=== PATIENT | female | born 1960 | race Two or more races ===

== ENCOUNTER 2020-11-15 10:34 | Outpatient (REF) | payer MEDICAID, SELFPAY ==
--- NOTE | ~2020-11-15 | MM_ITS ---
EXAMINATION: MM SCREENING DIGITAL BREAST TOMOSYNTHESIS, BILATERAL CLINICAL INFORMATION: Screening. Asymptomatic. The lifetime risk of breast cancer based on the Tyrer-Cuzick Model is 8.5%. COMPARISON: Mammography: September 04, 2019 and studies dating back to January 01, 2014 TECHNIQUE: Digital breast tomosynthesis is performed in both the craniocaudal and mediolateral oblique views along with computer-aided detection (CAD). Synthesized 2D images are generated from the tomosynthesis. FINDINGS: The breasts are heterogeneously dense, which may obscure small masses (ACR BI-RADS breast composition Category c). There are no significant masses, abnormal calcifications, or other abnormalities. MM/MM tomosynthesis screening BI IMPRESSION: There are no significant changes from prior study. ASSESSMENT: BI-RADS 1: Negative RECOMMENDATION: Routine annual mammography screening. This patient's information was entered into a reminder system with a target due date for their next mammogram.
== END 2020-11-15 10:35 | disposition home or self-care (01) ==
LOC: HO.MAMMO 10:34
PROVIDERS: PCP Internal Medicine; Visit Provider Internal Medicine
DX: Z12.31 Encounter for screening mammogram for malignant neoplasm of breast (principal)
CPT/HCPCS: 77063; 77067

== ENCOUNTER 2021-07-31 14:42 | Outpatient (REF) | payer MEDICAID, SELFPAY ==
--- NOTE | ~2021-07-31 | XR_ITS ---
EXAMINATION: XR RIBS, RIGHT CLINICAL INFORMATION: Pain and pleurisy COMPARISON: Previous chest x-ray April [address] May 2018 TECHNIQUE: 3 views of the right ribs and one view of the chest were obtained. FINDINGS: The cardiac and mediastinal contours are normal. The lungs are clear. There is no pleural effusion or pneumothorax. No rib fracture or bone lesion is seen. There are mild degenerative changes of the thoracic spine. XR/XR ribs RT min 3V w CXR1V IMPRESSION: Normal-appearing right ribs. No evidence for acute disease in the chest.
== END 2021-07-31 14:43 | disposition home or self-care (01) ==
LOC: HO.XRAY 14:42
PROVIDERS: Visit Provider Family Medicine
DX: R07.81 Pleurodynia (principal); R09.1 Pleurisy
CPT/HCPCS: 71101

== ENCOUNTER 2021-11-20 12:21 | Outpatient (REF) | payer MEDICAID, SELFPAY ==
--- NOTE | ~2021-11-20 | MM_ITS ---
EXAMINATION: MM SCREENING DIGITAL BREAST TOMOSYNTHESIS, BILATERAL CLINICAL INFORMATION: Screening. Asymptomatic. The lifetime risk of breast cancer based on the Tyrer-Cuzick Model is 8%. COMPARISON: Mammography: 11/15/2020, 09/04/2019, 08/29/2018 TECHNIQUE: Digital breast tomosynthesis is performed in both the craniocaudal and mediolateral oblique views along with computer-aided detection (CAD). Synthesized 2D images are generated from the tomosynthesis. FINDINGS: There are scattered areas of fibroglandular density (ACR BI-RADS breast composition Category b). There are no significant masses, abnormal calcifications, or other abnormalities. Breast tissue composition borders on heterogeneously dense. Parenchymal pattern is similar to prior studies. Skin contours are smooth. MM/MM tomosynthesis screening BI IMPRESSION: No mammographic evidence of malignancy. ASSESSMENT: BI-RADS 1: Negative RECOMMENDATION: Routine annual mammography screening. This patient's information was entered into a reminder system with a target due date for their next mammogram.
== END 2021-11-20 12:22 | disposition home or self-care (01) ==
LOC: HO.MAMMO 12:21
PROVIDERS: PCP Internal Medicine; Visit Provider Internal Medicine
DX: Z12.31 Encounter for screening mammogram for malignant neoplasm of breast (principal)
CPT/HCPCS: 77063; 77067

== ENCOUNTER 2022-07-27 11:57 | Outpatient (REF) | payer MEDICAID, SELFPAY ==
--- NOTE | ~2022-07-27 | XR_ITS ---
EXAMINATION: XR HAND, RIGHT CLINICAL INFORMATION: Right hand pain COMPARISON: 02/09/2015 TECHNIQUE: PA, lateral, and oblique views of the right hand. FINDINGS: The bones and soft tissues are normal. No fracture. Alignment is anatomic. Joint spaces are maintained. No erosions or soft tissue calcifications. XR/XR hand RT min 3V IMPRESSION: Normal right hand.
== END 2022-07-27 11:58 | disposition home or self-care (01) ==
LOC: HO.XRAY 11:57
PROVIDERS: PCP Internal Medicine; Visit Provider Internal Medicine
DX: M79.641 Pain in right hand (principal)
CPT/HCPCS: 73130

== ENCOUNTER 2022-11-08 10:15 | Outpatient (REF) | payer MEDICAID, SELFPAY ==
--- NOTE | ~2022-11-08 | XR_ITS ---
EXAMINATION: XR SHOULDER, LEFT CLINICAL INFORMATION: Acute pain left shoulder COMPARISON: None available. TECHNIQUE: Left shoulder is imaged in 4 views. FINDINGS: No fracture, dislocation, destructive process. The glenohumeral joint appears normal. The acromioclavicular alignment is normal. There is small calcification in region of distal superior rotator cuff consistent with calcific tendinosis. XR/XR shoulder LT min 2V IMPRESSION: Calcific tendinosis in region of distal superior rotator cuff.
== END 2022-11-08 10:16 | disposition home or self-care (01) ==
LOC: HO.XRAY 10:15
PROVIDERS: PCP Internal Medicine; Visit Provider Internal Medicine
DX: M25.512 Pain in left shoulder (principal)
CPT/HCPCS: 73030

== ENCOUNTER 2022-11-21 12:46 | Outpatient (REF) | payer MEDICAID, SELFPAY ==
--- NOTE | ~2022-11-21 | MM_ITS ---
EXAMINATION: MM SCREENING DIGITAL BREAST TOMOSYNTHESIS, BILATERAL CLINICAL INFORMATION: Screening. Asymptomatic. The lifetime risk of breast cancer based on the Tyrer-Cuzick Model is 7.5%. COMPARISON: Mammography: November 20, 2021 and studies dating back to May 18, 2016 TECHNIQUE: Digital breast tomosynthesis is performed in both the craniocaudal and mediolateral oblique views along with computer-aided detection (CAD). Synthesized 2D images are generated from the tomosynthesis. FINDINGS: The breasts are heterogeneously dense, which may obscure small masses (ACR BI-RADS breast composition Category c). There are no new significant masses, abnormal calcifications, or other abnormalities. MM/MM tomosynthesis screening BI IMPRESSION: No significant changes from prior exam. ASSESSMENT: BI-RADS 1: Negative RECOMMENDATION: Routine annual mammography screening. This patient's information was entered into a reminder system with a target due date for their next mammogram.
== END 2022-11-21 12:47 | disposition home or self-care (01) ==
LOC: HO.MAMMO 12:46
PROVIDERS: PCP Internal Medicine; Visit Provider Internal Medicine
DX: Z12.31 Encounter for screening mammogram for malignant neoplasm of breast (principal)
CPT/HCPCS: 77063; 77067

== ENCOUNTER 2023-05-20 09:07 | Outpatient (REF) | payer MEDICAID, SELFPAY ==
[2023-05-20 12:09] LABS: Cholesterol 151 mg/dL (<200); HDL Cholesterol 52 mg/dL (>40); LDL Cholesterol Calculated 71 mg/dL (<100); Triglycerides 141 mg/dL (<150)
[2023-05-20 12:15] LABS: Alanine Aminotransferase 12 U/L (0-31); Albumin Level 4.4 g/dL (3.5-5.0); Alkaline Phosphatase 78 U/L (39-117); Anion Gap 14 (12-20); Aspartate Amino Transferase 20 U/L (5-31); Bilirubin Direct 0.2 mg/dL (0.0-0.5); Bilirubin Total 0.6 mg/dL (0.0-1.0); Blood Urea Nitrogen 15 mg/dL (9-16); Calcium 9.7 mg/dL (8.4-10.2); Carbon Dioxide 26 mmol/L (22-29); Chloride 106 mmol/L (96-108); Estimated Glomerular Filt Rate > 60; Glucose Random 106 mg/dL (60-115); Potassium 4.8 mmol/L (3.3-5.1); Sodium 141 mmol/L (135-145); Total Protein 8.1 g/dL (6.5-8.0)
[2023-05-20 12:31] LABS: HIV AB/AG Nonreactive (Nonreactive); HIV Num 1 0.05 S/CO (0.00-0.99); ~HepC Num1 0.05 S/CO (0.00-0.79); ~Hepatitis C Antibody Nonreactive (Nonreactive)
[2023-05-20 14:53] LABS: Reflex LDLD? No
== END 2023-05-20 09:08 | disposition home or self-care (01) ==
LOC: HO.HHCL 09:07
PROVIDERS: Visit Provider Internal Medicine
DX: Z00.00 Encounter for general adult medical examination without abnormal findings (principal); I10 Essential (primary) hypertension; E78.2 Mixed hyperlipidemia
CPT/HCPCS: 36415; 80048; 80061; 80076; 86803; 87389

== ENCOUNTER 2023-08-28 09:36 | Outpatient (REF) | payer MEDICAID, SELFPAY ==
--- NOTE | ~2023-08-28 | XR_ITS ---
EXAMINATION: XR SHOULDER, LEFT CLINICAL INFORMATION: Left shoulder pain COMPARISON: None available. TECHNIQUE: AP external rotation, Grashey, scapular Y, and axillary views of the left shoulder. FINDINGS: No fracture, dislocation or destructive lesion. Minor calcification near the greater tuberosity at the insertion of the supraspinatus tendon is noted. XR/XR shoulder LT min 2V IMPRESSION: Minor degenerative change otherwise unremarkable study. No acute findings.
[2023-08-28 12:40] LABS: Creatinine Urine 33.51 mg/dL; Microalbumin Urine < 5.0 mg/L
== END 2023-08-28 09:37 | disposition home or self-care (01) ==
LOC: HO.HHCL 09:36
PROVIDERS: Visit Provider Internal Medicine
DX: M25.512 Pain in left shoulder (principal); E11.621 Type 2 diabetes mellitus with foot ulcer; L97.509 Non-pressure chronic ulcer of other part of unspecified foot with unspecified severity; Z79.4 Long term (current) use of insulin
CPT/HCPCS: 73030; 82043; 82570

== ENCOUNTER 2023-11-27 12:47 | Outpatient (REF) | payer MEDICARE, MEDICAID, SELFPAY | END 2023-11-27 12:48 | disposition home or self-care (01) | LOC: HO.MAMMO 12:47 | PROVIDERS: PCP Internal Medicine; Visit Provider Internal Medicine | DX: Z12.31 Encounter for screening mammogram for malignant neoplasm of breast (principal) | CPT/HCPCS: 77063; 77067 ==

== ENCOUNTER → 2023-11-27 13:00 | Outpatient (BNV) | payer MEDICARE, MEDICAID, SELFPAY | PROVIDERS: PCP Internal Medicine; Visit Provider Radiology Diagnostic Radiology | DX: Z12.31 Encounter for screening mammogram for malignant neoplasm of breast (principal) | CPT/HCPCS: 77063; 77067 ==

== ENCOUNTER 2024-08-24 09:35 | Outpatient (REF) | payer MEDICARE, MEDICAID, SELFPAY ==
--- OUTSIDE RECORDS SUMMARY | 2024-08-24 09:58 | XMS_ITS | Encounter Summary ---
Author Organization [employer] Address [address] [facility] 7t [place] [address] Care Team Providers Care Gate Agent Name Role Phone Amilcar Louis MD Primary Care Provide r Reason for Visit * Reason Onset Date Comments some pain 08/26/2023 pain medication 08/26/2023 pain from ext 08/26/2023 Encounter Details Date Type Department Care Team (Late st Contact Info) Description 08/26/2023 Telephone [facility] [address] [place], [place] [phone] Abiodun Bean DDS [address] [place] [address] some pain; pain medication; pain from ext Social History Tobacco Use Types Packs/Day Years Used Date Smoking Tobacco: Never Passive Smoke Exposure: Never Smokeless Tobacco: Never Alcohol Use Standard Drinks/Week Comments Never 0 (1 standard drink = 0.6 oz pur e alcohol) Depression Answer Date Recorded Patient Health Questionnaire-9 Score 1 01/10/2023 Housing Stability Answer Date Recorded What is your housing situation today? I have clara lindsay 05/20/[address] you li ve. Do you have problems with any of the following? None of the above 05/20/2023 Food Insecurity Answer Date Recorded Within the past 12 months, y ou worried that your food would run out before you got money to buy more: Often true 08/13/2023 Within the past 12 months,th e food you bought just didn't last and you didn't have enough money to get more: Often true Transportation Answer Date Recorded In the past 12 months, has l ack of transportation kept you from medical appts, meetings, work or from getting things needed for daily living? No 05/20/2023 Utilities Answer Date Recorded In the past 12 months, has t he electric, gas, oil or water company threatened to shut off services in your home? No 05/20/2023 Depression Answer Date Recorded Patient Health Questionnaire-2 Score 0 01/10/2023 Comments No Sex and Gender Information Value Date Recorded Sex Assigned at Female 05/21/2022 10:14 AM EDT Legal Sex Female 10:14 AM EDT Gender Identity Female 05/21/2022 10:14 AM EDT Sexual Orientation Straight 05/21/2022 10 :14 AM EDT documented as of this encounter Miscellaneous Notes * Telephone Encounter - Mara Doe - 09/05/2023 8:12 AM EST Message for Dr. Bean Patient called in yesterday as well. Message was sent to Dr. Barba for assistance. Patient is in extreme pain from ext and wants something sent to the pharmacy. Her daughter has been giving her some tylenol with no relief DR Vieyra signed by Mara Doe at 09/05/2023 8:13 AM EST * Telephone Encounter - Mara Doe - 09/04/2023 2:40 PM EST Message for Dr. Barba Patient had ext on Saturday with Dr. Bean. He is not in today and she is looking to see if something can be sent to the pharmacy. She is taking OTC tylenol and it is not working DR Shinally signed by Mraa Doe at 09/04/2023 2:42 PM EST * Telephone Encounter - Mara Doe - 08/26/2023 8:53 AM EST Patient came in a emergency patient on 08/12. Scripted antibiotics and they helped. The majority ofthe pain went away. But still had slight pain. Over weekend pain intensified a bit more but not emergency status. No swelling or discharge just pain. Would like to know what to do. If medication can be sent again to pharmacy? DR Shinally signed by Mara Doe at 08/26/2023 8:55 AM EST documented in this encounter Plan of Treatment Upcoming Encounters Date Type Department Care Team (Late st Contact Info) Description 08/27/2024 10:15 AM EST Office Visit [facility] [address] [place] [address] Amilcar Louis MD [address] [place] [address] documented as of this encounter Visit Diagnoses Not on filedocumented in this encounter Additional Health Concerns Assessment Noted Time PHQ-9 Depression Total Score: 1 01/11/20 23 3:27 PM EDT documented as of this encounter Care Teams Gate Agent Relationship Specialty Start Date End Date Amilcar Louis MD [address] [place] [address] PCP - General Internal Medicine 04/08/14 Yessenia Olmos Caption WriterDairy Machine Operator Farmworker 09/20/23 documented as of this encounter
--- OUTSIDE RECORDS SUMMARY | 2024-08-24 09:58 | XMS_ITS | Encounter Summary ---
Author Organization [employer] Address [address] [facility] 7t [place] [address] Care Team Providers Care Edger Feeder Name Role Phone Amilcar Louis MD Primary Care Provide r Reason for Visit * Reason Comments Med Refill Encounter Details Date Type Department Care Team ([facility] st Contact Info) Description 05/18/2024 Refill [facility] [address] [place], [place] [phone] Jessie Sanchez MD [address] [place] [address] Neuropathy Social History Tobacco Use Types Packs/Day Years Used Date Smoking Tobacco: Never Passive Smoke Exposure: Never Smokeless Tobacco: Never Alcohol Use Standard Drinks/Week Comments Never 0 (1 standard drink = 0.6 oz pur e alcohol) Depression Answer Date Recorded Patient Health Questionnaire-9 Score 0 10/15/2023 Patient Health Questionnaire-9 Score 0 10/15/2023 Last PHQ-9: Questionnaire Data Not on file 0 10/15/2023 Housing Stability Answer Date Recorded What is [...] Date Recorded Patient Health Questionnaire-2 Score 0 10/15/2023 Comments No Sex and Gender Information Value Date Recorded Sex Assigned at Female 05/21/2022 10:14 AM EDT Legal Sex Female 10:14 AM EDT Gender Identity Female 05/21/2022 10:14 AM EDT Sexual Orientation Straight 05/21/2022 10 :14 AM EDT documented as of this encounter Plan of Treatment Upcoming Encounters Date Type Department Care Team (Late st Contact Info) Description 08/27/2024 10:15 AM EST Office Visit [facility] [address] [place] [address] Amilcar Louis MD [address] [place] [address] documented as of this encounter Visit Diagnoses Diagnosis Neuropathy Mononeuritis of unspecified site documented in this encounter Additional Health Concerns Assessment Noted Time PHQ-9 Depression Total Score: 0 10/15/19 24 10:59 AM EDT documented as of this encounter Care Teams Edger Feeder Relationship Specialty Start Date End Date Amilcar Louis MD [address] [place] [address] PCP - General Internal Medicine 04/08/14 Yessenia Olmos Combat Systems OperatorProduct Promoter Retail Pet 09/20/23 documented as of this encounter
--- OUTSIDE RECORDS SUMMARY | 2024-08-24 09:59 | XMS_ITS | Encounter Summary ---
Author Organization [employer] [facility] Address [address] [facility] 7t [place] [address] Care Team Providers Care Mash Tub Cooker Name Role Phone Amilcar Louis MD Primary Care Provide r Encounter Details Date Type Department Care Team (Late Contact Info) Description 08/31/2022 Refill [facility] [address] [place] [address] [phone] Amilcar Louis MD [address] [place] [address] [phone] Type 2 diabetes mellitus with foot ulcer, with long-term current use of insulin (CMS/HCC) Social History Tobacco Use Types Packs/Day Years Used Date Smoking Tobacco: Former Cigarettes Comments Unknown Sex and Gender Information Value Date Recorded Sex Assigned at Female 05/21/2022 10:14 AM EDT Legal Sex Female 10:14 AM EDT Gender Identity Female 05/21/2022 10:14 AM EDT Sexual Orientation Straight 05/21/2022 10 :14 AM EDT documented as of this encounter Plan of Treatment Upcoming Encounters Date Type Department Care Team (Late st Contact Info) Description 08/27/2024 10:15 AM EST Office Visit [facility] [address] [place] [address] [phone] Amilcar Louis MD [address] [place] [address] [phone] documented as of this encounter Visit Diagnoses Diagnosis Type 2 diabetes mellitus with foot ulcer, with long-term current use of insulin (CMS/HCC) documented in this encounter Care Teams Mash Tub Cooker Relationship Specialty Start Date End Date Amilcar Louis MD [address] [place] [address] PCP - General Internal Medicine 04/08/14 Yessenia Olmos Dye Winch OperatorCommercial Mortgage Broker 09/20/23 documented as of this encounter
--- OUTSIDE RECORDS SUMMARY | 2024-08-24 09:59 | XMS_ITS | Encounter Summary ---
Author Organization [employer] Address [address] [facility] 7t [place] [address] Care Team Providers Care Military Exchange Wireless Manager Name Role Phone Amilcar Louis MD Primary Care Provide r Reason for Visit * Reason Onset Date Comments Triage 08/02/2022 Encounter Details Date Type Department Care Team ([facility] st Contact Info) Description 08/02/2022 Telephone [facility] [address] [place], [place] [phone] Amilcar Louis MD [address] [place], [place] [phone] Triage Social History Tobacco Use Types Packs/Day Years Used Date Smoking Tobacco: Never Assessed Depression Answer Date Recorded Patient Health Questionnaire-9 [...] the past 12 months, has t he [employer], gas, oil or water [employer] threatened to shut off services in your home? No 05/20/2023 Depression Answer Date Recorded Patient Health Questionnaire-2 Score 0 10/15/2023 Comments Unknown Sex and Gender Information Value Date Recorded Sex Assigned at Female 05/21/2022 10:14 AM EDT Legal Sex Female 10:14 AM EDT Gender Identity Female 05/21/2022 10:14 AM EDT Sexual Orientation Straight 05/21/2022 10 :14 AM EDT COVID-19 Exposure Response Date Recorded In the last 10 days, have yo u been in contact with someone who was confirmed or suspected to have Coronavirus/COVID-19? No / Unsure 01/10/2023 3:08 PM EDT documented as of this encounter Miscellaneous Notes * Telephone Encounter - Nirali Bacon RN - 08/02/2022 12:07 PM EST Triage call with [employer] Operations Representative [place] [id number] Pt reports positive home test for Covid 07/31. Pt symptoms are mild, neg for fever, temp is 97, has cough, nasal congestion. Pt is advised to seek assist in ED if fever of 103, difficulty breathing, chest pain/pressure. Pt denies any severe symptoms. Pt reports children advised Pt to talk to MD about medication. Advised that symptoms are mild and reasons for medication is reviewed with Pt. Home care is thoroughly reviewed with Pt . Pt agrees with home care and disposition. Scheduled tele visit with provider for questions regarding medications. tele visit 08/03 @ 330pm with Dr. Tucker. Insurance is verified as active prior to booking. Protocol Used: COVID-19 - Diagnosed or Suspected (Adult) Protocol-Based Disposition: Home Care Positive Triage Question: * [1] COVID-19 diagnosed by positive lab test (e.g., PCR, rapid self-test kit) AND [2] mild symptoms (e.g., cough, fever, others) AND [3] no complications or SOB * All higher-acuity triage questions were negative Care Advice Discussed: * Reassurance and Education - Positive COVID-19 Lab Test and Mild Symptoms * General Care Advice for COVID-19 Symptoms * Cough Medicines * Cough Syrup With Dextromethorphan * Cough Syrup With Dextromethorphan - Extra Notes and Warnings * Humidifier * Coughing Spells * Pain and Fever Medicines * Pain and Fever Medicines - Extra Notes and Warnings * FAQ - Do I Need Special Medicines to Treat COVID-19? * Reasons To Call Back - Fever over 103 F (39.4 C) - Fever lasts over 3 days - Fever returns after being gone for 24 hours - Chest pain or difficulty breathing occurs - You become worse * COVID-19 - How to Protect Others - When You Are Sick With COVID-19 * Telephone Encounter - Breana Jose Antonio - 08/02/2022 10:55 AM EST Patient calling to report positive for COVID ( home kit ) Cough, back pain. Pt is requesting antiviral tablet Patient speaks Hebrew. Advised triage nurse will call patient back. Please contact at [phone] documented in this encounter Plan of Treatment Upcoming Encounters Date Type Department Care Team (Late st Contact Info) Description 08/27/2024 10:15 AM EST Office Visit [facility] [address] [place] [address] Amilcar Louis MD [address] [place] [address] documented as of this encounter Visit Diagnoses Not on filedocumented in this encounter Care Teams Military Exchange Wireless Manager Relationship Specialty Start Date End Date Amilcar Louis MD [address] [place] [phone] PCP - General Internal Medicine 04/08/14 Yessenia Olmos Jet PilotManager Plan 09/20/23 documented as of this encounter
--- OUTSIDE RECORDS SUMMARY | 2024-08-24 09:59 | XMS_ITS | Encounter Summary ---
Author Organization [facility] Address [address] [place] [address] 7t [place] [address] Care Team Providers Care Asphalt Dauber Name Role Phone Amilcar Louis MD Primary Care Provide r Encounter Details Date Type Department Care Team (Latest Contact Info) Description 03/13/2021 Abstract [facility] CONVERSIONS Dental, Provider, DDS Social History Tobacco Use Types Packs/Day Years Used Date Smoking Tobacco: Never Assessed Comments Unknown Sex and Gender Information Value [...] Description 08/27/2024 10:15 AM EST Office Visit [facility] [address] [place] [address] Amilcar Louis MD [address] [place] [phone] documented as of this encounter Visit Diagnoses Not on filedocumented in this encounter Care Teams Asphalt Dauber Relationship Specialty Start Date End Date Amilcar Louis MD [address] [place] [id number] PCP - General Internal Medicine 04/08/14 Yessenia Olmos Calculus TeacherAssociate Professor Of Church Music 09/20/23 documented as of this encounter
--- OUTSIDE RECORDS SUMMARY | 2024-08-24 09:59 | XMS_ITS | Encounter Summary ---
Author Organization [employer] Address [address] [facility] 7t [place] [address] Care Team Providers Care 911 Dispatcher Name Role Phone Amilcar Louis MD Primary Care Provide r Reason for Visit * Reason Onset Date Comments Med Refill 12/23/2023 Encounter Details Date Type Department Care Team ([facility] st Contact Info) Description 12/23/2023 Refill [facility] [address] [place], [place] [phone] Amilcar Louis MD [address] [place] [address] Allergic rhinitis, unspecified seasonality, unspecified trigger Social History Tobacco Use Types Packs/Day Years [...] encounter Miscellaneous Notes * Telephone Encounter - Britney Hagen - 12/23/2023 12:00 PM EDT TC from pt requesting medication refill. Medications needing refill : loratadine (Claritin) 10 MG tablet To be sent to: [facility] [address] [place] [address] documented in this encounter Plan of Treatment Upcoming Encounters Date Type Department Care Team (Late st Contact Info) Description 08/27/2024 10:15 AM EST Office Visit [facility] [address] [place] [phone] Amilcar Louis MD [address] [place] [phone] documented as of this encounter Visit Diagnoses Diagnosis Allergic rhinitis, unspecified seasonality, unspecified trigger documented in this encounter Additional Health Concerns Assessment Noted Time PHQ-9 Depression Total Score: 0 10/15/19 24 10:59 AM EDT documented as of this encounter Care Teams 911 Dispatcher Relationship Specialty Start Date End Date Amilcar Louis MD [address] [place] [id number] PCP - General Internal Medicine 04/08/14 Yessenia Olmos Pickup DriverIndustrial Green Systems Designer 09/20/23 documented as of this encounter
--- OUTSIDE RECORDS SUMMARY | 2024-08-24 09:59 | XMS_ITS | Encounter Summary ---
Author Organization [employer] [facility] Address [address] [place] [address] 7t [place] [address] Care Team Providers Care Application Support Intern Name Role Phone Amilcar Louis MD Primary Care Provide r Encounter Details Date Type Department Care Team (Latest Contact Info) Description 02/05/2019 Abstract [facility] CONVERSIONS Dental, Provider, DDS Social History [...] Description 08/27/2024 10:15 AM EST Office Visit [facility] [address] [place] [address] Amilcar Louis MD [address] [place] [address] documented as of this encounter Visit Diagnoses Not on filedocumented in this encounter Care Teams Application Support Intern Relationship Specialty Start Date End Date Amilcar Louis MD [address] [place] [phone] PCP - General Internal Medicine 04/08/14 Yessenia Olmos Rn Post PartumSugar Drier 09/20/23 documented as of this encounter
--- OUTSIDE RECORDS SUMMARY | 2024-08-24 09:59 | XMS_ITS | Encounter Summary ---
Author Organization [facility] Address [id number] [place] [phone] Care Team Providers Care Summer Law Associate Name Role Phone Amilcar Bauer MD Primary Care Provi lisa Reason for Referral * Imaging (Routine) - Pending Review Specialty Diagnoses / Procedures Referred By Contac t Referred To Contact Cardiology Diagnoses ST elevation myocardial infarction (STEMI), unspecified artery (CMS/HCC) Procedures Transthoracic echocardiogram (TTE) complete with PRN contrast, bubble, strain, and 3D order panel CA TTE W 2D IMAGE COMPLETE W DOPPLER ECHO & COLOR FLOW DOPPLER ECHO CA BEA 2D COMPLETE W/CONTRAST OR W & WO CONTRAST WITH DOPPLER Marco A Williamson MD [address] [place] [address] Dr Dumont [address] [place] [id number] [facility] Referral ID Status Reason Start Date Expiration Date V isits Requested Visits Authorized [id number] Pending Review 08/12/2024 08/12/2025 1 1 * Consultation (Routine) - Pending Review Specialty Diagnoses / Procedures Referred By Contac t Referred To Contact Cardiology / Cardiac Rehabilitation Diagnoses ST elevation myocardial infarction (STEMI), unspecified artery (CMS/HCC) Marco A Williamson MD [address] [place] [address] Dr Dumont [address] [place] [id number] Referral ID Status Reason Start Date Expiration Date Visits Requested Visits Authorized [id number] Pending Review Specialty Services Required 08/12/2024 08/12/2025 1 1 Reason for Visit * Reason Comments Hospital Follow-up Encounter Details Date Type Department Care Team (Late st Contact Info) Description 08/12/2024 9:50 AM EST Office Visit [facility] [address] [place] [address] Marc oA Williamson MD [address] [place] [address] Dr Dumont [address] [place] [address] Chest pain, unspecified type (Primary Dx); ST elevation myocardial infarction (STEMI), unspecified artery (CMS/HCC); HFrEF (heart failure with reduced ejection fraction) ([facility]) Social History Tobacco Use Types Packs/Day Years Used Date Smoking Tobacco: Never Assessed Sex and Gender Information Value Date Recorded Sex Assigned at Not on file Gender Identity Not on file Sexual Orientation Not on file Job Start Date Occupation Industry Not on file Not on file Not on file documented as of this encounter Last Filed Vital Signs Vital Sign Reading Time Taken Comments Blood Pressure 120/76 08/12/2024 10:41 AM EST Pulse 86 08/12/2024 10:41 AM EST Temperature - - Respiratory Rate - - Oxygen Saturation 98% 08/12/2024 10:41 AM EST Inhaled Oxygen Concentration - - Weight 62.1 kg (137 lb) 08/12/2024 10:41 AM EST Height 162.6 cm (5' 4 ) 08/12/2024 10:41 AM EST Body Mass Index 23.52 08/12/2024 10:41 AM EST documented in this encounter Ordered Prescriptions Prescription Sig Dispensed Refills Start Date End Da te metoprolol succinate (TOPROL-XL) 25 mg 24 hr tablet Take 1 tablet (25 mg total) by mouth 1 (one) time each day. Do not crush or chew. 30 each 11 08/12/2024 08/12/2025 documented in this encounter Progress Notes * Marco A Williamson MD - 08/12/2024 9:50 AM EST Images from the original note were not included. [facility] PCP: Amilcar Bauer MD HPI: Trent Almodovar is a 63 y.o. old female with hypertension, hyperlipidemia,, diabetes mellitus type2 who initially came to the hospital in the end of June with a late presenting DE. Coronary angiogram was done at that time which showed complete occlusion of the LAD from the mid segment with poorly visible collaterals. There is a 70% stenosis in the distal RCA as well. She was referred to forCABG evaluation. The cardiac MRI was done on 07/19/2024 which showed nonviable LAD territory. She came to our office today to discuss about subsequent plan. I have reviewed her angiogram as well as cardiac MRI. It seems like the LAD territory is nonviable and hence a MCCABE to LAD is not going to be very beneficial. I called Dr. Alvarez to finalize our plan. He reviewed the coronary angiogram, his consultation noteas well as the cardiac MRI and he got back to me mentioning that surgery is probably not going to be beneficial considering nonviable LAD territory. Hence we are going to move forward with PCI of theRCA at this time. Continue dual antiplatelet therapy with aspirin and Plavix. Started on metoprolol XL 25 mg daily today. Both cardiac MRI as well as echocardiogram indicated ejection fraction of 45%. Patient is referred to cardiac rehab. Will repeat another echocardiogram in 3 months with definitive which will help us to determine whether there is any change in the cardiac function with ACTIVE MEDICATIONS: Outpatient Medications Marked as Taking for the 08/12/24 encounter (Office Visit) with Marco A Williamson MD Medication Sig Dispense Refill amitriptyline (ELAVIL) 25 mg tablet Take 1 tablet (25 mg total) by mouth at bedtime. aspirin 81 mg EC tablet Take 1 tablet (81 mg total) by mouth 1 (one) time each day. atorvastatin (LIPITOR) 80 mg tablet Take 1 tablet (80 mg total) by mouth at bedtime. clopidogreL (PLAVIX) 75 mg tablet Take 1 tablet (75 mg total) by mouth 1 (one) time each day. dapagliflozin propanediol (Farxiga) 10 mg tablet Take 1 tablet (10 mg total) by mouth 1 (one) time each day. ferrous sulfate 325 mg (65 mg elemental iron) tablet Take 1 tablet (325 mg total) by mouth 1 (one) time each day with breakfast. gabapentin (NEURONTIN) 300 mg capsule Take 1 capsule (300 mg total) by mouth 2 (two) times a day. insulin glargine (LANTUS) 100 unit/mL injection Inject 28 Units under the skin at bedtime. insulin lispro 100 unit/mL injection Inject under the skin 3 (three) times a day before meals. -Administer within 15 minutes of a meal loratadine (CLARITIN) 10 mg tablet Take 1 tablet (10 mg total) by mouth 1 (one) time each day. metFORMIN (GLUCOPHAGE) 500 mg tablet Take 2 tablets (1,000 mg total) by mouth 2 (two) times a day with meals. multivitamin with minerals tablet Take 1 tablet by mouth 1 (one) time each day. tirzepatide (Mounjaro) 5 mg/0.5 mL injection Inject 0.5 mL (5 mg total) under the skin. PAST MEDICAL HISTORY: Patient Active Problem List Diagnosis STEMI (ST elevation myocardial infarction) ([facility]) HLD (hyperlipidemia) HTN (hypertension) Chest pain HFrEF (heart failure with reduced ejection fraction) ([facility]) ALLERGIES: Allergies Allergen Reactions Naproxen Rash FAMILY HISTORY: No family history on file. SOCIAL HISTORY: Social History Tobacco Use Smoking status: Not on file Smokeless tobacco: Not on file Substance Use Topics Alcohol use: Not on file REVIEW OF SYSTEM: Constitutional: No appetite Loss, chills, dizziness, fever, night Sweats Eyes: Denies blurred vision, discharge, eye irritation, spots in vision, vision loss Head and Neck: Denies any headache, neck pain Ears, Nose, Mouth, Throat: No issues Cardiovascular: Denies chest pain/pressure, claudication, irregular heart beat, orthopnea, palpitations, syncope Respiratory: Denies cough, hemoptysis, SOB, sputum production, wheezing Gastrointestinal: Denies any abdominal distention, pain, black stools, diarrhea, dysphagia, vomiting Genitourinary: Denies dysuria, flank pain Musculoskeletal: Denies any joint pain or swelling other than mention in HPI Integumentary: Denie any skin rash or ulcer, pruritus Neurological: Denies any abnormal gait or focal weakness, headache, numbness, seizures, slurred speech Psychiatric: Denies any delusions, emotional problems, homicidalideation, suicidal ideation Hematologic: Denies any bleeding tendency, hemorrhage PHYSICAL EXAM: Vitals: 08/12/24 1041 BP: 120/76 BP Location: Left arm Patient Position: Sitting BP Cuff Size: Adult Pulse: 86 SpO2: 98% Weight: 62.1 kg (137 lb) Height: 1.626 m (64 ) Appearance: No Acute Distress, Alert Head Exam: Normocephalic and Atraumatic Eyes: Mild Palor, Sclera Anicteric, PERRL, EOMI Neck: Supple, Non-tender, No carotid bruit, thyromegaly or lymphadenopathy Pulmonary: No Accessory Muscle Use, clear to auscultate bilaterally Cardiovascular: JVD/Rhythm/Heart Sound/Added sound-S1 and S2 regular rate and rhythm, no murmur, nogallop or rub Abdominal Inspection: Normal, Soft, Non-tender, Bowel Sounds Present, No Hepatosplenomegaly Rectal Exam: Deferred Extremity: Peripheral Pulses are palpable and symmetrical, no leg edema Musculoskeletal: No obvious joint pain, swelling or deformity Skin: Skin Color Normal, No rash or visible ulcer on limited examination Hematological: No lymphadenopathy or mass Psychiatry: anxiety +, no delusion EKG: Encounter Date: 08/12/24 ECG 12 lead Result Value Ventricular Rate ECG 86 Atrial Rate 86 P-R Interval 178 QRS Duration 84 Q-T Interval 390 QTc 466 P Wave [place] 61 R [place] 86 T [place] 102 ECG Interpretation Normal sinus rhythm Septal infarct , age undetermined Abnormal ECG No previous ECGs available Confirmed by MARCO A WILLIAMSON ([id number]) on 08/13/2024 6:33:34 AM *Note: Due to a large number of results and/or encounters for the requested time period, some results have not been displayed. A complete set of results can be found in Results Review. TESTING: No results found for: CBCDIF , BMP , PCTLIPID , TSH , BNP PROBLEM LIST: Chest pain, unspecified type ST elevation myocardial infarction (STEMI), unspecified artery (CMS/HCC) HFrEF (heart failure with reduced ejection fraction) ([facility]) ASSESSMENT/PLAN: Multivessel coronary artery disease; late presenting DE; nonviable LAD territory on cardiac MRI: After having detailed discussion with the cardiac surgeon, we finalized the plan that CABG is not going to be beneficial since LAD territory is nonviable on cardiac MRI. We will proceed with PCI of the distal RCA lesion. Will continue dual antiplatelet therapy at this time and schedule cardiac catheterization as an outpatient for definite PCI of the RCA. She is currently on aspirin 81 mg, atorvastatin 80 mg, Plavix 75 mg metoprolol XL 25 mg. Ischemic cardiomyopathy: Ejection fraction is 45% and echo as well as cardiac MRI. She is on metoprolol XL and dapagliflozin. Will plan to start her on Entresto after cardiac catheterization. Uncontrolled diabetes mellitus type 2: Counseled the patient for better diabetic control and she understands it. She is currently on metformin and insulin. I spent 50 minutes for this encounter with the patient, including >50% time spent with direct patient contact for history taking, review of system, physical examination, discussion of the lab and test result and management plan as well as in chart review,indipendent review of imaging along with my own interpretation, documentation and communicating with reffering physician. The [facility] team will continue to co-manage this patient following the plan of care as established by my initial visit and as per AHA guidelines for ongoing management and surveillance of Coronary ArteryDisease, Heart Failure, Hyperlipidemia, and Hypertension This will include medication titration, ini tiation of appropriate medications and further titration, and diagnostic studies to manage this disease process. documented in this encounter Plan of Treatment Upcoming Encounters Date Type Department Care Team (Late st Contact Info) Description 11/10/2024 3:30 PM EDT Ancillary Procedure [facility] [address] [place] [address] 12/21/2024 1:10 PM EDT Office Visit [facility] [address] [place] [address] Mary Ann Allen NP [address] [place] [address] [place] [address] Scheduled Orders Name Type Priority Associated Diagnoses Orde r Schedule Transthoracic echocardiogram (TTE) complete with PRN contrast, bubble, strain, and 3D order panel Echocardiography Routine ST elevation myocardial infarction (STEMI), unspecified artery (CMS/HCC) Expected: 11/10/2024, Expires: 08/12/2025 Scheduled Referrals Name Type Priority Associated Diagnoses Order Schedule Ambulatory referral to Cardiac Rehabilitation Outpatient Referral Routine ST elevation myocardial infarction (STEMI), unspecified artery (CMS/HCC) 1 Occurrences starting 08/12/2024 until 08/12/2025 documented as of this encounter Procedures Procedure Name Priority Date/Time Associated Diagnosis Comments ECG 12-LEAD Routine 08/12/2024 10:48 AM EST Chest pain, unspecified type ST elevation myocardial infarction (STEMI), unspecified artery (CMS/HCC) documented in this encounter Results * ECG 12 lead (08/12/2024 10:48 AM EST) Ventricular Rate ECG 86 BPM GEMUSE Atrial Rate 86 BPM GEMUSE P-R Interval 178 ms GEMUSE QRS Duration 84 ms GEMUSE Q-T Interval 390 ms GEMUSE QTc 466 ms GEMUSE P Wave [place] 61 degrees GEMUSE R [place] 86 degrees GEMUSE T [place] 102 degrees GEMUSE ECG Interpretation Normal sinus rhythm Septal infarct , age undetermined Abnormal ECG No previous ECGs available Confirmed by MARCO A WILLIAMSON ([id number]) on 08/13/2024 6:33:34 AM GEMUSE 08/12/2024 10:4 8 AM EST 08/13/2024 6:33 AM EST Marco A Williamson MD ECG ORDERABLES GEMUSE documented in this encounter Visit Diagnoses Diagnosis Chest pain, unspecified type- Primary ST elevation myocardial infarction (STEMI), unspecified artery (CMS/HCC) HFrEF (heart failure with reduced ejection fraction) (CMS/HCC) documented in this encounter Historical Medications * This list may reflect changes made after this encounter. Medication Sig Dispensed Refills Start Date End Date tirzepatide (Mounjaro) 5 mg/0.5 mL injection Inject 0.5 mL (5 mg total) under the skin. insulin lispro 100 unit/mL injection Inject under the skin 3 (three) times a day before meals. -Administer within 15 minutes of a meal insulin glargine (LANTUS) 100 unit/mL injection Inject 28 Units under the skin at bedtime. clopidogreL (PLAVIX) 75 mg tablet Take 1 tablet (75 mg total) by mouth 1 (one) time each day. ferrous sulfate 325 mg (65 mg elemental iron) tablet Take 1 tablet (325 mg total) by mouth 1 (one) time each day with breakfast. multivitamin with minerals tablet Take 1 tablet by mouth 1 (one) time each day. metFORMIN (GLUCOPHAGE) 500 mg tablet Take 2 tablets (1,000 mg total) by mouth 2 (two) times a day with meals. loratadine (CLARITIN) 10 mg tablet Take 1 tablet (10 mg total) by mouth 1 (one) time each day. gabapentin (NEURONTIN) 300 mg capsule Take 1 capsule (300 mg total) by mouth 2 (two) times a day. atorvastatin (LIPITOR) 80 mg tablet Take 1 tablet (80 mg total) by mouth at bedtime. amitriptyline (ELAVIL) 25 mg tablet Take 1 tablet (25 mg total) by mouth at bedtime. dapagliflozin propanediol (Farxiga) 10 mg tablet Take 1 tablet (10 mg total) by mouth 1 (one) time each day. aspirin 81 mg EC tablet Take 1 tablet (81 mg total) by mouth 1 (one) time each day. added in this encounter Care Teams Summer Law Associate Relationship Specialty Start Date End Date Amilcar Bauer MD [address] [place] [phone] PCP - General Internal Medicine 07/20/24 documented as of this encounter
--- OUTSIDE RECORDS SUMMARY | 2024-08-24 09:59 | XMS_ITS | Encounter Summary ---
Author Organization [employer] [facility] Address [address] [place] [address] [address] [place] [address] Care Team Providers Care Electrical Cad Designer Name Role Phone Amilcar Louis MD Primary Care Provide r Encounter Details Date Type Department Care Team (Latest Contact Info) Description 03/27/2022 Abstract [facility] Dental, Provider, DDS Social History [...] Description 08/27/2024 10:15 AM EST Office Visit [facility] [address] [place] [address] Amilcar Louis MD [address] [place] [phone] documented as of this encounter Visit Diagnoses Not on filedocumented in this encounter Care Teams Electrical Cad Designer Relationship Specialty Start Date End Date Amilcar Louis MD [address] [place] [phone] PCP - General Internal Medicine 04/08/14 Yessenia Olmos Medical Anthropology DirectorAtomizer Assembler 09/20/23 documented as of this encounter
--- OUTSIDE RECORDS SUMMARY | 2024-08-24 09:59 | XMS_ITS | Encounter Summary ---
Author Organization [employer] [facility] Address [address] [facility] [address] [place] [address] Care Team Providers Care Technical Support Intern Name Role Phone Amilcar Louis MD Primary Care Provide r Encounter Details Date Type Department Care Team (Late Contact Info) Description 11/21/2022 Abstract [facility] [address] [place] [phone] Amilcar Louis MD [address] [place] [phone] Social History Tobacco Use Types Packs/Day Years Used Date Smoking Tobacco: Never Smokeless Tobacco: Never Alcohol Use Standard Drinks/Week Comments Never 0 (1 standard drink = 0.6 oz pur e alcohol) Comments No Sex and Gender Information Value [...] suspected to have Coronavirus/COVID-19? No / Unsure 11/14/2022 10:33 AM EDT documented as of this encounter Plan of Treatment Upcoming Encounters Date Type Department Care Team (Late Contact Info) Description 08/27/2024 10:15 AM EST Office Visit [facility] [address] [place] [address] [phone] Amilcar Louis MD [address] [place], [place] [phone] documented as of this encounter Procedures Procedure Name Priority Date/Time Associated Diagnosis Comments COLONOSCOPY Routine 10/02/2018 documented in this encounter Results * Colonoscopy (10/02/2018) Colonoscopy Normal Normal 10/02/2018 Narrative Ana M Tosin - 10/02/2018 11:37 AM EDT Recommended 10 year follow up ( see scanned report) us Historical Provider [facility] MAIN[facility] Edited Result - Final documented in this encounter Visit Diagnoses Not on filedocumented in this encounter Care Teams Technical Support Intern Relationship Specialty Start Date End Date Amilcar Louis MD [address] [place] [phone] PCP - General Internal Medicine 04/08/14 Yessenia Olmos Roll Press OperatorLicensed Weigher 09/20/23 documented as of this encounter
--- OUTSIDE RECORDS SUMMARY | 2024-08-24 09:59 | XMS_ITS | Data Portability ---
Author Organization [employer] Address [address] [place] [phone] Care Team Providers Care [place] Aide Name Role Phone [facility] OTHER [facility] OTHER Assessment Encounter Date Assessment Date Assessment LastModified by Organization Details LastModified Time 07/16/2024 07/16/2024 As noted, we were called to see this patient regarding concerns of chest pain. Evaluation in the field was performed by my mosaic worker colleague, as noted above, I provided real-time direction and supervision for this visit. The evaluation revealed 63y F with HTN and DM presenting w 1d radiating chest pain to left shoulder with intermittent shob showing V1-3 ST elevation. VSS stable, no dizziness, confusion. On site medic calling 911 for ER transport, will administer aspirin 325mg, apply O2, start line if able before team's arrival. Impression: chest pain, r/o ACS Plan: ER referral Primary care, [facility] Not available 07/16/2024 17:01:20 Plan of Treatment Reminders Order Date Submit Date Provider Last Modified By Organization Details Last Modified Time Details Appointments None recorded. Lab None recorded. Referral None recorded. Procedures None recorded. Surgeries None recorded. Imaging None recorded. Medication Orders aspirin 81 mg chewable tablet 2023 024 atilhou Not available 18:14:31 Patient TargetsNo targets recorded. Patient InstructionsNo instructions recorded. Reason for Referral None Reported. Medical Equipment None Reported. Allergies Allergen ID Allergen Name Allergen Category Reaction Reaction Severity Criticality Documentation Date Start Date Code Code System Note Provider Name and Address Organization Details Recorded Time 44120 Naprosyn medicatio n Not available Not available Not available 07/16/2024 2 RxNorm Not Available [employer] - production 13:36:43 Medications Name Sig Start Date Stop Date Status Note LastModified by Organization Details LastModified Time multivitamin tablet active Not Available Not Available Not Available amoxicillin 500 mg capsule active Not Available Not Availab le Not Available metformin 500 mg tablet active Not Available Not Available No t Available atorvastatin 20 mg tablet active Not Available Not Available Not Available enalapril maleate 20 mg tablet active Not Available Not Available Not Available FreeStyle Lancets 28 gauge active Not Available Not Available Not Available aspirin 81 mg tablet,delayed release active Not Available Not Available Not Available acetaminophen 500 mg tablet active Not Available Not Availabl e Not Available acetaminophen ER 650 mg tablet,extende d release active Not Available Not Available No t Available amitriptyline 25 mg tablet active Not Available Not Available Not Available gabapentin 300 mg capsule active Not Available Not Available N ot Available loratadine 10 mg tablet active Not Available Not Available No t Available chlorhexidine gluconate 0.12 % mouthwash active Not Available Not Available Not Available UltiCare Pen Needle 31 gauge x 5/16 active Not Available Not Availabl e Not Available FreeStyle Lite Strips active Not Available Not Available Not Available Lantus Solostar U-100 Insulin 100 unit/mL (3 mL) subcutaneous pen active Not Available Not Available Not Available Humalog KwikPen (U-100) Insulin 100 unit/mL subcutaneous active Not Available Not Available Not Available BD Ultra-Fine Sandra Pen Needle 32 gauge x 5/32 active Not Available Not Availabl e Not Available Farxiga 5 mg tablet active Not Available Not Available Not Available Jardiance 25 mg tablet active Not Available Not Available No t Available Trulicity 3 mg/0.5 mL subcutaneous pen injector active Not Available Not Available Not Available Trulicity 4.5 mg/0.5 mL subcutaneous pen injector active Not Available Not Available Not Available BinaxNOW COVID-19 Ag Self Test kit Use as Directed on the Package active Not Available Not Available No t Available Vitals Date Recorded Oxygen saturation Oxygen saturation in Arterial blood by Pulse oximetry Respiratory rate Body temperature Heart rate Systolic blood pressure Diastolic blood pressure Provider Name and Address Organization Details Last Updated DateTime 4 98 % 98 % 18 /min 98.1 [degF] 100 /min 129 mm[Hg] 69 mm[Hg] Not Available [employer] production 4 16:42:04 Social History None recorded. Functional Status None recorded. Mental Status None recorded. Family History Nothing Reported. Medical History No medical history recorded. Gynecological HistoryNo gynecological history recorded. Obstetrics History GPAL:G 0 P 0 0 0 0 Past Encounters Encounter ID Performer Location Encounter Start Date Encounter Closed Date Diagnosis/Indication Diagnosis SNOMED-CT Code Diagnosis ICD10 Code Diagnosis Note [id number] Stacy Javier MD Main - [facility] [address] [place] [address] 07/16/2024 16:42:02 07/17/2024 12:37:27 Chest pain 43538616 R07.9 Health Concerns Section Related Observation LastModified by Organization Detai ls LastModified Time None Recorded Concern Status LastModified by Organization Details LastModified Time None Recorded Advance Directives Directive None Recorded Payers Encounter Date Sequence Insurance Name Policy Number Policy Lynn Covered Member ID Lynn Member ID Guarantor Name 07/16/2024 1 [facility] - DOS ON OR AFTER 2022 - DUAL ELIGIBLE - GROUP HOME OPTIONS AND ONE CARE (MEDICARE REPLACEMENT/AD VANTAGE - HMO) Trent Almodovar [id number] Trent [employer] Notes Date Note Type Note Provider Name and Address Organization Details Recorded Time 07/16/2024 text/html HPI: Call returned to Trent Gilmore to triage below. Patient alert and oriented x 3. Speaking in clear full sentences. No audible wheezing or distress materials and corrosion engineer. Per pt states feeling SOB with exertion. Pt also endorse chest tightness. Pt denies any CP. Pt denies any PRUITT or dizziness. Pt checked BP while materials and corrosion engineer 189/139 was via wrist BP cuff , BS fasting today was 124mg/dL. Pt denies again any PRUITT, dizziness or CP. Pt unable to come into our office for walk in center. Pt agrees to [facility] for evaluation. Confirmed demographics and allergies. ..................... ..................... ..................... ..................... ..................... ..................... ............... CRC Nurse Triage Notes (Rose Lassiter - RN): Chief Complaints: Fatigue, Breathing problems PMH: Hypertension, Coronary Artery Disease, Diabetes Mellitus Type 2 Comments: CRC RN did not require any additional information to process this visit. Display Manager Organization Information for [employer] Business Legal Name: [employer].? Address: [address] [place] [address], [place] Cutter: Tulio SANCHEZ No.: [id number] Display Manager POC Test Results from [facility] EKG (16:34:05) EKG test performed. Attachments uploaded as part of this test result can be found under Documents section. ..................... ..................... ..................... ..................... ..................... ..................... ............... Display Manager Note From [facility] Shin: Dispatched to above address for shortness of breath. On arrival patients daughter met [facility] at the door, reports patient has been having chest pain since yesterday. Patient 63 y/o F, found sitting in chair, AOX4, airway patent, speaking in full sentences, good color, in no apparent distress. Patient reports since yesterday morning has been having episodes of sub sternal chest pain radiating to L shoulder and neck, episodes of nausea and lightheadedness and chest pressure with exertional SOB at times. Patients vital signs checked. Secondary assessment, pupils PERRL, airway patent, no JVD, trachea midline, equal chest rise and fall, lungs clear all villareal, abdomen soft non tender, no signs of trauma, good radial pulse, skin pink warm and dry. 12 lead EKG showed sinus rhythm with ST elevation V1 V2 V3, results uploaded. [facility] contacted, spoke with Dr. Javier, advised of patient complaints, exam findings and test results. [facility] agrees likely STEMI, recommends transport to laborer filter plant, ASA and IV established. 911 contacted, [facility] responded. [facility] ambulance arrived. Patient moved to stair chair, secured, carried out of house, moved to stretcher, secured, moved to ambulance without incident. Patients vital signs obtained and monitored throughout transport. IV access established, 20g R AC. Patients BGL checked, 165mg/dl. Patient reports no pain at this time but still feels generally unwell. STEMI alert called to [facility]. Patient transported to [facility] without incident or change in status. Verbal report given to STEMI team. SC8 clear. EOR. ..................... ..................... ..................... ..................... ..................... ..................... ............... [facility] Consulted: Stacy Javier ..................... ..................... ..................... ..................... ..................... ..................... ............... Disposition: Fulfilled Stacy Javier MD [address] [facility] [address], [place], [phone], [employer] 07/16/2024 19:03:57 OBGyn Episode No OBEpisode recorded.
--- OUTSIDE RECORDS SUMMARY | 2024-08-24 10:00 | XMS_ITS | Encounter Summary ---
Author Organization [employer] Address [address] [facility] [facility] [address] [place] [address] Care Team Providers Care Cabbage Salter Name Role Phone Amilcar Louis MD Primary Care Provide r Reason for Visit * Reason Onset Date Comments Chart Prep 08/17/2024 Encounter Details Date Type Department Care Team ([facility] st Contact Info) Description 08/17/2024 Telephone [facility] MEDICINE [address] [place], [place] [phone] Amilcar Louis MD [address] [place], [place] [phone] Chart Prep Social History Tobacco Use Types Packs/Day Years [...] encounter Miscellaneous Notes * Telephone Encounter - Lorena Pastrana [place] - 08/17/2024 10:46 AM EST Chart Prep Labs: not done Images: not applicable Vaccines due: Covid Due, PCV20 Due, Flu Due, and RSV in Pharmacy Due Referrals: Not Applicable Screenings: Eye Exam Overdue care gaps: Glucose and SDOH Chart prep for upcoming appt with Dr.Esparza deras. LB documented in this encounter Plan of Treatment Upcoming Encounters Date Type Department Care Team (Late st Contact Info) Description 08/27/2024 10:15 AM EST Office Visit [facility] MEDICINE [address] [place] [address] Amilcar Louis MD [address] [place] [address] documented as of this encounter Visit Diagnoses Not on filedocumented in this encounter Additional Health Concerns Assessment Noted Time PHQ-9 Depression Total Score: 0 10/15/19 24 10:59 AM EDT documented as of this encounter Care Teams Cabbage Salter Relationship Specialty Start Date End Date Amilcar Louis MD [address] [place] [id number] PCP - General Internal Medicine 04/08/14 Yessenia Olmos Info AnalystAutomobile Designer 09/20/23 documented as of this encounter
--- OUTSIDE RECORDS SUMMARY | 2024-08-24 10:00 | XMS_ITS | Encounter Summary ---
Author Organization [employer] Address [address] [facility] [address] [place] [address] Care Team Providers Care Environmental Control Administrator Name Role Phone Amilcar Louis MD Primary Care Provide r Reason for Visit * Reason Onset Date Comments Appointment Confirmation 08/06/2024 Encounter Details Date Type Department Care Team ([facility] Contact Info) Description 08/06/2024 Telephone [facility] MEDICINE [address] [place], [place] [phone] Amilcar Louis MD [address] [place], [place] [phone] Appointment Confirmation Social History Tobacco Use Types Packs/Day Years [...] Telephone Encounter - Lorena Pastrana [place] - 08/06/2024 9:36 AM EST Contacted pt due to duplicate appts, had to leave a detailed message in regards to the cancellationof her appt in September because it was not needed. I also wanted to inform her that her appt on 09/01/2024 got moved to a sooner appt date for 08/27/2024. Will be sending new appt details via mail, and expressed that if the pt can not make it on hat day (08/27/2024) to please return the call. LB documented in this encounter Plan of Treatment Upcoming Encounters Date Type Department Care Team (Late st Contact Info) Description 08/27/2024 10:15 AM EST Office Visit [facility] MEDICINE [address] [place] [address] Amilcar Louis MD [address] [place] [address] documented as of this encounter Visit Diagnoses Not on filedocumented in this encounter Additional Health Concerns Assessment Noted Time PHQ-9 Depression Total Score: 0 10/15/19 24 10:59 AM EDT documented as of this encounter Care Teams Environmental Control Administrator Relationship Specialty Start Date End Date Amilcar Louis MD [address] [place] [address] PCP - General Internal Medicine 04/08/14 Yessenia Olmos Lead RiderEntry Level Staff Accountant 09/20/23 documented as of this encounter
--- OUTSIDE RECORDS SUMMARY | 2024-08-24 10:00 | XMS_ITS | Encounter Summary ---
Author Organization [employer] Address [address] [facility] [address] [place] [address] Care Team Providers Care Communications Maintainer Name Role Phone Amilcar Louis MD Primary Care Provide r Reason for Visit * Reason Onset Date Comments Durable Medical Equipment 08/13/2024 Encounter Details Date Type Department Care Team ([facility] st Contact Info) Description 08/13/2024 Telephone [facility] MEDICINE [address] [place], [place] [phone] Amilcar Louis MD [address] [place] [address] Durable Medical Equipment Social History Tobacco Use Types Packs/Day Years [...] encounter Miscellaneous Notes * Telephone Encounter - Nancy Hernandes - 08/20/2024 1:41 PM EST Signed confirmation of order form and updated Rx faxed to [facility]. Confirmation received and sent to scan. * Telephone Encounter - Nancy Hernandes - 08/13/2024 2:46 PM EST Received confirmation of order form req new Rx with qty/mo. Updated Rx along with form placed on pcp desk for signature. documented in this encounter Plan of Treatment Upcoming Encounters Date Type Department Care Team (Late st Contact Info) Description 08/27/2024 10:15 AM EST Office Visit [facility] MEDICINE [address] [place] [address] Amilcar Louis MD [address] [place] [address] documented as of this encounter Visit Diagnoses Not on filedocumented in this encounter Additional Health Concerns Assessment Noted Time PHQ-9 Depression Total Score: 0 10/15/19 24 10:59 AM EDT documented as of this encounter Care Teams Communications Maintainer Relationship Specialty Start Date End Date Amilcar Louis MD [address] [place] [address] PCP - General Internal Medicine 04/08/14 Yessenia Olmos Medical Lab ScientistAgency Sales Director 09/20/23 documented as of this encounter
--- OUTSIDE RECORDS SUMMARY | 2024-08-24 10:00 | XMS_ITS | Encounter Summary ---
Author Organization [employer] Address [address] [facility] [address] [place] [address] Care Team Providers Care Director Of Operations Support Name Role Phone Amilcar Louis MD Primary Care Provide r Reason for Visit * Reason Onset Date Comments DME L&C 07/31/2024 Encounter Details Date Type Department Care Team ([facility] st Contact Info) Description 07/31/2024 Telephone [facility] MEDICINE [address] [place], [place] [phone] Amilcar Louis MD [address] [place] [address] DME L&C Social History Tobacco Use Types Packs/Day Years [...] Telephone Encounter - Lorena Pastrana [place] - 07/31/2024 10:26 AM EST Received confirmation for liners, sent to to scan. LB documented in this encounter Plan of Treatment Upcoming Encounters Date Type Department Care Team (Late st Contact Info) Description 08/27/2024 10:15 AM EST Office Visit [facility] MEDICINE [address] [place] [address] Amilcar Louis MD [address] [place] [address] documented as of this encounter Visit Diagnoses Not on filedocumented in this encounter Additional Health Concerns Assessment Noted Time PHQ-9 Depression Total Score: 0 10/15/19 24 10:59 AM EDT documented as of this encounter Care Teams Director Of Operations Support Relationship Specialty Start Date End Date Amilcar Louis MD [address] [place] [address] PCP - General Internal Medicine 04/08/14 Yessenia Olmos PharmacologistPiece Dyeing Machine Tender 09/20/23 documented as of this encounter
--- OUTSIDE RECORDS SUMMARY | 2024-08-24 10:01 | XMS_ITS | Encounter Summary ---
Author Organization [employer] Address [address] [place] [address] Care Team Providers Care Dockmaster Name Role Phone Amilcar Louis MD Primary Care Provide r Reason for Visit * Reason Comments Diabetes Encounter Details Date Type Department Care Team (Latest Contact Info) Description 07/28/2024 10:15 AM EST Office Visit [facility] [address] [place], [place] [phone] Amilcar Louis MD [address] [place], [place] [phone] Hospital discharge follow-up (Primary Dx); 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 edema, with long-term current use of insulin (CMS/HCC); Benign hypertension; Mixed hyperlipidemia; ST elevation myocardial infarction (STEMI), unspecified artery (CMS/HCC); Atherosclerosis of [place] coronary artery of [place] heart without angina pectoris Social History Tobacco Use Types Packs/Day Years [...] the past 12 months, has t he [employer], gas, oil or water company threatened to [...] AM EDT documented as of this encounter Last Filed Vital Signs Vital Sign Reading Time Taken Comments Blood Pressure 125/70 07/28/2024 10:14 AM EST Pulse 93 07/28/2024 10:14 AM EST Temperature 36.2 ??C (97.1 ??F) 07/28/2024 1 0:14 AM EST Respiratory Rate 20 07/28/2024 10:1 4 AM EST Oxygen Saturation 94% 07/28/2024 10: 14 AM EST Inhaled Oxygen Concentration - - Weight 61.6 kg (135 lb 12.8 oz) 025 10:14 AM EST Height 160 cm (5' 3 ) 07/28/2024 10:14 AM EST Body Mass Index 24.06 07/28/2024 10:14 AM EST documented in this encounter Progress Notes * Lorena Pastrana MA - 07/28/2024 10:15 AM EST 3 * Amilcar Vicente MD - 07/28/2024 10:15 AM EST SUBJECTIVE Trent Gilmore is a 63 y.o. female who presents for Diabetes. Patient is here for a HDF. She feels good now, has no particular concerns or complaints Diabetes She has type 2 diabetes mellitus. Pertinent negatives for hypoglycemia include no headaches. Pertinent negatives for diabetes include no chest pain. Review of Systems Constitutional: Negative for fever. HENT: Negative for sore throat. Respiratory: Negative for cough and shortness of breath. Cardiovascular: Negative for chest pain. Gastrointestinal: Negative for abdominal pain. Neurological: Negative for headaches. Allergies Allergen Reactions Naproxen Swelling Other reaction(s): face red & swollen OBJECTIVE Vitals: 07/28/24 1014 BP: 125/70 BP Location: Left arm Patient Position: Sitting BP Cuff Size: Adult Pulse: 93 Resp: 20 Temp: 97.1 ??F (36.2 ??C) TempSrc: Temporal SpO2: 94% Weight: 135 lb 12.8 oz (61.6 kg) Height: 5' 3 (1.6 m) Physical Exam Vitals reviewed. Constitutional: Appearance: Normal appearance. HENT: Head: Normocephalic and atraumatic. Right Ear: External ear normal. Left Ear: External ear normal. Nose: Nose normal. Mouth/Throat: Mouth: Mucous membranes are moist. Eyes: Conjunctiva/sclera: Conjunctivae normal. Cardiovascular: Rate and Rhythm: Normal rate and regular rhythm. Pulmonary: Effort: Pulmonary effort is normal. Breath sounds: Normal breath sounds. Skin: General: Skin is warm. Neurological: Mental Status: She is alert. Mental status is at baseline. Assessment/Plan Problem List Items Addressed This Visit Hospital discharge follow-up - Primary Pt is here after she was recently admitted to [facility] was admitted on 07/16 with a late presenting anterior STEMI. S/p cardiac cath on 07/17 that showed multivessel disease. Pt being followed up as outpatient] for CABG workup. Has upcoming appointment with Dr Strickland who is organizing outpatient repeat cardiac cath and CT surg will follow as outpatient. Pt has all his meds and scheduled follow ups. Type 2 diabetes mellitus with retinopathy (CMS/HCC) Pt is here for a f/u Under the care of [facility] , last seen 11/29/2023. Pt tells me she has a follow up 07/30/2024 She is on a regimen of: Metformin ER 500 mg 2 tabs po BID, Trulicity 4.5 mg sc weekly on and Lantus 22 units sc q pm and Humalog sliding scale. Hgb A1c 07/28/2024 : 9.7 from 8.4 Eye exam done on: 02/28/2024 at [facility] Also follows with retinal specialist, she has a Hx of retinal bleed, last seen 04/2023 she uses a cane to ambulate. Microalbumin checked on: 10/27/2021 was: 0.7 Pt is on an JANE inhibitor. Foot check risk of one Pt reports compliance with Asa 81 mg po daily Plan: Continue current regimen f/u with Endocrinology Pt advised to: adhere to diabetic diet check your blood sugars regularly check your feet on a daily basis Relevant Orders POCT Glucose (Completed) POCT HGB A1C (Completed) Benign hypertension Pt here for a f/u blood pressure controlled While in the hospital they discontinued her Enalapril due to low BP Given adequate blood pressure will continue off medications Most recent electrolytes, Bun and Creatinine done on: 11/29/2023 were within normal limits. patient advised to adhere to a low sodium diet, encouraged about medication compliance, counseled about weight loss. Relevant Orders Comprehensive Metabolic Panel Hyperlipidemia Pt here for a f/u Most recent lipid profile from: Lab Results Component Value Date TRIG 141 05/20/2023 TRIG 117 07/25/2022 CHOL 151 05/20/2023 LDLCHOLCAL 71 05/20/2023 HDL 52 05/20/2023 She is on Atorvastatin 80 mg po qhs , increased while at the Hospital advised to try to adhere to a low cholesterol diet, counseled and educated about diet and exercise,Patient encouraged to come up with a personal goal for weight loss. Plan: repeat Lipid profile Relevant Medications atorvastatin (Lipitor) 80 MG tablet Other Relevant Orders Lipid Panel, Standard STEMI (ST elevation myocardial infarction) ([facility]) Pt here for a HDF admitted to [facility] from 07/16-07/19/2024 She initially presented with sudden onset chest pain and new onset dyspnea on exertion. Found to have anteroseptal infarct on EKG with resolution of chest pain, concerning for a late presentation anterior myocardial infarction.Troponin peaked at 1118 on 07/16 Cardiac cath showed multivessel disease: Mild diffuse disease of LMCA, 100% stenosis in the proximal mid LAD, 50% stenosis in mid subsection of distal LCx, 50% stenosis in proximal subsection of distal RCA, 70% stenosis in the distal subsection of distal RCA, 50% stenosis in the distal subsection posterior left ventricular branch Echo 07/17 showed Mid to distal anterior wall, distal anterior septal wall and apex is akinetic. LVEF 45%. Doppler evidence of increased filling pressures. Cardiothoracic surgery recommended repeat cardiac cath and outpatient CT surg follow-up. Pt has a follow up with them 08/12/2024 Med changes: Pt was started on Plavix, Dapagliflozin was increased to 10 mg and Atorvastatin to 80mg. Relevant Medications clopidogrel (Plavix) 75 MG tablet Atherosclerosis of coronary artery Pt used to follow at [facility], Last seen 12/21/2013 . Previously pt wanted to be referred to [facility] Cardiology. Pt was admitted on 07/16 to [facility] with a late presenting anterior STEMI, now asymptomatic. And discharged 07/19/2024 She is now S/p cardiac cath on 07/17 that showed multivessel disease for which Cardiothoracic surgeon recommended outpatient follow up for CABG workup. Dr Strickland is organizing outpatient repeat cardiac cath and CT surg will follow as outpatient. Relevant Medications clopidogrel (Plavix) 75 MG tablet documented in this encounter Miscellaneous Notes * Assessment & Plan Note - Amilcar iVcente MD - 07/28/2024 4:01 PM EST Associated Problem(s): Atherosclerosis of coronary artery Pt used to follow at [facility], Last seen 12/21/2013 . Previously pt wanted to be referred to [facility] Cardiology. Pt was admitted on 07/16 to [facility] with a late presenting anterior STEMI, now asymptomatic. And discharged 07/19/2024 She is now S/p cardiac cath on 07/17 that showed multivessel disease for which Cardiothoracic surgeon recommended outpatient follow up for CABG workup. Dr Strickland is organizing outpatient repeat cardiac cath and CT surg will follow as outpatient. * Assessment & Plan Note - Amilcar Vicente MD - 07/28/2024 10:49 AM EST Associated Problem(s): STEMI (ST elevation myocardial infarction) ([facility]) Pt here for a HDF admitted to [facility] from 07/16-07/19/2024 She initially presented with sudden onset chest pain and new onset dyspnea on exertion. Found to have anteroseptal infarct on EKG with resolution of chest pain, concerning for a late presentation anterior myocardial infarction.Troponin peaked at 1118 on 07/16 Cardiac cath showed multivessel disease: Mild diffuse disease of LMCA, 100% stenosis in the proximal mid LAD, 50% stenosis in mid subsection of distal LCx, 50% stenosis in proximal subsection of distal RCA, 70% stenosis in the distal subsection of distal RCA, 50% stenosis in the distal subsection posterior left ventricular branch Echo 07/17 showed Mid to distal anterior wall, distal anterior septal wall and apex is akinetic. LVEF 45%. Doppler evidence of increased filling pressures. Cardiothoracic surgery recommended repeat cardiac cath and outpatient CT surg follow-up. Pt has a follow up with them 08/12/2024 Med changes: Pt was started on Plavix, Dapagliflozin was increased to 10 mg and Atorvastatin to 80mg. * Assessment & Plan Note - Amilcar Vicente MD - 07/28/2024 10:44 AM EST Associated Problem(s): Hospital discharge follow-up Pt is here after she was recently admitted to [facility] was admitted on 07/16 with a late presenting anterior STEMI. S/p cardiac cath on 07/17 that showed multivessel disease. Pt being followed up as outpatient] for CABG workup. Has upcoming appointment with Dr Strickland who is organizing outpatient repeat cardiac cath and CT surg will follow as outpatient. Pt has all his meds and scheduled follow ups. * Assessment & Plan Note - Amilcar Vicente MD - 07/28/2024 10:37 AM EST Associated Problem(s): Hyperlipidemia Pt here for a f/u Most recent lipid profile from: Lab Results Component Value Date TRIG 141 05/20/2023 TRIG 117 07/25/2022 CHOL 151 05/20/2023 LDLCHOLCAL 71 05/20/2023 HDL 52 05/20/2023 She is on Atorvastatin 80 mg po qhs , increased while at the Hospital advised to try to adhere to a low cholesterol diet, counseled and educated about diet and exercise,Patient encouraged to come up with a personal goal for weight loss. Plan: repeat Lipid profile * Assessment & Plan Note - Amilcar Vicente MD - 07/28/2024 10:36 AM EST Associated Problem(s): Benign hypertension Pt here for a f/u blood pressure controlled While in the hospital they discontinued her Enalapril due to low BP Given adequate blood pressure will continue off medications Most recent electrolytes, Bun and Creatinine done on: 11/29/2023 were within normal limits. patient advised to adhere to a low sodium diet, encouraged about medication compliance, counseled about weight loss. * Assessment & Plan Note - Amilcar Vicente MD - 07/28/2024 10:36 AM EST Associated Problem(s): Type 2 diabetes mellitus with retinopathy (CMS/HCC) Pt is here for a f/u Under the care of [facility] , last seen 11/29/2023. Pt tells me she has a follow up 07/30/2024 She is on a regimen of: Metformin ER 500 mg 2 tabs po BID, Trulicity 4.5 mg sc weekly on and Lantus 22 units sc q pm and Humalog sliding scale. Hgb A1c 07/28/2024 : 9.7 from 8.4 Eye exam done on: 02/28/2024 at [facility] Also follows with retinal specialist, she has a Hx of retinal bleed, last seen 04/2023 she uses a cane to ambulate. Microalbumin checked on: 10/27/2021 was: 0.7 Pt is on an JANE inhibitor. Foot check risk of one Pt reports compliance with Asa 81 mg po daily Plan: Continue current regimen f/u with Endocrinology Pt advised to: adhere to diabetic diet check your blood sugars regularly check your feet on a daily basis documented in this encounter Plan of Treatment Upcoming Encounters Date Type Department Care Team (Late st Contact Info) Description 08/27/2024 10:15 AM EST Office Visit [facility] [address] [place] [phone] Amilcar Louis MD [address] [place] [address] Scheduled Orders Name Type Priority Associated Diagnoses Orde r Schedule Lipid Panel, Standard Lab Routine Mixed hyperlipidemia Ordered: 07/28/2024 Comprehensive Metabolic Panel Lab Routine Benign hypertension Ordered: 07/28/2024 documented as of this encounter Procedures Procedure Name Priority Date/Time Associated Diagnosis Comments POCT GLYCATED HEMOGLOBIN, TOTAL Routine 07/28/2024 10:30 AM EST 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 edema, with long-term current use of insulin ([facility]) POCT GLUCOSE Routine 07/28/2024 10:24 AM EST 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 edema, with long-term current use of insulin (CMS/[facility]) documented in this encounter Results * (ABNORMAL) POCT HGB A1C (07/28/2024 10:30 AM EST) Hemoglobin A1C 9.7(A) 4.0 - 6.0 % QC Media Lot # [id number] Lot# Expiration Date Blood 07/28/2024 10:3 0 AM EST Amilcar Vicente MD POINT OF CARE TEST EN TER/EDIT ORDERABLES Final Result * (ABNORMAL) POCT Glucose (07/28/2024 10:24 AM EST) Glucose Blood, POC 237(A) 60 - 200 mg/dL QC Media Lot # [id number] Lot# Expiration Date Blood Capillary blood specimen / Unknown 07/28/2024 10:24 AM EST Amilcar Vicente MD POINT OF CARE TEST EN TER/EDIT ORDERABLES Final Result documented in this encounter Visit Diagnoses Diagnosis Hospital discharge follow-up- Primary Other follow-up examination 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 edema, with long-term current use of insulin (CMS/HCC) Benign hypertension Essential hypertension, benign Mixed hyperlipidemia ST elevation myocardial infarction (STEMI), unspecified artery (CMS/HCC) Atherosclerosis of [place] coronary artery of [place] heart without angina pectoris documented in this encounter Additional Health Concerns Assessment Noted Time PHQ-9 Depression Total Score: 0 10/15/19 24 10:59 AM EDT documented as of this encounter Care Teams Dockmaster Relationship Specialty Start Date End Date Amilcar Louis MD [address] [place] [phone] PCP - General Internal Medicine 04/08/14 Yessenia MarcosAmarilis Director Of In Service EducationWindows Desktop Support 3/1/24 documented as of this encounter
--- OUTSIDE RECORDS SUMMARY | 2024-08-24 10:01 | XMS_ITS | Encounter Summary ---
Author Organization [employer] Address [address] [place] [address] Care Team Providers Care Email Designer Name Role Phone Amilcar Louis MD Primary Care Provide r Reason for Visit * Reason Onset Date Comments Med Refill 07/30/2024 Encounter Details Date Type Department Care Team ([facility] st Contact Info) Description 07/30/2024 Refill [facility] [address] [place], [place] [phone] Amilcar Louis MD [address] [place] [address] Neuropathy Social History Tobacco Use Types Packs/Day [...] encounter Miscellaneous Notes * Telephone Encounter - Feroz Rao - 07/30/2024 9:23 AM EST TC from pt requesting medication refill. Medications needing refill: gabapentin (Neurontin) 300 MG capsule To be sent to: [facility] [address] [place] [address] (Pharmacy) documented in this encounter Plan of Treatment Upcoming Encounters Date Type Department Care Team (Late st Contact Info) Description 08/27/2024 10:15 AM EST Office Visit [facility] [address] [place] [phone] Amilcar Louis MD [address] [place] [phone] documented as of this encounter Visit Diagnoses Diagnosis Neuropathy Mononeuritis of unspecified site documented in this encounter Additional Health Concerns Assessment Noted Time PHQ-9 Depression Total Score: 0 10/15/19 10:59 AM EDT documented as of this encounter Care Teams Email Designer Relationship Specialty Start Date End Date Amilcar Louis MD [address] [place] [phone] PCP - General Internal Medicine 04/08/14 Yessenia Olmos Debt CollectorBody Corporate Manager 09/20/23 documented as of this encounter
--- OUTSIDE RECORDS SUMMARY | 2024-08-24 10:01 | XMS_ITS | Clinical Summary ---
Author Organization [email or web address] Address [address] [place] [address] Care Team Providers Care Pickup Driver Name Role Phone Amilcar Louis MD Primary Care Provide r Allergies Active Allergy Reactions Criticality Noted Date Comments Naproxen Swelling Other reaction(s): face red & swollen Medications dulaglutide (Trulicity) 3 MG/0.5ML solution pen-injector Inject 4.5 mg under the skin once a week. nject (3MG) by subcutaneous route every week Active empagliflozin (Jardiance) 10 MG Take 1 tablet by mouth 1 (one) time each day. Active insulin glargine (Lantus SoloStar) 100 UNIT/ML pen Inject 33 Units under the skin. 018 Active insulin lispro (HumaLOG KWIKPEN) 100 UNIT/ML injection inject between 10 and 20 units by subcutaneous route prior to breakfast, lunch and dinner accoding to sliding scale 018 Active metFORMIN (Glucophage) 500 MG tablet 023 Active FreeStyle lancetsIndication s:Type 2 diabetes mellitus with foot ulcer, with long-term current use of insulin (CMS/HCC) 1 each by Other route before breakfast, before lunch, and before evening meal. 90 each 11 024 Active insulin pen needle (BD Pen Needle Sandra U/F) 32G x 4 mm miscIndications:T ype 2 diabetes mellitus with foot ulcer, with long-term current use of insulin (CMS/HCC) Use to inject insulin 4 times daily 100 each 12 024 2024 Active amitriptyline (Elavil) 25 MG tabletIndications :Neuropathy TAKE 1 TABLET BY MOUTH AT BEDTIME. 30 tablet 5 Active loratadine (Claritin) 10 MG tabletIndications :Allergic rhinitis, unspecified seasonality, unspecified trigger TAKE 1 TABLET BY MOUTH EVERY DAY 30 tablet 5 024 Active aspirin 81 MG EC tablet TAKE 1 TABLET BY MOUTH EVERY MORNING 90 tablet 3 Active Multiple Vitamin (Multi-Vitamin) tabletIndications :Type 2 diabetes mellitus with foot ulcer, with long-term current use of insulin ([facility]) TAKE 1 TABLET BY MOUTH EVERY DAY 90 tablet 3 Active clopidogrel (Plavix) 75 MG tablet Take 1 tablet by mouth Once per day. Active atorvastatin (Lipitor) 80 MG tabletIndications :Mixed hyperlipidemia Take 1 tablet (80 mg) by mouth Once per day. 30 tablet 11 025 2025 Active gabapentin (Neurontin) 300 MG capsuleIndication s:Neuropathy TAKE (2) CAPSULES BY MOUTH TWICE DAILY. 112 capsule Active Farxiga 5 MG 024 2024 Discontinued(T herapy completed) atorvastatin (Lipitor) 20 MG tabletIndications :Mixed hyperlipidemia Take 1 tablet (20 mg) by mouth Once per day. 30 tablet 11 024 2024 Discontinued enalapril (Vasotec) 20 MG tablet TAKE 1 TABLET BY MOUTH DAILY. 30 tablet 5 024 2024 Discontinued(T herapy completed) gabapentin (Neurontin) 300 MG capsuleIndication s:Neuropathy TAKE (2) CAPSULES BY MOUTH TWICE DAILY. 112 capsule 024 2024 Discontinued(R eorder (will not trigger notification to Pharmacy)) Active Problems Problem Noted Date Diagnosed Date Hospital discharge follow-up 07/28/2024 Assessment & Plan (07/28/2024 4:06 PM EST): Pt is here after she was recently admitted to [facility] was admitted on 07/16 with a late presenting anterior STEMI. S/p cardiac cath on 07/17 that showed multivessel disease. Pt being followed up as outpatient] for CABG workup. Has upcoming appointment with Dr Strickland who is organizing outpatient repeat cardiac cath and CT surg will follow as outpatient. Pt has all his meds and scheduled follow ups. STEMI (ST elevation myocardial infarction) 07/28 Assessment & Plan (07/28/2024 4:03 PM EST): Pt here for a HDF admitted to [facility] from 07/16-07/19/2024 She initially presented with sudden [...] to 10 mg and Atorvastatin to 80mg. Partial edentulism 10/14/2023 Alveolitis of jaw, right 09/06/2023 Dental caries into pulp 09/02/2023 Acute pain of left shoulder 08/22/2023 Assessment & Plan (10/15/2023 11:09 AM EDT): Previous c/o this absence of injury, on exam decreased ROM due to pain Exam suggestive of tendinosis Plain films left shoulder to rule significant degenerative joint disease showed:Minor degenerative change otherwise unremarkable study. No acute findings. Pt declined PT Assessment & Plan (08/22/2023 9:48 AM EST): New onset , absence of injury, on exam decreased ROM due to pain Exam suggestive of tendinosis Plan: Pain control, PT, plain films left shoulder to rule significant degenerative joint disease Follow up if no improvement Dental abscess 08/12/2023 Stress incontinence of urine 04/02/2023 Assessment & Plan (04/02/2023 10:08 AM EDT): Pt under the care of Urogynecology at [facility]. Has a pesary Chronic venous insufficiency 10/16/2022 Assessment & Plan (04/02/2023 10:00 AM EDT): Under the care of [facility] Last seen 11/2022 Assessment & Plan (10/16/2022 2:39 PM EDT): Under the care of [facility] Calcific tendinitis of left shoulder 10/16/2022 Assessment & Plan (03/26/2024 10:18 AM EDT): Pt with previous c/o new onset of left shoulder pain in the absence of any injury. On exam there is limited rom on both passive and active movement. Plain films 11/08/2022 showed: IMPRESSION: Calcific tendinosis in region of distal superior rotator cuff. Will refer to PT Assessment & Plan (01/10/2023 4:00 PM EDT): Pt with c/o new onset of left shoulder pain in the absence of any injury. On exam there is limited rom on both passive and active movement. Plain films 11/08/2022 showed: IMPRESSION: Calcific tendinosis in region of distal superior rotator cuff. Pt would like to hold off for PT Assessment & Plan (10/16/2022 3:34 PM EDT): Pt with c/o new onset of left shoulder pain in the absence of any injury. On exam there is limited rom on both passive and active movement. Plan: Plain films, tylenol PRN, pt would like to hold off on PT but would consider after the x-rays Preventative health care 07/12/2022 Assessment & Plan (03/26/2024 10:01 AM EDT): Mammogram: 11/27/2023 Pap Smear: Pap 10/2022 Colonoscopy: 09/24/2014 Dr Carroll's hemorrhoid's, 10 YR F/U Assessment & Plan (04/02/2023 10:07 AM EDT): Mammogram: 11/21/2022 Pap Smear: Pap 10/2022 Colonoscopy: 09/24/2014 Dr Carroll's hemorrhoid's, 10 YR F/U Assessment & Plan (01/10/2023 3:56 PM EDT): Mammogram: 11/20/2021 Pap Smear: Pap 10/2022 Colonoscopy: 09/24/2014 Dr Carroll'farnaz hemorrhoid's, 10 YR F/U Assessment & Plan (07/12/2022 9:10 AM EST): Mammogram: 11/20/2021 Pap Smear: Pap 10/30/2017 nl Colonoscopy: 09/24/2014 Dr Carroll'farnaz hemorrhoid's, 10 YR F/U Hand pain, right 07/12/2022 Assessment & Plan (10/16/2022 2:35 PM EDT): Pt sustained a cut to her right hand weeks ago and since then she has been having pain on her hand. On exam her hand is completely normal, no redness, no swelling, no deformity, no increase in temperature, nothing to suggest foreign body retained. Pt is uptodate on her Td Plain film of her hand to r/o any bony pathology or retained foreign body was negative Assessment & Plan (07/12/2022 12:52 PM EST): Pt sustained a cut to her right hand weeks ago and since then she has been having pain on her hand. On exam her hand is completely normal, no redness, no swelling, no deformity, no increase in temperature, nothing to suggest foreign body retained. Pt is uptodate on her Td Plan: Obtain a plain film of her hand to r/o any bony pathology or retained foreign body Hyperlipidemia 01/24/2017 Assessment & Plan (07/28/2024 4:07 PM EST): Pt here for a f/u Most recent lipid profile from: Lab Results Component Value Date TRIG 141 05/20/2023 TRIG 117 07/25/2022 CHOL 151 05/20/2023 LDLCHOLCAL 71 05/20/2023 HDL 52 05/20/2023 She is on Atorvastatin 80 mg po qhs , increased while at the Hospital advised to try to adhere to a low cholesterol diet, counseled and educated about diet and exercise, Patient encouraged to come up with a personal goal for weight loss. Plan: repeat Lipid profile Assessment & Plan (03/26/2024 10:10 AM EDT): Pt here for a f/u Most recent lipid profile from: Lab Results Component Value Date TRIG 141 05/20/2023 TRIG 117 07/25/2022 CHOL 151 05/20/2023 LDLCHOLCAL 71 05/20/2023 HDL 52 05/20/2023 Plan: start Atorvastatin 20 mg po qhs advised to try to adhere to a low cholesterol diet, counseled and educated about diet and exercise, Patient encouraged to come up with a personal goal for weight loss. Assessment & Plan (12/24/2023 10:11 AM EDT): Pt here for a f/u Most recent lipid profile from: 11/28/2022 done at [facility] shows Component Ref Range & Units (11/28/22) 1 yr ago (07/25/22) 1 yr ago (10/27/21) 3 yr ago (07/13/20) Triglycerides <150 mg/dL 341 117 160 High 68 Comment: Desirable Triglyceride: less than 150 mg/dLBorderline High Triglyceride 150-199 mg/dLHigh Triglyceride: 200-499 mg/dLVery High Triglyceride: greater than or equal to 5OO mg/dL Cholesterol <200 mg/dL 177 Comment: Desirable Cholesterol: less than 200 mg/dLBorderline High Cholesterol: 200-239 mg/dLHigh Cholesterol: greater than 239 mg/dL LDL Cholesterol Calculated <100 mg/dL 71 Comment: Desirable LDL: less than 100 mg/dLNear Optimal/Above Optimal LDL: 110- 129 mg/dLBorderline High LDL: 130-159 mg/dLHigh LDL: 160-189 mg/dLVery High LDL: greater than or equal to 190 mg/dL HDL Cholesterol >40 mg/dL 52 64 R 61 R 58 R Triglycerides elevated due to uncontrolled DM For now will continue with current regimen. advised to try to adhere to a low cholesterol diet, counseled and educated about diet and exercise, Patient encouraged to come up with a personal goal for weight loss. Assessment & Plan (08/22/2023 9:18 AM EST): Pt here for a f/u Most recent lipid profile from: 05/20/2023 shows Component Ref Range & Units 3 mo ago (05/20/23) 1 yr ago (07/25/22) 1 yr ago (10/27/21) 3 yr ago (07/13/20) Triglycerides <150 mg/dL 141 117 160??High?? 68 Comment: Desirable Triglyceride: ? less than 150 mg/dLBorderline High Triglyceride ??150-199 mg/dLHigh Triglyceride: ?200-499 mg/dLVery High Triglyceride: ? greater than or equal to ?5OO mg/dL Cholesterol <200 mg/dL 151 Comment: Desirable Cholesterol: ?less than 200 mg/dLBorderline High Cholesterol: ??200-239 mg/dLHigh Cholesterol: ? greater than 239 mg/dL LDL Cholesterol Calculated <100 mg/dL 71 Comment: Desirable LDL: ? less than 100 mg/dLNear Optimal/Above Optimal LDL: ??110-129 mg/dLBorderline High LDL: ? 130-159 mg/dLHigh LDL: ?160-189 mg/dLVery High LDL: ? greater than or equal to ? 190 mg/dL HDL Cholesterol >40 mg/dL 52 64 R 61 R 58 R Lipids on target on diet alone For now will continue with current regimen. advised to try to adhere to a low cholesterol diet, counseled and educated about diet and exercise, Patient encouraged to come up with a personal goal for weight loss. Assessment & Plan (04/02/2023 10:02 AM EDT): Pt here for a f/u Most recent lipid profile from: 07/25/2022 shows a total cholesterol of: 154 triglycerides of: 117 HDL of: 64 and LDL of: 70 Lipids on target on diet alone For now will continue with current regimen. advised to try to adhere to a low cholesterol diet, counseled and educated about diet and exercise, Patient encouraged to come up with a personal goal for weight loss. Assessment & Plan (07/12/2022 9:05 AM EST): Pt here for a f/u Most recent lipid profile from: 10/27/2021 shows a total cholesterol of: 153 triglycerides of: 160 HDL of: 61 and LDL of: 68 Lipids on target on diet alone For now will continue with current regimen. advised to try to adhere to a low cholesterol diet, counseled and educated about diet and exercise, Patient encouraged to come up with a personal goal for weight loss. Atherosclerosis of coronary artery 10/12/2013 Assessment & Plan (07/28/2024 4:01 PM EST): Pt used to follow at [facility], Last seen 12/21/2013 . Previously pt wanted to be referred to [facility] Cardiology. Pt was admitted on 07/16 to [facility] with a late presenting anterior STEMI, now asymptomatic. And discharged 07/19/2024 She is now S/p cardiac cath on 07/17 that showed multivessel disease for which Cardiothoracic surgeon recommended outpatient follow up for CABG workup. Dr Strickland is organizing outpatient repeat cardiac cath and CT surg will follow as outpatient. Assessment & Plan (03/26/2024 10:08 AM EDT): Pt denies any chest pain, On Aspirin. Seen at [facility], Last seen 12/21/2013 1 year f/u recommended. Would like to be referred to [facility] Cardiology Assessment & Plan (07/12/2022 9:07 AM EST): Pt denies any chest pain, On Aspirin. Seen at [facility], Last seen 12/21/2013 1 year f/u recommended. Benign hypertension 11/17/2012 Assessment & Plan (07/28/2024 4:02 PM EST): Pt here for a f/u blood pressure controlled While in the hospital they discontinued her Enalapril due to low BP Given adequate blood pressure will continue off medications Most recent electrolytes, Bun and Creatinine done on: 11/29/2023 were within normal limits. patient advised to adhere to a low sodium diet, encouraged about medication compliance, counseled about weight loss. Assessment & Plan (03/26/2024 10:04 AM EDT): Pt here for a f/u blood pressure controlled She is on a regimen of: Enalapril 20 mg po daily Given adequate blood pressure control will continue current regimen Most recent electrolytes, Bun and Creatinine done on: 11/29/2023 were within normal limits. patient advised to adhere to a low sodium diet, encouraged about medication compliance, counseled about weight loss. The 10-year ASCVD risk score (Jing GAN, et al., 2019) is: 14.6% Values used to calculate the score: Age: 63 years Sex: Female Is Non- : No Diabetic: Yes Tobacco smoker: No Systolic Blood Pressure: 140 mmHg Is BP treated: Yes HDL Cholesterol: 52 mg/dL Total Cholesterol: 151 mg/dL Assessment & Plan (12/24/2023 10:08 AM EDT): Pt here for a f/u blood pressure elevated, pt did not take her medications She is on a regimen of: Enalapril 20 mg po daily Given adequate blood pressure control will continue current regimen Most recent electrolytes, Bun and Creatinine done on: 11/29/2023 were within normal limits. patient advised to adhere to a low sodium diet, encouraged about medication compliance, counseled about weight loss. Assessment & Plan (10/15/2023 11:01 AM EDT): Pt here for a f/u blood pressure controlled She is on a regimen of: Enalapril 20 mg po daily Given adequate blood pressure control will continue current regimen Most recent electrolytes, Bun and Creatinine done on: 05/20/2023 were within normal limits. patient advised to adhere to a low sodium diet, encouraged about medication compliance, counseled about weight loss. Assessment & Plan (08/22/2023 9:17 AM EST): Pt here for a f/u blood pressure remains controlled She is on a regimen of: Enalapril 20 mg po daily Given adequate blood pressure control will continue current regimen Most recent electrolytes, Bun and Creatinine done on: 05/20/2023 were within normal limits. patient advised to adhere to a low sodium diet, encouraged about medication compliance, counseled about weight loss. Assessment & Plan (04/02/2023 9:57 AM EDT): Pt here for a f/u blood pressure remains controlled She is on a regimen of: Enalapril 20 mg po daily Given adequate blood pressure control will continue current regimen Most recent electrolytes, Bun and Creatinine done on: 11/08/2022 were within normal limits. patient advised to adhere to a low sodium diet, encouraged about medication compliance, counseled about weight loss. Assessment & Plan (01/10/2023 3:50 PM EDT): Pt here for a f/u blood pressure remains controlled She is on a regimen of: Enalapril 20 mg po daily Given adequate blood pressure control will continue current regimen Most recent electrolytes, Bun and Creatinine done on: 11/08/2022 were within normal limits. patient advised to adhere to a low sodium diet, encouraged about medication compliance, counseled about weight loss. Assessment & Plan (10/16/2022 2:32 PM EDT): Pt here for a f/u blood pressure remains controlled She is on a regimen of: Enalapril 20 mg po daily Given adequate blood pressure control will continue current regimen Most recent electrolytes, Bun and Creatinine done on: 10/27/2021 were within normal limits. Will repeat patient advised to adhere to a low sodium diet, encouraged about medication compliance, counseled about weight loss. Assessment & Plan (07/12/2022 9:05 AM EST): Pt here for a f/u blood pressure remains controlled She is on a regimen of: Enalapril 20 mg po daily Given adequate blood pressure control will continue current regimen Most recent electrolytes, Bun and Creatinine done on: 10/27/2021 were within normal limits. patient advised to adhere to a low sodium diet, encouraged about medication compliance, counseled about weight loss. Diabetic foot ulcer 03/12/2012 Assessment & Plan (07/12/2022 9:08 AM EST): Followed at [facility] wound clinic. s/p left first metatarsal dorsiflexion osteotomy, left medical sesamoidectomy and ulcer debridement . Last visit was 07/20/2014 and had a f/u 08/02/2014 Idiopathic peripheral neuropathy 02/15/2012 Assessment & Plan (07/12/2022 9:08 AM EST): On gabapentin 600mg bid, does not tolerate a higher dose. Decreased sensation to mid-soto b/l. Nonproliferative diabetic retinopathy 12/18/2011 Assessment & Plan (08/22/2023 9:36 AM EST): Followed at [facility]. Last seen 04/2023, has a follow up 09/2023 Assessment & Plan (01/10/2023 4:02 PM EDT): Followed at [facility]. Has a follow up in March per her report Assessment & Plan (07/12/2022 9:09 AM EST): Followed at [facility]. Type 2 diabetes mellitus with retinopathy 2011 Assessment & Plan (07/28/2024 4:06 PM EST): Pt is here for a f/u Under the care of [facility] , last seen 11/29/2023. Pt tells me she has a follow up 07/30/2024 She is on a regimen of: Metformin ER 500 mg 2 tabs po BID, Trulicity 4.5 mg sc weekly on and Lantus 22 units sc q pm and Humalog sliding scale. Hgb A1c 07/28/2024 : 9.7 from 8.4 Eye exam done on: 02/28/2024 at [facility] Also follows with retinal specialist, she has [...] check your feet on a daily basis Assessment & Plan (03/26/2024 12:42 PM EDT): Pt is here for a f/u Under the care of [facility] , last seen 11/29/2023 She is on a regimen of: Jardiance 25 mg po daily, Metformin ER 500 mg 2 tabs po BID, Trulicity 3 mg sc weekly on and Lantus 22 units sc q pm and Humalog sliding scale. Hgb A1c 12/24/2023: 8.4 BG today 180 Eye exam done on: 02/28/2024 at [facility] Also follows with retinal specialist, she has [...] check your feet on a daily basis Assessment & Plan (12/24/2023 10:11 AM EDT): Pt is here for a f/u Under the care of [facility] , last seen 11/29/2023 She is on a regimen of: Jardiance 25 mg po daily, Metformin ER 500 mg 2 tabs po BID, Trulicity 3 mg sc weekly on and Lantus 22 units sc q pm and Humalog sliding scale. Hgb A1c 12/24/2023: 8.4 BG today 119 Eye exam done on: 11/2022 at [facility] Also follows with retinal specialist, she has [...] check your feet on a daily basis Assessment & Plan (10/15/2023 11:03 AM EDT): Pt is here for a f/u Under the care of [facility] She is on a regimen of: Jardiance 25 mg po daily, Metformin ER 500 mg 2 tabs po BID, Trulicity 3 mg sc weekly on and Lantus 20 units sc q pm and Humalog sliding scale. Hgb A1c 08/22/2023: 7.5 BG today 119 Eye exam done on: 11/2022 at [facility] Also follows with retinal specialist, she has [...] check your feet on a daily basis Assessment & Plan (08/22/2023 9:37 AM EST): Pt is here for a f/u Under the care of [facility] She is on a regimen of: Jardiance 25 mg po daily, Metformin ER 500 mg 2 tabs po BID, Trulicity 3 mg sc weekly on and Lantus 20 units sc q pm and Humalog sliding scale. Hgb A1c 08/22/2023: 7.5 BG average 139 Eye exam done on: 11/2022 at [facility] Also follows with retinal specialist, she has [...] check your feet on a daily basis Assessment & Plan (04/02/2023 10:06 AM EDT): Pt is here for a f/u Under the care of [facility] She is on a regimen of: Jardiance Increased to 25 mg po daily, Metformin ER 500 mg 2 tabs po BID, and Trulicity 3 mg sc weekly on and Lantus 20 units sc q pm and Humalog sliding scale. Hgb A1c 01/10/2023: 7.8 BG average 125 Eye exam done on: 11/05/2017 at [facility] Also follows with retinal specialist, she has a Hx of retinal bleed, she uses a cane to ambulate. Microalbumin checked on: 10/27/2021 was: 0.7 Pt is on an JANE inhibitor. Foot check risk of one Pt reports compliance with Asa 81 mg po daily Plan: Continue current regimen f/u with Endocrinology, last seen 3 months ago per her report Pt advised to: adhere to diabetic diet check your blood sugars regularly check your feet on a daily basis Assessment & Plan (01/10/2023 3:52 PM EDT): Pt here for a f/u Under the care of [facility] She is on a regimen of: Jardiance 10 mg po daily, Metformin ER 500 mg 2 tabs po BID, and Trulicity 3 mg sc weekly on and Lantus 20 units sc q pm and Humalog sliding scale. Hgb A1c 01/10/2023: 7.5 BG average 128 Eye exam done on: 11/05/2017 at [facility] Also follows with retinal specialist, she has a Hx of retinal bleed, she uses a cane to ambulate. Microalbumin checked on: 10/27/2021 was: 0.7 Pt is on an JANE inhibitor. Foot check risk of one Pt reports compliance with Asa 81 mg po daily Plan: Continue current regimen f/u with Endocrinology Pt advised to: adhere to diabetic diet check your blood sugars regularly check your feet on a daily basis Assessment & Plan (10/16/2022 2:37 PM EDT): Pt here for a f/u Under the care of [facility] She is on a regimen of: Jardiance 10 mg po daily, Metformin ER 500 mg 2 tabs po BID, and Trulicity 3 mg sc weekly on and Lantus 20 units sc q pm and Humalog sliding scale. Hgb A1c 10/16/2022: 7.9 BG average 136 Eye exam done on: 11/05/2017 at [facility] Also follows with retinal specialist, she has a Hx of retinal bleed, she uses a cane to ambulate. Microalbumin checked on: 10/27/2021 was: 0.7 Pt is on an JANE inhibitor. Foot check risk of one Pt reports compliance with Asa 81 mg po daily Plan: Continue current regimen f/u with Endocrinology Pt advised to: adhere to diabetic diet check your blood sugars regularly check your feet on a daily basis Assessment & Plan (07/12/2022 9:49 AM EST): Pt here for a f/u Under the care of [facility] She is on a regimen of: Jardiance 10 mg po daily, Metformin ER 500 mg 2 tabs po BID, and Trulicity 3 mg sc weekly on and Lantus 18 units sc q pm and Humalog sliding scale. Hgb A1c 07/12/2022 was 7.7 BG average 121 Eye exam done on: 11/05/2017 at [facility] Also follows with retinal specialist, she has a Hx of retinal bleed, she uses a cane to ambulate. Microalbumin checked on: 10/27/2021 was: 0.7 Pt is on an JANE inhibitor. Foot check risk of one Pt reports compliance with Asa 81 mg po daily Plan: Continue current regimen f/u with Endocrinology Pt advised to: adhere to diabetic diet check your blood sugars regularly check your feet on a daily basis Encounters Date Type Department Care Team Description 08/17/[address] [facility] [address] [place] [address] Amilcar Louis MD Chart Prep 08/13/[address] [facility] [address] [place] [address] Amilcar Louis MD Durable Medical Equipment 08/06/[address] [facility] [address], [place] [id number] Amilcar Louis MD Appointment Confirmation 07/31/[address] [facility] [address], [place] [address] Amilcar Louis MD DME L&C 07/30/[address] [facility] [address] [place] [address] Amilcar Louis MD Neuropathy 07/28/2024 10:15 AM EST Office Visit [facility] [place] [address] Amilcar Louis MD Hospital discharge follow-up (Primary Dx); 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 edema, with long-term current use of insulin (CMS/HCC); Benign hypertension; Mixed hyperlipidemia; ST elevation myocardial infarction (STEMI), unspecified artery (CMS/HCC); Atherosclerosis of navajo coronary artery of navajo heart without angina pectoris 07/28/2024 Travel 07/16/[address] [facility] [address] [place] [address] Amilcar Louis MD 07/16/[address] [facility] [address] [place] [address] Amilcar Louis MD Chart Prep 07/16/[address] [facility] [address] [place], [place] [address] Amilcar Louis MD Nurse Triage 06/30/[address] [facility] [address] [place] [address] Amilcar Louis MD Neuropathy; Type 2 diabetes mellitus with foot ulcer, with long-term current use of insulin (CMS/HCC) 06/29/[address] [facility] [address] [place] [address] Amilcar Louis MD Febraury Recall 06/09/[address] [facility] [address] [place] [address] Amilcar Louis MD Allergic rhinitis, unspecified seasonality, unspecified trigger 06/02/[address] [facility] [address] [place], [place] [phone] Amilcar Louis MD Med Refill 05/25/[address] [facility] [address] [place], [place] [phone] Jessie Sanchez MD Neuropathy from Last 3 Months Immunizations Name Administration Dates Next Due INFLUENZA VACCINE QUADRIVALE NT RECOMBINANT PRESERVATIVE FREE RIV4 04/28/2020 Influenza Injectable Quadriv alant Preservative Free IIV4 MDCK 07/09/2016 Influenza injectable quadriv alent IIV4 with preservative 04/02/2023,04/17/2018,05/17/2015 Influenza injectable quadriv alent preservative free 04/11/2021,05/21/2019,04/27/2017 Influenza, IIV3, injectable 05/18/2014, 1 Influenza, Split (incl. larissa fied surface antigen) 04/17/2013,07/03/2012 Moderna Covid-19 Vaccine 12+ 06/19/2021,10/14/19,09/15/2020 Moderna Covid-19 Vaccine 6+ Bivalent 07/25/2022 Pfizer Covid-19 Vaccine 12+ 08/22/2023 Pneumococcal Polysaccharide PPSV23 04/28/1997 TD (adult), 2 Lf tetanus tox oid, preservative free, adsorbed 11/24/2021,07/06/1996 Tdap 12/10/2011 Zoster, Recombinant 02/13/2022,10/27/2021 Family History Medical History Relation Name Comments Stomach cancer Maternal Grandmother Liver cancer Mother Lung cancer Niece Relation Name Status Comments Maternal Grandmother Mother Niece Other Social History Tobacco Use Types Packs/Day Years Used Date Smoking Tobacco: Never Passive Smoke Exposure: Never Smokeless Tobacco: Never Tobacco Cessation:Counseling Given: Not Answered Alcohol Use Standard Drinks/Week Comments Never 0 [...] Orientation Straight 05/21/2022 10 :14 AM EDT Last Filed Vital Signs Vital Sign Reading [...] Mass Index 24.06 07/28/2024 10:14 AM EST Plan of Treatment Upcoming Encounters Date Type Department Care Team (Late st Contact Info) Description 08/27/2024 10:15 AM EST Office Visit [facility] [address] [place] [address] Amilcar Louis MD [address] [place] [address] Health Maintenance Due Date Last Done Comments CT Colonography 1958 FIT DNA/Cologuard 1958 FIT 1960 FOBT 1960 Sigmoidoscopy 1958 Diabetes: Foot Exam 1968 Eye Exam 1968 Pneumococcal Vaccine: 50+ Years (2 of 2 - PCV) 04/28/1998 04/28/1997 RSV Patients and Patients Aged 60 years or older (1 - Risk 60-74 years 1-dose series) 2018 Dental X-Ray: Full Mouth 03/14/2024 03/13/2021, 02/19 COVID-19 Vaccine ( season) 2024 08/22/2023, 07/25/2022, 06/19/2021, Additional history exists Influenza Vaccine (#1) 2024 , 04/11/2021, 04/28/2020, Additional history exists Dental Oral Exam 03/26/2024 09/23/2023, 12/2021, 03/13/2021, Additional history exists Dental Prophylaxis 03/26/2024 09/23/2023, 0 03/27/2022, 03/13/2021, Additional history exists Lipid Panel 05/20/2024 05/20/2023, 01/0 10/2022, 10/27/2021, Additional history exists SDOH Screening 08/13/2024 08/13/2023 Diabetes: Urine Protein Screening 08/28/2024 08/28/2023, 10/27/2021, 07/13/2020 Dental X-Ray: Bitewings 09/23/2024 09/23/19 24, 03/27/2022, 03/13/2021, Additional history exists Depression Screening 10/14/2024 10/15/2023, 10/15/19 24 Diabetes: Hemoglobin A1C 10/26/2024 025, 12/24/2023, 08/22/2023, Additional history exists Alcohol/Substance Use Screening 07/28/2025 07/28/2024 Tobacco Screening 07/28/2025 07/28/2024 Pap Smear 11/14/2025 11/14/2022 Mammogram 11/26/2025 11/27/2023, 05/0 09/2022, 11/20/2021, Additional history exists Cervical Cancer Screening 11/15/2027 HPV/Cotest 11/15/2027 11/14/2022, 10/30/2017 Colonoscopy 10/04/2028 10/02/2018 Colorectal Cancer Screening 10/04/2028 DTaP/Tdap/Td Vaccines (3 - Td or Tdap) 11/25/2031 11/24/2021, 12/10/2011, 07/06/1996 Zoster Vaccines Completed 02/13/2022, 10/27/2021 Hepatitis C Screening Completed 05/20/2023 HIB Vaccines Aged Out No longer eligi ble based on patient's age to complete this topic HPV Vaccines Aged Out No longer eligi ble based on patient's age to complete this topic Hepatitis A Vaccines Aged Out No long er eligible based on patient's age to complete this topic Hepatitis B Vaccines Aged Out No long er eligible based on patient's age to complete this topic IPV Vaccines Aged Out No longer eligi ble based on patient's age to complete this topic Meningococcal Vaccine Aged Out No elizabeth osmani eligible based on patient's age to complete this topic RSV under 20 months Aged Out No longe r eligible based on patient's age to complete this topic Rotavirus Vaccines Aged Out No longer eligible based on patient's age to complete this topic Procedures Procedure Name Priority Date/Time Associated Diagnosis Comments POCT GLYCATED HEMOGLOBIN, TOTAL Routine 07/28/2024 10:30 AM EST 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 edema, with long-term current use of insulin ([facility]) POCT GLUCOSE Routine 07/28/2024 10:24 AM EST 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 edema, with long-term current use of insulin ([facility]) BI MAMMOGRAM SCREENING TOMOSYNTHESIS BILATERAL Routine 11/27/2023 1:07 PM EDT PROPHYLAXIS - ADULT Routine 09/23/2023 1 0:00 AM EST Dental calculus BITEWINGS - 2 RADIOGRAPHIC IMAGES Routine 09/23/2023 10:00 AM EST Dental calculus Missing teeth, acquired PERIODIC ORAL EVALUATION - ESTABLISHED PATIENT Routine 09/23/2023 10:00 AM EST ALBUMIN, RANDOM URINE W/CREATININE Routine 08/28/2023 9:38 AM EST Type 2 diabetes mellitus with foot ulcer, with long-term current use of insulin (CMS/HCC) HEPATITIS C AB W/REFL TO HCV RNA, QN, PCR Routine 05/20/2023 9:14 AM EDT Preventative health care LIPID PANEL WITH REFLEX TO DIRECT LDL Routine 05/20/2023 9:14 AM EDT Mixed hyperlipidemia IMAGE-GUIDED PAP W/AGE BASED SCR PROTOCOLS Routine 11/14/2022 11:22 AM EDT Cervical cancer screening DIAGNOSTIC - DIAGNOSTIC IMAGING - INTRAORAL - COMPREHENSIVE SERIES OF RADIOGRAPHIC IMAGES Routine 03/13/2021 12:00 AM EDT HM COLONOSCOPY Routine 10/02/2018 from Last 3 Months or Most Recently Relevant to Health Maintenance Results * (ABNORMAL) POCT HGB A1C (07/28/2024 10:30 AM EST) Hemoglobin A1C 9.7(A) 4.0 - 6.0 % QC Media Lot # [id number] Lot# Expiration Date ,[id number] Blood 07/28/2024 10:3 0 AM EST Amilcar Vicente MD POINT OF CARE TEST EN TER/EDIT ORDERABLES Final Result * (ABNORMAL) POCT Glucose (07/28/2024 10:24 AM EST) Glucose Blood, POC 237(A) 60 - 200 mg/dL QC Media Lot # [id number] Lot# Expiration Date [id number] Blood Capillary blood specimen / Unknown 07/28/2024 10:24 AM EST us Amilcar Vicente MD POINT OF CARE TEST EN TER/EDIT ORDERABLES Final Result * BI Mammogram Screening Tomosynthesis Bilateral (11/27/2023 1:07 PM EDT) Anatomical Region Laterality Modality Breast Bilateral Mammography 11/27/2023 1:07 PM EDT Narrative 12/27/2023 8:13 AM EDT ? [facility] ? [address] ?[place] [address] ? Mammography Report ? Signed ? Patient: Virola Gilmore,Hernandoina ?MR# ?? : [id number] ? : 1960 ?Acct:[id number] ? Age/Sex: 63 / F ?ADM Date: 11/27/23 ? Loc: HO.MAMMO ? Attending Dr: Amilcar Bauer MD ? Ordering Physician: Amilcar Bauer MD ?Resu ?? lts: 1Negative ? Date of Service: 11/27/23 ?Follow Up: 1 Year From Orig ?? inal Mammogram ? Procedure(s): MM tomosynthesis screening BI ?? Accession Number(s): [id number] ? cc: Amilcar Bauer MD ? EXAMINATION: ?? MM SCREENING DIGITAL BREAST TOMOSYNTHESIS, BILATERAL ? CLINICAL INFORMATION: ? Screening. Asymptomatic. ? COMPARISON: ?? Mammography: This study is compared with prior exams dating back to ?? 2019. ? TECHNIQUE: ?? Digital breast tomosynthesis is performed in both the craniocaudal and ?? mediolateral oblique views along with computer-aided detection (CAD). ?? Synthesized 2D images are generated from the tomosynthesis. ? FINDINGS: ?? The breasts are heterogeneously dense, which may obscure small masses ?? (ACR BI-RADS breast composition Category c). ? There are no significant masses, abnormal calcifications, or other ?? abnormalities. ? MM/MM tomosynthesis screening BI ?? IMPRESSION: ?? No mammographic evidence of malignancy. ? ASSESSMENT: ? BI-RADS BI-RADS 1 - Negative ? RECOMMENDATION: ?? Routine annual mammography screening. ? 1 year F/U ? This examination should not preclude the clinical evaluation of a ?? suspicious palpable abnormality. ? This patient's information was entered into a reminder system with a ?? target due date for their next mammogram. ? Dictated By: ?Charu Gomez MD ? Signed By: ?<Electronically signed by Charu Gomez MD in OV> ? 12/27/23 0810 ? DD/ 1307 ? TD/TT: ? Criminal Legal Assistant: ? Procedure Note Vee, Image - 12/27/2023 [facility] [address] [place] [address] [place] [address] Mammography Report Signed Patient: Trent Singh# : [id number] : 9Acct:[id number] Age/Sex: 63 / FADM Date: 11/27/23 Loc: HO.MAMMO Attending Dr: Amilcar Bauer MD Ordering Physician: Amilcar Baueresu lts: 1Negative Date of Service: 11/27/23Follow Up: 1 Year From Orig inal Mammogram Procedure(s): MM tomosynthesis screening BI Accession Number(s): [id number] cc: Amilcar Bauer MD EXAMINATION: MM SCREENING DIGITAL BREAST TOMOSYNTHESIS, BILATERAL CLINICAL INFORMATION: Screening. Asymptomatic. COMPARISON: Mammography: This study is compared with prior exams dating back to 2019. TECHNIQUE: Digital breast tomosynthesis is performed in both the craniocaudal and mediolateral oblique views along with computer-aided detection (CAD). Synthesized 2D images are generated from the tomosynthesis. FINDINGS: The breasts are heterogeneously dense, which may obscure small masses (ACR BI-RADS breast composition Category c). There are no significant masses, abnormal calcifications, or other abnormalities. MM/MM tomosynthesis screening BI IMPRESSION: No mammographic evidence of malignancy. ASSESSMENT: BI-RADS BI-RADS 1 - Negative RECOMMENDATION: Routine annual mammography screening. 1 year F/U This examination should not preclude the clinical evaluation of a suspicious palpable abnormality. This patient's information was entered into a reminder system with a target due date for their next mammogram. Dictated By: Charu Gomez MD Signed By: <Electronically signed by Charu Gomez MD in OV> 12/27/23 0810 DD/ 1307 TD/TT: Criminal Legal Assistant: us Amilcar Vicente MD IMG BI PROCEDURES [place] ed Result - Final * Albumin, Random Urine W/Creatinine (08/28/2023 9:38 AM EST) Creatinine, Urine 33.51 mg/dL [facility] Microalbumin Urine <5.0 mg/L [facility] Microalbum Creatinine Ratio Ur TNP <30 ug/mg cr [facility] Comment:Unable to calculate albumin/creatinine ratio due to lowmicroalbumin or creatinine result. Urine (Urine, Random) 08/28/2023 9:38 AM EST 08/28/2023 11:28 AM EST Amilcar Vicente MD LAB URINE ORDERABLES Final Result Performing Organization Address [facility] Co de Phone Number [facility] [address] [place] [phone] * Lipid Panel with Reflex to Direct LDL (05/20/2023 9:14 AM EDT) Triglycerides 141 <150 mg/dL [facility] Comment:Desirable Triglyceri de: less than 150 mg/dLBorderline High Triglyceride 150-199 mg/dLHigh Triglyceride: 200-499 mg/dLVery High Triglyceride: greater than or equal to 5OO mg/dL Cholesterol 151 <200 mg/dL [facility] Comment:Desirable Cholestero l: less than 200 mg/dLBorderline High Cholesterol: 200-239 mg/dLHigh Cholesterol: greater than 239 mg/dL LDL Cholesterol Calculated 71 <100 mg/dL [facility] Comment:Desirable LDL: less than 100 mg/dLNear Optimal/Above Optimal LDL: 110- 129 mg/dLBorderline High LDL: 130-159 mg/dLHigh LDL: 160-189 mg/dLVery High LDL: greater than or equal to 190 mg/dL HDL Cholesterol 52 >40 mg/dL [facility] Comment:Desirable HDL: great er than 40 mg/dL Note: This HDL assay may give artificially low results in patients with liver disease. Blood 05/20/2023 9:14 AM EDT 05/20/2023 11:50 AM EDT Amilcar Vicente MD LAB BLOOD ORDERABLES Final Result Performing Organization Address [facility]/ZIP Co de Phone Number [facility] [address] [place] [address] [phone] * Hepatitis C Antibody with Reflex to HCV, RNA, Quantitative, Real-Time PCR (05/20/2023 9:14 AM EDT) Hepatitis C Antibody Nonreactive Nonreactive [facility] Comment:Antibodies to HCV no t detected; does not exclude early acuteHCV infection. Blood Venous blood specimen / Unknown 05/20/2023 9:14 AM EDT 05/20/2023 11:50 AM EDT Amilcar Vicente MD LAB BLOOD ORDERABLES Final Result [facility] [address] [place] [address] [phone] * Image-Guided Pap with Age-Based Screening Protocols (11/14/2022 11:22 AM EDT) Comment Quack Comment: This order for age-based cervical cancer and STI screening follows ACOG guidelines(PB 168, 140, FHO522). See individual assays for performing site location. Clinical Information: None given [facility] LMP: NONE GIVEN [facility] Prev. PAP: NONE GIVEN [facility] Prev. BX: NONE GIVEN [facility] SOURCE: None given [facility] Statement Of Adequacy: Quack Comment: SATISFACTORY FOR EVALUATION Partially obscuring inflammation Partially obscuring blood Interpretation/Res ult: [facility] Comment: Negative for intraepithelial lesion or malignancy. Atrophic pattern; predominantly parabasal cells COMMENT: This Pap test has been evaluated with computer assisted technology. Quack Golf Cart Maker: [employer] Comment: KN, CT(ASCP) CT screening location: [address] ??[phone] (Always Message) [facility] Comment: EXPLANATORY NOTE: The Pap is a screening test for cervical cancer. It is not a diagnostic test and is subject to false negative and false positive results. It is most reliable when a satisfactory sample, regularly obtained, is submitted with relevant clinical findings and history, and when the Pap result is evaluated along with historic and current clinical information. HPV nRNA E6/E7 Not Detected Not Detected Quack Comment: Methodology: Social Work Professor-Mediated Amplification This assay detects E6/E7 viral messenger RNA (mRNA) from 14 high-risk HPV types (16,18,31,33,35,39,45,51,52,56,58,59,66,68). Cervical sources are required for HPV testing. If a vaginal source from a patient who has had a total hysterectomy with removal of cervix was submitted, please contact the testing laboratory for alternative testing options. For additional information, please refer to http://education.[facility]/faq/ARA512h1 (This link if provided for information/ educational purposes only.) Pap Vial 11/14/2022 11:2 2 AM EDT 11/15/2022 3:06 AM EDT Katerine Veras [facility] BLOOD ORDERABLES Rosie almeida Result [facility] [address], [place] [address] zlien [facility] [address] [place] [address] * Colonoscopy (10/02/2018) Colonoscopy Normal Normal 10/02/2018 Narrative Tosin Viramontes - 10/02/2018 11:37 AM EDT Recommended 10 year follow up ( see scanned report) Historical Provider HEALTH MAINTENANCE Edited Result - Final from Last 3 Months or Most Recently Relevant to Health Maintenance Insurance [facility] AD[facility] Care Teams Pickup Driver Relationship Specialty Start Date End Date Amilcar Louis MD [address] [place] [phone] PCP - General Internal Medicine 04/08/14 Yessenia Olmos Financial Systems DirectorForensic Audit Expert 09/20/23
--- OUTSIDE RECORDS SUMMARY | 2024-08-24 10:01 | XMS_ITS | Clinical Summary ---
Author Organization [facility] Address [address] [place] [address] Phone Care Team Providers Care Business Operations Consultant Name Role Phone Amilcar Bauer MD Primary Care Provi lisa Allergies Active Allergy Reactions Criticality Noted Date Comments Naproxen Rash 08/12/2024 Medications Medication Sig Dispensed Refills Start Date End Date Status aspirin 81 mg EC tablet Take 1 tablet (81 mg total) by mouth 1 (one) time each day. Active dapagliflozin propanediol (Farxiga) 10 mg tablet Take 1 tablet (10 mg total) by mouth 1 (one) time each day. Active amitriptyline (ELAVIL) 25 mg tablet Take 1 tablet (25 mg total) by mouth at bedtime. Active atorvastatin (LIPITOR) 80 mg tablet Take 1 tablet (80 mg total) by mouth at bedtime. Active gabapentin (NEURONTIN) 300 mg capsule Take 1 capsule (300 mg total) by mouth 2 (two) times a day. Active loratadine (CLARITIN) 10 mg tablet Take 1 tablet (10 mg total) by mouth 1 (one) time each day. Active metFORMIN (GLUCOPHAGE) 500 mg tablet Take 2 tablets (1,000 mg total) by mouth 2 (two) times a day with meals. Active multivitamin with minerals tablet Take 1 tablet by mouth 1 (one) time each day. Active ferrous sulfate 325 mg (65 mg elemental iron) tablet Take 1 tablet (325 mg total) by mouth 1 (one) time each day with breakfast. Active clopidogreL (PLAVIX) 75 mg tablet Take 1 tablet (75 mg total) by mouth 1 (one) time each day. Active insulin glargine (LANTUS) 100 unit/mL injection Inject 28 Units under the skin at bedtime. Active insulin lispro 100 unit/mL injection Inject under the skin 3 (three) times a day before meals. -Administer within 15 minutes of a meal Active tirzepatide (Mounjaro) 5 mg/0.5 mL injection Inject 0.5 mL (5 mg total) under the skin. Active metoprolol succinate (TOPROL-XL) 25 mg 24 hr tablet Take 1 tablet (25 mg total) by mouth 1 (one) time each day. Do not crush or chew. 30 each 11 08/12/2024 08/12/2025 Active Active Problems Problem Noted Date Diagnosed Date HFrEF (heart failure with reduced ejection fract ion) 08/13/2024 STEMI (ST elevation myocardial infarction) 08/11 HLD (hyperlipidemia) 08/11/2024 HTN (hypertension) 08/11/2024 Chest pain 08/11/2024 Encounters Date Type Department Care Team Description 08/14/2024 Telephone [facility] Cardiology [facility] [address] [place] [address] Champ Williamson MD hospital procedure (Cardiac cath/) 08/13/2024 Telephone [facility] Cardiology [facility] [address] [place] [address] Champ Williamson MD 08/12/2024 9:50 AM EST Office Visit [facility] Cardiology [facility] [address] [facility] [address] [place] [address] Champ Williamson MD Chest pain, unspecified type (Primary Dx); ST elevation myocardial infarction (STEMI), unspecified artery (CMS/HCC); HFrEF (heart failure with reduced ejection fraction) (CMS/HCC) from Last 3 Months Surgical History Surgery Date Site/Laterality Comments CARDIAC CATHETERIZATION DONE ON 07/17/2024 AT [facility] INDICATIONS:NSTEMI Medical History Medical History Date Comments T2DM (type 2 diabetes mellitus) (CMS/HCC) Iron deficiency anemia Neuropathy Social History Tobacco Use Types Packs/Day Years Used Date Smoking Tobacco: Never Assessed Sex and Gender Information Value Date Recorded Sex Assigned at Not on file Gender Identity Not on file Sexual Orientation Not on file Job Start Date Occupation Industry Not on file Not on file Not on file Obstetrics History Last Filed Vital Signs Vital Sign Reading [...] Mass Index 23.52 08/12/2024 10:41 AM EST Plan of Treatment Upcoming Encounters Date Type Department Care Team (Late st Contact Info) Description 11/10/2024 3:30 PM EDT Ancillary Procedure [facility] Cardiology [facility] [address] [place] [address] 12/21/2024 1:10 PM EDT Office Visit [facility] [address] [place] [address] Mary Ann Allen NP [address] [place] [address] [place] [address] Health Maintenance Due Date Last Done Comments Breast Cancer Screening 1958 Diabetes: Annual GFR (Glomerular Filtration Rate) 1958 Diabetes: Annual Foot Exam 1968 Diabetes: Annual Retina Eye Exam 1968 Cervical Cancer Screening: Pap Smear 10/25/1979 RSV Immunization Patients 60+ Years Old (1 - Risk 60-74 years 1-dose series) 2018 Pneumococcal Vaccine: 65+ Years (2 of 2 - PCV) 10/25/2023 04/28/1997 COVID-19 Vaccine ( season) 2024 08/22/2023, 07/25/2022, 06/19/2021, Additional history exists Influenza Vaccine (#1) 2024 , 04/11/2021, 04/28/2020, Additional history exists Cholesterol Screening (Lipid Panel) 07/20/2024 Colorectal Cancer Screening: Colonoscopy 07/20/2024 Falls Risk Assessment 07/20/2024 Medicare Annual Wellness Visit 07/20/2024 Osteoporosis Screening (Bone Density Screening) 07/20/2024 Social Influencers of Health Screening 07/20/2024 Hypertension/CHF/CAD Annual BMP Blood Test 08/11/2024 Diabetes: Annual Urine Albumin-Creatinine Ratio (uACR) 08/14/2024 Depression Screening 10/14/2024 10/15/2023 Diabetes: Blood Sugar Control Test (HGBA1C) 01/25/2025 07/28/2024 DTaP,Tdap,and Td Vaccines (4 - Td or Tdap) 11/25/2031 11/24/2021, 12/10/2011, 07/06/1996 Pneumococcal Vaccine: Pediatrics (0 to 5 Years) and At-Risk Patients (6 to 64 Years) Aged Out 04/28/1997 No longer eligible based on patient's age to complete this topic Zoster Vaccines Completed 02/13/2022, 10/27/2021 Hepatitis C [...] on patient's age to complete this topic MMR Vaccines Aged Out No longer eligi ble based on patient's age to complete this topic Meningococcal ACWY Vaccine Aged Out N o longer eligible based on patient's age to complete this topic RSV Immunization Patients Under 20 months Aged Out No longer eligible based on patient's age to complete this topic Varicella Vaccines Aged Out No longer eligible based on patient's age to complete this topic Procedures Procedure Name Priority Date/Time Associated Diagnosis Comments ECG 12-LEAD Routine 08/12/2024 10:48 AM EST Chest pain, unspecified type ST elevation myocardial infarction (STEMI), unspecified artery (CMS/HCC) from Last 3 Months Results * ECG 12 lead (08/12/2024 10:48 AM EST) Ventricular Rate ECG 86 BPM GEMUSE Atrial Rate 86 BPM GEMUSE P-R Interval 178 ms GEMUSE QRS Duration 84 ms GEMUSE Q-T Interval 390 ms GEMUSE QTc 466 ms GEMUSE P Wave [place] 61 degrees GEMUSE R [place] 86 degrees GEMUSE T [place] 102 degrees GEMUSE ECG Interpretation Normal sinus rhythm Septal infarct , age undetermined Abnormal ECG No previous ECGs available Confirmed by CHAMP WILLIAMSON ([id number]) on 08/13/2024 6:33:34 AM GEMUSE 08/12/2024 10:4 8 AM EST 08/13/2024 6:33 AM EST Champ Williamson MD ECG ORDERABLES GEMUSE from Last 3 Months Care Teams Business Operations Consultant Relationship Specialty Start Date End Date Amilcar Bauer MD [address] [place] [address] PCP - General Internal Medicine 07/20/24
--- OUTSIDE RECORDS SUMMARY | 2024-08-24 10:01 | XMS_ITS | Encounter Summary ---
Author Organization [facility] Address [address] [place] [address] Care Team Providers Care Company Driver Name Role Phone Amilcar Bauer MD Primary Care Provi lisa Reason for Visit * Reason Onset Date Comments hospital procedure 08/14/2024 Cardiac cath Encounter Details Date Type Department Care Team (Late st Contact Info) Description 08/14/2024 Telephone [facility] Cardiology [facility] [address] [place] [phone] Marco A Williamson MD [address] [place] [address] Dr [place] [place] [address] hospital procedure (Cardiac cath/) Social History Tobacco Use Types Packs/Day Years Used Date Smoking Tobacco: Never Assessed Sex and Gender Information Value Date Recorded Sex Assigned at Not on file Gender Identity Not on file Sexual Orientation Not on file Job Start Date Occupation Industry Not on file Not on file Not on file documented as of this encounter Progress Notes * Tamia Vicente - 08/14/2024 1:28 PM EST no auth required for cpt code [id number] and [id number]. Ok to book documented in this encounter Plan of Treatment Upcoming Encounters Date Type Department Care Team (Late st Contact Info) Description 11/10/2024 3:30 PM EDT Ancillary Procedure [facility] [address] [place] [phone] 12/21/2024 1:10 PM EDT Office Visit [facility] Cardiology [facility] [address] [facility] [address] [place] [address] Mary Ann Allen NP [address] [place] [address] [place] [address] documented as of this encounter Visit Diagnoses Not on filedocumented in this encounter Care Teams Company Driver Relationship Specialty Start Date End Date Amilcar Bauer MD [address] [place] [address] PCP - General Internal Medicine 07/20/24 documented as of this encounter
--- OUTSIDE RECORDS SUMMARY | 2024-08-24 10:01 | XMS_ITS | Encounter Summary ---
Author Organization [facility] Address [address] [place] [address] Care Team Providers Care Rn Surgery Name Role Phone Amilcar Bauer MD Primary Care Provi lisa Encounter Details Date Type Department Care Team (Late st Contact Info) Description 08/13/[address] [facility] [address] [place] [address] Marco A Williamson MD [address] [place] [address] Dr [facility] [address] [place] [address] Social History Tobacco Use Types Packs/Day Years Used Date Smoking Tobacco: Never Assessed Sex and Gender Information Value Date Recorded Sex Assigned at Not on file Gender Identity Not on file Sexual Orientation Not on file Job Start Date Occupation Industry Not on file Not on file Not on file documented as of this encounter Progress Notes * Cecy Izaguirre - 08/14/2024 9:35 AM EST Message below was sent to eligibility Please obtain PA for L HRT CATH?PCI [id number] and [id number] at [facility] with Dr Williamson DX: [phone] FERNIE ALMODOVAR THANK YOU * Marco A Williamson MD - 08/13/2024 6:07 PM EST Patient needs LHC at [facility] Left heart catheterization: Definite PCI of RCA Diagnosis: CAD Anticoagulation: No Diabetic: Yes Dialysis: No Lovenox needed: No Contrast Allergy: No Hydration needed: No Premedication needed: No documented in this encounter Plan of Treatment Upcoming Encounters Date Type Department Care Team (Late st Contact Info) Description 11/10/2024 3:30 PM EDT Ancillary Procedure [facility] [address] [place] [address] 12/21/2024 1:10 PM EDT Office Visit [facility] [address] [place] [address] Dr [address] [place] [address] Mary Ann Allen NP [address] [place] [address] [place] [address] documented as of this encounter Visit Diagnoses Not on filedocumented in this encounter Care Teams Rn Surgery Relationship Specialty Start Date End Date Amilcar Bauer MD [address] [place] [id number] PCP - General Internal Medicine 07/20/24 documented as of this encounter
--- OUTSIDE RECORDS SUMMARY | 2024-08-24 10:01 | XMS_ITS | Encounter Summary ---
Author Organization [employer] Address [address] [facility] 7[address] [place] [address] Care Team Providers Care Apprentice Painter Brush Name Role Phone Amilcar Louis MD Primary Care Provide r Encounter Details Date Type Department Care Team (Latest Contact Info) Description 07/28/2024 Travel Social History Tobacco Use Types Packs/Day Years [...] Description 08/27/2024 10:15 AM EST Office Visit [facility] MEDICINE [address] [place] [address] Amilcar Louis MD [address] [place] [address] documented as of this encounter Visit Diagnoses Not on filedocumented in this encounter Additional Health Concerns Assessment Noted Time PHQ-9 Depression Total Score: 0 10/15/19 24 10:59 AM EDT documented as of this encounter Care Teams Apprentice Painter Brush Relationship Specialty Start Date End Date Amilcar Louis MD [address] [place] [address] PCP - General Internal Medicine 04/08/14 Yessenia Olmos Electric Organ AssemblerImmigration Paralegal 09/20/23 documented as of this encounter
--- OUTSIDE RECORDS SUMMARY | 2024-08-24 10:01 | XMS_ITS | Encounter Summary ---
Author Organization [facility] Address [address] [facility] 7t [place] [address] Care Team Providers Care Ecommerce Manager Name Role Phone Amilcar Louis MD Primary Care Provide r Reason for Visit * Reason Onset Date Comments Med Refill 06/02/2024 Encounter Details Date Type Department Care Team ([facility] Contact Info) Description 06/02/2024 Telephone [facility] MEDICINE [address] [place], [place] [phone] Amilcar Louis MD [address] [place] [address] Med Refill Social History Tobacco Use Types Packs/Day Years [...] encounter Miscellaneous Notes * Telephone Encounter - Ochoa Cohen - 06/02/2024 3:43 PM EST TC from pt requesting medication refill. Medications needing refill : loratadine (Claritin) 10 MG tablet To be sent to: [id number] documented in this encounter Plan of Treatment Upcoming Encounters Date Type Department Care Team (Late st Contact Info) Description 08/27/2024 10:15 AM EST Office Visit [facility] MEDICINE [address] [place] [address] Amilcar Louis MD [address] [place] [address] documented as of this encounter Visit Diagnoses Not on filedocumented in this encounter Additional Health Concerns Assessment Noted Time PHQ-9 Depression Total Score: 0 10/15/19 24 10:59 AM EDT documented as of this encounter Care Teams Ecommerce Manager Relationship Specialty Start Date End Date Amilcar Louis MD [address] [place] [address] PCP - General Internal Medicine 04/08/14 Yessenia Olmos Tile TrimmerLand Planner 09/20/23 documented as of this encounter
--- OUTSIDE RECORDS SUMMARY | 2024-08-24 10:01 | XMS_ITS | Encounter Summary ---
Author Organization [employer] Address [address] [facility] 7t [place] [address] Care Team Providers Care Heavy Machinery Assembler Name Role Phone Amilcar Louis MD Primary Care Provide r Encounter Details Date Type Department Care Team ([facility] st Contact Info) Description 07/16/2024 Telephone [facility] MEDICINE [address] [place], [place] [phone] Amilcar Louis MD [address] [place], [place] [phone] Social History Tobacco Use Types Packs/Day Years [...] Description 08/27/2024 10:15 AM EST Office Visit [facility] MEDICINE [address] [place] [address] Amilcar Louis MD [address] [place] [address] documented as of this encounter Visit Diagnoses Not on filedocumented in this encounter Additional Health Concerns Assessment Noted Time PHQ-9 Depression Total Score: 0 10/15/19 10:59 AM EDT documented as of this encounter Care Teams Heavy Machinery Assembler Relationship Specialty Start Date End Date Amilcar Louis MD [address] [place] [address] PCP - General Internal Medicine 04/08/14 Yessenia Olmos Drying Oven TenderTap Puller 09/20/23 documented as of this encounter
[2024-08-24 12:41] LABS: Alanine Aminotransferase 12 U/L (0-31); Alkaline Phosphatase 70 U/L (39-117); Anion Gap 11 (12-20); Aspartate Amino Transferase 22 U/L (5-31); Bilirubin Total 0.7 mg/dL (0.0-1.0); Blood Urea Nitrogen 16 mg/dL (9-16); Calcium 8.8 mg/dL (8.4-10.2); Carbon Dioxide 27 mmol/L (22-29); Chloride 107 mmol/L (96-108); Cholesterol 84 mg/dL (<200); Estimated Glomerular Filt Rate > 60; Glucose Random 163 mg/dL (60-115); HDL Cholesterol 45 mg/dL (>40); LDL Cholesterol Calculated 29 mg/dL (<100); Potassium 5.1 mmol/L (3.3-5.1); Sodium 140 mmol/L (135-145); Total Protein 7.6 g/dL (6.5-8.0); Triglycerides 52 mg/dL (<150)
== END 2024-08-24 09:36 | disposition home or self-care (01) ==
LOC: HO.HHCL 09:35
PROVIDERS: Visit Provider Internal Medicine
DX: I10 Essential (primary) hypertension (principal); E78.2 Mixed hyperlipidemia
CPT/HCPCS: 36415; 80053; 80061

== ENCOUNTER 2024-09-03 11:38 | Outpatient (REF) | payer MEDICARE, MEDICAID, SELFPAY ==
--- OUTSIDE RECORDS SUMMARY | 2024-09-03 12:12 | XMS_ITS | Encounter Summary ---
Author Organization [employer] Address [address] [facility] 7t [place] [address] Care Team Providers Care Mold Bunch Trimmer Name Role Phone Amilcar Louis MD Primary Care Provide r Reason for Visit * Reason Onset Date Comments Triage 08/02/2022 Encounter Details Date Type Department Care Team ([facility] st Contact Info) Description 08/02/2022 Telephone [facility] MEDICINE [address] [place], [place] [phone] Amilcar Louis MD [address] [place], [place] [phone] Triage Social History Tobacco Use Types Packs/Day [...] the past 12 months, has t he [email or web address], gas, oil or water [employer] threatened to shut off services in your [...] 08/02/2022 12:07 PM EST Triage call with [employer] Taximeter Repairer ID [id number] Pt reports positive home test for Covid [...] With COVID-19 * Telephone Encounter - Breana Brady - 08/02/2022 10:55 AM EST Patient calling to report positive for COVID ( home kit ) Cough, back pain. Pt is requesting antiviral tablet Patient speaks Indonesian. Advised triage nurse will call patient back. Please contact at [phone] documented in this encounter Plan of Treatment Not on file documented as of this encounter Visit Diagnoses Not on filedocumented in this encounter Care Teams Mold Bunch Trimmer Relationship Specialty Start Date End Date Amilcar Louis MD [address] [place] [address] PCP - General Internal Medicine 04/08/14 Yessenia Olmos Crew BossBeauty Consultant 09/20/23 documented as of this encounter
--- OUTSIDE RECORDS SUMMARY | 2024-09-03 12:12 | XMS_ITS | Encounter Summary ---
Author Organization [employer] Address [address] [facility] 7t [place] [address] Care Team Providers Care Value Stream Manager Name Role Phone Amilcar Louis MD Primary Care Provide r Reason for Visit * Reason Onset Date Comments Med Refill 08/28/2024 Encounter Details Date Type Department Care Team ([facility] st Contact Info) Description 08/28/2024 Refill [facility] MEDICINE [address] [place], [place] [phone] Amilcar Louis MD [address] [place] [address] Neuropathy Social History Tobacco Use Types Packs/Day [...] encounter Miscellaneous Notes * Telephone Encounter - Joana Worley LPN - 08/28/2024 9:51 AM EST OUTBOUND SALES CONSULTANT checked on 08/28/24. Next appointment 09/03/24. * Telephone Encounter - Estefani Dias - 08/28/2024 9:40 AM EST TC from pt requesting medication refill. Medications needing refill : gabapentin (Neurontin) 300 MG capsule To be sent to: [facility] [address] [place] [address] documented in this encounter Plan of Treatment Not on file documented as of this encounter Visit Diagnoses Diagnosis Neuropathy Mononeuritis of unspecified site documented in this encounter Additional Health Concerns Assessment Noted Time PHQ-9 Depression Total Score: 0 10/15/19 10:59 AM EDT documented as of this encounter Care Teams Value Stream Manager Relationship Specialty Start Date End Date Amilcar Louis MD [address] [place] [address] PCP - General Internal Medicine 04/08/14 Yessenia Olmos Stock FitterElectric Knife Operator 09/20/23 documented as of this encounter
--- OUTSIDE RECORDS SUMMARY | 2024-09-03 12:12 | XMS_ITS | Encounter Summary ---
Author Organization [employer] Address [address] [facility] 7t [place] [address] Care Team Providers Care Vending Machine Coin Collector Name Role Phone Amilcar Louis MD Primary Care Provide r Reason for Visit * Reason Comments Med Refill Encounter Details Date Type Department Care Team ([facility] st Contact Info) Description 05/18/2024 Refill [facility] MEDICINE [address] [place], [place] [phone] Jessie Sanchez MD [address] [place] [address] Neuropathy Social History Tobacco Use Types Packs/Day [...] as of this encounter Plan of Treatment Not on file documented as of this encounter Visit Diagnoses Diagnosis Neuropathy Mononeuritis of unspecified site documented in this encounter Additional Health Concerns Assessment Noted Time PHQ-9 Depression Total Score: 0 10/15/19 10:59 AM EDT documented as of this encounter Care Teams Vending Machine Coin Collector Relationship Specialty Start Date End Date Amilcar Louis MD [address] [place] [address] PCP - General Internal Medicine 04/08/14 Yessenia Olmos Facing Cutting Machine OperatorFoundry Worker General 09/20/23 documented as of this encounter
--- OUTSIDE RECORDS SUMMARY | 2024-09-03 12:12 | XMS_ITS | Encounter Summary ---
Author Organization [facility] Address [address] [place] [address] 7t [place] [address] Care Team Providers Care Mgmt Specialist Name Role Phone Amilcar Louis MD Primary Care Provide r Encounter Details Date Type Department Care Team (Late st Contact Info) Description 08/31/2022 Refill [facility] MEDICINE [address] [place], [place] [phone] Amilcar Louis MD [address] [place] [address] Type 2 diabetes mellitus with foot ulcer, with long-term current use of insulin (CMS/[facility]) Social History Tobacco Use Types Packs/Day Years [...] (CMS/HCC) documented in this encounter Care Teams Mgmt Specialist Relationship Specialty Start Date End Date Amilcar Louis MD [address] [place], [place] [phone] PCP - General Internal Medicine 04/08/14 Yessenia Olmos Crop Grain Or Livestock Farm ManagerPart Time 09/20/23 documented as of this encounter
--- OUTSIDE RECORDS SUMMARY | 2024-09-03 12:12 | XMS_ITS | Encounter Summary ---
Author Organization [employer] Address [address] [facility] 7t [place] [address] Care Team Providers Care Exhaust Emissions Automotive Technician Name Role Phone Amilcar Louis MD Primary Care Provide r Reason for Visit * Reason Onset Date Comments some pain 08/26/2023 pain medication 08/26/2023 pain from ext 08/26/2023 Encounter Details Date Type Department Care Team (Late st Contact Info) Description 08/26/2023 Telephone [facility] [address] [place], [place] [phone] Abiodun Bean DDS [address] [place] [address] some pain; pain medication; pain from ext [...] is not working DR Shinally signed by Mara Doe at 09/04/2023 2:42 PM EST * [...] documented as of this encounter Care Teams Exhaust Emissions Automotive Technician Relationship Specialty Start Date End Date Amilcar Louis MD [address] [place] [address] PCP - General Internal Medicine 04/08/14 Yessenia Olmos First AssistCpas 09/20/23 documented as of this encounter
--- OUTSIDE RECORDS SUMMARY | 2024-09-03 12:12 | XMS_ITS | Data Portability ---
Author Organization [employer] [place] [employer] Address [address] [place] [address] Care Team Providers Care Carpentry Instructor Name Role Phone [facility] OTHER [phone] [facility] OTHER Assessment Encounter Date Assessment Date Assessment LastModified by Organization Details LastModified Time 07/16/2024 07/16/2024 As noted, we were called to see this patient regarding concerns of chest pain. Evaluation in the field was performed by my television news anchor colleague, as noted above, I provided real-time [...] [facility] 07/16/2024 17:01:20 Plan of Treatment [...] Name and Address Organization Details Recorded Time [address]11 [facility] n Not available Not available [...] /min 129 mm[Hg] 69 mm[Hg] Not Available [employer] production 4 16:42:04 Social History None recorded. Functional Status None recorded. Mental Status None recorded. Family History Nothing Reported. Medical History No medical history recorded. Gynecological HistoryNo gynecological history recorded. Obstetrics History GPAL:G 0 P 0 0 0 0 Past Encounters Encounter ID Performer Location Encounter Start Date Encounter Closed Date Diagnosis/Indication Diagnosis SNOMED-CT Code Diagnosis ICD10 Code Diagnosis Note [id number] Stacy Javier MD Main - [facility] [address] [place] [address] 07/16/2024 16:42:02 07/17/2024 12:37:27 Chest pain 04994395 R07.9 Health Concerns Section Related Observation LastModified by Organization Detai ls LastModified Time None Recorded Concern Status LastModified by Organization Details LastModified Time None Recorded Advance Directives Directive None Recorded Payers Encounter Date Sequence Insurance Name Policy Number Policy Lynn Covered Member ID Lynn Member ID Guarantor Name 07/16/2024 1 [facility] - DOS ON OR AFTER 2022 - DUAL ELIGIBLE - JAIL OPTIONS AND ONE CARE (MEDICARE REPLACEMENT/AD VANTAGE - HMO) Trent Almodovar [id number] Trent Almodovar Notes Date Note Type Note Provider Name and Address Organization Details Recorded Time 07/16/2024 text/html HPI: Call returned to Trent Gilmore to triage below. Patient alert and oriented x 3. Speaking in clear full sentences. No audible wheezing or distress front end developer. Per pt states feeling SOB with exertion. Pt also endorse chest tightness. Pt denies any CP. Pt denies any PRUITT or dizziness. Pt checked BP while front end developer 189/139 was via wrist BP cuff , BS fasting today was 124mg/dL. Pt denies again any PRUITT, dizziness or CP. Pt unable to come into our office for walk in center. Pt agrees to [facility] for evaluation. Confirmed demographics and allergies. ..................... ..................... ..................... ..................... ..................... ..................... ............... CRC Nurse Triage Notes (Rose Lassiter - RN): Chief Complaints: Fatigue, Breathing problems PMH: Hypertension, Coronary Artery Disease, Diabetes Mellitus Type 2 Comments: CRC RN did not require any additional information to process this visit. Application Project Leader Organization Information for [employer] Legal Name: [employer] Address: [address] [place] [address], Faucet Polisher: Tulio SANCHEZ No.: [id number] Application Project Leader POC Test Results from [facility] EKG (16:34:05) EKG test performed. Attachments uploaded as part of this test result can be found under Documents section. ..................... ..................... ..................... ..................... ..................... ..................... ............... Application Project Leader Note From [facility]: Dispatched to above address for shortness of breath. On arrival patients daughter met NM8 at the door, reports patient has been [...] V1 V2 V3, results uploaded. [facility] contacted, spoke with Dr. Javier, advised of patient complaints, exam findings and test results. [facility] agrees likely STEMI, recommends transport to bottle labeler, ASA and IV established. 911 contacted, [facility] [...] feels generally unwell. STEMI alert called to [facility]. Patient transported to [facility] without incident or change in status. Verbal report given to STEMI team. SC8 clear. EOR. ..................... ..................... ..................... ..................... ..................... ..................... ............... [facility] Consulted: Stacy Javier ..................... ..................... ..................... ..................... ..................... ..................... ............... Disposition: Fulfilled Stacy Javier MD [address] [facility], [place], [address], CMP.[email or web address] - [facility] 07/16/2024 19:03:57 OBGyn Episode No OBEpisode recorded.
--- OUTSIDE RECORDS SUMMARY | 2024-09-03 12:12 | XMS_ITS | Encounter Summary ---
Author Organization [facility] Address [address] [place] [address] Care Team Providers Care Automotive General Sales Manager Name Role Phone Amilcar Bauer MD Primary Care Provi [facility] Reason for Referral * Imaging (Routine) - Pending Review Specialty Diagnoses / Procedures Referred By Contac t Referred To Contact Cardiology Diagnoses ST elevation myocardial infarction (STEMI), unspecified artery (CMS/HCC) Procedures Transthoracic echocardiogram (TTE) complete with PRN contrast, bubble, strain, and 3D order panel RI TTE W 2D IMAGE COMPLETE W DOPPLER ECHO & COLOR FLOW DOPPLER ECHO RI BEA 2D COMPLETE W/CONTRAST OR W & WO CONTRAST WITH DOPPLER Marco A Williamson MD [address] [place] [address] Dr Dumont [address] [place] [phone] Phone: tel: fax: [facility] Referral ID Status Reason Start Date Expiration Date V isits Requested Visits Authorized [id number] Pending Review 08/12/2024 08/12/2025 1 1 * Consultation (Routine) - Pending Review Specialty Diagnoses / Procedures Referred By Contac t Referred To Contact Cardiology / Cardiac Rehabilitation Diagnoses ST elevation myocardial infarction (STEMI), unspecified artery (CMS/HCC) Marco A Williamson MD [address] [place] [address] Dr Dumont [address] [place] [address] Phone: tel: fax: Referral ID Status Reason Start Date Expiration Date Visits Requested Visits Authorized [id number] Pending Review Specialty Services Required 08/12/2024 08/12/2025 1 1 Reason for Visit * Reason Comments Hospital Follow-up Encounter Details Date Type Department Care Team (Late st Contact Info) Description 08/12/2024 9:50 AM EST Office Visit [facility] [address] [place] [address] Marco A Williamson MD [address] [place] [address] Dr Dumont [address] [place] [address] Chest pain, unspecified type (Primary Dx); ST elevation myocardial infarction (STEMI), unspecified artery (CMS/HCC); HFrEF (heart failure with reduced ejection fraction) ([facility]) Social History Tobacco Use Types Packs/Day Years Used Date Smoking Tobacco: Never Assessed Comments Unknown Sex and Gender Information Value Date Recorded Sex Assigned at Not on file Legal Sex Female 3:35 PM EST Gender Identity Not on file Sexual Orientation Not on file documented as of this [...] in this encounter Ordered Prescriptions Prescription Sig Dispense Quantity Refills Last Filled Start Date End Date metoprolol succinate (TOPROL-XL) 25 mg 24 hr tablet Take 1 tablet (25 mg total) by mouth 1 (one) time each day. Do not crush or chew. 30 each 11 08/12/2024 08/12/2025 documented in this encounter Progress Notes * Marco A Williamson MD - 08/12/2024 9:50 AM EST Images from the original note were not included. [facility] PCP: Amilcar Bauer MD HPI: Trent Almodovar is a 63 y.o. old female with hypertension, hyperlipidemia,, diabetes mellitus type2 who initially came to the hospital in the end of June with a late presenting [place]. Coronary angiogram was done at that time [...] List Diagnosis STEMI (ST elevation myocardial infarction) ([facility]) HLD (hyperlipidemia) HTN (hypertension) Chest pain HFrEF (heart failure with reduced ejection fraction) ([facility]) ALLERGIES: Allergies Allergen Reactions Naproxen [...] Q-T Interval 390 QTc 466 P Wave Hull 61 R Hull 86 T Hull 102 ECG Interpretation Normal sinus rhythm Septal [...] HFrEF (heart failure with reduced ejection fraction) ([facility]) ASSESSMENT/PLAN: Multivessel coronary artery disease; late presenting [place]; nonviable LAD territory on cardiac MRI: After [...] Description 11/10/2024 3:30 PM EDT Ancillary Procedure [facility] Cardiology [facility] [address] [address] [place] [address] 12/21/2024 1:10 PM EDT Office Visit [facility] Cardiology [facility] [address] [place] [phone] Mary Ann Allen NP [address] [place] [address] [place] [address] Scheduled Orders Name Type Priority Associated Diagnoses [...] GEMUSE QTc 466 ms GEMUSE P Wave Hull 61 degrees GEMUSE R Hull 86 degrees GEMUSE T Hull 102 degrees GEMUSE ECG Interpretation Normal sinus rhythm Septal infarct , age undetermined Abnormal ECG No previous ECGs available Confirmed by MRACO A WILLIAMSON ([id number]) on 08/13/2024 6:33:34 AM GEMUSE 08/12/2024 10:4 8 AM EST 08/13/2024 6:33 AM EST Marco A Williamson MD ECG ORDERABLES Final Result GEMUSE documented in this encounter Visit Diagnoses Diagnosis Chest pain, unspecified type- Primary ST elevation myocardial infarction (STEMI), unspecified artery (CMS/HCC) HFrEF (heart failure with reduced ejection fraction) (CMS/HCC) documented in this encounter Historical Medications * This list may reflect changes made after this encounter. tirzepatide (Mounjaro) 5 mg/0.5 mL injection Inject [...] day. added in this encounter Care Teams Automotive General Sales Manager Relationship Specialty Start Date End Date Amilcar Bauer MD [address] [place] [address] PCP - General Internal Medicine 07/20/24 documented as of this encounter
--- OUTSIDE RECORDS SUMMARY | 2024-09-03 12:12 | XMS_ITS | Encounter Summary ---
Author Organization [employer] [facility] Address [address] [place] [address] Care Team Providers Care Assembler Product Name Role Phone Amilcar Louis MD Primary Care Provide r Encounter Details Date Type Department Care Team (Latest Contact Info) Description 03/27/2022 Abstract [facility] CONVERSIONS Dental, Provider, DDS Social History Tobacco [...] on filedocumented in this encounter Care Teams Assembler Product Relationship Specialty Start Date End Date Amilcar Louis MD [address] [place] [address] PCP - General Internal Medicine 04/08/14 Yessenia Olmos Manager Retail SalesFuel Management Handler 09/20/23 documented as of this encounter
--- OUTSIDE RECORDS SUMMARY | 2024-09-03 12:12 | XMS_ITS | Encounter Summary ---
Author Organization [employer] [facility] Address [address] [facility] [address] [place] [address] Care Team Providers Care Forestry Technician Name Role Phone Amilcar Louis MD Primary Care Provide r Encounter Details Date Type Department Care Team (Late st Contact Info) Description 11/21/2022 Abstract [facility] MEDICINE [address] [place], [place] [phone] Amilcar Louis MD [address] [place], [place] [phone] Social History Tobacco Use Types Packs/Day Years [...] on file documented as of this encounter Procedures Procedure Name Priority Date/Time Associated Diagnosis Comments COLONOSCOPY Routine 10/02/2018 documented in this encounter Results * Colonoscopy (10/02/2018) Colonoscopy Normal Normal 10/02/2018 Tosin Gaona - 10/02/2018 11:37 AM EDT Recommended 10 year follow up ( see scanned report) us Historical Provider HEALTH MAINTENANCE Edited Result - Final documented in this encounter Visit Diagnoses Not on filedocumented in this encounter Care Teams Forestry Technician Relationship Specialty Start Date End Date Amilcar Louis MD [address] [place] [id number] PCP - General Internal Medicine 04/08/14 Yessenia Olmos Salon ManagerPleater Hand 09/20/23 documented as of this encounter
--- OUTSIDE RECORDS SUMMARY | 2024-09-03 12:12 | XMS_ITS | Encounter Summary ---
Author Organization [facility] Address [address] [facility] [address] [place] [address] Care Team Providers Care Commuter Pilot Name Role Phone Amilcar Louis MD Primary Care Provide r Encounter Details Date Type Department Care Team (Latest Contact Info) Description 02/05/2019 Abstract [facility] CONVERSIONS Dental, Provider, DDS Social History Tobacco [...] on filedocumented in this encounter Care Teams Commuter Pilot Relationship Specialty Start Date End Date Amilcar Louis MD [address] [place] [address] PCP - General Internal Medicine 04/08/14 Yessenia Olmos Ux SpecialistCrocheter 09/20/23 documented as of this encounter
--- OUTSIDE RECORDS SUMMARY | 2024-09-03 12:12 | XMS_ITS | Encounter Summary ---
Author Organization [employer] Address [address] [facility] [address] [place] [address] Care Team Providers Care Floor Molder Name Role Phone Amilcar Louis MD Primary Care Provide r Encounter Details Date Type Department Care Team (Latest Contact Info) Description 09/03/2024 Travel Social History Tobacco Use Types Packs/Day Years Used Date Smoking Tobacco: Former Cigarettes Q uit: 09/03/2004 Passive Smoke Exposure: Past Smokeless Tobacco: Never Alcohol Use Standard Drinks/Week [...] documented as of this encounter Care Teams Floor Molder Relationship Specialty Start Date End Date Amilcar Louis MD [address] [place] [address] PCP - General Internal Medicine 04/08/14 Yessenia Olmos Paint Mixer HandWelfare Administrator 09/20/23 documented as of this encounter
--- OUTSIDE RECORDS SUMMARY | 2024-09-03 12:12 | XMS_ITS | Encounter Summary ---
Author Organization [employer] [facility] Address [address] [facility] [address] [place] [address] Care Team Providers Care First Aid Officer Name Role Phone Amilcar Louis MD Primary Care Provide r Encounter Details Date Type Department Care Team (Latest Contact Info) Description 03/13/2021 Abstract [facility] CONVERSIONS Dental, Provider, DDS Social History [...] on filedocumented in this encounter Care Teams First Aid Officer Relationship Specialty Start Date End Date Amilcar Louis MD [address] [place] [address] PCP - General Internal Medicine 04/08/14 Yessenia Olmos Waste Minimization TechnicianLaboratory Engineer 09/20/23 documented as of this encounter
--- OUTSIDE RECORDS SUMMARY | 2024-09-03 12:12 | XMS_ITS | Encounter Summary ---
Author Organization [employer] Address [address] [facility] [address] [place] [address] Care Team Providers Care Worm Picker Name Role Phone Amilcar Louis MD Primary Care Provide r Reason for Visit * Reason Onset Date Comments Medication Question 08/26/2024 Encounter Details Date Type Department Care Team ([facility] st Contact Info) Description 08/26/2024 Telephone [facility] MEDICINE [address] [place], [place] [phone] Amilcar Louis MD [address] [place], [place] [phone] Medication Question Social History Tobacco Use Types Packs/Day Years [...] Miscellaneous Notes * Telephone Encounter - Nancy Miller RN - 08/26/2024 11:26 AM EST Telephone call to pt using [employer] timber surveyor [employer] #[id number]. Interpretation interrupted multipletimes by pt. Pt states that her appt is now 09/03/24 and her daughter said that the meds will be okay til then, she added that she had cardiac cath recently. Patient denied needing anything else from PCP office at this point, confirmed appt now on 09/03/24. Pt asked about recent labs, advised her normal lipid panel. Advised her PCP will review results with her at upcoming appt. Pt verbalized understanding, no further questions. JIGAR Carrillo contacted pt's daughter for additional clarification (on HIPAA). Per daughter, pt went to hospital a few days ago and incidental finding was low hemoglobin so pt received blood transfusion. Roughly 3 months ago, she also was at the ED and given 90 day supply of ferrous sulfate. Daughter iswondering if pt should continue this, no Rx on file. No ED note located from 3 months ago. Medication is listed as outpatient med list from 08/12/24 note with cardiology: ferrous sulfate 325 mg (65 mg elemental iron) tablet Take 1 tablet (325 mg total) by mouth 1 (one) time each day with breakfast. Advised her message would be sent to PCP to clarify in advance of 09/03/24 follow up appt. Daughter verbalized understanding, in agreement with plan. * Telephone Encounter - Lorena Pastrana MA - 08/26/2024 9:53 AM EST Contacted pt in regards to appt change from 08/27/2024 to 09/03/2024. Pt was upset because she really needs to speak to pcp about a few of her medications and that it was advised to her by another doctor that her pcp needs to make a few changes in some of her medications. She wasn't too sure which medications they were that she needs modifications on but expressed that she'll return the call onceshe figures which meds they are. LB documented in this encounter Plan of Treatment Not on file documented as of this encounter Visit Diagnoses Not on filedocumented in this encounter Additional Health Concerns Assessment Noted Time PHQ-9 Depression Total Score: 0 10/15/19 10:59 AM EDT documented as of this encounter Care Teams Worm Picker Relationship Specialty Start Date End Date Amilcar Louis MD [address] [place] [address] PCP - General Internal Medicine 04/08/14 Yessenia Olmos Mc Kay StitcherElectronics Engineering Manager 09/20/23 documented as of this encounter
--- OUTSIDE RECORDS SUMMARY | 2024-09-03 12:12 | XMS_ITS | Encounter Summary ---
Author Organization [employer] Address [address] [facility] 7t [place] [address] Care Team Providers Care Bleacher Lard Name Role Phone Amilcar Louis MD Primary Care Provide r Reason for Visit * Reason Comments Diabetes Encounter Details Date Type Department Care Team (Latest Contact Info) Description 09/03/2024 11:00 AM EST Office Visit [facility] MEDICINE [address] [place], [place] [phone] Amilcar Louis MD [address] [place], [place] [phone] Atherosclerosis of [place] coronary artery of [place] heart without angina pectoris (Primary Dx); 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 edema, with long-term current use of insulin ([facility]); ST elevation myocardial infarction (STEMI), unspecified artery ([facility]); S/P drug eluting coronary stent placement; Iron deficiency anemia, unspecified iron deficiency anemia type Social History Tobacco Use Types Packs/Day Years Used Date Smoking Tobacco: Former Cigarettes Q uit: 09/03/2004 Passive Smoke Exposure: Past Smokeless Tobacco: Never Tobacco Cessation:Counseling Given: Not Answered Alcohol Use Standard Drinks/Week Comments Never 0 (1 standard drink = 0.6 oz pur e alcohol) Depression Answer Date Recorded Patient Health Questionnaire-9 Score 0 10/15/2023 Patient Health Questionnaire-9 Score 0 10/15/2023 Last PHQ-9: Questionnaire Data Not on file 0 10/15/2023 Housing Stability Answer Date Recorded What is your housing situation today? I have claraarsenio lindsay 05/20/[address] you [...] Sign Reading Time Taken Comments Blood Pressure 134/66 09/03/2024 10:43 AM EST Pulse 90 09/03/2024 10:43 AM EST Temperature 36.8 ??C (98.2 ??F) 09/03/2024 1 0:43 AM EST Respiratory Rate 20 09/03/2024 10:4 3 AM EST Oxygen Saturation 99% 09/03/2024 10: 43 AM EST Inhaled Oxygen Concentration - - Weight 62.1 kg (136 lb 12.8 oz) 025 10:43 AM EST Height 160 cm (5' 3 ) 09/03/2024 10:43 AM EST Body Mass Index 24.23 09/03/2024 10:43 AM EST documented in this encounter Progress Notes * Amilcar Vicente MD - 09/03/2024 11:00 AM EST SUBJECTIVE Trent Gilmore is a 63 y.o. female who presents for Diabetes. Pt here for a follow up after recent repeat Cardiac cath Diabetes She presents for her follow-up diabetic visit. She has type 2 diabetes mellitus. Pertinent [...] reaction(s): face red & swollen OBJECTIVE Vitals: 09/03/24 1043 BP: 134/66 BP Location: Left arm Patient Position: Sitting BP Cuff Size: Adult Pulse: 90 Resp: 20 Temp: 98.2 ??F (36.8 ??C) TempSrc: Oral SpO2: 99% Weight: 136 lb 12.8 oz (62.1 kg) Height: 5' 3 (1.6 m) Physical [...] Assessment/Plan Problem List Items Addressed This Visit Atherosclerosis of coronary artery - Primary Pt used to follow at [facility], Last seen 12/21/2013 . Previously pt wanted to be referred to [facility] Cardiology. Pt was admitted on 07/16 to [facility] with a late presenting anterior STEMI, now asymptomatic. And discharged 07/19/2024 S/p cardiac cath on 07/17 that showed multivessel disease for which Cardiothoracic surgeon recommended outpatient follow up for CABG workup. Dr Strickland repeated her cardiac cath and 09/01/2024 that showed: 100% Occluded LAD, Mid Lcx 50% stenosis, RCA 75% distal stenosis and 50% Mid stenosis. She is now s/p PCI to the distal RCA with JAQUELINE Recommendations was to continue Aspirin indefinitely, Plavix x 1 year ( to end 09/01/2025) and follow up with Cardiology 6-8 weeks Type 2 diabetes mellitus with retinopathy ([facility]) Pt is here for a f/u Under the care of [facility]ology , last seen 07/30/2024. Pt tells me she has a follow up She is on a regimen of: Metformin ER 500 mg 2 tabs po BID, Trulicity 4.5 mg sc weekly on and Lantus was increased to 28 units sc q pm and Humalog sliding scale. Hgb A1c 07/28/2024 : 9.7 from 8.4 Eye exam done on: 02/28/2024 at [facility] Also follows with retinal specialist, [...] daily basis Relevant Orders POCT Glucose (Completed) STEMI (ST elevation myocardial infarction) ([facility]) Pt here for a HDF admitted to [facility] from 07/16-07/19/2024 She initially presented with sudden [...] cardiac cath and outpatient CT surg follow-up. Dr Strickland repeated her cardiac cath and 09/01/2024 that showed: 100% Occluded LAD, Mid Lcx 50% stenosis, RCA 75% distal stenosis and 50% Mid stenosis. She is now s/p PCI to the distal RCA with JAQUELINE Recommendations was to continue Aspirin indefinitely, Plavix x 1 year ( to end 09/01/2025) and follow up with Cardiology 6-8 weeks S/P drug eluting coronary stent placement Dr Strickland repeated her cardiac cath and 09/01/2024 that showed: 100% Occluded LAD, Mid Lcx 50% stenosis, RCA 75% distal stenosis and 50% Mid stenosis. She is now s/p PCI to the distal RCA with JAQUELINE Recommendations was to continue Aspirin indefinitely, Plavix x 1 year ( to end 09/01/2025) and follow up with Cardiology 6-8 weeks Iron deficiency anemia Pt was found to be anemic in the ER and apparently received 1 unit of PRBC and was started on Iron supplementation Plan: Repeat CBC, Iron studies, B12, Folate will decide if iron needs to be continued Pending initial work up will decide further evaluation Relevant Orders CBC auto differential Vitamin B12/Folate, Serum Panel Ferritin Iron And Total Iron Binding Capacity documented in this encounter Miscellaneous Notes * Assessment & Plan Note - Amilcar Vicente MD - 09/03/2024 11:19 AM EST Associated Problem(s): Iron deficiency anemia Pt was found to be anemic in the ER and apparently received 1 unit of PRBC and was started on Iron supplementation Plan: Repeat CBC, Iron studies, B12, Folate will decide if iron needs to be continued Pending initial work up will decide further evaluation * Assessment & Plan Note - Amilcar Vicente MD - 09/03/2024 11:16 AM EST Associated Problem(s): Type 2 diabetes mellitus with retinopathy (CMS/HCC) Pt is here for a f/u Under the care of [facility] , last seen 07/30/2024. Pt tells me she has a follow up She is on a regimen of: Metformin ER 500 mg 2 tabs po BID, Trulicity 4.5 mg sc weekly on and Lantus was increased to 28 units sc q pm and Humalog sliding scale. Hgb A1c 07/28/2024 : 9.7 from 8.4 Eye exam done on: 02/28/2024 at [facility] Also follows with retinal specialist, [...] check your feet on a daily basis * Assessment & Plan Note - Amilcar Vicente MD - 09/03/2024 11:15 AM EST Associated Problem(s): S/P drug eluting coronary stent placement Dr Strickland repeated her cardiac cath and 09/01/2024 that showed: 100% Occluded LAD, Mid Lcx 50% stenosis, RCA 75% distal stenosis and 50% Mid stenosis. She is now s/p PCI to the distal RCA with JAQUELINE Recommendations was to continue Aspirin indefinitely, Plavix x 1 year ( to end 09/01/2025) and follow up with Cardiology 6-8 weeks * Assessment & Plan Note - Amilcar Vicente MD - 09/03/2024 11:14 AM EST Associated Problem(s): STEMI (ST elevation myocardial infarction) ([facility]) Pt here for a HDF admitted to [facility] from 07/16-07/19/2024 She initially presented with sudden [...] cardiac cath and outpatient CT surg follow-up. Dr Strickland repeated her cardiac cath and 09/01/2024 that showed: 100% Occluded LAD, Mid Lcx 50% stenosis, RCA 75% distal stenosis and 50% Mid stenosis. She is now s/p PCI to the distal RCA with JAQUELINE Recommendations was to continue Aspirin indefinitely, Plavix x 1 year ( to end 09/01/2025) and follow up with Cardiology 6-8 weeks * Assessment & Plan Note - Amilcar Vicente MD - 09/03/2024 11:12 AM EST Associated Problem(s): Atherosclerosis of coronary artery Pt used to follow at [facility], Last seen 12/21/2013 . Previously pt wanted to be referred to [facility] Cardiology. Pt was admitted on 07/16 to [facility] with a late presenting anterior STEMI, now asymptomatic. And discharged 07/19/2024 S/p cardiac cath on 07/17 that showed multivessel disease for which Cardiothoracic surgeon recommended outpatient follow up for CABG workup. Dr Strickland repeated her cardiac cath and 09/01/2024 that showed: 100% Occluded LAD, Mid Lcx 50% stenosis, RCA 75% distal stenosis and 50% Mid stenosis. She is now s/p PCI to the distal RCA with JAQUELINE Recommendations was to continue Aspirin indefinitely, Plavix x 1 year ( to end 09/01/2025) and follow up with Cardiology 6-8 weeks documented in this encounter Plan of Treatment Scheduled Orders Name Type Priority Associated Diagnoses Orde r Schedule CBC auto differential Lab Routine Iron deficiency anemia, unspecified iron deficiency anemia type Expected: 09/03/2024 (Approximate), Expires: 09/03/2025 Vitamin B12/Folate, Serum Panel Lab Routine Iron deficiency anemia, unspecified iron deficiency anemia type Expected: 09/03/2024, Expires: 09/03/2025 Ferritin Lab Routine Iron deficiency anemia, unspecified iron deficiency anemia type Expected: 09/03/2024, Expires: 09/03/2025 Iron And Total Iron Binding Capacity Lab Routine Iron deficiency anemia, unspecified iron deficiency anemia type Expected: 09/03/2024, Expires: 09/03/2025 documented as of this encounter Procedures Procedure Name Priority Date/Time Associated Diagnosis Comments POCT GLUCOSE Routine 09/03/2024 10:52 AM EST 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 edema, with long-term current use of insulin ([facility]) documented in this encounter Results * (ABNORMAL) POCT Glucose (09/03/2024 10:52 AM EST) [facility] Glucose Blood, POC 206(A) 60 - 200 mg/dL QC Media Lot # [id number] Lot# Expiration Date 491 Blood Capillary blood specimen / Unknown 09/03/2024 10:52 AM EST Amilcar Vicente MD POINT OF CARE TEST EN TER/EDIT ORDERABLES Final Result documented in this encounter Visit Diagnoses Diagnosis Atherosclerosis of [place] coronary artery of [place] heart without angina pectoris- Primary 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 edema, with long-term current use of insulin ([facility]) ST elevation myocardial infarction (STEMI), unspecified artery ([facility]) S/P drug eluting coronary stent placement Iron deficiency anemia, unspecified iron deficiency anemia type documented in this encounter Additional Health Concerns Assessment Noted Time PHQ-9 Depression Total Score: 0 10/15/19 24 10:59 AM EDT documented as of this encounter Care Teams Bleacher Lard Relationship Specialty Start Date End Date Amilcar Louis MD [address] [place] [id number] PCP - General Internal Medicine 04/08/14 Yessenia Olmos CopywriterPhysician Vice President 09/20/23 documented as of this encounter
--- OUTSIDE RECORDS SUMMARY | 2024-09-03 12:13 | XMS_ITS | Encounter Summary ---
Author Organization [employer] Address [address] [facility] 7t [place] [address] Care Team Providers Care Triage Specialist Name Role Phone Amilcar Louis MD Primary Care Provide r Reason for Visit * Reason Onset Date Comments Med Refill 12/23/2023 Encounter Details Date Type Department Care Team ([facility] st Contact Info) Description 12/23/2023 Refill [facility] MEDICINE [address] [place], [place] [phone] Amilcar Louis MD [address] [place] [address] Allergic rhinitis, unspecified seasonality, unspecified trigger Social [...] tablet To be sent to: [facility] [address] [place] [address] documented in this encounter Plan of Treatment Not on file documented as of this encounter Visit Diagnoses Diagnosis Allergic rhinitis, unspecified seasonality, unspecified trigger documented in this encounter Additional Health Concerns Assessment Noted Time PHQ-9 Depression Total Score: 0 10/15/19 24 10:59 AM EDT documented as of this encounter Care Teams Triage Specialist Relationship Specialty Start Date End Date Amilcar Louis MD [address] [place] [id number] PCP - General Internal Medicine 04/08/14 Yessenia Olmos Publishing DirectorChip Applying Machine Tender 09/20/23 documented as of this encounter
--- OUTSIDE RECORDS SUMMARY | 2024-09-03 12:13 | XMS_ITS | Encounter Summary ---
Author Organization [employer] Address [address] [facility] 7t [place] [address] Care Team Providers Care Supervisor Liquid Yeast Name Role Phone Amilcar Louis MD Primary Care Provide r Reason for Visit * Reason Onset Date Comments Chart Prep 08/17/2024 Encounter Details Date Type Department Care Team ([facility] st Contact Info) Description 08/17/2024 Telephone [facility] MEDICINE [address] [place], [place] [phone] Amilcar Louis MD [address] [place], [place] [phone] Chart Prep Social History Tobacco Use Types [...] documented as of this encounter Care Teams Supervisor Liquid Yeast Relationship Specialty Start Date End Date Amilcar Louis MD [address] [place] [id number] PCP - General Internal Medicine 04/08/14 Yessenia Olmos Genetic EngineerCartridge Maker 09/20/23 documented as of this encounter
--- OUTSIDE RECORDS SUMMARY | 2024-09-03 12:13 | XMS_ITS | Encounter Summary ---
Author Organization [facility] Address [address] [place] [address] Care Team Providers Care Nuclear Criticality Safety Engineer Name Role Phone Amilcar Bauer MD Primary Care Provi lisa Reason for Visit * Reason Onset Date Comments hospital procedure 08/14/2024 Cardiac cath left arm pain 08/14/2024 Left arm pain Encounter Details Date Type Department Care Team (Late st Contact Info) Description 08/14/2024 Telephone [facility] Cardiology [facility] [address] [place] [address] [place] [address] Marco A Williamson MD [address] [place] [address] Dr [address] [place] [address] hospital procedure (Cardiac cath/); left arm pain (Left arm pain ) Social History Tobacco Use Types Packs/Day Years Used Date Smoking Tobacco: Never Assessed Comments Unknown Sex and Gender Information Value Date Recorded Sex Assigned at Not on file Legal Sex Female 3:35 PM EST Gender Identity Not on file Sexual Orientation Not on file documented as of this encounter Progress Notes * Cecy Izaguirre - 08/31/2024 9:19 AM EST I have faxed demos, order, H&P, labs and cardiac testing to the Account Advisor at [facility] [phone] for patients upcoming procedure. * Mary Ann Allen NP - 08/24/2024 2:36 PM EST Agree, thank you * Gilma Gibson RN - 08/24/2024 2:19 PM EST MERYLI... I spoke to pt's daughter, Rex, who stated pt is reporting constant left arm pain, near her shoulder, since yesterday and has been constant since. She denies chest pain, shortness of breath, nausea, emesis, diaphoresis, dizziness, and lightheadedness. Rex reported the last time pt hada heart attack, she had the arm pain with minimal shortness of breath. She questioned if pt can come in for an office visit. I advised her pt should go to the ER where they can perform labs and an EKG to r/o a cardiac event. She voiced understanding and agreeable. I asked her to call me back once pt is discharged. * Tequila Venegas - 08/24/2024 2:00 PM EST Pt`s daughter Rex called back, Her mother has been having Left arm Pain. Please call [phone] Waqar * Cecy Izaguirre - 08/24/2024 11:44 AM EST Spoke to patient's daughter to schedule cardiac cath, faxed worksheet to access. Will contact patient once confirmed and go over instructions. Patient aware of plan and will await my call. I malied lab order for cath procedure * Kumar Rodney - 08/24/2024 10:48 AM EST Patient daughter Rex called to schedule the catherization. Spoke to outpatient valet cashier and she stated she will call her back. [phone] * Tamia Vicente - 08/14/2024 1:28 PM EST no auth required for cpt code [id number] and [id number]. Ok to book documented in this encounter Plan of Treatment Upcoming Encounters Date Type Department Care Team (Late st Contact Info) Description 11/10/2024 3:30 PM EDT Ancillary Procedure [facility] Cardiology [facility] [address] [place] [address] 12/21/2024 1:10 PM EDT Office Visit [facility] [address] [place] [address] Mary Ann Allen NP [address] [place] [address] [place] [address] Scheduled Orders Name Type Priority Associated Diagnoses Orde r Schedule Basic metabolic panel Lab Routine HFrEF (heart failure with reduced ejection fraction) ([facility]) 1 Occurrences starting 08/24/2024 until 08/24/2025 CBC and differential Lab Routine HFrEF (heart failure with reduced ejection fraction) ([facility]) 1 Occurrences starting 08/24/2024 until 08/24/2025 Prothrombin time with INR Lab Routine HFrEF (heart failure with reduced ejection fraction) ([facility]) 1 Occurrences starting 08/24/2024 until 08/24/2025 documented as of this encounter Visit Diagnoses Diagnosis HFrEF (heart failure with reduced ejection fraction) ([facility])- Primary documented in this encounter Care Teams Nuclear Criticality Safety Engineer Relationship Specialty Start Date End Date Amilcar Bauer MD [address] [place] [address] PCP - General Internal Medicine 07/20/24 documented as of this encounter
--- OUTSIDE RECORDS SUMMARY | 2024-09-03 12:13 | XMS_ITS | Encounter Summary ---
Author Organization [facility] Address [address] [place] [address] Care Team Providers Care Warrant Server Name Role Phone Amilcar Bauer MD Primary Care Provi lisa Encounter Details Date Type Department Care Team (Late st Contact Info) Description 08/13/2024 Telephone [facility] [address] [place] [address] Marco A Williamson MD [address] [place] [address] [facility] [address] [place] [address] Social History Tobacco Use Types Packs/Day Years [...] Please obtain PA for L HRT CATH?PCI [id number] and [address] at [facility] with Dr Williamson DX: [phone] FERNIE ALMODOVAR THANK YOU * Marco A Williamson MD - 08/13/2024 6:07 PM EST Patient needs LHC at [facility] Left heart catheterization: Definite PCI of RCA Diagnosis: CAD Anticoagulation: No Diabetic: Yes Dialysis: No Lovenox needed: No Contrast Allergy: No Hydration needed: No Premedication needed: No documented in this encounter Plan of Treatment Upcoming Encounters Date Type Department Care Team (Late st Contact Info) Description 11/10/2024 3:30 PM EDT Ancillary Procedure [facility] Cardiology [facility] [address] [place] [address] 12/21/2024 1:10 PM EDT Office Visit [facility] [address] [place] [address] [address] [place] [address] Mary Ann Allen NP [address] [place] [address] [place] [address] documented as of this encounter Visit Diagnoses Not on filedocumented in this encounter Care Teams Warrant Server Relationship Specialty Start Date End Date Amilcar Bauer MD [address] [place] [phone] PCP - General Internal Medicine 07/20/24 documented as of this encounter
--- OUTSIDE RECORDS SUMMARY | 2024-09-03 12:13 | XMS_ITS | Encounter Summary ---
Author Organization [employer] Address [address] [facility] 7t [place] [address] Care Team Providers Care Fringe Knotter Name Role Phone Amilcar Louis MD Primary Care Provide r Encounter Details Date Type Department Care Team ([facility] st Contact Info) Description 07/16/2024 Telephone [facility] MEDICINE [address] [place], [place] [phone] Amilcar Louis MD [address] [place], [place] [phone] Social History Tobacco Use Types Packs/Day Years [...] documented as of this encounter Care Teams Fringe Knotter Relationship Specialty Start Date End Date Amilcar Louis MD [address] [place] [id number] PCP - General Internal Medicine 04/08/14 Yessenia Olmos Manager OracleOrdinary Seaman 09/20/23 documented as of this encounter
--- OUTSIDE RECORDS SUMMARY | 2024-09-03 12:13 | XMS_ITS | Encounter Summary ---
Author Organization [employer] Address [address] [facility] 7t [place] [address] Care Team Providers Care General Intern Name Role Phone Amilcar Louis MD Primary Care Provide r Reason for Visit * Reason Onset Date Comments Appointment Confirmation 08/06/2024 Encounter Details Date Type Department Care Team ([facility] Contact Info) Description 08/06/2024 Telephone [facility] MEDICINE [address] [place], [place] [phone] Amilcar Louis MD [address] [place], [place] [phone] Appointment Confirmation Social History Tobacco Use Types [...] documented as of this encounter Care Teams General Intern Relationship Specialty Start Date End Date Amilcar Louis MD 230 [place] [id number] PCP - General Internal Medicine 04/08/14 Yessenia Olmos Office Machine Punch OperatorMarine Insulator 09/20/23 documented as of this encounter
--- OUTSIDE RECORDS SUMMARY | 2024-09-03 12:13 | XMS_ITS | Clinical Summary ---
Author Organization [employer] Address [address] [place] [address] Care Team Providers Care Promos Executive Producer Name Role Phone Amilcar Louis MD Primary [...] BY MOUTH AT BEDTIME. 30 tablet 5 024 Active loratadine (Claritin) 10 MG tabletIndications :Allergic rhinitis, unspecified seasonality, unspecified trigger TAKE 1 TABLET BY MOUTH EVERY DAY 30 tablet 5 024 Active aspirin 81 MG EC tablet TAKE 1 TABLET BY MOUTH EVERY MORNING 90 tablet 3 024 Active Multiple Vitamin (Multi-Vitamin) tabletIndications :Type 2 diabetes mellitus with foot ulcer, with long-term current use of insulin (CMS/HCC) TAKE 1 TABLET BY MOUTH EVERY DAY 90 tablet 3 024 Active clopidogrel (Plavix) 75 MG tablet Take 1 tablet by mouth Once per day. Active atorvastatin (Lipitor) 80 MG tabletIndications :Mixed hyperlipidemia Take 1 tablet (80 mg) by mouth Once per day. 30 tablet 11 025 2025 Active gabapentin (Neurontin) 300 MG capsuleIndication s:Neuropathy TAKE (2) CAPSULES BY MOUTH TWICE DAILY. 112 capsule 025 Active gabapentin (Neurontin) 300 MG capsuleIndication s:Neuropathy TAKE (2) CAPSULES BY MOUTH TWICE DAILY. 112 capsule 025 2024 Discontinued(R eorder (will not trigger notification to Pharmacy)) Active Problems Problem Noted Date Diagnosed Date S/P drug eluting coronary stent placement 2024 Assessment & Plan (09/03/2024 11:15 AM EST): Dr Strickland repeated her cardiac cath and 09/01/2024 that showed: 100% Occluded LAD, Mid Lcx 50% stenosis, RCA 75% distal stenosis and 50% Mid stenosis. She is now s/p PCI to the distal RCA with JAQUELINE Recommendations was to continue Aspirin indefinitely, Plavix x 1 year ( to end 09/01/2025) and follow up with Cardiology 6-8 weeks Iron deficiency anemia 09/03/2024 Assessment & Plan (09/03/2024 11:23 AM EST): Pt was found to be anemic in the ER and apparently received 1 unit of PRBC and was started on Iron supplementation Plan: Repeat CBC, Iron studies, B12, Folate will decide if iron needs to be continued Pending initial work up will decide further evaluation Hospital discharge follow-up 07/28/2024 Assessment & Plan (07/28/2024 4:06 PM EST): Pt is here after she was recently admitted to [facility] was admitted on 07/16 with a late [...] elevation myocardial infarction) 07/28 Assessment & Plan (09/03/2024 11:14 AM EST): Pt here for a HDF admitted to [facility] from 07/16-07/19/2024 She initially presented with sudden [...] and follow up with Cardiology 6-8 weeks Assessment & Plan (07/28/2024 4:03 PM EST): Pt here for a HDF admitted to [facility] from 07/16-07/19/2024 She initially presented with sudden [...] Pt under the care of Urogynecology at [facility]. Has a pesary Chronic venous insufficiency 10/16/2022 Assessment & Plan (04/02/2023 10:00 AM EDT): Under the care of [facility] Sur[facility] Last seen 11/2022 Assessment & Plan (10/16/2022 2:39 PM EDT): Under the care of [facility] Calcific tendinitis of left shoulder [...] recent lipid profile from: 11/28/2022 done at [facility] shows Component Ref Range & Units (11/28/22) [...] of coronary artery 10/12/2013 Assessment & Plan (09/03/2024 11:12 AM EST): Pt used to follow at [facility], Last seen 12/21/2013 . Previously pt wanted to be referred to [facility] Cardiology. Pt was admitted on 07/16 to [facility] with a late presenting anterior STEMI, now [...] and follow up with Cardiology 6-8 weeks Assessment & Plan (07/28/2024 4:01 PM EST): Pt used to follow at [facility], Last seen 12/21/2013 . Previously pt wanted to be referred to [facility] Cardiology. Pt was admitted on 07/16 to [facility] with a late presenting anterior STEMI, now [...] any chest pain, On Aspirin. Seen at [facility], Last seen 12/21/2013 1 year f/u recommended. Would like to be referred to [facility] Cardiology Assessment & Plan (07/12/2022 9:07 AM EST): Pt denies any chest pain, On Aspirin. Seen at [facility], Last seen 12/21/2013 1 year f/u recommended. [...] Plan (07/12/2022 9:08 AM EST): Followed at [facility] wound clinic. s/p left first metatarsal dorsiflexion osteotomy, left medical sesamoidectomy and ulcer debridement . Last visit was 07/20/2014 and had a f/u 08/02/2014 Idiopathic peripheral neuropathy 02/15/2012 Assessment & Plan (07/12/2022 9:08 AM EST): On gabapentin 600mg bid, does not tolerate a higher dose. Decreased sensation to mid-soto b/l. Nonproliferative diabetic retinopathy 12/18/2011 Assessment & Plan (08/22/2023 9:36 AM EST): Followed at [facility]. Last seen 04/2023, has a follow up 09/2023 Assessment & Plan (01/10/2023 4:02 PM EDT): Followed at [facility]. Has a follow up in March per her report Assessment & Plan (07/12/2022 9:09 AM EST): Followed at [facility]. Type 2 diabetes mellitus with retinopathy 2011 Assessment & Plan (09/03/2024 11:22 AM EST): Pt is here for a f/u Under the care of [facility] , last seen 07/30/2024. Pt tells me she has a follow up She is on a regimen of: Metformin ER 500 mg 2 tabs po BID, Trulicity 4.5 mg sc weekly on and Lantus was increased to 28 units sc q pm and Humalog sliding scale. Hgb A1c 07/28/2024 : 9.7 from 8.4 Eye exam done on: 02/28/2024 at [facility] Also follows with retinal specialist, [...] on a daily basis Assessment & Plan (07/28/2024 4:06 PM EST): Pt is here for a f/u Under the care of [facility] , last seen 11/29/2023. Pt tells me she has a follow up 07/30/2024 She is on a regimen of: Metformin ER 500 mg 2 tabs po BID, Trulicity 4.5 mg sc weekly on and Lantus 22 units sc q pm and Humalog sliding scale. Hgb A1c 07/28/2024 : 9.7 from 8.4 Eye exam done on: 02/28/2024 at [facility] Also follows with retinal specialist, [...] for a f/u Under the care of [facility] , last seen 11/29/2023 She is on a regimen of: Jardiance 25 mg po daily, Metformin ER 500 mg 2 tabs po BID, Trulicity 3 mg sc weekly on and Lantus 22 units sc q pm and Humalog sliding scale. Hgb A1c 12/24/2023: 8.4 BG today 180 Eye exam done on: 02/28/2024 at [facility] Also follows with retinal specialist, she has [...] for a f/u Under the care of [facility] , last seen 11/29/2023 She is on a regimen of: Jardiance 25 mg po daily, Metformin ER 500 mg 2 tabs po BID, Trulicity 3 mg sc weekly on and Lantus 22 units sc q pm and Humalog sliding scale. Hgb A1c 12/24/2023: 8.4 BG today 119 Eye exam done on: 11/2022 at [facility] Also follows with retinal specialist, she has [...] for a f/u Under the care of [facility] She is on a regimen of: Jardiance 25 mg po daily, Metformin ER 500 mg 2 tabs po BID, Trulicity 3 mg sc weekly on and Lantus 20 units sc q pm and Humalog sliding scale. Hgb A1c 08/22/2023: 7.5 BG today 119 Eye exam done on: 11/2022 at [facility] Also follows with retinal specialist, [...] for a f/u Under the care of [facility] She is on a regimen of: Jardiance 25 mg po daily, Metformin ER 500 mg 2 tabs po BID, Trulicity 3 mg sc weekly on and Lantus 20 units sc q pm and Humalog sliding scale. Hgb A1c 08/22/2023: 7.5 BG average 139 Eye exam done on: 11/2022 at [facility] Also follows with retinal specialist, [...] for a f/u Under the care of [facility] She is on a regimen of: Jardiance Increased to 25 mg po daily, Metformin ER 500 mg 2 tabs po BID, and Trulicity 3 mg sc weekly on and Lantus 20 units sc q pm and Humalog sliding scale. Hgb A1c 01/10/2023: 7.8 BG average 125 Eye exam done on: 11/05/2017 at [facility] Also follows with retinal specialist, [...] for a f/u Under the care of [facility] She is on a regimen of: Jardiance 10 mg po daily, Metformin ER 500 mg 2 tabs po BID, and Trulicity 3 mg sc weekly on and Lantus 20 units sc q pm and Humalog sliding scale. Hgb A1c 01/10/2023: 7.5 BG average 128 Eye exam done on: 11/05/2017 at [facility] Also follows with retinal specialist, she has [...] for a f/u Under the care of [facility] She is on a regimen of: Jardiance 10 mg po daily, Metformin ER 500 mg 2 tabs po BID, and Trulicity 3 mg sc weekly on and Lantus 20 units sc q pm and Humalog sliding scale. Hgb A1c 10/16/2022: 7.9 BG average 136 Eye exam done on: 11/05/2017 at [facility] Also follows with retinal specialist, she has [...] for a f/u Under the care of [facility] She is on a regimen of: Jardiance 10 mg po daily, Metformin ER 500 mg 2 tabs po BID, and Trulicity 3 mg sc weekly on and Lantus 18 units sc q pm and Humalog sliding scale. Hgb A1c 07/12/2022 was 7.7 BG average 121 Eye exam done on: 11/05/2017 at [facility] Also follows with retinal specialist, [...] Encounters Date Type Department Care Team Description 09/03/2024 11:00 AM EST Office Visit [facility] [address] [place] [address] Amilcar Louis MD Atherosclerosis of mohegan coronary artery of mohegan heart without angina pectoris (Primary Dx); 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 edema, with long-term current use of insulin ([facility]); ST elevation myocardial infarction (STEMI), unspecified artery ([facility]); S/P drug eluting coronary stent placement; Iron deficiency anemia, unspecified iron deficiency anemia type 09/03/2024 Travel 08/28/2024 Refill [facility] [address] [place] [address] Amilcar Louis MD Neuropathy 08/26/2024 Telephone [facility] [address] [place] [address] Amilcar Louis MD Medication Question 08/17/2024 Telephone [facility] [address], [place] [address] Amilcar Loius MD Chart Prep 08/13/2024 Telephone [facility] [address], [place] [address] Amilcar Louis MD Durable Medical Equipment 08/06/2024 Telephone [facility] [address], [place] [address] Amilcar Louis MD Appointment Confirmation 07/31/2024 Telephone [facility] [address], [place] [address] Amilcar Louis MD DME L&C 07/30/2024 Refill [facility] [address], [place] [address] Amilcar Louis MD Neuropathy 07/28/2024 10:15 AM EST Office Visit [facility] [address], [place] [address] Amilcar Louis MD Hospital discharge follow-up (Primary Dx); 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 edema, with long-term current use of insulin (CMS/HCC); Benign hypertension; Mixed hyperlipidemia; ST elevation myocardial infarction (STEMI), unspecified artery (CMS/HCC); Atherosclerosis of mohegan coronary artery of mohegan heart without angina pectoris 07/28/2024 Travel 07/16/2024 Telephone [facility] [address], [place] [address] Amilcar Louis MD 07/16/2024 Telephone [facility] [address], [place] [address] Amilcar Louis MD Chart Prep 07/16/2024 Telephone [facility] [address], [place] [address] Amilcar Louis MD Nurse Triage 06/30/2024 Refill [facility] [address], [place] [address] Amilcar Louis MD Neuropathy; Type 2 diabetes mellitus with foot ulcer, with long-term current use of insulin ([facility]) 06/29/2024 Telephone [facility] [address] [place] [address] Amilcar Louis MD Febraury Recall 06/09/2024 Refill [facility] [address] [place] [address] Amilcar Louis MD Allergic rhinitis, unspecified seasonality, unspecified trigger from Last 3 Months Immunizations Name Administration Dates Next Due INFLUENZA VACCINE QUADRIVALE NT RECOMBINANT PRESERVATIVE FREE RIV4 04/28/2020 Influenza Injectable Quadriv alant Preservative Free IIV4 MDCK 07/09/2016 Influenza injectable quadriv alent IIV4 with preservative 04/02/2023,04/17/2018,05/17/2015 Influenza injectable quadriv alent preservative free 04/11/2021,05/21/2019,04/27/2017 Influenza, IIV3, injectable 05/18/2014, 1 Influenza, Split (incl. larissa fied surface antigen) 04/17/2013,07/03/2012 Moderna Covid-19 Vaccine 12+ 06/19/2021,10/14/19 21,09/15/2020 Moderna Covid-19 Vaccine 6+ Bivalent 07/25/2022 Pfizer [...] Mass Index 24.23 09/03/2024 10:43 AM EST Plan of Treatment Health Maintenance Due Date Last Done Comments [...] 09/23/2023, 0 03/27/2022, 03/13/2021, Additional history exists SDOH Screening 08/13/2024 08/13/2023 Diabetes: Urine Protein Screening 08/28/2024 08/28/2023, 10/27/2021, 07/13/2020 Dental X-Ray: Bitewings 09/23/2024 09/23/19 24, 03/27/2022, 03/13/2021, Additional history exists Depression Screening 10/14/2024 10/15/2023, 10/15/19 Diabetes: Hemoglobin A1C 10/26/2024 025, 12/24/2023, 08/22/2023, Additional history exists Alcohol/Substance Use Screening 07/28/2025 07/28/2024 Lipid Panel 08/24/2025 08/24/2024, 04/23, 07/25/2022, Additional history exists Tobacco Screening 09/03/2025 09/03/2024 Pap Smear 11/14/2025 11/14/2022 Mammogram 11/26/2025 11/27/2023, [...] with long-term current use of insulin (CMS/HCC) COMPREHENSIVE METABOLIC PANEL Routine 08/24/2024 9:37 AM EST Benign hypertension LIPID PANEL, STANDARD Routine 08/24/2024 9:37 AM EST Mixed hyperlipidemia POCT GLYCATED HEMOGLOBIN, TOTAL Routine 07/28/2024 10:30 AM EST 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 edema, with long-term current use of insulin (CMS/HCC) POCT GLUCOSE Routine 07/28/2024 10:24 AM EST 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 edema, with long-term current use of insulin (CMS/HCC) BI MAMMOGRAM SCREENING TOMOSYNTHESIS BILATERAL Routine 11/27/2023 [...] 05/20/2023 9:14 AM EDT Preventative health care IMAGE-GUIDED PAP W/AGE BASED SCR PROTOCOLS Routine 11/14/2022 11:22 AM EDT Cervical cancer screening INTRAORAL - COMPLETE SERIES OF RADIOGRAPHIC IMAGES Routine 03/13/2021 12:00 AM EDT HM COLONOSCOPY Routine 10/02/2018 from Last 3 Months or Most Recently Relevant to Health Maintenance Results * (ABNORMAL) POCT Glucose (09/03/2024 10:52 AM EST) Only the most recent of2 resultswithin the time period is included. Glucose Blood, POC 206(A) 60 - 200 mg/dL QC Media Lot # [id number] Lot# Expiration Date ,130,324 Blood Capillary blood specimen / Unknown 09/03/2024 10:52 AM EST Amilcar Vicente MD POINT OF CARE TEST EN TER/EDIT ORDERABLES Final Result * Lipid Panel, Standard (08/24/2024 9:37 AM EST) Triglycerides 52 <150 mg/dL [facility] Comment:Desirable Triglyceri de: less than 150 mg/dLBorderline High Triglyceride 150-199 mg/dLHigh Triglyceride: 200-499 mg/dLVery High Triglyceride: greater than or equal to 5OO mg/dL Cholesterol 84 <200 mg/dL [facility] Comment:Desirable Cholestero l: less than 200 mg/dLBorderline High Cholesterol: 200-239 mg/dLHigh Cholesterol: greater than 239 mg/dL LDL Cholesterol Calculated 29 <100 mg/dL [facility] Comment:Desirable LDL: less than 100 mg/dLNear Optimal/Above Optimal LDL: 110- 129 mg/dLBorderline High LDL: 130-159 mg/dLHigh LDL: 160-189 mg/dLVery High LDL: greater than or equal to 190 mg/dL HDL Cholesterol 45 >40 mg/dL [facility] Comment:Desirable HDL: great er than 40 mg/dL Note: This HDL assay may give artificially low results in patients with liver disease. Blood Venous blood specimen / Unknown 08/24/2024 9:37 AM EST 08/24/2024 11:30 AM EST us Amilcar Vicente MD LAB BLOOD ORDERABLES Final Result [facility] [address] [place] [phone] * (ABNORMAL) Comprehensive Metabolic Panel (08/24/2024 9:37 AM EST) Sodium 140 135 - 145 mmol/L [facility] Potassium 5.1 3.3 - 5.1 mmol/L [facility] Chloride 107 96 - 108 mmol/L [facility] Carbon Dioxide 27 22 - 29 mmol/L [facility] Anion Gap 11(L) 12 - 20 [facility] Urea Nitrogen (BUN) 16 9 - 16 mg/dL [facility] Creatinine, Serum 0.78 0.5 - 1.4 mg/dL [facility] Estimated Glomerular Filt Rate >60 [facility] Comment:Chronic Kidney Disea se: Estimated GFR < 60 mL/min/1.25n1Bmplhi Kidney Disease: Estimated GFR < 15 mL/min/1.73m2 Glucose 163(H) 60 - 115 mg/dL [facility] Calcium 8.8 8.4 - 10.2 mg/dL [facility] Bilirubin, Total 0.7 0.0 - 1.0 mg/dL [facility] Aspartate Amino Transferase 22 5 - 31 U/L [facility] Alanine Aminotransferase 12 0 - 31 U/L [facility] Total Protein 7.6 6.5 - 8.0 g/dL [facility] Albumin Level 4.0 3.5 - 5.0 g/dL [facility] Alkaline Phosphatase 70 39 - 117 U/L [facility] Blood Venous blood specimen / Unknown 08/24/2024 9:37 AM EST 08/24/2024 11:30 AM EST Amilcar Vicente MD LAB BLOOD ORDERABLES Final Result Performing Organization Address City/State/[facility] Co de Phone Number [facility] [address] [place] [phone] * (ABNORMAL) POCT HGB A1C (07/28/2024 10:30 AM EST) Hemoglobin A1C 9.7(A) 4.0 - 6.0 % QC Media Lot # [id number] Lot# Expiration Date ,990,605 Blood 07/28/2024 10:3 0 AM EST Amilcar Vicente MD POINT OF CARE TEST EN TER/EDIT ORDERABLES Final Result * BI Mammogram Screening Tomosynthesis Bilateral (11/27/2023 1:07 PM EDT) Anatomical Region Laterality Modality Breast Bilateral Mammography 11/27/2023 1:07 PM EDT Narrative 12/27/2023 8:13 AM EDT ? [facility] [facility] ? [address] ?[place] [address] ? Mammography Report ? Signed ? Patient: Virola Gilmore,Widelmina ?MR# ?? : [id number] ? : 1960 ?Acct:[id number] ? Age/Sex: 63 / F ?ADM Date: 11/27/23 ? Loc: HO.MAMMO ? Attending Dr: Amilcar Bauer MD ? Ordering Physician: Amilcar Bauer MD ?Resu ?? lts: 1Negative ? Date of Service: 11/27/23 ?Follow Up: 1 Year From Orig ?? inal Mammogram ? Procedure(s): MM tomosynthesis screening BI ?? Accession Number(s): [id number] ? cc: Amilcar Bauer MD ? EXAMINATION: ?? MM SCREENING DIGITAL BREAST TOMOSYNTHESIS, BILATERAL ? CLINICAL INFORMATION: ? Screening. Asymptomatic. ? COMPARISON: ?? Mammography: This study is compared with prior exams dating back to ?? 2020. ? TECHNIQUE: ?? Digital breast tomosynthesis is [...] 0810 ? DD/ 1307 ? TD/TT: ? Budget Report Clerk: ? Procedure Note Donrinater, Image - 12/27/2023 [facility] [address] [place] [address] Mammography Report Signed Patient: Trent Singh# : [id number] : 9Acct:[id number] Age/Sex: 63 / FADM Date: 11/27/23 Loc: [facility] Attending Dr: Amilcar Bauer MD Ordering Physician: Amilcar Bauer MDResu lts: 1Negative Date of Service: 11/27/23Follow Up: 1 Year From Orig inal Mammogram Procedure(s): MM tomosynthesis screening BI Accession Number(s): [id number] cc: Amilcar Bauer MD EXAMINATION: MM SCREENING [...] in OV> 12/27/23 0810 DD/ 1307 TD/TT: Budget Report Clerk: Amilcar Vicente MD IMG BI PROCEDURES [place] ed Result - Final * Albumin, Random Urine W/Creatinine (08/28/2023 9:38 AM EST) Creatinine, Urine 33.51 mg/dL [facility] Microalbumin Urine <5.0 mg/L [facility] Microalbum Creatinine Ratio Ur TNP <30 ug/mg cr [facility] Comment:Unable to calculate albumin/creatinine ratio due to lowmicroalbumin or creatinine result. Urine (Urine, Random) 08/28/2023 9:38 AM EST 08/28/2023 11:28 AM EST Amilcar Vicente MD LAB URINE ORDERABLES Final Result [facility] [address] [place] [phone] * Hepatitis C Antibody with Reflex to HCV, RNA, Quantitative, Real-Time PCR (05/20/2023 9:14 AM EDT) Hepatitis C Antibody Nonreactive Nonreactive [facility] Comment:Antibodies to HCV no t detected; does not exclude early acuteHCV infection. Blood Venous blood specimen / Unknown 05/20/2023 9:14 AM EDT 05/20/2023 11:50 AM EDT us Amilcar Vicente MD LAB BLOOD ORDERABLES Final Result [facility] [address] [place] [phone] * Image-Guided Pap with Age-Based Screening Protocols (11/14/2022 11:22 AM EDT) Comment [employer] Comment: This order for age-based cervical cancer and STI screening follows ACOG guidelines(PB 168, 140, ROP236). See individual assays for performing site location. Clinical Information: None given [facility] LMP: NONE GIVEN [facility] Prev. PAP: NONE GIVEN [facility] Prev. BX: NONE GIVEN [facility] SOURCE: None given [employer] Statement Of Adequacy: [employer] Comment: SATISFACTORY FOR EVALUATION Partially obscuring inflammation Partially obscuring blood Interpretation/Res ult: [facility] Comment: Negative for intraepithelial lesion or malignancy. Atrophic pattern; predominantly parabasal cells COMMENT: This Pap test has been evaluated with computer assisted technology. [employer] Concrete Foreman: Jaylene [employer] Comment: KN, CT(ASCP) CT screening location: [address] ??[phone] (Always Message) [facility] Comment: EXPLANATORY NOTE: The Pap is a [...] HPV nRNA E6/E7 Not Detected Not Detected [employer] Comment: Methodology: Extension Service Agent-Mediated Amplification This assay detects E6/E7 viral messenger RNA (mRNA) from 14 high-risk HPV types (16,18,31,33,35,39,45,51,52,56,58,59,66,68). Cervical sources are required for HPV testing. If a vaginal source from a patient who has had a total hysterectomy with removal of cervix was submitted, please contact the testing laboratory for alternative testing options. For additional information, please refer to [email or web address]/faq/HRY251v6 (This link if provided for information/ educational purposes only.) Pap Vial 11/14/2022 11:2 2 AM EDT 11/15/2022 3:06 AM EDT Katerine Veras [facility] BLOOD ORDERABLES Rosie l Result [employer] [address], [place] [address] [employer] [facility] [address] [place] [address] * Colonoscopy (10/02/2018) Colonoscopy Normal Normal 10/02/2018 Narrative Tosin Viramontes - 10/02/2018 11:37 AM EDT Recommended 10 year follow up ( see scanned report) Historical Provider HEALTH MAINTENANCE Edited Result - Final from Last 3 Months or Most Recently Relevant to Health Maintenance Insurance [facility] STAND ADULT Care Teams [employer] Executive Producer Relationship Specialty Start Date End Date Amilcar Louis MD [address] [place] [phone] PCP - General Internal Medicine 04/08/14 Yessenia Olmos Computer Programming ManagerSkin Care Technician 09/20/23
--- OUTSIDE RECORDS SUMMARY | 2024-09-03 12:13 | XMS_ITS | Encounter Summary ---
Author Organization [employer] Address [address] [facility] 7t [place] [address] Care Team Providers Care Diesel Locomotive Firer/Fireman Name Role Phone Amilcar Louis MD Primary Care Provide r Reason for Visit * Reason Onset Date Comments Med Refill 06/02/2024 Encounter Details Date Type Department Care Team ([facility] Contact Info) Description 06/02/2024 Telephone [facility] MEDICINE [address] [place], [place] [phone] Amilcar Louis MD [address] [place] [address] Med Refill Social History Tobacco Use Types [...] documented as of this encounter Care Teams Diesel Locomotive Firer/Fireman Relationship Specialty Start Date End Date Amilcar Louis MD [address] [place] [address] PCP - General Internal Medicine 04/08/14 Yessenia MarcosAmarilis Sliver CutterTelecommunications Repairer 09/20/23 documented as of this encounter
--- OUTSIDE RECORDS SUMMARY | 2024-09-03 12:13 | XMS_ITS | Clinical Summary ---
Author Organization [facility] Address [address] [facility] [place] [address] Phone Care Team Providers Care Emergency Care Attendant Name Role Phone Amilcar Bauer MD Primary Care Provi lisa Allergies Active Allergy Reactions Criticality Noted Date Comments Naproxen Rash 08/12/2024 Medications aspirin 81 mg EC tablet Take 1 [...] crush or chew. 30 each 11 08/12/2024 08/12/19 26 Active Active Problems Problem Noted Date Diagnosed Date HFrEF (heart failure with reduced ejection fract ion) 08/13/2024 STEMI (ST elevation myocardial infarction) 08/11 HLD (hyperlipidemia) 08/11/2024 HTN (hypertension) 08/11/2024 Chest pain 08/11/2024 Encounters Date Type Department Care Team Description 08/14/2024 Telephone [facility] [address] [place] [address] Champ Williamson MD hospital procedure (Cardiac cath/); left arm pain (Left arm pain ) 08/13/2024 Telephone [facility] [address] [place] [address] Champ Williamson MD 08/12/2024 9:50 AM EST Office Visit [facility] [address] [facility] [address] [place] [address] Champ Williamson MD Chest pain, unspecified type (Primary Dx); ST elevation myocardial infarction (STEMI), unspecified artery (CMS/HCC); HFrEF (heart failure with reduced ejection fraction) (CMS/HCC) from Last 3 Months Surgical History Surgery Date Site/Laterality Comments CARDIAC CATHETERIZATION DONE ON 07/17/2024 AT [facility] INDICATIONS:NSTEMI Medical History Medical History Date Comments T2DM (type 2 diabetes mellitus) (CMS/HCC) Iron deficiency anemia Neuropathy Social History Tobacco Use Types Packs/Day Years Used Date Smoking Tobacco: Never Assessed Comments Unknown Sex and Gender Information Value Date Recorded Sex Assigned at Not on file Legal Sex Female 3:35 PM EST Gender Identity Not on file Sexual Orientation Not on file Obstetrics History Last Filed [...] Description 11/10/2024 3:30 PM EDT Ancillary Procedure [facility] [address] [place] [address] 12/21/2024 1:10 PM EDT Office Visit [facility] [address] [place] [address] Mary Ann Allen NP [address] [place] [address] [place] [address] Health Maintenance Due Date Last Done Comments Breast Cancer Screening 1958 Diabetes: Annual Foot Exam 1968 Diabetes: Annual Retina Eye Exam 1968 Cervical Cancer Screening: Pap Smear 10/25/1979 Pneumococcal Vaccine: 50+ Years (2 of 2 - PCV) 2008 04/28/1997 RSV Immunization Patients 60+ Years Old (1 - Risk 60-74 years 1-dose series) 2018 COVID-19 Vaccine ( season) 2024 08/22/2023, 07/25/2022, 06/19/2021, Additional history exists Influenza Vaccine (#1) 2024 , 04/11/2021, 04/28/2020, Additional history exists Cholesterol Screening (Lipid Panel) 07/20/2024 Colorectal Cancer Screening: Colonoscopy 07/20/2024 Falls Risk Assessment 07/20/2024 Medicare Annual Wellness Visit 07/20/2024 Osteoporosis Screening (Bone Density Screening) 07/20/2024 Social Influencers of Health Screening 07/20/2024 Diabetes: Annual Urine Albumin-Creatinine Ratio (uACR) 08/14/2024 Depression Screening 10/14/2024 10/15/2023 Diabetes: Blood Sugar Control Test (HGBA1C) 01/25/2025 07/28/2024 Diabetes: Annual GFR (Glomerular Filtration Rate) 08/28/2025 08/28/2024 Hypertension/CHF/CAD Annual BMP Blood Test 08/28/2025 08/28/2024 DTaP,Tdap,and Td Vaccines (4 - Td or [...] patient's age to complete this topic Meningococcal B Vacine Aged Out No lo nger eligible based on patient's age to complete this topic RSV Immunization Patients Under 20 months Aged Out No longer eligible based on patient's age to complete this topic Varicella Vaccines Aged Out No longer eligible based on patient's age to complete this topic Procedures Procedure Name Priority Date/Time Associated Diagnosis Comments SPECIMEN STATUS REPORT Routine 08/28/2024 11:03 AM EST PROTHROMBIN TIME WITH INR Routine 08/28/2024 11:03 AM EST BASIC METABOLIC PANEL Routine 08/28/2024 11:03 AM EST CBC WITH AUTO DIFFERENTIAL Routine 08/28/2024 11:03 AM EST ECG 12-LEAD Routine 08/12/2024 10:48 AM EST Chest pain, unspecified type ST elevation myocardial infarction (STEMI), unspecified artery (CMS/HCC) from Last 3 Months Results * SPECIMEN STATUS REPORT (08/28/2024 11:03 AM EST) Specimen Status Report Comment [facility] 1 Comment: Palmira Moralez BMP8 Default Palmira Zaragozarev BMP8 Default A hand-written panel/profile was received from your office. In accordance with the [facility] Ambiguous Test Code Policy dated January 2003, we have completed your order by using the closest currently or formerly recognized AMA panel. ??We have assigned Basic Metabolic Panel (8), Test Code #064896 to this request. If this is not the testing you wished to receive on this specimen, please contact the [facility] Client Inquiry/Technical Services Department to clarify the test order. ??We appreciate your business. 08/28/2024 11:0 3 AM EST 08/28/2024 Narrative [facility] 1 - 08/29/2024 1:06 AM EST Performed at: ??01 - [facility] [address] ??[id number] Senior Engineering Specialist: Ginette Carver MD, Phone: ??[phone] us Champ Williamson MD LAB BLOOD ORDERABLES Final Res ult [facility] 1 * (ABNORMAL) CBC auto differential (08/28/2024 11:03 AM EST) WBC 6.7 3.4 - 10.8 x10E3/uL [facility] 1 RBC 3.87 3.77 - 5.28 x10E6/uL [facility] 1 Hemoglobin 8.6(L) 11.1 - 15.9 g/dL [facility] 1 Hematocrit 29.3(L) 34.0 - 46.6 % [facility] 1 MCV 76(L) 79 - 97 fL [facility] 1 MCH 22.2(L) 26.6 - 33.0 pg [facility] 1 MCHC 29.4(L) 31.5 - 35.7 g/dL [facility] 1 RDW 17.6(H) 11.7 - 15.4 % [facility] 1 Platelets 367 150 - 450 x10E3/uL [facility] 1 Neutrophils 57 Not Estab. % [facility] 1 Lymphocytes 32 Not Estab. % [facility] 1 Monocytes 7 Not Estab. % [facility] 1 Eosinophils 3 Not Estab. % [facility] 1 Basophils 1 Not Estab. % [facility] 1 Neutrophils Absolute 3.8 1.4 - 7.0 x10E3/uL [facility] 1 Lymphocytes Absolute 2.1 0.7 - 3.1 x10E3/uL [facility] 1 Monocytes Absolute 0.5 0.1 - 0.9 x10E3/uL [facility] 1 Eosinophils Absolute 0.2 0.0 - 0.4 x10E3/uL [facility] 1 Basophils Absolute 0.1 0.0 - 0.2 x10E3/uL [facility] 1 Immature Granulocytes Relative 0 Not Estab. % [facility] 1 Immature Grans (Abs) 0.0 0.0 - 0.1 x10E3/uL [facility] 1 08/28/2024 11:0 3 AM EST 08/28/2024 Narrative [facility] 1 - 08/29/2024 1:06 AM EST Performed at: ??01 - [facility] [address] ??[id number] Senior Engineering Specialist: Ginette Carver MD, Phone: ??[phone] us Champ Williamson MD LAB BLOOD ORDERABLES Final Res ult [facility] * Prothrombin time with INR (08/28/2024 11:03 AM EST) Pathologist [facility] Normalized Ratio (INR) 1.0 0.9 - 1.2 [facility] 1 Comment: Reference interval is for non-anticoagulated patients. Suggested INR therapeutic range for Vitamin K antagonist therapy: ?? Standard Dose (moderate intensity ?therapeutic range): ? 2.0 - 3.0 ?? Higher intensity therapeutic range ? 2.5 - 3.5 Prothrombin Time 11.4 9.1 - 12.0 sec [facility] 1 08/28/2024 11:0 3 AM EST 08/28/2024 Narrative [facility] 1 - 08/29/2024 1:06 AM EST Performed at: ??01 - [facility] [address] ??[id number] Senior Engineering Specialist: Ginette Carver MD, Phone: ??[phone] us Champ Williamson MD LAB BLOOD ORDERABLES Final Res ult [facility] * (ABNORMAL) Basic metabolic panel (08/28/2024 11:03 AM EST) Glucose 120(H) 70 - 99 mg/dL [facility] 1 Blood Urea Nitrogen (BUN) 17 8 - 27 mg/dL [facility] 1 Creatinine 0.79 0.57 - 1.00 mg/dL [facility] 1 eGFR 83 >59 mL/min/1.7 3 [facility] 1 BUN/Creatinine Ratio 22 12 - 28 [facility] 1 Sodium 138 134 - 144 mmol/L [facility] 1 Potassium 4.8 3.5 - 5.2 mmol/L [facility] 1 Chloride 100 96 - 106 mmol/L [facility] 1 Carbon Dioxide 23 20 - 29 mmol/L [facility] 1 Calcium 9.4 8.7 - 10.3 mg/dL [facility] 1 08/28/2024 11:0 3 AM EST 08/28/2024 Narrative [facility] 1 - 08/29/2024 1:06 AM EST Performed at: ??01 - [facility] [address] ??[id number] Senior Engineering Specialist: Ginette Carver MD, Phone: ??[phone] Champ Williamson MD LAB BLOOD ORDERABLES Final Res ult [facility] * ECG 12 lead (08/12/2024 10:48 AM EST) Ventricular Rate ECG 86 BPM GEMUSE Atrial Rate 86 BPM GEMUSE P-R Interval 178 ms GEMUSE QRS Duration 84 ms GEMUSE Q-T Interval 390 ms GEMUSE QTc 466 ms GEMUSE P Wave Vega 61 degrees GEMUSE R Vega 86 degrees GEMUSE T Vega 102 degrees GEMUSE ECG Interpretation Normal sinus rhythm Septal infarct , age undetermined Abnormal ECG No previous ECGs available Confirmed by CHAMP WILLIAMSON ([id number]) on 08/13/2024 6:33:34 AM GEMUSE 08/12/2024 10:4 8 AM EST 08/13/2024 6:33 AM EST Champ Williamson MD ECG ORDERABLES Final Result Performing Organization Address [facility] Co de Phone Number GEMUSE from Last 3 Months Insurance [employer] MEDICARE Member Subscriber Plan / Payer (Ef fective 2023-Present) Name:Trent Almodovar Relation to Subscriber:Self Name:Trent Almodovar Payer ID:[id number] Group ID:[id number] Type:Not on file Address: MARY [facility] [place] [address] Care Teams Emergency Care Attendant Relationship Specialty Start Date End Date Amilcar Bauer MD [address] [place] [address] PCP - General Internal Medicine 07/20/24
--- OUTSIDE RECORDS SUMMARY | 2024-09-03 12:13 | XMS_ITS | Encounter Summary ---
Author Organization [employer] Address [address] [facility] 7t [place] [address] Care Team Providers Care Critical Care Registered Nurse Name Role Phone Amilcar Louis MD Primary Care Provide r Reason for Visit * Reason Onset Date Comments Durable Medical Equipment 08/13/2024 Encounter Details Date Type Department Care Team ([facility] st Contact Info) Description 08/13/2024 Telephone [facility] MEDICINE [address] [place], [place] [phone] Amilcar Louis MD 230 [place] [address] Durable Medical Equipment Social History Tobacco Use [...] documented as of this encounter Care Teams Critical Care Registered Nurse Relationship Specialty Start Date End Date Amilcar Louis MD [address] [place] [id number] PCP - General Internal Medicine 04/08/14 Yessenia Olmos Guest Service HostOrder Checker Packer Processer 09/20/23 documented as of this encounter
[2024-09-03 12:56] LABS: MANUAL DIFF FLAG NO
[2024-09-03 12:59] LABS: Basophils Percent Auto 0.7 % (0-2); Eosinophils Absolute Auto 0.2 X10*3/uL (0.0-0.4); Eosinophils Percent Auto 3.7 % (0-4); Hematocrit 29.5 % (37.0-47.0); Hemoglobin 8.6 g/dl (12.0-16.0); Imm Gran Abs Auto 0.01 X10*3/uL (0.00-0.03); Imm Gran Pct Auto 0.2 % (0.0-0.4); Lymphocytes Absolute Auto 1.6 X10*3/uL (1.2-4.9); Lymphocytes Percent Auto 29.3 % (20-40); Mean Corpuscular HGB Conc 29.2 g/dl (31.0-35.0); Mean Corpuscular Hemoglobin 21.7 pg (27.0-33.0); Mean Corpuscular Volume 74.5 fL (80.0-98.0); Mean Platelet Volume 10.2 fL (9.4-12.3); Monocytes Absolute Auto 0.5 X10*3/uL (0.1-1.2); Monocytes Percent Auto 8.8 % (2-11); Neutrophils Absolute Auto 3.1 x10*3/uL (2.0-8.3); Neutrophils Percent Auto 57.3 % (45-73); Platelet Count 359 X10*3/uL (160-400); Red Blood Count 3.96 X10*6/uL (4.20-5.50); Red Cell Distribution Width 18.3 % (11.0-16.0); White Blood Count 5.5 X10*3/uL (4.8-10.8)
[2024-09-03 13:16] LABS: Iron 22 mcg/dL (30-160); Percent Iron Saturation 5 % (15-50); Total Iron Binding Capacity 406 mcg/dL (228-428); Unsaturated Iron Binding 384 ug/dL
[2024-09-03 13:32] LABS: Ferritin 5 ng/mL (10-250)
[2024-09-03 13:47] LABS: Folate 15.7 ng/mL (> or = 4.0); Vitamin B12 348 pg/mL (200-900)
== END 2024-09-03 11:39 | disposition home or self-care (01) ==
LOC: HO.HHCL 11:38
PROVIDERS: Visit Provider Internal Medicine
DX: D50.9 Iron deficiency anemia, unspecified (principal)
CPT/HCPCS: 36415; 82607; 82728; 82746; 83540; 85025

== ENCOUNTER 2024-10-15 11:55 | Outpatient (REF) | payer OTHER, SELFPAY ==
[2024-10-15 13:14] LABS: MANUAL DIFF FLAG NO
[2024-10-15 13:22] LABS: Basophils Absolute Auto 0.1 X10*3/uL (0.0-0.2); Basophils Percent Auto 1.1 % (0-2); Eosinophils Absolute Auto 0.2 X10*3/uL (0.0-0.4); Eosinophils Percent Auto 4.2 % (0-4); Hematocrit 26.2 % (37.0-47.0); Hemoglobin 7.3 g/dl (12.0-16.0); Imm Gran Abs Auto 0.01 X10*3/uL (0.00-0.03); Imm Gran Pct Auto 0.2 % (0.0-0.4); Lymphocytes Absolute Auto 2.1 X10*3/uL (1.2-4.9); Lymphocytes Percent Auto 36.5 % (20-40); Mean Corpuscular HGB Conc 27.9 g/dl (31.0-35.0); Mean Corpuscular Hemoglobin 19.9 pg (27.0-33.0); Mean Corpuscular Volume 71.6 fL (80.0-98.0); Monocytes Absolute Auto 0.4 X10*3/uL (0.1-1.2); Monocytes Percent Auto 7.2 % (2-11); Neutrophils Absolute Auto 2.9 x10*3/uL (2.0-8.3); Neutrophils Percent Auto 50.8 % (45-73); Platelet Count 332 X10*3/uL (160-400); Red Blood Count 3.66 X10*6/uL (4.20-5.50); Red Cell Distribution Width 17.1 % (11.0-16.0); White Blood Count 5.7 X10*3/uL (4.8-10.8)
== END 2024-10-15 11:56 | disposition home or self-care (01) ==
LOC: HO.HHCL 11:55
PROVIDERS: Visit Provider Internal Medicine
DX: D50.9 Iron deficiency anemia, unspecified (principal)
CPT/HCPCS: 36415; 85025

== ENCOUNTER 2024-12-03 10:19 | Outpatient (REF) | payer OTHER, SELFPAY ==
--- OUTSIDE RECORDS SUMMARY | 2024-12-03 11:21 | XMS_ITS | Encounter Summary ---
Author Organization [employer] Address [address] [facility] 7t [place] [address] Care Team Providers Care Farmworker General Name Role Phone Amilcar Louis MD Primary Care Provide r Reason for Visit * Reason Onset Date Comments some pain 08/26/2023 pain medication 08/26/2023 pain from ext 08/26/2023 Encounter Details Date Type Department Care Team (Late st Contact Info) Description 08/26/2023 Telephone [facility] ADULT DENTAL [address] [place], [place] [phone] Abiodun Bean, MANOLO [address] [place] [address] some pain; pain medication; pain from ext [...] medication can be sent again to pharmacy? documented in this encounter Plan of Treatment Upcoming Encounters Date Type Department Care Team (Late st Contact Info) Description 01/05/2025 3:00 PM EDT Office Visit [facility] ADULT DENTAL [address] [place] [address] Abiodun Bean DDS [address] [place] [address] 01/14/2025 2:15 PM EDT Office Visit [facility] MEDICINE [address] [place] [address] Amilcar Louis MD [address] [place] [address] documented as of this encounter Visit Diagnoses Not on filedocumented in this encounter Additional Health Concerns Assessment Noted Time PHQ-9 Depression Total Score: 1 01/11/20 23 3:27 PM EDT documented as of this encounter Care Teams Farmworker General Relationship Specialty Start Date End Date Amilcar Louis MD [address] [place], [place] [phone] PCP - General Internal Medicine 04/08/14 Yessenia Olmos Apron WorkerSafety Manager 09/20/23 documented as of this encounter
--- OUTSIDE RECORDS SUMMARY | 2024-12-03 11:21 | XMS_ITS | Encounter Summary ---
Author Organization [employer] Address [address] [facility] [address] 7[address] [place] [address] Care Team Providers Care Director Staffing Name Role Phone Amilcar Louis MD Primary Care Provide r Reason for Visit * Reason Comments Med Refill Encounter Details Date Type Department Care Team ([facility] st Contact Info) Description 10/05/[address] [facility] MEDICINE [address] [place], [place] [phone] Joana Crump DO 230 [place], [place] [phone] Med Refill Social History Tobacco Use Types [...] Miscellaneous Notes * Telephone Encounter - Nancy Pringle RN - 10/16/2024 9:50 AM EDT Pt went to ED on 10/15/24, received 1 unit of PRBC in ED and was admitted inpatient to monitor H&H after transfusion. Will task to follow for discharge and schedule HDF. * Telephone Encounter - Nancy Pringle RN - 10/16/2024 9:49 AM EDT ----- Message from Amilcar Vicente MD sent at 10/15/2024 5:16 PM EDT ----- Pt's Hgb dropped to 7.3. Called patient no answer, left a voicemail. Contacted her daughter Faviola , discussed with her the need to bring her mother to [facility] for evaluation and a blood transfusion given severe anemia ( 7.3 down from 8.6 ) and underlying CAD. She verbalized understanding andstated she would make sure Marilynn was seen today in the ER for evaluation. Please contact patient tomorrow to ensure she went to the ER documented in this encounter Plan of Treatment Upcoming Encounters Date Type Department Care Team (Late st Contact Info) Description 01/05/2025 3:00 PM EDT Office Visit [facility] ADULT DENTAL [address] [place], [place] [phone] Abiodun Bean DDS [address] [place], [place] [phone] 01/14/2025 2:15 PM EDT Office Visit [facility] MEDICINE [address] [place], [place] [phone] Amilcar Louis MD [address] [place], [place] [phone] documented as of this encounter Visit Diagnoses Diagnosis Neuropathy Mononeuritis of unspecified site documented in this encounter Additional Health Concerns Assessment Noted Time PHQ-9 Depression Total Score: 0 10/15/19 10:59 AM EDT documented as of this encounter Care Teams Director Staffing Relationship Specialty Start Date End Date Amilcar Louis MD [address] [place], [place] [phone] PCP - General Internal Medicine 04/08/14 Yessenia Olmos Deck OfficerHand Touch Up Painter 09/20/23 documented as of this encounter
--- OUTSIDE RECORDS SUMMARY | 2024-12-03 11:21 | XMS_ITS | Encounter Summary ---
Author Organization [employer] Address [address] [facility] [address] 7[address] [place] [address] Care Team Providers Care Sap Business Objects Consultant Name Role Phone Amilcar Louis MD Primary Care Provide r Reason for Visit * Reason Comments Med Refill Encounter Details Date Type Department Care Team ([facility] st Contact Info) Description 09/04/2024 Refill [facility] [address] [place], [place] [phone] Joana Crump DO [address] [place], [place] [phone] Neuropathy Social History Tobacco Use Types Packs/Day [...] Description 01/05/2025 3:00 PM EDT Office Visit [facility] [address] [place] [address] Abiodun Bean DDS [address] [place] [address] 01/14/2025 2:15 PM EDT Office Visit [facility] [address] [place] [address] Amilcar Louis MD [address] [place] [address] documented as of this encounter Visit Diagnoses Diagnosis Neuropathy Mononeuritis of unspecified site documented in this encounter Additional Health Concerns Assessment Noted Time PHQ-9 Depression Total Score: 0 10/15/19 10:59 AM EDT documented as of this encounter Care Teams Sap Business Objects Consultant Relationship Specialty Start Date End Date Amilcar Louis MD [address] [place] [address] PCP - General Internal Medicine 04/08/14 Yessenia Olmos Reel Fed PrinterFront Office Attendant 09/20/23 documented as of this encounter
--- OUTSIDE RECORDS SUMMARY | 2024-12-03 11:21 | XMS_ITS | Encounter Summary ---
Author Organization [employer] Address [address] [facility] [address] 7[address] [place] [address] Care Team Providers Care Mason Helper Name Role Phone Amilcar Louis MD Primary Care Provide r Reason for Visit * Reason Comments Med Refill Encounter Details Date Type Department Care Team ([facility] st Contact Info) Description 09/14/2024 Refill [facility] MEDICINE [address] [place], [place] [phone] Joana Crump DO [address] [place], [place] [phone] Neuropathy Social History Tobacco Use Types Packs/Day [...] Description 01/05/2025 3:00 PM EDT Office Visit [facility] ADULT DENTAL [address] [place] [address] Abiodun Bean DDS [address] [place] [address] 01/14/2025 2:15 PM EDT Office Visit [facility] MEDICINE [address] [place] [address] Amilcar Louis MD [address] [place] [address] documented as of this encounter Visit Diagnoses Diagnosis Neuropathy Mononeuritis of unspecified site documented in this encounter Additional Health Concerns Assessment Noted Time PHQ-9 Depression Total Score: 0 10/15/19 10:59 AM EDT documented as of this encounter Care Teams Mason Helper Relationship Specialty Start Date End Date Amilcar Louis MD [address] [place] [address] PCP - General Internal Medicine 04/08/14 Yessenia Olmos An Employee Sponsor Or Advocate AndQuarry Extraction Worker 09/20/23 documented as of this encounter
--- OUTSIDE RECORDS SUMMARY | 2024-12-03 11:22 | XMS_ITS | Encounter Summary ---
Author Organization [employer] Address [address] [facility] 7t [place] [address] Care Team Providers Care Medical Billing Instructor Name Role Phone Amilcar Louis MD Primary Care Provide r Reason for Visit * Reason Onset Date Comments Med Refill 06/02/2024 Encounter Details Date Type Department Care Team ([facility] st Contact Info) Description 06/02/2024 Telephone [facility] MEDICINE 230 [place], [place] [phone] Amilcar Louis MD 230 [place], [place] [phone] Med Refill Social History Tobacco Use Types [...] is your housing situation today? I have calra lindsay 05/20/[address] you [...] Description 01/05/2025 3:00 PM EDT Office Visit [facility] ADULT DENTAL [address] [place] [address] Abiodun Bean DDS [address] [place] [address] 01/14/2025 2:15 PM EDT Office Visit [facility] MEDICINE [address] [place] [address] Amilcar Louis MD [address] [place] [address] documented as of this encounter Visit Diagnoses Not on filedocumented in this encounter Additional Health Concerns Assessment Noted Time PHQ-9 Depression Total Score: 0 10/15/19 24 10:59 AM EDT documented as of this encounter Care Teams Medical Billing Instructor Relationship Specialty Start Date End Date Amilcar Louis MD [address] [place] [address] [place] [address] PCP - General Internal Medicine 04/08/14 Yessenia Olmos Media ProducerEr Tech 09/20/23 documented as of this encounter
--- OUTSIDE RECORDS SUMMARY | 2024-12-03 11:22 | XMS_ITS | Encounter Summary ---
Author Organization [email or web address] Address [address] [facility] 7t [place] [address] Care Team Providers Care Business And Financial Counsel Name Role Phone Amilcar Louis MD Primary Care Provide r Reason for Visit * Reason Onset Date Comments Med Refill 12/23/2023 Encounter Details Date Type Department Care Team ([facility] st Contact Info) Description 12/23/2023 Refill [facility] MEDICINE 230 [place], [place] [phone] Amilcar Louis MD 230 [place], [place] [phone] Allergic rhinitis, unspecified seasonality, unspecified trigger Social [...] tablet To be sent to: [facility] [address] [place] [address] documented in this encounter Plan of Treatment Upcoming Encounters Date Type Department Care Team (Late st Contact Info) Description 01/05/2025 3:00 PM EDT Office Visit [facility] ADULT DENTAL [address] [place] [address] Abiodun Bean DDS [address] [place] [address] 01/14/2025 2:15 PM EDT Office Visit [facility] MEDICINE [address] [place] [address] Amilcar Louis MD 230 [place], [place] [phone] documented as of this encounter Visit Diagnoses Diagnosis Allergic rhinitis, unspecified seasonality, unspecified trigger documented in this encounter Additional Health Concerns Assessment Noted Time PHQ-9 Depression Total Score: 0 10/15/19 10:59 AM EDT documented as of this encounter Care Teams Business And Financial Counsel Relationship Specialty Start Date End Date Amilcar Louis MD 230 [place] [address] PCP - General Internal Medicine 04/08/14 Yessenia MarcosAmarilis [employer] Systems AdministratorTetryl Blender Operator 09/20/23 documented as of this encounter
--- OUTSIDE RECORDS SUMMARY | 2024-12-03 11:22 | XMS_ITS | Data Portability ---
Author Organization [employer] [place] [facility] Address [address] [place] [phone] Care Team Providers Care Integration Software Developer Name Role Phone [facility] OTHER [facility] OTHER Assessment Encounter Date Assessment Date Assessment LastModified by Organization Details LastModified Time 07/16/2024 07/16/2024 As noted, we were called to see this patient regarding concerns of chest pain. Evaluation in the field was performed by my creative services intern colleague, as noted above, I provided real-time [...] [facility] available 07/16/2024 17:01:20 Plan of [...] Name and Address Organization Details Recorded Time [id number] [facility] Not available Not available [...] /min 129 mm[Hg] 69 mm[Hg] Not Available [employer] 4 16:42:04 Social History None recorded. Functional Status None recorded. Mental Status None recorded. Family History Nothing Reported. Medical History No medical history recorded. Gynecological HistoryNo gynecological history recorded. Obstetrics History GPAL:G 0 P 0 0 0 0 Past Encounters Encounter ID Performer Location Encounter Start Date Encounter Closed Date Diagnosis/Indication Diagnosis SNOMED-CT Code Diagnosis ICD10 Code Diagnosis Note [id number] Stacy Javier MD Main - [facility] [address] [place] [phone] 07/16/2024 16:42:02 07/17/2024 12:37:27 Chest pain 26120426 R07.9 Health Concerns Section Related Observation LastModified by Organization Detai ls LastModified Time None Recorded Concern Status LastModified by Organization Details LastModified Time None Recorded Advance Directives Directive None Recorded Payers Insurance Date Sequence Insurance Name Policy Number Policy Lynn Covered Member ID Lynn Member ID Guarantor Name 07/16/2024 [facility] - DOS ON OR AFTER 2022 - DUAL ELIGIBLE - GROUP HOME OPTIONS AND ONE CARE (MEDICARE REPLACEMENT/AD VANTAGE - HMO) Trent Almodovar [id number] Trent Almodov[employer] Notes Date Note Type Note Provider Name and Address Organization Details Recorded Time 07/16/2024 text/html HPI: Call returned to Trent Gilmore to triage below. Patient alert and oriented x 3. Speaking in clear full sentences. No audible wheezing or distress cable television program director. Per pt states feeling SOB with exertion. Pt also endorse chest tightness. Pt denies any CP. Pt denies any PRUITT or dizziness. Pt checked BP while cable television program director 189/139 was via wrist BP cuff , BS fasting today was 124mg/dL. Pt denies again any PRUITT, dizziness or CP. Pt unable to come into our office for walk in center. Pt agrees to [facility] for evaluation. Confirmed demographics and allergies. ..................... ..................... ..................... ..................... ..................... ..................... ............... CRC Nurse Triage Notes (Rose Lassiter - RN): Chief Complaints: Fatigue, Breathing problems PMH: Hypertension, Coronary Artery Disease, Diabetes Mellitus Type 2 Comments: CRC RN did not require any additional information to process this visit. [employer] Log[employer] Systems Logger Organization Information for [employer] Business Legal Name: [employer].? Address: [address] [place] [address], Rn Training: Tulio SANCHEZ No.: [id number] [employer] Logger POC Test Results from [employer] [employer] EKG (16:34:05) EKG test performed. Attachments uploaded as part of this test result can be found under Documents section. ..................... ..................... ..................... ..................... ..................... ..................... ............... [employer] Logger Note From Taz Shin: Dispatched to above address for shortness of breath. On arrival patients daughter met CO8 at the door, reports patient has been [...] ST elevation V1 V2 V3, results uploaded. [facility] contacted, spoke with Dr. Javier, advised of patient complaints, exam findings and test results. [facility] agrees likely STEMI, recommends transport to quality assurance qa lab analyst, ASA and IV established. 911 contacted, [facility] [...] feels generally unwell. STEMI alert called to [facility]. Patient transported to [facility] without incident or change in status. Verbal report given to STEMI team. SC8 clear. EOR. ..................... ..................... ..................... ..................... ..................... ..................... ............... [facility] Consulted: Stacy Javier ..................... ..................... ..................... ..................... ..................... ..................... ............... Disposition: Fulfilled Stacy Javier MD [address] [facility], [place], [address], [facility] [facility] [employer] 07/16/2024 19:03:57 OBGyn Episode No OBEpisode recorded.
--- OUTSIDE RECORDS SUMMARY | 2024-12-03 11:22 | XMS_ITS | Encounter Summary ---
Author Organization [employer] Address [address] [place] [address] Care Team Providers Care Display Card Writer Name Role Phone Amilcar Louis MD Primary Care Provide r Reason for Visit * Reason Comments Med Refill Encounter Details Date Type Department Care Team ([facility] st Contact Info) Description 05/18/2024 Refill [facility] [address] [place], [place] [phone] Jessie Sanchez MD [address] [place], [place] [phone] Neuropathy Social History Tobacco Use Types Packs/Day [...] Description 01/05/2025 3:00 PM EDT Office Visit [facility] [address] [place] [address] Abiodun Bean DDS [address] [place] [address] 01/14/2025 2:15 PM EDT Office Visit [facility] [address] [place] [address] Amilcar Louis MD [address] [place] [phone] documented as of this encounter Visit Diagnoses Diagnosis Neuropathy Mononeuritis of unspecified site documented in this encounter Additional Health Concerns Assessment Noted Time PHQ-9 Depression Total Score: 0 10/15/19 24 10:59 AM EDT documented as of this encounter Care Teams Display Card Writer Relationship Specialty Start Date End Date Amilcar Louis MD [address] [place] [address] PCP - General Internal Medicine 04/08/14 Yessenia Olmos Invoice Machine OperatorHr Shared Services Consultant 09/20/23 documented as of this encounter
--- OUTSIDE RECORDS SUMMARY | 2024-12-03 11:22 | XMS_ITS | Encounter Summary ---
Author Organization [employer] Address [address] [facility] [address] [place] [address] Care Team Providers Care Die Forger Name Role Phone Amilcar Louis MD Primary Care Provide r Encounter Details Date Type Department Care Team (Late Contact Info) Description 11/21/2022 Abstract [facility] [address] [place], [place] [phone] Amilcar Louis MD [address] [place], [place] [phone] Social History Tobacco Use Types Packs/Day Years [...] Department Care Team (Late Contact Info) Description 01/05/2025 3:00 PM EDT Office Visit [facility] ADULT DENTAL [address] [place], [place] [phone] Abiodun Bean DDS [address] [place], [place] [phone] 01/14/2025 2:15 PM EDT Office Visit [facility] [address] [place] [phone] Amilcar Louis MD [address] [facility] [place], [place] [phone] documented as of this encounter Procedures Procedure Name Priority Date/Time Associated Diagnosis Comments COLONOSCOPY Routine 10/02/2018 documented in this encounter Results * Hm Colonoscopy (10/02/2018) Colonoscopy Normal Normal 10/02/2018 Narrative Tosin Viramontes - 10/02/2018 11:37 AM EDT Recommended 10 year follow up ( see scanned report) Historical Provider [facility] Edited Result - Final documented in this encounter Visit Diagnoses Not on filedocumented in this encounter Care Teams Die Forger Relationship Specialty Start Date End Date Amilcar Louis MD [address] [place] [phone] PCP - General Internal Medicine 04/08/14 Yessenia Olmos Beer MakerSticker Hand 09/20/23 documented as of this encounter
--- OUTSIDE RECORDS SUMMARY | 2024-12-03 11:22 | XMS_ITS | Encounter Summary ---
Author Organization [employer] Address [address] [facility] [address] [place] [address] Care Team Providers Care Railway Station Manager Name Role Phone Amilcar Louis MD Primary Care Provide r Encounter Details Date Type Department Care Team (Latest Contact Info) Description 03/27/2022 Abstract [facility] Dental, Provider, DDS Social History Tobacco [...] Upcoming Encounters Date Type Department Care Team ( st Contact Info) Description 01/05/2025 3:00 PM EDT Office Visit [facility] [address] [place] [phone] Abiodun Bean DDS [address] [place] [address] 01/14/2025 2:15 PM EDT Office Visit [facility] [address] [place] [address] Amilcar Louis MD [address] [place] [address] documented as of this encounter Visit Diagnoses Not on filedocumented in this encounter Care Teams Railway Station Manager Relationship Specialty Start Date End Date Amilcar Louis MD [address] [place] [address] [place] [address] PCP - General Internal Medicine 04/08/14 Yessenia Olmos [employer] SpecialistPlaster Mold Maker 09/20/23 documented as of this encounter
--- OUTSIDE RECORDS SUMMARY | 2024-12-03 11:22 | XMS_ITS | Encounter Summary ---
Author Organization [employer] Address [address] [facility] [address] [place] [address] Care Team Providers Care Tourist Information Officer Name Role Phone Amilcar Louis MD Primary Care Provide r Encounter Details Date Type Department Care Team (Latest Contact Info) Description 03/13/2021 Abstract [facility] Dental, Provider, DDS Social History [...] Description 01/05/2025 3:00 PM EDT Office Visit [facility] ADULT DENTAL [address] [place] [address] Abiodun Bean DDS [address] [place] [address] 01/14/2025 2:15 PM EDT Office Visit [facility] [address] [place] [address] Amilcar Louis MD [address] [place] [address] documented as of this encounter Visit Diagnoses Not on filedocumented in this encounter Care Teams Tourist Information Officer Relationship Specialty Start Date End Date Amilcar Louis MD [address] [place] [address] [place] [address] PCP - General Internal Medicine 04/08/14 Yessenia Olmos [employer] Counter ClerkSystems Program Manager 09/20/23 documented as of this encounter
--- OUTSIDE RECORDS SUMMARY | 2024-12-03 11:22 | XMS_ITS | Clinical Summary ---
Author Organization [employer] Address [address] [place] [address] Care Team Providers Care Formulator Name Role Phone Amilcar Louis MD Primary Care Provide r Allergies Active Allergy Reactions Criticality Noted Date Comments Naproxen Swelling Other reaction(s): face red & swollen Medications insulin glargine (Lantus SoloStar) 100 UNIT/ML pen Inject 33 Units under the skin. 018 Active insulin lispro (HumaLOG KWIKPEN) 100 UNIT/ML injection inject between 10 and 20 units by subcutaneous route prior to breakfast, lunch and dinner accoding to sliding scale 018 Active metFORMIN (Glucophage) 500 MG tablet 023 Active insulin pen needle (BD Pen Needle Sandra U/F) 32G x 4 mm miscIndications:T ype 2 diabetes mellitus with foot ulcer, with long-term current use of insulin ([facility]) Use to inject insulin 4 times daily 100 each 12 024 2024 Active aspirin 81 MG EC tablet TAKE 1 TABLET BY MOUTH EVERY MORNING 90 tablet 3 024 Active Multiple Vitamin (Multi-Vitamin) tabletIndications :Type 2 diabetes mellitus with foot ulcer, with long-term current use of insulin (CMS/HCC) TAKE 1 TABLET BY MOUTH EVERY DAY 90 tablet 3 024 Active clopidogrel (Plavix) 75 MG tablet Take 1 tablet by mouth Once per day. 024 Active atorvastatin (Lipitor) 80 MG tabletIndications :Mixed hyperlipidemia Take 1 tablet (80 mg) by mouth Once per day. 30 tablet 11 025 2025 Active FreeStyle lancetsIndication s:Type 2 diabetes mellitus with foot ulcer, with long-term current use of insulin ([facility]) 1 each by Other route 3 times daily. USE TO TEST BLOOD SUGAR THREE TIMES A DAY BEFORE MEALS 100 each 1 Active ferrous sulfate 325 (65 Fe) MG tabletIndications :Iron deficiency anemia, unspecified iron deficiency anemia type Take 1 tablet (325 mg) by mouth 2 times daily. 60 tablet 025 2025 Active dapagliflozin (Farxiga) 10 MG Take 10 mg by mouth Once per day. Active amitriptyline (Elavil) 25 MG tabletIndications :Neuropathy TAKE 1 TABLET BY MOUTH AT BEDTIME 30 tablet 5 025 Active loratadine (Claritin) 10 MG tabletIndications :Allergic rhinitis, unspecified seasonality, unspecified trigger TAKE 1 TABLET BY MOUTH EVERY DAY 30 tablet 5 025 Active gabapentin (Neurontin) 300 MG capsuleIndication s:Neuropathy TAKE (2) CAPSULES BY MOUTH TWICE DAILY. 112 capsule 025 Active amitriptyline (Elavil) 25 MG tabletIndications :Neuropathy TAKE 1 TABLET BY MOUTH AT BEDTIME. 30 tablet 5 024 2024 Discontinued(R eorder (will not trigger notification to Pharmacy)) loratadine (Claritin) 10 MG tabletIndications :Allergic rhinitis, unspecified seasonality, unspecified trigger TAKE 1 TABLET BY MOUTH EVERY DAY 30 tablet 5 024 2024 Discontinued(R eorder (will not trigger notification to Pharmacy)) gabapentin (Neurontin) 300 MG capsuleIndication s:Neuropathy TAKE [...] Iron deficiency anemia 09/03/2024 Assessment & Plan (10/15/2024 12:41 PM EDT): Pt was found to be anemic in the ER and received 1 unit of PRBC and was started on Iron supplementation Repeat CBC and Iron studies confirmed pt has Iron deficiency Patient has been referred to GI. Pt will need EGD/Colonoscopy Pending GI work up will decide if she needs to be seen by Hematology Patient is already scheduled for December Repeat CBC Assessment & Plan (09/03/2024 11:23 AM EST): [...] here after she was recently admitted to [facility] was admitted on 07/16 with a late [...] Pt here for a HDF admitted to [facility] from 07/16-07/19/2024 She initially presented with sudden [...] Pt here for a HDF admitted to [facility] from 07/16-07/19/2024 She initially presented with sudden [...] Pt under the care of Urogynecology at [facility]. Has a pesary Chronic venous insufficiency 10/16/2022 Assessment & Plan (04/02/2023 10:00 AM EDT): Under the care of [facility] vascular Surgeons Last seen 11/2022 Assessment & Plan (10/16/2022 2:39 PM EDT): Under the care of [facility] vascular Surgeons Calcific tendinitis of left [...] Pap Smear: Pap 10/2022 Colonoscopy: 09/24/2014 Dr Arvizu hemorrhoid's, 10 YR F/U Assessment & Plan (01/10/2023 3:56 PM EDT): Mammogram: 11/20/2021 Pap Smear: Pap 10/2022 Colonoscopy: 09/24/2014 Dr Arvizu hemorrhoid's, 10 YR F/U Assessment & Plan (07/12/2022 9:10 AM EST): Mammogram: 11/20/2021 Pap Smear: Pap 10/30/2017 nl Colonoscopy: 09/24/2014 Dr Arvizu hemorrhoid's, 10 YR F/U Hand pain, right [...] recent lipid profile from: 11/28/2022 done at [facility] shows Component Ref Range & Units (11/28/22) [...] AM EST): Pt used to follow at [facility], Last seen 12/21/2013 . Previously pt wanted to be referred to [facility] Cardiology. Pt was admitted on 07/16 to [facility] with a late presenting anterior STEMI, now [...] PM EST): Pt used to follow at [facility], Last seen 12/21/2013 . Previously pt wanted to be referred to [facility] Cardiology. Pt was admitted on 07/16 to [facility] with a late presenting anterior STEMI, now [...] any chest pain, On Aspirin. Seen at [facility], Last seen 12/21/2013 1 year f/u recommended. Would like to be referred to [facility] Cardiology Assessment & Plan (07/12/2022 9:07 AM EST): Pt denies any chest pain, On Aspirin. Seen at [facility], Last seen 12/21/2013 1 year f/u recommended. [...] Plan (07/12/2022 9:08 AM EST): Followed at [facility] wound clinic. s/p left first metatarsal dorsiflexion osteotomy, left medical sesamoidectomy and ulcer debridement . Last visit was 07/20/2014 and had a f/u 08/02/2014 Idiopathic peripheral neuropathy 02/15/2012 Assessment & Plan (07/12/2022 9:08 AM EST): On gabapentin 600mg bid, does not tolerate a higher dose. Decreased sensation to mid-soto b/l. Nonproliferative diabetic retinopathy 12/18/2011 Assessment & Plan (08/22/2023 9:36 AM EST): Followed at [facility]. Last seen 04/2023, has a follow up 09/2023 Assessment & Plan (01/10/2023 4:02 PM EDT): Followed at [facility]. Has a follow up in March per her report Assessment & Plan (07/12/2022 9:09 AM EST): Followed at [facility]. Type 2 diabetes mellitus with retinopathy 2011 Assessment & Plan (10/15/2024 12:43 PM EDT): Pt is here for a f/u Under the care of [facility] Endocr[facility]ology , last note on record 07/30/2024. Pt has a follow up She is on a regimen of: Metformin ER 500 mg 2 tabs po BID, Mounjaro 5 mg weekly on and Lantus 28 units sc q pm and Humalog sliding scale. She is also on Farxiga prescribed by Cardiology Hgb A1c 07/28/2024 : 9.7 from 8.4 Eye exam done on: 02/28/2024 at [facility] Also follows with retinal specialist, [...] on a daily basis Assessment & Plan (09/03/2024 11:22 AM EST): Pt is here for a f/u Under the care of [facility] End[facility] , last seen 07/30/2024. Pt tells me she has a follow up She is on a regimen of: Metformin ER 500 mg 2 tabs po BID, Trulicity 4.5 mg sc weekly on and Lantus was increased to 28 units sc q pm and Humalog sliding scale. Hgb A1c 07/28/2024 : 9.7 from 8.4 Eye exam done on: 02/28/2024 at [facility] Also follows with retinal specialist, [...] for a f/u Under the care of [facility] , last seen 11/29/2023. Pt tells me she has a follow up 07/30/2024 She is on a regimen of: Metformin ER 500 mg 2 tabs po BID, Trulicity 4.5 mg sc weekly on and Lantus 22 units sc q pm and Humalog sliding scale. Hgb A1c 07/28/2024 : 9.7 from 8.4 Eye exam done on: 02/28/2024 at [facility] Also follows with retinal specialist, [...] for a f/u Under the care of [facility] , last seen 11/29/2023 She is on a regimen of: Jardiance 25 mg po daily, Metformin ER 500 mg 2 tabs po BID, Trulicity 3 mg sc weekly on and Lantus 22 units sc q pm and Humalog sliding scale. Hgb A1c 12/24/2023: 8.4 BG today 180 Eye exam done on: 02/28/2024 at [facility] Also follows with retinal specialist, [...] for a f/u Under the care of [facility] , last seen 11/29/2023 She is on a regimen of: Jardiance 25 mg po daily, Metformin ER 500 mg 2 tabs po BID, Trulicity 3 mg sc weekly on and Lantus 22 units sc q pm and Humalog sliding scale. Hgb A1c 12/24/2023: 8.4 BG today 119 Eye exam done on: 11/2022 at [facility] Also follows with retinal specialist, [...] for a f/u Under the care of [facility] She is on a regimen of: Jardiance 25 mg po daily, Metformin ER 500 mg 2 tabs po BID, Trulicity 3 mg sc weekly on and Lantus 20 units sc q pm and Humalog sliding scale. Hgb A1c 08/22/2023: 7.5 BG today 119 Eye exam done on: 11/2022 at [facility] Also follows with retinal specialist, she has [...] for a f/u Under the care of [facility] She is on a regimen of: Jardiance 25 mg po daily, Metformin ER 500 mg 2 tabs po BID, Trulicity 3 mg sc weekly on and Lantus 20 units sc q pm and Humalog sliding scale. Hgb A1c 08/22/2023: 7.5 BG average 139 Eye exam done on: 11/2022 at [facility] Also follows with retinal specialist, she has [...] for a f/u Under the care of [facility] She is on a regimen of: Jardiance Increased to 25 mg po daily, Metformin ER 500 mg 2 tabs po BID, and Trulicity 3 mg sc weekly on and Lantus 20 units sc q pm and Humalog sliding scale. Hgb A1c 01/10/2023: 7.8 BG average 125 Eye exam done on: 11/05/2017 at [facility] Also follows with retinal specialist, she has [...] for a f/u Under the care of [facility] She is on a regimen of: Jardiance 10 mg po daily, Metformin ER 500 mg 2 tabs po BID, and Trulicity 3 mg sc weekly on and Lantus 20 units sc q pm and Humalog sliding scale. Hgb A1c 01/10/2023: 7.5 BG average 128 Eye exam done on: 11/05/2017 at [facility] Also follows with retinal specialist, she has [...] for a f/u Under the care of [facility] She is on a regimen of: Jardiance 10 mg po daily, Metformin ER 500 mg 2 tabs po BID, and Trulicity 3 mg sc weekly on and Lantus 20 units sc q pm and Humalog sliding scale. Hgb A1c 10/16/2022: 7.9 BG average 136 Eye exam done on: 11/05/2017 at [facility] Also follows with retinal specialist, she has [...] for a f/u Under the care of [facility] She is on a regimen of: Jardiance 10 mg po daily, Metformin ER 500 mg 2 tabs po BID, and Trulicity 3 mg sc weekly on and Lantus 18 units sc q pm and Humalog sliding scale. Hgb A1c 07/12/2022 was 7.7 BG average 121 Eye exam done on: 11/05/2017 at [facility] Also follows with retinal specialist, she has [...] Encounters Date Type Department Care Team Description 11/12/2024 Refill [facility] [address], [place] [phone] Amilcar Louis MD Neuropathy 11/05/2024 Refill [facility] [address] [place] [address] Amilcar Louis MD Neuropathy; Allergic rhinitis, unspecified seasonality, unspecified trigger 10/26/2024 Telephone [facility] [address] [place] [phone] Amilcar Louis MD Referral 10/22/2024 Telephone [facility] [address] [place] [address] [phone] Amilcar Louis MD DME L&C 10/15/2024 11:00 AM EDT Office Visit [facility] [address] [place] [phone] Amilcar Louis MD Iron deficiency anemia, unspecified iron deficiency anemia type (Primary Dx); 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 edema, with long-term current use of insulin ([facility]) 10/15/2024 Telephone [facility] [address] [place] [address] Amilcar Louis MD Paperwork/Forms 10/15/2024 Travel 10/12/2024 Refill [facility] [address] [place] [address] Joana Crump DO Neuropathy 10/08/2024 Telephone [facility] [address] [place] [address] Amilcar Louis MD Chart Prep 10/05/2024 Telephone [facility] [address] [place] [address] Joana Crump DO Med Refill 09/30/2024 Refill [facility] [address] [place] [address] Amilcar Louis MD Iron deficiency anemia, unspecified iron deficiency anemia type 09/25/2024 Refill [facility] [address] [place] [address] Amilcar Louis MD Type 2 diabetes mellitus with foot ulcer, with long-term current use of insulin ([facility]); Neuropathy 09/14/2024 Refill [facility] [address] [place] [address] Joana Crump DO Neuropathy from Last 3 Months Immunizations Immunization Administration Dates Next Due INFLUENZA VACCINE QUADRIVALE [...] Answer Date Recorded Patient Health Questionnaire-9 Score 4 10/15/2024 Patient Health Questionnaire-9 Score 4 10/15/2024 Last PHQ-9: Questionnaire Data Not on file 0 10/15/2024 Housing Stability Answer Date Recorded What is your housing situation today? I have clara lindsay 10/15/[address] you li ve. Do you have problems with any of the following? None of the above 10/15/2024 Food Insecurity Answer Date Recorded Within the past 12 months, y ou worried that your food would run out before you got money to buy more: Never True 10/15/2024 Within the past 12 months,th e food you bought just didn't last and you didn't have enough money to get more: Never True Transportation Answer Date Recorded In the past 12 months, has l ack of transportation kept you from medical appts, meetings, work or from getting things needed for daily living? No 10/15/2024 Utilities Answer Date Recorded In the past 12 months, has t he electric, gas, oil or water company threatened to shut off services in your home? No 10/15/2024 Depression Answer Date Recorded Patient Health Questionnaire-2 Score 1 10/15/2024 Internet Access Answer Date Recorded Internet Access Q1 Yes 10/15/2024 Internet Access Q2 Not on file 10/15/2024 Comments No Sex and Gender Information Value Date Recorded Sex Assigned at Female 05/21/2022 10:14 AM EDT Legal Sex Female 10:14 AM EDT Gender Identity Female 05/21/2022 10:14 AM EDT Sexual Orientation Straight 05/21/2022 10 :14 AM EDT Last Filed Vital Signs Vital Sign Reading Time Taken Comments Blood Pressure 99/56 10/15/2024 11:11 AM EDT Pulse 90 10/15/2024 11:11 AM EDT Temperature 35.5 ??C (95.9 ??F) 10/15/2024 11:11 AM E DT Respiratory Rate 22 10/15/2024 11:11 AM EDT Oxygen Saturation 99% 10/15/2024 11:11 AM EDT Inhaled Oxygen Concentration - - Weight 63.6 kg (140 lb 3.2 oz) 10/15/2024 11:11 AM EDT Height 160 cm (5' 3 ) 10/15/2024 11:11 AM EDT Body Mass Index 24.84 10/15/2024 11:11 AM EDT Plan of Treatment Upcoming Encounters Date Type Department Care Team (Late st Contact Info) Description 01/05/2025 3:00 PM EDT Office Visit [facility] [address] [place] [address] Abiodun Bean DDS [address] [place] [phone] 01/14/2025 2:15 PM EDT Office Visit [facility] [address] [place] [address] Amilcar Louis MD [address] [place] [address] Health Maintenance Due Date Last Done Comments CT Colonography 1958 FIT DNA/Cologuard 1958 FIT 1960 FOBT 1960 Sigmoidoscopy 1958 Diabetes: Foot Exam 1968 Eye Exam 1968 Pneumococcal Vaccine: 50+ Years (2 of 2 - PCV) 04/28/1998 04/28/1997 RSV Patients and Patients Aged 60 years or older (1 - Risk 60-74 years 1-dose series) 2018 Dental X-Ray: Full Mouth 03/14/2024 03/13/2021, 02/19 Dental Oral Exam 03/26/2024 09/23/2023, 12/2021, 03/13/2021, Additional history exists Dental Prophylaxis 03/26/2024 09/23/2023, 0 03/27/2022, 03/13/2021, Additional history exists Diabetes: Urine Protein Screening 08/28/2024 08/28/2023, 10/27/2021, 07/13/2020 Dental X-Ray: Bitewings 09/23/2024 09/23/19 24, 03/27/2022, 03/13/2021, Additional history exists Diabetes: Hemoglobin A1C 10/26/2024 025, 12/24/2023, 08/22/2023, Additional history exists COVID-19 Vaccine ( season) 2024 06/12/2024, 08/22/2023, 07/25/2022, Additional history exists Alcohol/Substance Use Screening 07/28/2025 07/28/2024 Lipid Panel 08/24/2025 08/24/2024, 04/23, 07/25/2022, Additional history exists Depression Screening 10/15/2025 10/15/2024, 10/16/19 25 SDOH Screening 10/15/2025 10/15/2024 Tobacco Screening 10/15/2025 10/15/2024 Mammogram 11/26/2025 11/27/2023, 05/0 09/2022, 11/20/2021, Additional history exists Colonoscopy 10/04/2028 10/02/2018 Colorectal Cancer Screening 10/04/2028 DTaP/Tdap/Td Vaccines (4 - Td or Tdap) 08/08/2033 08/08/2023, 11/24/2021, 11/24/2021, Additional history exists Zoster Vaccines Completed 02/13/2022, 10/27/2021 Cervical Cancer Screening Discontinued HPV/Cotest Discontinued 11/14/2022, 10/30/2017 Pap Smear Discontinued 11/14/2022 Hepatitis C Screening Completed 05/20/2023 Influenza Vaccine Completed 06/12/2024, , 04/02/2023, Additional history exists HIB Vaccines Aged Out No longer eligi [...] age to complete this topic Meningococcal B Vaccine Aged Out No l onger eligible based on patient's age to complete [...] Procedure Name Priority Date/Time Associated Diagnosis Comments CBC WITH AUTO DIFFERENTIAL Routine 10/15/2024 12:00 PM EDT Iron deficiency anemia, unspecified iron deficiency anemia type POCT GLUCOSE Routine 10/15/2024 11:19 AM EDT 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 edema, with long-term current use of insulin (CMS/HCC) LIPID PANEL, STANDARD Routine 08/24/2024 9:37 AM [...] Relevant to Health Maintenance Results * (ABNORMAL) CBC auto differential (10/15/2024 12:00 PM EDT) White Blood Count 5.7 4.8 - 10.8 X10*3/uL [facility] Red Blood Count 3.66(L) 4.20 - 5.50 X10*6/uL [facility] Hemoglobin 7.3(L) 12.0 - 16.0 g/dl [facility] Hematocrit 26.2(L) 37.0 - 47.0 % [facility] Mean Corpuscular Volume 71.6(L) 80.0 - 98.0 fL [facility] Mean Corpuscular Hemoglobin 19.9(L) 27.0 - 33.0 pg [facility] Mean Corpuscular HGB Conc 27.9(L) 31.0 - 35.0 g/dl [facility] Red Cell Distribution Width 17.1(H) 11.0 - 16.0 % [facility] Platelet Count 332 160 - 400 X10*3/uL [facility] Mean Platelet Volume 10.0 9.4 - 12.3 fL [facility] Neutrophils Percent Auto 50.8 45 - 73 % [facility] Imm Gran Pct Auto 0.2 0.0 - 0.4 % [facility] Lymphocytes Percent Auto 36.5 20 - 40 % [facility] Monocytes Percent Auto 7.2 2 - 11 % [facility] Eosinophils Percent Auto 4.2(H) 0 - 4 % [facility] Basophils Percent Auto 1.1 0 - 2 % [facility] NRBC Pct Auto 0.0 0.0 - 0.2 /100WBC [facility] Neutrophils Absolute Auto 2.9 2.0 - 8.3 x10*3/uL [facility] Imm Gran Abs Auto 0.01 0.00 - 0.03 X10*3/uL [facility] Lymphocytes Absolute Auto 2.1 1.2 - 4.9 X10*3/uL [facility] Monocytes Absolute Auto 0.4 0.1 - 1.2 X10*3/uL [facility] Eosinophils Absolute Auto 0.2 0.0 - 0.4 X10*3/uL [facility] Basophils Absolute Auto 0.1 0.0 - 0.2 X10*3/uL [facility] NRBC Abs Auto 0.000 0.0 - 0.012 X10*3/uL [facility] Blood Venous blood specimen / Unknown 10/15/2024 12:00 PM EDT 10/15/2024 1:11 PM EDT Amilcar Vicente MD LAB BLOOD ORDERABLES Final Result [facility] [address] [place] [phone] * (ABNORMAL) POCT Glucose (10/15/2024 11:19 AM EDT) [facility] Glucose Blood, POC 252(A) 60 - 200 mg/dL QC Media Lot # [id number] Lot# Expiration Date [id number] Blood Capillary blood specimen / Unknown 10/15/2024 11:19 AM EDT Amilcar Vicente MD POINT OF CARE TEST EN TER/EDIT ORDERABLES Final Result * Lipid Panel, Standard (08/24/2024 9:37 AM EST) Triglycerides 52 <150 mg/dL [facility] Comment:Desirable Triglyceri de: less than 150 mg/dLBorderline High Triglyceride 150-199 mg/dLHigh Triglyceride: 200-499 mg/dLVery High Triglyceride: greater than or equal to 5OO mg/dL Cholesterol 84 <200 mg/dL [facility] Comment:Desirable Cholestero l: less than 200 mg/dLBorderline High Cholesterol: 200-239 mg/dLHigh Cholesterol: greater than 239 mg/dL LDL Cholesterol Calculated 29 <100 mg/dL [facility] Comment:Desirable LDL: less than 100 mg/dLNear Optimal/Above Optimal LDL: 110- 129 mg/dLBorderline High LDL: 130-159 mg/dLHigh LDL: 160-189 mg/dLVery High LDL: greater than or equal to 190 mg/dL HDL Cholesterol 45 >40 mg/dL [facility] Comment:Desirable HDL: great er than 40 mg/dL Note: This HDL assay may give artificially low results in patients with liver disease. Blood Venous blood specimen / Unknown 08/24/2024 9:37 AM EST 08/24/2024 11:30 AM EST Amilcar Vicente MD LAB BLOOD ORDERABLES Final Result [facility] [address] [place] [phone] * (ABNORMAL) POCT HGB A1C (07/28/2024 10:30 AM EST) Hemoglobin A1C 9.7(A) 4.0 - 6.0 % QC Media Lot # [id number] Lot# Expiration Date Blood 07/28/2024 10:3 0 AM EST Amilcar Nascimento Jules MD POINT OF CARE TEST EN TER/EDIT ORDERABLES Final Result * BI Mammogram Screening Tomosynthesis Bilateral (11/27/2023 1:07 PM EDT) Anatomical Region Laterality Modality Breast Bilateral Mammography 11/27/2023 1:07 PM EDT Narrative 12/27/2023 8:13 AM EDT ? [facility] ? [address] ?[place] [id number] ? Mammography Report ? Signed ? Patient: Virola Gilmore,Widelmina ?MR# ?? : [id number] ? : 1960 ?Acct:[id number] ? Age/Sex: 63 / F ?ADM Date: 11/27/23 ? Loc: HO.MAMMO ? Attending Dr: Amilcar Bauer MD ? Ordering Physician: Amilcar Bauer MD ?Resu ?? lts: 1Negative ? Date of Service: 11/27/23 ?Follow Up: 1 Year From Orig ?? inal Mammogram ? Procedure(s): MM tomosynthesis screening BI ?? Accession Number(s): [id number] ? cc: Amilcar Bauer MD ? EXAMINATION: [...] by Charu Gomez MD in OV> ? 12/27/23809 ? DD/ 1307 ? TD/TT: ? Food Beverage Manager: ? Procedure Note Oneyda Baxter - 12/27/2023 [facility] [address] [place] [address] Mammography Report Signed Patient: Trent Singh# : [id number] : 9Acct:[id number] Age/Sex: 63 / FADM Date: 11/27/23 Loc: HO.STEPHANYO Attending Dr: Amilcar Bauer MD Ordering Physician: Amilcar Bauer MDResu lts: 1Negative Date of Service: 11/27/23Follow Up: 1 Year From Orig inal Mammogram Procedure(s): MM tomosynthesis screening BI Accession Number(s): [id number] cc: Amilcar Bauer MD EXAMINATION: MM SCREENING [...] in OV> 12/27/23 0810 DD/ 1307 TD/TT: Food Beverage Manager: Amilcar Vicente MD IMG BI PROCEDURES [place] ed Result - Final * Albumin, Random Urine W/Creatinine (08/28/2023 9:38 AM EST) Creatinine, Urine 33.51 mg/dL [facility] Microalbumin Urine <5.0 mg/L [facility] Microalbum Creatinine Ratio Ur TNP <30 ug/mg cr [facility] Comment:Unable to calculate albumin/creatinine ratio due to lowmicroalbumin or creatinine result. Urine (Urine, Random) 08/28/2023 9:38 AM EST 08/28/2023 11:28 AM EST Amilcar Vicente MD LAB URINE ORDERABLES Final Result [facility] [id number] [place] [phone] * Hepatitis C Antibody with Reflex to HCV, RNA, Quantitative, Real-Time PCR (05/20/2023 9:14 AM EDT) Hepatitis C Antibody Nonreactive Nonreactive [facility] Comment:Antibodies to HCV no t detected; does not exclude early acuteHCV infection. Blood Venous blood specimen / Unknown 05/20/2023 9:14 AM EDT 05/20/2023 11:50 AM EDT us Amilcar Vicente MD LAB BLOOD ORDERABLES Final Result [facility] [address] [place] [phone] * Image-Guided Pap with Age-Based Screening Protocols (11/14/2022 11:22 AM EDT) Comment [employer] Comment: This order for age-based cervical cancer and STI screening follows ACOG guidelines(PB 168, 140, LGR753). See individual assays for performing site location. Clinical Information: None given [employer] LMP: NONE GIVEN [employer] Prev. PAP: NONE GIVEN [employer] Prev. BX: NONE GIVEN [employer] SOURCE: None given [employer] Statement Of Adequacy: [employer] Comment: SATISFACTORY FOR EVALUATION Partially obscuring inflammation Partially obscuring blood Interpretation/Res ult: [employer] Comment: Negative for intraepithelial lesion or malignancy. Atrophic pattern; predominantly parabasal cells COMMENT: This Pap test has been evaluated with computer assisted technology. [employer] Distributing Clerk: Jaylene RagingWiret Comment: KN, CT(ASCP) CT screening location: [address] ??[phone] (Always Message) [employer] Comment: EXPLANATORY NOTE: The Pap is a [...] HPV nRNA E6/E7 Not Detected Not Detected [employer] Comment: Methodology: Clinical Consultant-Mediated Amplification This assay detects E6/E7 viral messenger RNA (mRNA) from 14 high-risk HPV types (16,18,31,33,35,39,45,51,52,56,58,59,66,68). Cervical sources are required for HPV testing. If a vaginal source from a patient who has had a total hysterectomy with removal of cervix was submitted, please contact the testing laboratory for alternative testing options. For additional information, please refer to http://education.Streamline Computing/faq/LAC659m3 (This link if provided for information/ educational purposes only.) Pap Vial 11/14/2022 11:2 2 AM EDT 11/15/2022 3:06 AM EDT Katerine Veras [facility] LAB BLOOD ORDERABLES Rosie l Result [facility] [address], [place] [address] [employer] [address] [place] [address] * Colonoscopy (10/02/2018) Colonoscopy Normal Normal 10/02/2018 Narrative Tosin Viramontes - 10/02/2018 11:37 AM EDT Recommended 10 year follow up ( see scanned report) Historical Provider HEALTH MAINTENANCE Edited Result - Final from Last 3 Months or Most Recently Relevant to Health Maintenance Insurance [id number] (HMO D-SNP) [facility] STAND ADULT [facility] Care Teams Formulator Relationship Specialty Start Date End Date Amilcar Louis MD [address] [place] [address] PCP - General Internal Medicine 04/08/14 Yessenia Olmos Die FinisherManager Site 09/20/23
--- OUTSIDE RECORDS SUMMARY | 2024-12-03 11:22 | XMS_ITS | Clinical Summary ---
Author Organization [facility] [employer] Address [address] [facility] [place] [address] Phone Care Team Providers Care Pelletising Extruder Operator Name Role Phone Amilcar Bauer MD Primary [...] (one) time each day with breakfast. Active insulin glargine (LANTUS) 100 unit/mL injection Inject 28 Units under the skin at bedtime. Active insulin lispro 100 unit/mL injection Inject under the skin 3 (three) times a day before meals. -Administer within 15 minutes of a meal Active tirzepatide (Mounjaro) 5 mg/0.5 mL injection Inject 0.5 mL (5 mg total) under the skin every 7 (seven) days. Active metoprolol succinate (TOPROL-XL) 25 mg 24 hr tablet Take 1 tablet (25 mg total) by mouth 1 (one) time each day. Do not crush or chew. 30 each 11 08/12/2024 08/12/19 26 Active clopidogreL (PLAVIX) 75 mg tabletIndication s:Coronary artery disease involving ewiiaapaayp heart, unspecified vessel or lesion type, unspecified whether angina present Take 1 tablet (75 mg total) by mouth 1 (one) time each day. 30 tablet 3 09/21/2024 Active dapagliflozin propanediol (Farxiga) 10 mg tablet Take 1 tablet (10 mg total) by mouth 1 (one) time each day. 90 tablet 10/21/2024 Active Hospital, Clinic, or Other Facility Administered Medication Ordered Dose Route Frequency Start Date End Date Status perflutren lipid microsphere (DEFINITY) 0.52 mL in sodium chloride 0.9% 3.48 mL injectionIndications:ST elevation myocardial infarction (STEMI), unspecified artery (CMS/HCC V24, CMS/HCC V28) 4 mL IV Once 11/10/2024 11/10/2024 Ended Active Problems Problem Noted Date Diagnosed Date CAD (coronary artery disease) 09/17/2024 Assessment & Plan (09/21/2024 2:42 PM EST): Patient with history of CAD, has undergone cardiac MRI after initial catheterization in June 2024 showing a nonviable LAD territory. Her case was previously discussed with cardiac surgery and deemed not a good candidate for MCCABE to LAD grafting. She returned for PCI of the RCA on 09/01/2024. She currently continues on aspirin, Plavix, atorvastatin and metoprolol. She is tolerating these medications well. She denies exertional anginal symptoms. She does report that she continues to have a gas sensation in her epigastric area, she has follow-up to be evaluated with GI. She states that the chest pressure she felt previously has resolved. She will begin cardiac rehab. Patient advised to seek emergency medical attention by calling 911 if they were to develop severe dyspnea, chest pain that did not resolve with rest or nitroglycerin, or if they were to faint. Orders: clopidogreL (PLAVIX) 75 mg tablet; Take 1 tablet (75 mg total) by mouth 1 (one) time each day. HFrEF (heart failure with re duced ejection fraction) ([facility] V24, [facility] V28) 08/13/2024 Assessment & Plan (09/21/2024 2:42 PM EST): Echocardiogram completed in June 2024 while hospitalized showed an ejection fraction of 45%. She has since undergone stenting of the RCA yet has a total occlusion of the LAD. Repeat echocardiogram scheduled for October 2024. Plan was to initiate Entresto at this visit yet blood pressure around 100/60; she is unable to tolerate this addition at this time. She continues on Farxiga and metoprolol. She is euvolemic on exam. Will reevaluate after upcoming echo results if she is able to titrate GDMT further. STEMI (ST elevation myocardi al infarction) ([facility] V24, [facility] V28) 08/11/2024 HLD (hyperlipidemia) 08/11/2024 Assessment & Plan (09/21/2024 2:42 PM EST): LDL cholesterol level was 29 when checked one month ago showing excellent control. Continue on atorvastatin 80 mg daily. I have reviewed with the patient the importance of a heart healthy lifestyle which includes eating a low-fat low-salt diet, getting regular exercise, maintaining a healthy weight, not smoking, and following up with routine medical care. HTN (hypertension) 08/11/2024 Assessment & Plan (09/21/2024 2:42 PM EST): Blood pressure is on the soft side today; blood pressure 104/62; will continue to monitor. Chest pain 08/11/2024 Encounters Date Type Department Care Team Description 11/10/2024 3:30 PM EDT Ancillary Procedure [facility] [address] [place] [address] ST elevation myocardial infarction (STEMI), unspecified artery ([facility] V24, [facility] V28) 11/02/2024 Telephone [facility] [address] [place] [phone] Leti Castaneda NP 10/21/2024 Telephone [facility] [address] [place] [address] Marco A Williamson MD Medication Problem 09/21/2024 1:40 PM EST Office Visit [facility] [address] [place] [address] Mary Ann Allen NP Coronary artery disease involving ewiiaapaayp heart, unspecified vessel or lesion type, unspecified whether angina present (Primary Dx); HFrEF (heart failure with reduced ejection fraction) ([facility] V24, [facility] V28); Hypertension, unspecified type; Hyperlipidemia, unspecified hyperlipidemia type 09/08/2024 Telephone [facility] [address] [facility] [address] [place] [address] Marco A Williamson MD from Last 3 Months Surgical History Surgery Date Site/Laterality Comments CARDIAC CATHETERIZATION DONE ON 07/17/2024 AT [facility] INDICATIONS:NSTEMI CARDIAC CATHETERIZATION DONE ON 09/01/2024 AT [facility] INDICATIONS:CAD Medical History Medical History Date Comments T2DM (type 2 diabetes mellitus) ([facility] V24, S/[facility] V28) Iron deficiency anemia Neuropathy Social History Tobacco Use Types Packs/Day Years Used Date Smoking Tobacco: Former Cigarettes Smokeless Tobacco: Never Tobacco Cessation:Counseling Given: Not Answered Alcohol Use Standard Drinks/Week Comments Not Currently 0 (1 standard drink = 0.6 oz pur e alcohol) Comments Unknown Sex and Gender Information Value Date Recorded Sex Assigned at Not on file Legal Sex Female 3:35 PM EST Gender Identity Not on file Sexual Orientation Not on file Obstetrics History Last Filed Vital Signs Vital Sign Reading Time Taken Comments Blood Pressure 111/64 11/10/2024 4:09 PM EDT Pulse 92 09/21/2024 1:29 PM EST Temperature - - Respiratory Rate - - Oxygen Saturation 99% 09/21/2024 1:29 PM EST Inhaled Oxygen Concentration - - Weight 59.4 kg (131 lb) 11/10/2024 4:09 PM EDT Height 162.6 cm (5' 4 ) 11/10/2024 4:09 PM EDT Body Mass Index 22.49 11/10/2024 4:09 PM EDT Plan of Treatment Upcoming Encounters Date Type Department Care Team (Late st Contact Info) Description 12/21/2024 1:10 PM EDT Office Visit [facility] [address] [facility] [place] [address] Mary Ann Allen NP [address] [place] [address] [place] [address] Health Maintenance Due Date Last Done Comments Breast Cancer Screening 1958 Diabetes: Annual Foot Exam 1968 Diabetes: Annual Retina Eye Exam 1968 Pneumococcal Vaccine: 50+ Years (2 of 2 - PCV) 2008 04/28/1997 RSV Immunization Adult Patients (1 - Risk 60-74 years 1-dose series) 2018 Colorectal Cancer Screening: Colonoscopy 07/20/2024 Falls Risk Assessment 07/20/2024 Medicare Annual Wellness Visit 07/20/2024 Osteoporosis Screening (Bone Density Screening) 07/20/2024 Social Influencers of Health Screening 07/20/2024 Diabetes: Annual Urine Albumin-Creatinine Ratio (uACR) 08/14/2024 COVID-19 Vaccine ( season) 2024 06/12/2024, 08/22/2023, 07/25/2022, Additional history exists Diabetes: Blood Sugar Control Test (HGBA1C) 01/25/2025 07/28/2024 Diabetes: Annual GFR (Glomerular Filtration Rate) 08/28/2025 08/28/2024, 08/24/2024 Hypertension/CHF/CAD Annual BMP Blood Test 08/28/2025 08/28/2024, 08/24/2024 Depression Screening 10/15/2025 10/15/2024 Cholesterol Screening (Lipid Panel) 08/24/2029 08/24/2024 DTaP,Tdap,and Td Vaccines (5 - Td or Tdap) 08/08/2033 08/08/2023, 11/24/2021, 12/10/2011, Additional history exists Zoster Vaccines Completed 02/13/2022, 10/27/2021 Hepatitis C Screening Completed 05/20/2023 Influenza Vaccine Completed 06/12/2024, , 05/11/2022, Additional history exists HIB Vaccines Aged Out [...] Procedure Name Priority Date/Time Associated Diagnosis Comments TRANSTHORACIC ECHOCARDIOGRAM (TTE) COMPLETE W/ CONTRAST Routine 11/10/2024 4:[address] elevation myocardial infarction (STEMI), unspecified artery (CMS/HCC V24, CMS/HCC V28) BASIC METABOLIC PANEL Routine 08/28/2024 11:03 AM EST from Last 3 Months or Most Recently Relevant to Health Maintenance Results * (ABNORMAL) TRANSTHORACIC ECHOCARDIOGRAM (TTE) COMPLETE W/ CONTRAST (11/10/2024 4:10 PM EDT) LV EDV (A2C) 63 mL CV PACS LV EDV (A4C) 74 mL CV PACS LV Diastolic Volume (BP) 70 46 - 106 mL CV PACS LV ESV (A2C) 25 mL CV PACS LV ESV (A4C) 27 mL CV PACS LV Systolic Volume (BP) 26 14 - 42 mL CV PACS IVSD 1.2(A) 0.6 - 0.9 cm CV PACS LVIDD 3.5(A) 3.8 - 5.2 cm CV PACS LVIDS 2.5 2.2 - 3.5 cm CV PACS LVOT Diameter 1.9 cm CV PACS LVOT Mean Grad 2 mmHg CV PACS LVOT Peak VTI 19.0 cm CV PACS LVOT Mean Jarred 0.7 m/s CV PACS LVOT Peak Jarred 1.0 m/s CV PACS LVOT Peak Gradient 4 mmHg CV PACS LVPWD 1.1(A) 0.6 - 0.9 cm CV PACS MV E' Tissue Velocity Lateral 10 cm/s CV PACS MV E' Tissue Velocity Septal 5 cm/s CV PACS Ejection Fraction (A2C) 61 % CV PACS Ejection Fraction (A4C) 63 % CV PACS Ejection Fraction (BP) 62 % CV PACS LVOT Area 2.8 cm2 CV PACS LVOT Stroke Volume 54 mL CV PACS Left Atrium Minor [place] 4.5 cm CV PACS Left Atrium [place] 4.0 cm CV PACS LA Area Sys (A2C) 14 cm2 CV PACS LA Area Sys (A4C) 11 cm2 CV PACS LA Volume (BP) 27 mL CV PACS RA Area 11.9 cm2 CV PACS RA 2D Volume 26 mL CV PACS AV Mean Gradient 4 mmHg CV PACS Ao VTI 24.1 cm CV PACS AV Peak Jarred 1.4 m/s CV PACS AV Peak Gradient 7 mmHg CV PACS AV Area Continuity Equation 2.2 cm2 CV PACS AV Area Peak Velocity 2.2 cm2 CV PACS Aortic Sinus Valsalva 3.1 cm CV PACS Ascending Aorta 2.8 cm CV PACS IVC Proximal 0.8 cm CV PACS E Wave Deceleration Time 211 119 - 242 ms CV PACS MV Peak A Jarred 1.08 m/s CV PACS MV Peak E Jarred 0.64 m/s CV PACS PV Acceleration Time 123 ms CV PACS PV Peak Velocity 1.2 m/s CV PACS PV Peak Gradient 5 mmHg CV PACS RV Diastolic Basal Dimension 3.1 2.5 - 4.1 cm CV PACS RV S' 12 cm/s CV PACS TAPSE 20 mm CV PACS TR Peak Velocity 2.13 m/s CV PACS TR Peak Gradient 18 mmHg CV PACS LV ESV Index (A4C) 17 mL/m2 CV PACS LV EDV Index (A4C) 45 mL/m2 CV PACS E/E' Ratio Septal 13 CV PACS E/E' Ratio Averaged 10 CV PACS LVOT Stroke Index 33 mL/m2 CV PACS Relative Wall Thickness ratio 0.63 CV PACS LVOT:AV VTI Index 0.79 CV PACS FS 29 % CV PACS LV Mass 2D 127 g CV PACS Ascending Aorta Index 1.72 cm/m2 CV PACS LVOT flow 198 mL/s CV PACS RA 2D Volume Index 16 mL/m2 CV PACS ABDON Index (VTI) 1.37 cm2/m2 CV PACS ABDON Index (Pk Jarred) 1.35 cm2/m2 CV PACS LVIDD Index 2.15 cm/m2 CV PACS LVIDS Index 1.53 cm/m2 CV PACS AV Velocity Ratio 0.71 CV PACS E/A Ratio 0.6 CV PACS E/E' Ratio Lateral 6 CV PACS LV Systolic Volume Index (BP) 16 mL/m2 CV PACS LV Diastolic Volume Index (BP) 43 mL/m2 CV PACS LA Volume Index (BP) 17 mL/m2 CV PACS LV Mass Index 2D 78 g/m2 CV PACS LV EDV Index (A2C) 39 mL/m2 CV PACS LV ESV Index (A2C) 15 mL/m2 CV PACS BSA 1.64 m2 CV PACS Right Ventricular Peak Systolic Pressure 21 mmHg CV PACS Est. RA Pressure 3 mmHg CV PACS Anatomical Region Laterality Modality Ultrasound Narrative 11/17/2024 5:01 PM EDT ?Left??Ventricle: Left ventricle cavity size is normal. There is mild hypertrophy. Systolic function is normal. The quantitative EF by 2D Portillo biplane is 62%. The mid-distal anteroseptum, apex and mid-distal inferoseptum are severely hypokinetic/akinetic. Indeterminate diastolic function. ?Left??Atrium: Left atrium volume index is normal. There appears to be lipomatous hypertrophy of the interatrial septum. ?Right??Ventricle: Right ventricle cavity appears normal. Systolic function is normal. ?Right??Atrium: Right atrium cavity is normal. ?Mitral??Valve: There is trace regurgitation. Left Ventricle Left ventricle cavity size is normal. There is mild hypertrophy. Systolic function is normal. The quantitative EF by 2D Portillo biplane is 62%. The mid-distal anteroseptum, apex and mid-distal inferoseptum are severely hypokinetic/akinetic. Indeterminate diastolic function. Right Ventricle Right ventricle cavity appears normal. Systolic function is normal. Left Atrium Left atrium volume index is normal. There appears to be lipomatous hypertrophy of the interatrial septum. Right Atrium Right atrium cavity is normal. IVC/SVC RA pressures is estimated to be 3 mmHg (IVC diameter <21 mm and decreases >50% during inspiration). Mitral Valve The leaflets are mildly thickened. There is moderate posterior annular calcification. There is trace regurgitation. There is no evidence of mitral valve stenosis. Tricuspid Valve The leaflets exhibit normal excursion. There is trace regurgitation. The RVSP is estimated at 21 mmHg. Aortic Valve The aortic valve is trileaflet. The leaflets are mildly thickened. There is no regurgitation or stenosis. Pulmonic Valve Visualized portions of the pulmonic valve appear normal. There is trace pulmonic valve regurgitation. Ascending Aorta The aorta appears normal in size. Pericardium Pericardium appears normal. Study Details Overall the study quality was technically difficult. Definity contrast was given to enhance imaging. Study was difficult due to: poor endocardial visualization. us Marco A Williamson MD CV ECHO PROCEDURES Final Resul t * (ABNORMAL) Basic metabolic panel (08/28/2024 11:03 AM EST) Pathologist [facility] Glucose 120(H) 70 - 99 mg/dL [facility] [...] AM EST Performed at: ??01 - [facility] [address] ??[id number] Hatchery Manager: Ginette Carver MD, Phone: ??[phone] us Marco A Williamson MD LAB BLOOD ORDERABLES Final Res ult [facility] 1 from Last 3 Months or Most Recently Relevant to Health Maintenance Insurance [facility] MEDIC[facility] Member Subscriber Plan / Payer (Ef fective 2023-Present) Name:Trent Almodovar Relation to Subscriber:Self Name:Trent Almodovar Payer ID:[id number] Group ID:[id number] Type:Not on file Address: [place] [address] [phone] Care Teams Pelletising Extruder Operator Relationship Specialty Start Date End Date Amilcar Bauer MD [address] [place] [phone] PCP - General Internal Medicine 07/20/24
--- OUTSIDE RECORDS SUMMARY | 2024-12-03 11:22 | XMS_ITS | Encounter Summary ---
Author Organization [employer] Address [address] [facility] 7t [place] [address] Care Team Providers Care Security Architect Name Role Phone Amilcar Louis MD Primary Care Provide r Encounter Details Date Type Department Care Team (Late st Contact Info) Description 08/31/2022 Refill [facility] [address] [place] [address] Amilcar Louis MD [address] [place] [address] Type 2 diabetes mellitus with foot ulcer, with long-term current use of insulin ([facility]) Social History Tobacco Use Types Packs/Day Years [...] Description 01/05/2025 3:00 PM EDT Office Visit [facility] ADULT DENTAL [address] [place] [address] Abiodun Bean DDS [address] [place] [address] 01/14/2025 2:15 PM EDT Office Visit [facility] [address] [place] [address] Amilcar Louis MD [address] [place] [address] documented as of this encounter Visit Diagnoses Diagnosis Type 2 diabetes mellitus with foot ulcer, with long-term current use of insulin ([facility]) documented in this encounter Care Teams Security Architect Relationship Specialty Start Date End Date Amilcar Louis MD [address] [place] [address] PCP - General Internal Medicine 04/08/14 Yessenia Olmos Director Of Home Health ServicesArmored Cable Machine Operator 09/20/23 documented as of this encounter
--- OUTSIDE RECORDS SUMMARY | 2024-12-03 11:22 | XMS_ITS | Encounter Summary ---
Author Organization [employer] Address [address] [facility] 7t [place] [address] Care Team Providers Care Senior Oracle Database Administrator Name Role Phone Amilcar Louis MD Primary Care Provide r Encounter Details Date Type Department Care Team (Latest Contact Info) Description 02/05/2019 Abstract [facility], Provider, DDS Social History Tobacco [...] Description 01/05/2025 3:00 PM EDT Office Visit [facility] [address] [place] [address] Abiodun Bean DDS [address] [place] [address] 01/14/2025 2:15 PM EDT Office Visit [facility] [address] [place] [address] Amilcar Louis MD [address] [place] [address] documented as of this encounter Visit Diagnoses Not on filedocumented in this encounter Care Teams Senior Oracle Database Administrator Relationship Specialty Start Date End Date Amilcar Louis MD [address] [place] [id number] PCP - General Internal Medicine 04/08/14 Yessenia Olmos Computational LinguistIct Analyst 09/20/23 documented as of this encounter
--- OUTSIDE RECORDS SUMMARY | 2024-12-03 11:22 | XMS_ITS | Encounter Summary ---
Author Organization [employer] Address [address] [facility] [address] [place] [address] Care Team Providers Care Laborer Chicken Farm Name Role Phone Amilcar Louis MD Primary Care Provide r Encounter Details Date Type Department Care Team ([facility] st Contact Info) Description 07/16/2024 Telephone [facility] MED[facility] [address] [place], [place] [phone] Amilcar Louis MD [address] [place], [place] [phone] Social History Tobacco Use Types Packs/Day Years [...] Description 01/05/2025 3:00 PM EDT Office Visit [facility] ADULT DENTAL [address] [place] [address] Abiodun Bean DDS [address] [place] [address] 01/14/2025 2:15 PM EDT Office Visit [facility] MED[facility] [address] [place] [address] Amilcar Louis MD [address] [place] [address] documented as of this encounter Visit Diagnoses Not on filedocumented in this encounter Additional Health Concerns Assessment Noted Time PHQ-9 Depression Total Score: 0 10/15/19 24 10:59 AM EDT documented as of this encounter Care Teams Laborer Chicken Farm Relationship Specialty Start Date End Date Amilcar Louis MD [address] [place] [address] PCP - General Internal Medicine 04/08/14 Yessenia Olmos Service Station AttendantHeat Treat Furnace Operator 09/20/23 documented as of this encounter
== END 2024-12-03 10:20 | disposition home or self-care (01) ==
LOC: HO.MAMMO 10:19
PROVIDERS: PCP Internal Medicine; Visit Provider Internal Medicine
DX: Z12.31 Encounter for screening mammogram for malignant neoplasm of breast (principal)
CPT/HCPCS: 77063; 77067

== ENCOUNTER → 2024-12-03 11:00 | Outpatient (BNV) | payer OTHER, SELFPAY | PROVIDERS: PCP Internal Medicine; Visit Provider Internal Medicine | DX: Z12.31 Encounter for screening mammogram for malignant neoplasm of breast (principal) | CPT/HCPCS: 77063; 77067 ==

== ENCOUNTER 2025-01-14 14:54 | Outpatient (REF) | payer OTHER, SELFPAY ==
[2025-01-14 16:21] LABS: MANUAL DIFF FLAG NO
[2025-01-14 16:26] LABS: Basophils Percent Auto 0.8 % (0-2); Eosinophils Absolute Auto 0.1 X10*3/uL (0.0-0.4); Eosinophils Percent Auto 2.3 % (0-4); Hematocrit 34.1 % (37.0-47.0); Hemoglobin 11.2 g/dl (12.0-16.0); Imm Gran Abs Auto 0.01 X10*3/uL (0.00-0.03); Imm Gran Pct Auto 0.2 % (0.0-0.4); Lymphocytes Percent Auto 38.3 % (20-40); Mean Corpuscular HGB Conc 32.8 g/dl (31.0-35.0); Mean Corpuscular Hemoglobin 27.8 pg (27.0-33.0); Mean Corpuscular Volume 84.6 fL (80.0-98.0); Mean Platelet Volume 10.4 fL (9.4-12.3); Monocytes Absolute Auto 0.4 X10*3/uL (0.1-1.2); Monocytes Percent Auto 7.9 % (2-11); Neutrophils Absolute Auto 2.7 x10*3/uL (2.0-8.3); Neutrophils Percent Auto 50.5 % (45-73); Platelet Count 278 X10*3/uL (160-400); Red Blood Count 4.03 X10*6/uL (4.20-5.50); Red Cell Distribution Width 15.8 % (11.0-16.0); White Blood Count 5.3 X10*3/uL (4.8-10.8)
--- OUTSIDE RECORDS SUMMARY | 2025-01-14 18:05 | XMS_ITS | Encounter Summary ---
Author Organization [employer] Address [address] [facility] 7t [place] [address] Care Team Providers Care Clothing Designer Name Role Phone Amilcar Louis MD Primary Care Provide r Reason for Visit * Reason Onset Date Comments some pain 08/26/2023 pain medication 08/26/2023 pain from ext 08/26/2023 Encounter Details Date Type Department Care Team (Late st Contact Info) Description 08/26/2023 Telephone [facility] ADULT DENTAL [address] [place] [address] Abiodun Bean DDS [address] [place] [address] some pain; pain medication; pain from ext [...] Care Team (Late st Contact Info) Description 02/09/2025 11:00 AM EDT Office Visit [facility] MED[facility]INE [address] [place] [address] Amilcar Louis MD [address] [place] [address] documented as of this encounter Visit Diagnoses Not on filedocumented in this encounter Additional Health Concerns Assessment Noted Time PHQ-9 Depression Total Score: 1 01/11/20 23 3:27 PM EDT documented as of this encounter Care Teams Clothing Designer Relationship Specialty Start Date End Date Amilcar Louis MD [address] [place] [address] PCP - General Internal Medicine 04/08/14 Yessenia Olmos Outside Sales ManagerSoutheast Regional Sales Manager 09/20/23 documented as of this encounter
== END 2025-01-14 14:55 | disposition home or self-care (01) ==
LOC: HO.HHCL 14:54
PROVIDERS: PCP Internal Medicine; Visit Provider Internal Medicine
DX: D50.9 Iron deficiency anemia, unspecified (principal)
CPT/HCPCS: 36415; 85025

== ENCOUNTER 2025-02-09 11:43 | Outpatient (REF) | payer OTHER, SELFPAY ==
--- OUTSIDE RECORDS SUMMARY | 2025-02-09 12:56 | XMS_ITS | Encounter Summary ---
Author Organization [employer] Address [address] [facility] 7t [place] [address] Care Team Providers Care Pneumatic Riveter Name Role Phone Amilcar Louis MD Primary Care Provide r Reason for Visit * Reason Onset Date Comments some pain 08/26/2023 pain medication 08/26/2023 pain from ext 08/26/2023 Encounter Details Date Type Department Care Team (Late st Contact Info) Description 08/26/2023 Telephone [facility] [address] [place] [address] Abiodun Bean, MANOLO [address] [place] [address] some pain; pain medication; pain from ext [...] OTC tylenol and it is not working * Telephone Encounter - Mara Doe - [...] documented as of this encounter Care Teams Pneumatic Riveter Relationship Specialty Start Date End Date Amilcar Louis MD [address] [place] [phone] PCP - General Internal Medicine 04/08/14 Yessenia Olmos Supervisor Aircraft MaintenanceRefrigeration Systems Installer 09/20/23 documented as of this encounter
--- OUTSIDE RECORDS SUMMARY | 2025-02-09 12:56 | XMS_ITS | Patient Health Record ---
Author Organization [facility] Address [address] [place] [address] Care Team Providers Care Data Communications Technician Name Role Phone Pily Vicente MD, Amilcar Primary Care Provide r Alberto Esqueda [phone] Allergies Allergen (clinical drug ingredient) Drug/Non Drug Allergy documented on EMR Reaction Allergy Type Onset Date Status naproxen Naprosyn Unknown Drug Allergy Active Reason For Referral No Information Medications Medication SIG (Take, Route, Frequency, Duration) Notes Start Date End Date Status Jardiance 10 MG 1 tablet Orally Once a day Active Loratadine 10 MG 1 tablet Orally Once a day for 30 day(s) Active Aspir-81 81 MG 1 tablet Orally Once a day Active MiraLax (colon prep) 8.3 ounce ((238) grams mixed with Gatorade or Crystal Light orally begin at 5:00 p.m. the day before the procedure for 1 day 08/29/2018 Active Multi Vitamin/Minerals - as directed Ora lly every day Active metFORMIN HCl 500 MG 2 tablet with a adamaris l Orally twice a day Active Colace 100 MG 1 capsule as needed Orally Once a day for 30 day(s) Active HumaLOG KwikPen 100 UNIT/ML 10-20 units Subcutaneous as directed Active Lantus SoloStar 100 UNIT/ML 33 units Sub cutaneous once a day Active Amitriptyline HCl 25 MG 1 tablet Orally Once a day Active Acetaminophen 500 MG 2 capsule as needed Orally every 8 hrs/prn Active Clindamycin HCl 150 MG 1 capsules Orally every 6 hrs/prn Active Flonase 50 MCG/DOSE 1 spray in each nost ril Nasally Once a day Active Gabapentin 300 MG 2 capsule Orally Twi ce a day Active MiraLax - 1 capful in 8 ounces of water Orally BID for 30 days 08/29/2018 Active Trulicity 1.5 MG/0.5ML as directed Subcu taneous every week Active Senna 8.6-50 MG 2 tablet in the even ing as needed Orally Once a day Active Dulcolax (colon prep) 5 MG take at 3:00 p.m and 7:00p.m. Orally two tablets twice a day for one day for 1 day 08/29/2018 Active Enalapril Maleate 20 MG 1 tablet Orally Once a day Active Immunizations Vaccine Route Administration Date Status Comme nts Influenza Unknown 04/29/2018 Administered Social History Tobacco Use: Social History Observation Description Date Details (start date - stop date) Former Smoker NA - NA Tobacco Use/Smoking Question Answer Notes Patient is a former smoker How long has it been since you last smoked? > 10 years Alcohol Screen Question Answer Notes Did you have a drink contain ing alcohol in the past year? Yes How often did you have a dri nk containing alcohol in the past year? Monthly or less (1 point) How many drinks did you have on a typical day when you were drinking in the past year? 1 or 2 drinks (0 point) How often did you have 6 or more drinks on one occasion in the past year? Never (0 point) Points 1 Interpretation Negative Section Notes: Nonsmoker > 10 yrs, no sig a lcohol Problems Problem Type SNOMED Code ICD Code Onset Dates Problem Status W/U Status Risk Notes Problem 936243631 Abnormal CT scan , colon (R93.3) Active confirmed Problem 46910311 Constipation, unspecified constipation type (K59.00) Active confirmed Problem 025416615 LUQ abdominal pain (R10.12) Active confirmed Plan Of Treatment Future Test Test Name Order Date COLONOSCOPY 08/29/2018 Insurance Providers Payer Name Payer Address Payer Phone Subscriber Number Group Number Insured Name Patient Relationship to Insured Coverage Start Date Coverage End Date MEDICAID OF [employer] [address] [place] [phone] [id number] FERNIE MAGANA Self - patient is the insured Medical (General) History Medical History History ICD Code Hypertension IDDM Reports a neg. cardiac cath in [place] Hyperlipidemia Retinopathy Denies [place],CVA,Lung disease,renal disease Neuropathy Constipation Negative colonoscopy in September of [address] [facility] [address] [place] Surgical History Surgery Date(Month/Year) appendectomy cholecystectomy tubal ligation foot surgery cataract-lens implants-right eye
--- OUTSIDE RECORDS SUMMARY | 2025-02-09 12:56 | XMS_ITS | Data Portability ---
Author Organization [employer] [facility], [place] [email or web address] [facility] Address [address] [place] [address] Care Team Providers Care Conveyor System Operator Name Role Phone [facility] OTHER [facility] OTHER Assessment Encounter Date Assessment Date Assessment LastModified by Organization Details LastModified Time 07/16/2024 07/16/2024 As noted, we were called to see this patient regarding concerns of chest pain. Evaluation in the field was performed by my welder manufacture colleague, as noted above, I provided real-time [...] Primary care, consider ER follow up visit atilhou Not available 07/16/2024 17:01:20 Plan of Treatment [...] Name and Address Organization Details Recorded Time 64750 Naprosyn medicatio n Not available Not available [...] Respiratory rate Body temperature Heart rate Systolic And Diastolic Provider Name and Address Organization Details Last Updated DateTime 4 98 % 98 % 18 /min 98.1 [degF] 100 /min 129/69 mm[Hg] Not Available [employer] - production 4 16:42:04 Social History None recorded. Functional Status None recorded. Mental Status None recorded. Family History Nothing Reported. Medical History No medical history recorded. Gynecological HistoryNo gynecological history recorded. Obstetrics History GPAL:G 0 P 0 0 0 0 Past Encounters Encounter ID Performer Location Encounter Start Date Encounter Closed Date Diagnosis/Indication Diagnosis SNOMED-CT Code Diagnosis ICD10 Code Diagnosis Note [id number] Stacy Javier MD Main - [facility] [address] [place] [address] 07/16/2024 16:42:02 07/17/2024 12:37:27 Chest pain 47108847 R07.9 Health Concerns Section Related Observation LastModified by Organization Detai ls LastModified Time None Recorded Concern Status LastModified by Organization Details LastModified Time None Recorded Advance Directives Directive None Recorded Payers Insurance Date Sequence Insurance Name Policy Number Policy Lynn Covered Member ID Lynn Member ID Guarantor Name 07/16/2024 1 [facility] - DOS ON OR AFTER 2022 - DUAL ELIGIBLE - RESIDENTIAL OPTIONS AND ONE CARE (MEDICARE REPLACEMENT/AD VANTAGE - HMO) Trent Almodovar [id number] Trent Almodovar Notes Date Note Type Note Provider Name and Address Organization Details Recorded Time 07/16/2024 text/html HPI: Call returned to Trent Gilmore to triage below. Patient alert and oriented x 3. Speaking in clear full sentences. No audible wheezing or distress bridge construction inspector. Per pt states feeling SOB with exertion. Pt also endorse chest tightness. Pt denies any CP. Pt denies any PRUITT or dizziness. Pt checked BP while bridge construction inspector 189/139 was via wrist BP cuff , BS fasting today was 124mg/dL. Pt denies again any PRUITT, dizziness or CP. Pt unable to come into our office for walk in center. Pt agrees to [facility] for evaluation. Confirmed demographics and allergies. ..................... ..................... ..................... ..................... ..................... ..................... ............... CRC Nurse Triage Notes (Rose Lassiter - RN): Chief Complaints: Fatigue, Breathing problems PMH: Hypertension, Coronary Artery Disease, Diabetes Mellitus Type 2 Comments: CRC RN did not require any additional information to process this visit. Snap Shearer Organization Information for [employer] Legal Name: [employer]. Address: [address] [place] [address], Driver Retraining Instructor: Tulio SANCHEZ No.: [id number] Snap Shearer POC Test Results from [facility] EKG (16:34:05) EKG test performed. Attachments uploaded as part of this test result can be found under Documents section. ..................... ..................... ..................... ..................... ..................... ..................... ............... Snap Shearer Note From [facility]: Dispatched to above address for shortness of breath. On arrival patients daughter met SC8 at the door, reports patient has been [...] ST elevation V1 V2 V3, results uploaded. [facility] contacted, spoke with Dr. Javier, advised of patient complaints, exam findings and test results. [facility] agrees likely STEMI, recommends transport to laborer cheesemaking, ASA and IV established. 911 contacted, [facility] [...] feels generally unwell. STEMI alert called to [facility]. Patient transported to [facility] without incident or change in status. Verbal report given to STEMI team. SC8 clear. EOR. ..................... ..................... ..................... ..................... ..................... ..................... ............... [facility] Consulted: Stacy Javier ..................... ..................... ..................... ..................... ..................... ..................... ............... Disposition: Fulfilled Stacy Javier MD [address] [facility],[address], [place], [address], [email or web address] 07/16/2024 19:03:57 OBGyn Episode No OBEpisode recorded.
--- OUTSIDE RECORDS SUMMARY | 2025-02-09 12:57 | XMS_ITS | Clinical Summary ---
Author Organization [facility] [email or web address] Address [address] [facility] [place] [address] Phone Care Team Providers Care Closing Machine Operator Name Role Phone Amilcar Bauer MD [...] 30 each 11 08/12/2024 08/12/19 26 Active dapagliflozin propanediol (Farxiga) 10 mg tablet Take 1 tablet (10 mg total) by mouth 1 (one) time each day. 90 tablet 1 12/04/2024 Active clopidogreL (PLAVIX) 75 mg tabletIndication s:Coronary artery disease involving [place] heart, unspecified vessel or lesion type, unspecified whether angina present TAKE 1 TABLET BY MOUTH ONCE DAILY 30 tablet 11 12/29/2024 Active Active Problems Problem Noted Date Diagnosed Date CAD (coronary artery disease) 09/17/2024 Assessment & Plan (12/21/2024 3:56 PM EDT): Patient with history of CAD, has undergone cardiac MRI after initial catheterization in June 2024 showing a nonviable LAD territory. Her case was previously discussed with cardiac surgery and deemed not a good candidate for MCCABE to LAD grafting. She returned for PCI of the RCA on 09/01/2024. Recent hospitalization for chest pain with a nuclear stress test showing no new areas of concern. She currently continues on aspirin, Plavix, atorvastatin and metoprolol. She is tolerating these medications well. She denies exertional anginal symptoms, denies any chest discomfort since discharge from hospital. She continues at cardiac rehab and is doing well with this. Patient advised to seek emergency medical attention by calling 911 if they were to develop severe dyspnea, chest pain that did not resolve with rest or nitroglycerin, or if they were to faint. Assessment & Plan (09/21/2024 2:42 PM EST): [...] (heart failure with re duced ejection fraction) ([facility] V24, [facility] V28) 08/13/2024 Assessment & Plan (12/21/2024 3:56 PM EDT): Patient with history of mildly reduced ejection fraction evidenced on echocardiogram from June 2024. She has since undergone stenting of the RCA. Most recent echocardiogram completed in October 2024 showing normalized EF at 62%. She continues on Farxiga and metoprolol. She is euvolemic on exam. Assessment & Plan (09/21/2024 2:42 PM EST): [...] further. STEMI (ST elevation myocardi al infarction) ([facility] V24, [facility] V28) 08/11/2024 HLD (hyperlipidemia) 08/11/2024 Assessment & Plan (12/21/2024 3:56 PM EDT): In Aug 2024 LDL cholesterol was 29 showing excellent control. Continue on atorvastatin 80 mg daily. Assessment & Plan (09/21/2024 2:42 PM EST): [...] care. HTN (hypertension) 08/11/2024 Assessment & Plan (12/21/2024 3:56 PM EDT): Blood pressure is under excellent control today, 128/66. She brings her log from cardiac rehab which shows favorable blood pressures as well. Continue on current medications. Assessment & Plan (09/21/2024 2:42 PM EST): Blood pressure is on the soft side today; blood pressure 104/62; will continue to monitor. Chest pain 08/11/2024 Encounters Date Type Department Care Team Description 12/21/2024 1:10 PM EDT Office Visit [facility] Cardiology [facility] [address] [facility] [place] [address] Mary Ann Allen NP Coronary artery disease involving [place] heart without angina pectoris, unspecified vessel or lesion type (Primary Dx); HFrEF (heart failure with reduced ejection fraction) ([facility] V24, CMS/HCC V28); Hypertension, unspecified type; Hyperlipidemia, unspecified hyperlipidemia type 11/10/2024 3:30 PM EDT Ancillary Procedure [facility] Cardiology [facility] [address] [place] [address] ST elevation myocardial infarction (STEMI), unspecified artery (CMS/HCC V24, CMS/HCC V28) from Last 3 Months Surgical History Surgery Date Site/Laterality Comments CARDIAC CATHETERIZATION DONE ON 07/17/2024 AT [facility] INDICATIONS:NSTEMI CARDIAC CATHETERIZATION DONE ON 09/01/2024 AT [facility] INDICATIONS:CAD Medical History Medical History Date Comments T2DM (type 2 diabetes mellitus) (CMS/HCC V24, CM S/HCC V28) Iron deficiency anemia Neuropathy Hypertension Hyperlipidemia Anxiety with depression Anemia Social History Tobacco Use Types Packs/Day Years [...] Sign Reading Time Taken Comments Blood Pressure 120/66 12/21/2024 1:08 PM EDT Pulse 87 12/21/2024 1:08 PM EDT Temperature - - Respiratory Rate - - Oxygen Saturation 98% 12/21/2024 1:08 PM EDT Inhaled Oxygen Concentration - - Weight 56.2 kg (124 lb) 12/21/2024 1:08 PM EDT Height 162.6 cm (5' 4 ) 12/21/2024 1:08 PM EDT Body Mass Index 21.28 12/21/2024 1:08 PM EDT Plan of Treatment Upcoming Encounters Date Type Department Care Team (Late st Contact Info) Description 06/29/2025 9:10 AM EST Office Visit [facility] [address] [place] [address] [place] [address] Mary Ann Allen NP [address] [place] [address] [place] [address] Health Maintenance Due Date Last Done Comments [...] 07/20/2024 Social Influencers of Health Screening 07/20/2024 Depression Screening 07/22/2024 Diabetes: Annual Urine Albumin-Creatinine Ratio (uACR) 08/14/2024 COVID-19 Vaccine ( season) 2024 06/12/2024, 08/22/2023, 07/25/2022, Additional history exists Diabetes: Blood Sugar Control Test (HGBA1C) 01/25/2025 07/28/2024 Influenza Vaccine (#1) 2025 , 04/02/2023, 05/11/2022, Additional history exists Diabetes: Annual GFR (Glomerular Filtration Rate) 08/28/2025 08/28/2024, 08/24/2024 Hypertension/CHF/CAD Annual BMP Blood Test 08/28/2025 08/28/2024, 08/24/2024 Cholesterol Screening (Lipid Panel) 08/24/2029 08/24/2024 DTaP,Tdap,and [...] 54 mL CV PACS Left [facility] [place] 4.5 cm CV PACS Left [facility] [place] 4.0 cm CV PACS [place] Area Sys [...] Modality Ultrasound Narrative 11/17/2024 5:01 PM EDT Left Ventricle: Left ventricle cavity size is normal. There is mild hypertrophy. Systolic function is normal. The quantitative EF by 2D Portillo biplane is 62%. The mid-distal anteroseptum, apex and mid-distal inferoseptum are severely hypokinetic/akinetic. Indeterminate diastolic function. Left Atrium: Left atrium volume index is normal. There appears to be lipomatous hypertrophy of the interatrial septum. Right Ventricle: Right ventricle cavity appears normal. Systolic function is normal. Right Atrium: Right atrium cavity is normal. Mitral Valve: There is trace regurgitation. Left Ventricle Left [...] - 08/29/2024 1:06 AM EST Performed at: 01 - [facility] [address] [id number] Air Breaker Operator: Ginette Carver MD, Phone: [phone] us Marco A Williamson MD LAB BLOOD ORDERABLES Final Res ult [facility] 1 from Last 3 Months or Most Recently Relevant to Health Maintenance Insurance [employer] MEDICARE Member Subscriber Plan / Payer (Ef fective 2023-Present) Name:FERNIE ALMODOVAR Relation to Subscriber:Self Name:Fernie Almodovar Payer ID:[id number] Group ID:[id number] Type:Not on file Address: [address] [facility] [place] [address] Care Teams Closing Machine Operator Relationship Specialty Start Date End Date Amilcar Bauer MD [address] [place] [address] PCP - General Internal Medicine 07/20/24
== END 2025-02-09 11:44 | disposition home or self-care (01) ==
LOC: HO.HHCL 11:43
PROVIDERS: PCP Internal Medicine; Visit Provider Internal Medicine
DX: Z13.89 Encounter for screening for other disorder (principal)

== ENCOUNTER 2025-02-15 10:13 | Outpatient (REF) | payer OTHER, SELFPAY ==
--- OUTSIDE RECORDS SUMMARY | 2025-02-15 11:15 | XMS_ITS | Encounter Summary ---
Author Organization [employer] Address [address] [facility] 7t [place] [address] Care Team Providers Care Code Enforcement Supervisor Name Role Phone Amilcar Louis MD Primary Care Provide r Reason for Visit * Reason Onset Date Comments some pain 08/26/2023 pain medication 08/26/2023 pain from ext 08/26/2023 Encounter Details Date Type Department Care Team (Late st Contact Info) Description 08/26/2023 Telephone [facility] [address] [place], [place] [phone] Abiodun Bean, MANOLO [address] [place] [address] some pain; pain medication; pain from ext [...] documented as of this encounter Care Teams Code Enforcement Supervisor Relationship Specialty Start Date End Date Amilcar Louis MD [address] [place] [address] PCP - General Internal Medicine 04/08/14 Yessenia Olmos Repairer Sash And DoorHospice Rn 09/20/23 documented as of this encounter
--- OUTSIDE RECORDS SUMMARY | 2025-02-15 11:16 | XMS_ITS | Patient Health Record ---
Author Organization [facility] Address [address] [place] [address] Care Team Providers Care Botany Teacher Name Role Phone Pily Vicente MD, Amilcar Primary Care Provide r Alberto Esqueda [phone] Allergies Allergen (clinical drug ingredient) Drug/Non Drug [...] Problem Status W/U Status Risk Notes Problem 610567102 Abnormal CT scan , colon (R93.3) Active confirmed Problem 07690875 Constipation, unspecified constipation type (K59.00) Active confirmed Problem 484040040 LUQ abdominal pain (R10.12) Active confirmed Plan Of Treatment Future Test Test Name Order Date COLONOSCOPY 08/29/2018 Insurance Providers Payer Name Payer Address Payer Phone Subscriber Number Group Number Insured Name Patient Relationship to Insured Coverage Start Date Coverage End Date MEDICAID OF [employer] [address] [place] [phone] [id number] FERNIE MAGANA Self - patient is the insured Medical (General) History Medical History History ICD Code Hypertension IDDM Reports a neg. cardiac cath in [place] Hyperlipidemia Retinopathy Denies [place],CVA,Lung disease,renal disease Neuropathy Constipation Negative colonoscopy in [place] of [facility] Dr. Carroll Surgical History Surgery Date(Month/Year) appendectomy cholecystectomy tubal ligation foot surgery cataract-lens implants-right eye
--- OUTSIDE RECORDS SUMMARY | 2025-02-15 11:16 | XMS_ITS | Clinical Summary ---
Author Organization [facility] [employer] Address [address] [facility] [place] [address] Phone Care Team Providers Care Community Facilitator Name Role Phone Amilcar Bauer MD Primary [...] 75 mg tabletIndication s:Coronary artery disease involving [place] heart, unspecified vessel or lesion type, unspecified [...] (heart failure with re duced ejection fraction) ([facility] V24, [facility] V28) 08/13/2024 Assessment & Plan (12/21/2024 3:56 [...] further. STEMI (ST elevation myocardi al infarction) ([facility] V24, [facility] V28) 08/11/2024 HLD (hyperlipidemia) 08/11/2024 Assessment & [...] Description 12/21/2024 1:10 PM EDT Office Visit [facility] [address] [place] [address] Mary Ann Allen NP Coronary artery disease involving [place] heart without angina pectoris, unspecified vessel or lesion type (Primary Dx); HFrEF (heart failure with reduced ejection fraction) ([facility] V24, [facility] V28); Hypertension, unspecified type; Hyperlipidemia, unspecified hyperlipidemia type from Last 3 Months Surgical History Surgery Date Site/Laterality Comments CARDIAC CATHETERIZATION DONE ON 07/17/2024 AT [facility] INDICATIONS:NSTEMI CARDIAC CATHETERIZATION DONE ON 09/01/2024 AT [facility] INDICATIONS:CAD Medical History Medical History Date Comments T2DM (type 2 diabetes mellitus) ([facility] V24, CM S/[facility] V28) Iron deficiency anemia Neuropathy Hypertension Hyperlipidemia [...] Description 06/29/2025 9:10 AM EST Office Visit [facility]iology Associates [facility] [address] [facility] [place] [address] Mary Ann Allen NP [address] [place] [address] [place] [address] Health Maintenance Due Date Last Done Comments [...] (HGBA1C) 01/25/2025 07/28/2024 Influenza Vaccine (#1) 2025 4, 04/02/2023, 05/11/2022, Additional history exists Diabetes: Annual [...] Procedure Name Priority Date/Time Associated Diagnosis Comments BASIC METABOLIC PANEL Routine 08/28/2024 11:03 AM EST from Last 3 Months or Most Recently Relevant to Health Maintenance Results * (ABNORMAL) Basic metabolic panel (08/28/2024 11:03 [...] AM EST Performed at: 01 - [facility] [address] [id number] Sandwich Machine Operator: Ginette Carver MD, Phone: [phone] us Marco A Williamson MD LAB BLOOD ORDERABLES Final Res ult [facility] 1 from Last 3 Months or Most Recently Relevant to Health Maintenance Insurance [facility] MEDICARE Member Subscriber Plan / Payer (Ef fective 2023-Present) Name:FERNIE ALMODOVAR Relation to Subscriber:Self Name:Fernie Almodovar Payer ID:[id number] Group ID:[id number] Type:Not on file Address: [place] [address] [place] [address] Care Teams Community Facilitator Relationship Specialty Start Date End Date Amilcar Bauer MD [address] [place] [address] PCP - General Internal Medicine 07/20/24
--- OUTSIDE RECORDS SUMMARY | 2025-02-15 11:16 | XMS_ITS | Data Portability ---
Author Organization [employer] [facility], [employer] [facility] Address [address] [place] [address] Care Team Providers Care Hydro Operator Name Role Phone [facility] OTHER [phone] [facility] OTHER Assessment Encounter Date Assessment Date Assessment LastModified by Organization Details LastModified Time 07/16/2024 07/16/2024 As noted, we were called to see this patient regarding concerns of chest pain. Evaluation in the field was performed by my temperature regulator colleague, as noted above, I provided real-time [...] Name and Address Organization Details Recorded Time 94419 Naprosyn medicatio n Not available Not available [...] SNOMED-CT Code Diagnosis ICD10 Code Diagnosis Note 22298 Stacy Javier MD Main - instED [address] [place] [phone] 07/16/2024 16:42:02 07/17/2024 12:37:27 Chest pain 41051336 R07.9 Health Concerns Section Related Observation LastModified by Organization Detai ls LastModified Time None Recorded Concern Status LastModified by Organization Details LastModified Time None Recorded Advance Directives Directive None Recorded Payers Insurance Date Sequence Insurance Name Policy Number Policy Lynn Covered Member ID Lynn Member ID Guarantor Name 07/16/2024 1 [facility] - DOS ON OR AFTER 2022 - DUAL ELIGIBLE - [facility] [employer] [facility] [employer] (MEDICARE REPLACEMENT/AD VANTAGE - HMO) Trent Almodovar [id number] Trent Almodovar OBGyn Episode No OBEpisode recorded.
[2025-02-15 12:39] LABS: Microalbum/Creatinine Ratio Ur 22.4 ug/mg cr (<30)
== END 2025-02-15 10:14 | disposition home or self-care (01) ==
LOC: HO.HHCL 10:13
PROVIDERS: PCP Internal Medicine; Visit Provider Internal Medicine
DX: E11.3293 Type 2 diabetes mellitus with mild nonproliferative diabetic retinopathy without macular edema, bilateral (principal); Z79.4 Long term (current) use of insulin
CPT/HCPCS: 82043; 82570

== ENCOUNTER 2025-07-09 11:04 | Outpatient (REF) | payer OTHER, SELFPAY ==
--- NOTE | ~2025-07-09 | XR_ITS ---
EXAMINATION: XR HIP, LEFT CLINICAL INFORMATION: left leg pain after fall yesterday COMPARISON: None available. TECHNIQUE: AP and frog-leg lateral views of the left hip. FINDINGS: Left hip joint space is congruent without narrowing. Small marginal osteophytes are present along the acetabular roof. There is no degenerative sclerosis. There are no soft tissue calcifications. There is no visible fracture. XR/XR hip LT min 2V IMPRESSION: Minimal degenerative change of the left hip joint. Electronically signed by: Altaf Curry MD 07/09/2025 11:53 AM [facility]
--- NOTE | ~2025-07-09 | XR_ITS ---
EXAMINATION: XR FEMUR, LEFT CLINICAL INFORMATION: left leg pain after fall yesterday COMPARISON: None available. TECHNIQUE: AP and lateral views of the left femur were obtained. FINDINGS: There is no acute fracture or deformity. There is moderate atherosclerotic gestation in the femoral and popliteal artery. There is no knee joint effusion. XR/XR femur LT 2V IMPRESSION: No acute bony abnormality. Electronically signed by: Altaf Curry MD 07/09/2025 11:55 AM [facility]
--- OUTSIDE RECORDS SUMMARY | 2025-07-09 10:15 | XMS_ITS | Encounter Summary ---
Author Organization [employer] Address [address] [place] [address] 7[address] [place] [address] Care Team Providers Care Train Driver Name Role Phone Amilcar Louis MD Primary Care Provide r Reason for Referral * Medications - Closed Specialty Diagnoses / Procedures Referred By Robert aldrich Referred To Contact Diagnoses Left leg pain Jessie Bradley MD [address] [place] [phone] Phone: tel: fax: Referral ID Status Reason Start Date Expiration Date Visits Re quested Visits Authorized [id number] Closed 1 1 Reason for Visit * Reason Comments sick visit Encounter Details Date Type Department Care Team ([facility] st Contact Info) Description 07/09/2025 10:15 AM EST Office Visit [facility] [address] [place] [address] [phone] Jessie Bradley MD [address] [place], [place] [phone] Left leg pain (Primary Dx) Social History Tobacco Use Types Packs/Day Years [...] Sign Reading Time Taken Comments Blood Pressure 138/72 07/09/2025 10:31 AM EST Pulse 60 07/09/2025 10:31 AM EST Temperature 36.6 C (97.8 F) 07/09/2025 10:31 AM EST Respiratory Rate 19 07/09/2025 10:31 AM EST Oxygen Saturation 98% 07/09/2025 10:31 AM EST Inhaled Oxygen Concentration - - Weight 51 kg (112 lb 6.4 oz) 07/09/2025 10:31 AM EST Height 162.6 cm (5' 4 ) 07/09/2025 10:31 AM EST Body Mass Index 19.29 07/09/2025 10:31 AM EST documented in this encounter Plan of Treatment Upcoming Encounters Date Type Department Care Team (Late st Contact Info) Description 07/28/2025 10:15 AM EST Office Visit [facility] ADULT DENTAL [address] [place] [address] Bev Dodge [address] [place] [address] documented as of this encounter Goals Goal Patient Goal Type Associated Problems Recent Progress Patient-Stated? Author Help patients manage their type 2 diabetes Care Plan Help patients manage their type 2 diabetes No Sawyer, Rosario, BUSINESS INSURANCE AGENT Patient has diabetic eye disease Care Plan Patient has diabetic eye disease No Sawyer, Rosario, BUSINESS INSURANCE AGENT Help patients manage their type 2 diabetes Care Plan Help patients manage their type 2 diabetes No Sawyer, Rosario, BUSINESS INSURANCE AGENT Patient has chronic kidney disease Care Plan Patient has chronic kidney disease No Sawyer, Rosario, BUSINESS INSURANCE AGENT Help patients manage their type 2 diabetes Care Plan Help patients manage their type 2 diabetes No Sawyer, Rosario, BUSINESS INSURANCE AGENT Patient has diabetic neuropathy Care Plan Patient has diabetic neuropathy No Sawyer, Rosario, BUSINESS INSURANCE AGENT Patient has diabetic eye disease Care Plan Patient has diabetic eye disease No Sawyer, Rosario, BUSINESS INSURANCE AGENT Patient has diabetic eye disease Care Plan Patient has diabetic eye disease No Sawyer, Rosario, BUSINESS INSURANCE AGENT Patient has chronic kidney disease Care Plan Patient has chronic kidney disease No Sawyer, Rosario, BUSINESS INSURANCE AGENT Patient has chronic kidney disease Care Plan Patient has chronic kidney disease No Sawyer, Rosario, BUSINESS INSURANCE AGENT Patient has diabetic neuropathy Care Plan Patient has diabetic neuropathy No Sawyer, Rosario, BUSINESS INSURANCE AGENT Patient has diabetic neuropathy Care Plan Patient has diabetic neuropathy No Sawyer, Rosario, BUSINESS INSURANCE AGENT Patient has diabetic eye disease Care Plan Patient has diabetic eye disease No Edel Hooper [place] Patient has diabetic eye disease Care Plan Patient has diabetic eye disease No Edel Hooper [place] Patient has diabetic eye disease Care Plan Patient has diabetic eye disease No Edel Hooper [place] Patient has chronic kidney disease Care Plan Patient has chronic kidney disease No Edel Hooper [place] Patient has chronic kidney disease Care Plan Patient has chronic kidney disease No Edel Hooper [place] Patient has chronic kidney disease Care Plan Patient has chronic kidney disease No Edel Hooper [place] Patient has diabetic neuropathy Care Plan Patient has diabetic neuropathy No Edel Hooper [place] Patient has diabetic neuropathy Care Plan Patient has diabetic neuropathy No Edel Hooper [place] Patient has diabetic neuropathy Care Plan Patient has diabetic neuropathy No Edel Hooper [place] Patient has diabetic eye disease Care Plan Patient has diabetic eye disease No Colon Lina Montague Patient has diabetic eye disease Care Plan Patient has diabetic eye disease No Colon Eddi, Lina Patient has diabetic eye disease Care Plan Patient has diabetic eye disease No Colon Jose Montaguela Patient has chronic kidney disease Care Plan Patient has chronic kidney disease No Colon Eddi, Lina Patient has chronic kidney disease Care Plan Patient has chronic kidney disease No Colon Eddi, Lina Patient has chronic kidney disease Care Plan Patient has chronic kidney disease No Colon Lina Montague Patient has diabetic neuropathy Care Plan Patient has diabetic neuropathy No Colon Eddi, Lina Patient has diabetic neuropathy Care Plan Patient has diabetic neuropathy No Colon Eddi, Lina Patient has diabetic neuropathy Care Plan Patient has diabetic neuropathy No Colon Lina Montague Patient has diabetic eye disease Care Plan Patient has diabetic eye disease No Ken Figueroa Patient has diabetic eye disease Care Plan Patient has diabetic eye disease No Ken Figueroa Patient has diabetic eye disease Care Plan Patient has diabetic eye disease No Ken Figueroa Patient has chronic kidney disease Care Plan Patient has chronic kidney disease No Ken Figueroa Patient has chronic kidney disease Care Plan Patient has chronic kidney disease No Ken Figueroa Patient has chronic kidney disease Care Plan Patient has chronic kidney disease No Ken Figueroa Patient has diabetic neuropathy Care Plan Patient has diabetic neuropathy No Ken Figueroa Patient has diabetic neuropathy Care Plan Patient has diabetic neuropathy No Ken Figueroa Patient has diabetic neuropathy Care Plan Patient has diabetic neuropathy No Ken Figueroa Patient has diabetic eye disease Care Plan Patient has diabetic eye disease No Erick Bell [place] Patient has diabetic eye disease Care Plan Patient has diabetic eye disease No Erick Bell [place] Patient has diabetic eye disease Care Plan Patient has diabetic eye disease No Erick Bell [place] Patient has chronic kidney disease Care Plan Patient has chronic kidney disease No Erick Bell [place] Patient has chronic kidney disease Care Plan Patient has chronic kidney disease No Erick Bell [place] Patient has chronic kidney disease Care Plan Patient has chronic kidney disease No Erick Bell [place] Patient has diabetic neuropathy Care Plan Patient has diabetic neuropathy No Erick Bell [place] Patient has diabetic neuropathy Care Plan Patient has diabetic neuropathy No Erick Bell [place] Patient has diabetic neuropathy Care Plan Patient has diabetic neuropathy No Erick Bell [place] documented as of this encounter Procedures Procedure Name Priority Date/Time Associated Diagnosis Comments XR FEMUR 2+ VIEWS LEFT Routine 07/09/2025 11:56 AM EST Left leg pain XR HIP 2 OR 3 VIEWS LEFT Routine 07/09/2025 11:40 AM EST Left leg pain documented in this encounter Results * XR Femur 2+ Views Left (07/09/2025 11:56 AM EST) Anatomical Region Laterality Modality Lower Extremities, Femur Left Radiogr aphic Imaging 07/09/2025 11:5 6 AM EST Narrative 07/09/2025 11:58 AM EST [address] [address] XRay Report Signed Patient: Trent Singh MR# : [id number] : 1960 Acct:[id number] Age/Sex: 64 / F ADM Date: 07/09/25 Loc: HO.HHCX Attending Dr: Jessei Zapien MD Ordering Physician: Jessie Bradley MD Date of Service: 07/09/25 Procedure(s): XR femur LT 2V Accession Number(s): [id number] cc: Amilcar Bauer MD; Jessie Bradley MD Reason for Exam: left leg pain after fall yesterday EXAMINATION: XR FEMUR, LEFT CLINICAL INFORMATION: left leg pain after fall yesterday COMPARISON: None available. TECHNIQUE: AP and lateral views of the left femur were obtained. FINDINGS: There is no acute fracture or deformity. There is moderate atherosclerotic gestation in the femoral and popliteal artery. There is no knee joint effusion. XR/XR femur LT 2V IMPRESSION: No acute bony abnormality. Electronically signed by: Altaf Curry MD 07/09/2025 11:55 AM EST RP Dictated By: Altaf Curry MD Signed By: <Electronically signed by Altaf Curry MD in OV> 07/09/25 1155 DD/ 1156 TD/TT: 07/09/25 1147 Settlement Worker: Procedure Note Donotuseinterpreter, Image - 07/09/[address] [address] XRay Report Signed Patient: Trent SinghMR# : [id number] : 9Acct:[id number] Age/Sex: 64 / FADM Date: 07/09/25 Loc: HO.HHCX Attending Dr: Jessie Zapien MD Ordering Physician: Jessie Bradley MD Date of Service: 07/09/25 Procedure(s): XR femur LT 2V Accession Number(s): [id number] cc: Amilcar Bauer MD; Jessie Bradley MD Reason for Exam: left leg pain after fall yesterday EXAMINATION: XR FEMUR, LEFT CLINICAL INFORMATION: left leg pain after fall yesterday COMPARISON: None available. TECHNIQUE: AP and lateral views of the left femur were obtained. FINDINGS: There is no acute fracture or deformity. There is moderate atherosclerotic gestation in the femoral and popliteal artery. There is no knee joint effusion. XR/XR femur LT 2V IMPRESSION: No acute bony abnormality. Electronically signed by: Altaf Curry MD 07/09/2025 11:55 AM EST RP Dictated By: Altaf Curry MD Signed By: <Electronically signed by Altaf Curry MD in OV> 07/09/25 1155 DD/ 1156 TD/TT: 07/09/25 1147 Settlement Worker: us Jessie Maki MD IMG XR PROCEDURES Final Result * XR Hip 2 or 3 Views Left (07/09/2025 11:40 AM EST) Anatomical Region Laterality Modality Lower Extremities, Hip Left Radiograp hic Imaging 07/09/2025 11:4 0 AM EST Narrative 07/09/2025 11:56 AM EST [facility] [address] [place] [address] XRay Report Signed Patient: Trent Singh MR# : [id number] : 1960 Acct:[id number] Age/Sex: 64 / F ADM Date: 07/09/25 Loc: HO.HHCX Attending Dr: Jessie Zapien MD Ordering Physician: Jessie Bradley MD Date of Service: 07/09/25 Procedure(s): XR hip LT min 2V Accession Number(s): [id number] cc: Amilcar Bauer MD; Jessie Bradley MD Reason for Exam: left leg pain after fall yesterday EXAMINATION: XR HIP, LEFT CLINICAL INFORMATION: left leg pain after fall yesterday COMPARISON: None available. TECHNIQUE: AP and frog-leg lateral views of the left hip. FINDINGS: Left hip joint space is congruent without narrowing. Small marginal osteophytes are present along the acetabular roof. There is no degenerative sclerosis. There are no soft tissue calcifications. There is no visible fracture. XR/XR hip LT min 2V IMPRESSION: Minimal degenerative change of the left hip joint. Electronically signed by: Altaf Curry MD 07/09/2025 11:53 AM EST Dictated By: Altaf Curry MD Signed By: <Electronically signed by Altaf Curry MD in OV> 07/09/25 1153 DD/ 1140 TD/TT: 07/09/25 1147 Settlement Worker: Procedure Note Donotuseinterpreter, Image - 07/09/2025 [facility] [address] [place] [address] XRay Report Signed Patient: Trent SinghMR# : [id number] : 9Acct:[id number] Age/Sex: 64 / FADM Date: 07/09/25 Loc: HO.HHCX Attending Dr: Jessie Zapien MD Ordering Physician: Jessie Bradley MD Date of Service: 07/09/25 Procedure(s): XR hip LT min 2V Accession Number(s): [id number] cc: Amilcar Bauer MD; Jessie Bradley MD Reason for Exam: left leg pain after fall yesterday EXAMINATION: XR HIP, LEFT CLINICAL INFORMATION: left leg pain after fall yesterday COMPARISON: None available. TECHNIQUE: AP and frog-leg lateral views of the left hip. FINDINGS: Left hip joint space is congruent without narrowing. Small marginal osteophytes are present along the acetabular roof. There is no degenerative sclerosis. There are no soft tissue calcifications. There is no visible fracture. XR/XR hip LT min 2V IMPRESSION: Minimal degenerative change of the left hip joint. Electronically signed by: Altaf Curry MD 07/09/2025 11:53 AM EST Dictated By: Altaf Curry MD Signed By: <Electronically signed by Altaf Crury MD in OV> 07/09/25 1153 DD/ 1140 TD/TT: 07/09/25 1147 Settlement Worker: Jessie Maki MD IMG XR PROCEDURES Final Result documented in this encounter Visit Diagnoses Diagnosis Left leg pain- Primary Pain in soft tissues of limb documented in this encounter Additional Health Concerns Active Problems Noted Date Diagnosed Date Help patients manage their type 2 diabetes 06/16 Patient has diabetic eye disease 06/16/2025 Help patients manage their type 2 diabetes 06/16 Patient has chronic kidney disease 06/16/2025 Help patients manage their type 2 diabetes 06/16 Patient has diabetic neuropathy 06/16/2025 Patient has diabetic eye disease 06/16/2025 Patient has diabetic eye disease 06/16/2025 Patient has chronic kidney disease 06/16/2025 Patient has chronic kidney disease 06/16/2025 Patient has diabetic neuropathy 06/16/2025 Patient has diabetic neuropathy 06/16/2025 Patient has diabetic eye disease 06/24/2025 Patient has diabetic eye disease 06/24/2025 Patient has diabetic eye disease 06/24/2025 Patient has chronic kidney disease 06/24/2025 Patient has chronic kidney disease 06/24/2025 Patient has chronic kidney disease 06/24/2025 Patient has diabetic neuropathy 06/24/2025 Patient has diabetic neuropathy 06/24/2025 Patient has diabetic neuropathy 06/24/2025 Patient has diabetic eye disease 07/02/2025 Patient has diabetic eye disease 07/02/2025 Patient has diabetic eye disease 07/02/2025 Patient has chronic kidney disease 07/02/2025 Patient has chronic kidney disease 07/02/2025 Patient has chronic kidney disease 07/02/2025 Patient has diabetic neuropathy 07/02/2025 Patient has diabetic neuropathy 07/02/2025 Patient has diabetic neuropathy 07/02/2025 Patient has diabetic eye disease 07/08/2025 Patient has diabetic eye disease 07/08/2025 Patient has diabetic eye disease 07/08/2025 Patient has chronic kidney disease 07/08/2025 Patient has chronic kidney disease 07/08/2025 Patient has chronic kidney disease 07/08/2025 Patient has diabetic neuropathy 07/08/2025 Patient has diabetic neuropathy 07/08/2025 Patient has diabetic neuropathy 07/08/2025 Patient has diabetic eye disease 07/09/2025 Patient has diabetic eye disease 07/09/2025 Patient has diabetic eye disease 07/09/2025 Patient has chronic kidney disease 07/09/2025 Patient has chronic kidney disease 07/09/2025 Patient has chronic kidney disease 07/09/2025 Patient has diabetic neuropathy 07/09/2025 Patient has diabetic neuropathy 07/09/2025 Patient has diabetic neuropathy 07/09/2025 Assessment Noted Time PHQ-9 Depression Total Score: 4 10/16/19 25 11:13 AM EDT documented as of this encounter Care Teams Train Driver Relationship Specialty Start Date End Date Amilcar Louis MD [address] [place] [address] PCP - General Internal Medicine 04/08/14 Yessenia Hubbardion Case LinerGeneral Dentist 09/20/23 documented as of this encounter
--- OUTSIDE RECORDS SUMMARY | 2025-07-09 13:01 | XMS_ITS | Encounter Summary ---
Author Organization [employer] [facility] Address [address] [facility] 7t [place] [address] Care Team Providers Care Admission Liaison Name Role Phone Amilcar Louis MD Primary Care Provide r Encounter Details Date Type Department Care Team (Latest Contact Info) Description 02/05/2019 Abstract [facility] CONVERSIONS Dental, Provider, DDS Social History [...] Description 07/28/2025 10:15 AM EST Office Visit [facility] ADULT DENTAL [address] [place] [address] Echo, Bev [address] [place] [address] documented as of this encounter Visit Diagnoses Not on filedocumented in this encounter Care Teams Admission Liaison Relationship Specialty Start Date End Date Amilcar Louis MD [address] [place] [address] PCP - General Internal Medicine 04/08/14 Yessenia Olmos Automatic Pilot MechanicBenefits Specialist Recruiter 09/20/23 documented as of this encounter
--- OUTSIDE RECORDS SUMMARY | 2025-07-09 13:01 | XMS_ITS | Patient Health Record ---
Author Organization [facility] Address [address] [place] [phone] Care Team Providers Care Manager Golf Name Role Phone Pily Vicente MD, Amilcar Primary Care Provide r Alberto Esqueda [phone] Allergies Allergen (clinical drug ingredient) Drug/Non Drug Allergy documented on EMR Reaction Allergy Type Onset Date Status naproxen Naprosyn Unknown Drug Allergy Active Reason For Referral No Information Medications Medication SIG (Take, Route, Frequency, Duration) Notes Start Date End Date Status Jardiance 10 MG Tablet 1 tablet Orally O nce a day Active Loratadine 10 MG Tablet 1 tablet Orally Once a day; Duration: 30 day(s) Active Aspir-81 81 MG Tablet Delayed Release 1 tablet Orally Once a day Active MiraLax (colon prep) 8.3 ounce ((238) grams mixed with Gatorade or Crystal Light orally begin at 5:00 p.m. the day before the procedure; Duration: 1 day 08/29/2018 Active Multi Vitamin/Minerals - Tablet as directed Orally every day Active metFORMIN HCl 500 MG Tablet 2 tablet wit h a meal Orally twice a day Active Colace 100 MG Capsule 1 capsule as neede d Orally Once a day; Duration: 30 day(s) Active HumaLOG KwikPen 100 UNIT/ML Solution 10-20 units Subcutaneous as directed Active Lantus SoloStar 100 UNIT/ML Solution 33 units Subcutaneous once a day Active Amitriptyline HCl 25 MG Tablet 1 tablet Orally Once a day Active Acetaminophen 500 MG Capsule 2 capsule as needed Orally every 8 hrs/prn Active Clindamycin HCl 150 MG Capsule 1 capsules Orally every 6 hrs/prn Active Flonase 50 MCG/DOSE Inhaler 1 spray in e ach nostril Nasally Once a day Active Gabapentin 300 MG Capsule 2 capsule Oral ly Twice a day Active MiraLax - Powder 1 capful in 8 ounces of water Orally BID; Duration: 30 days 08/29/2018 Active Trulicity 1.5 MG/0.5ML Solution Pen-injector as directed Subcutaneous every week Active Senna 8.6-50 MG Tablet 2 tablet in the e vening as needed Orally Once a day Active Dulcolax (colon prep) 5 MG Tablet Delayed Release take at 3:00 p.m and 7:00p.m. Orally two tablets twice a day for one day; Duration: 1 day 08/29/2018 Active Enalapril Maleate 20 MG Tablet 1 tablet Orally Once a day Active Immunizations Vaccine Route Administration Date Status Comme nts Influenza Unknown 04/29/2018 Administered Social History Tobacco Use: Social History Observation Description Date Details (start date - stop date) Former Smoker NA - NA Social History Drugs/Alcohol: Social Info Question Answer Notes Alcohol Screen Did you have a drink containing alcohol in the past year? Yes How often did you have a drink containing alcohol in the past year? Monthly or less (1 point) How many drinks did you have on a typical day when you were drinking in the past year? 1 or 2 drinks (0 point) How often did you have 6 or more drinks on one occasion in the past year? Never (0 point) Points 1 Interpretation Negative Tobacco Use: Social Info Question Answer Notes Tobacco Use/Smoking Patient is a former smoker How long has it been since you last smoked? > 10 years Additional Details Category Social Info Options Details Miscellaneous: Marital status: single Occupation: unemployed Section Notes: Nonsmoker > 10 yrs, no sig a lcohol Problems Problem Type SNOMED Code ICD Code Onset Dates Problem Status W/U Status Risk Notes Problem Computed tomography result abnormal (080768762) Abnormal CT scan, colon (R93.3) Active confirmed Problem Constipation (54719293) Constipation, unspecified constipation type (K59.00) Active confirmed Problem Left upper quadrant pain (198147071) LUQ abdominal pain (R10.12) Active confirmed Plan Of Treatment Future Test Test Name Order Date COLONOSCOPY 08/29/2018 Insurance Providers Payer Name Payer Address Payer Phone Subscriber Number Group Number Insured Name Patient Relationship to Insured Coverage Start Date Coverage End Date [facility]ICA[facility] [address] [place] [address] [id number] FERNIE MAGANA Self - patient is the insured Medical (General) History Medical History History ICD Code Hypertension IDDM Reports a neg. cardiac cath in [place] Hyperlipidemia Retinopathy Denies [place],CVA,Lung disease,renal disease Neuropathy Constipation Negative colonoscopy in September of [address] [facility] [address] [place] Surgical History Surgery Date(Month/Year) appendectomy cholecystectomy tubal ligation foot surgery cataract-lens implants-right eye
--- OUTSIDE RECORDS SUMMARY | 2025-07-09 13:01 | XMS_ITS | Encounter Summary ---
Author Organization [employer] [facility] Address [address] [facility] 7t [place] [address] Care Team Providers Care Repair Technician Name Role Phone Amilcar Louis MD Primary Care Provide r Encounter Details Date Type Department Care Team (Latest Contact Info) Description 03/27/2022 Abstract [facility] CONVERSIONS Dental, Provider, DDS Social History Tobacco [...] Description 07/28/2025 10:15 AM EST Office Visit [facility] ADULT DENTAL [address] [place] [address] Echo, Bev [address] [place] [address] documented as of this encounter Visit Diagnoses Not on filedocumented in this encounter Care Teams Repair Technician Relationship Specialty Start Date End Date Amilcar Louis MD [address] [place] [address] PCP - General Internal Medicine 04/08/14 Yessenia Olmos Mold SetterResidential Assistant 09/20/23 documented as of this encounter
--- OUTSIDE RECORDS SUMMARY | 2025-07-09 13:01 | XMS_ITS | Encounter Summary ---
Author Organization [employer] [facility] Address [address] [facility] 7t [place] [address] Care Team Providers Care [facility] Psychiatrist Name Role Phone Amilcar Louis MD Primary Care Provide r Encounter Details Date Type Department Care Team (Latest Contact Info) Description 03/13/2021 Abstract [facility] CONVERSIONS Dental, Provider, DDS Social History [...] Description 07/28/2025 10:15 AM EST Office Visit [facility] ADULT DENTAL [address] [place] [address] Echo, Bev [address] [place] [address] documented as of this encounter Visit Diagnoses Not on filedocumented in this encounter Care Teams [facility] Psychiatrist Relationship Specialty Start Date End Date Amilcar Louis MD [address] [place] [address] PCP - General Internal Medicine 04/08/14 Yessenia Olmos Director Sales TrainingCommunication Engineer 09/20/23 documented as of this encounter
--- OUTSIDE RECORDS SUMMARY | 2025-07-09 13:01 | XMS_ITS | Encounter Summary ---
Author Organization [employer] Address [address] [place] [address] Care Team Providers Care World Designer Name Role Phone Amilcar Louis MD Primary Care Provide r Reason for Visit * Reason Comments Med Refill Encounter Details Date Type Department Care Team ([facility] st Contact Info) Description 09/04/2024 Refill [facility] MEDICINE [address] [place], [place] [phone] Joana Crump DO [address] [place], [place] [phone] Neuropathy Social History Tobacco Use Types Packs/Day [...] Description 07/28/2025 10:15 AM EST Office Visit [facility] ADULT DENTAL [address] [place] [address] Echo, Bev [address] [place] [address] documented as of this encounter Visit Diagnoses Diagnosis Neuropathy Mononeuritis of unspecified site documented in this encounter Additional Health Concerns Assessment Noted Time PHQ-9 Depression Total Score: 0 10/15/19 24 10:59 AM EDT documented as of this encounter Care Teams World Designer Relationship Specialty Start Date End Date Amilcar Louis MD [address] [place] [address] PCP - General Internal Medicine 04/08/14 Yessenia Olmos [employer] LibrarianCar Rental Agency Manager 09/20/23 documented as of this encounter
--- OUTSIDE RECORDS SUMMARY | 2025-07-09 13:01 | XMS_ITS | Encounter Summary ---
Author Organization [employer] Address [address] [place] [address] Care Team Providers Care Nuclear Medical Technologist Name Role Phone Amiclar Louis MD Primary Care Provide r Reason for Visit * Reason Onset Date Comments some pain 08/26/2023 pain medication 08/26/2023 pain from ext 08/26/2023 Encounter Details Date Type Department Care Team (Late st Contact Info) Description 08/26/2023 Telephone [facility] ADULT DENTAL [address] [place], [place] [phone] Abiodun Bean, MANOLO [address] [place] [address] some pain; pain medication; pain from ext [...] Description 07/28/2025 10:15 AM EST Office Visit [facility] ADULT DENTAL [address] [place] [address] Bev Dodge [address] [place], [place] [phone] documented as of this encounter Visit Diagnoses Not on filedocumented in this encounter Additional Health Concerns Assessment Noted Time PHQ-9 Depression Total Score: 1 01/11/20 23 3:27 PM EDT documented as of this encounter Care Teams Nuclear Medical Technologist Relationship Specialty Start Date End Date Amilcar Louis MD [address] [place] [address] PCP - General Internal Medicine 04/08/14 Yessenia Olmos Media AnalystAuto Garage Mechanic 09/20/23 documented as of this encounter
--- OUTSIDE RECORDS SUMMARY | 2025-07-09 13:01 | XMS_ITS | Encounter Summary ---
Author Organization [employer] Address [address] [place] [address] Care Team Providers Care Pest Controller Name Role Phone Amilcar Louis MD Primary Care Provide r Encounter Details Date Type Department Care Team (Latest Contact Info) Description 07/09/2025 Travel Social History Tobacco Use Types Packs/Day [...] Description 07/28/2025 10:15 AM EST Office Visit [facility] ADULT DENTAL [address] [place], [place] [phone] Echo, Bev [address] [place] [address] documented as of this encounter Goals Goal Patient Goal Type Associated Problems Recent Progress Patient-Stated? Author Help patients manage their type 2 diabetes Care Plan Help patients manage their type 2 diabetes No Rosario Sawyer LPN Patient has diabetic eye disease Care Plan Patient has diabetic eye disease No Rosario Sawyer LPN Help patients manage their type 2 diabetes Care Plan Help patients manage their type 2 diabetes No Rosario Sawyer LPN Patient has chronic kidney disease Care Plan Patient has chronic kidney disease No Rosario Sawyer SAFETY COMPANION Help patients manage their type 2 diabetes Care Plan Help patients manage their type 2 diabetes No Rosario Sawyer LPN Patient has diabetic neuropathy Care Plan Patient has diabetic neuropathy No Rosario Sawyer SAFETY COMPANION Patient has diabetic eye disease Care Plan Patient has diabetic eye disease No Rosario Sawyer SAFETY COMPANION Patient has diabetic eye disease Care Plan Patient has diabetic eye disease No Rosario Sawyer, SAFETY COMPANION Patient has chronic kidney disease Care Plan Patient has chronic kidney disease No Rosario Sawyer LPN Patient has chronic kidney disease Care Plan Patient has chronic kidney disease No Rosario Sawyer, SAFETY COMPANION Patient has diabetic neuropathy Care Plan Patient has diabetic neuropathy No Rosario Sawyer LPN Patient has diabetic neuropathy Care Plan Patient has diabetic neuropathy No Rosario Sawyer LPN Patient has diabetic eye disease Care Plan Patient has diabetic eye disease No Edel Hooper [place] Patient has diabetic eye disease Care Plan Patient has diabetic eye disease No Edel Hooper [place] Patient has diabetic eye disease Care Plan Patient has diabetic eye disease No Edel Hooper [place] Patient has chronic kidney disease Care Plan Patient has chronic kidney disease No Edel Hooper [place] Patient has chronic kidney disease Care Plan Patient has chronic kidney disease No Edel Hooper [place] Patient has chronic kidney disease Care Plan Patient has chronic kidney disease No Edel Hooper [place] Patient has diabetic neuropathy Care Plan Patient has diabetic neuropathy No Edel Hooper [place] Patient has diabetic neuropathy Care Plan Patient has diabetic neuropathy No Edel Hoopre [place] Patient has diabetic neuropathy Care Plan Patient has diabetic neuropathy No Edel Hooper [place] Patient has diabetic eye disease Care Plan Patient has diabetic eye disease No Lina Valdovinos Patient has diabetic eye disease Care Plan Patient has diabetic eye disease No Lina Valdovinos Patient has diabetic eye disease Care Plan Patient has diabetic eye disease No Lina Valdovinos Patient has chronic kidney disease Care Plan Patient has chronic kidney disease No Colon Lina [place] Patient has chronic kidney disease Care Plan Patient has chronic kidney disease No Lina Valdovinos Patient has chronic kidney disease Care Plan Patient has chronic kidney disease No Lina Valdovinos Patient has diabetic neuropathy Care Plan Patient has diabetic neuropathy No Colon Lina [place] Patient has diabetic neuropathy Care Plan Patient has diabetic neuropathy No Colon Lina [place] Patient has diabetic neuropathy Care Plan Patient has diabetic neuropathy No Lina Valdovinos Patient has diabetic eye disease Care Plan [...] [place] documented as of this encounter Visit Diagnoses Not on filedocumented in this encounter Additional Health Concerns Active [...] documented as of this encounter Care Teams Pest Controller Relationship Specialty Start Date End Date Amilcar Louis MD [address] [place] [id number] PCP - General Internal Medicine 04/08/14 Yessenia Olmos Auto Radiator SpecialistWire Bender 09/20/23 documented as of this encounter
--- OUTSIDE RECORDS SUMMARY | 2025-07-09 13:01 | XMS_ITS | Clinical Summary ---
Author Organization [employer] Address [address] [place] [address] Care Team Providers Care Meat Counter Worker Name Role Phone Amilcar Louis MD Primary [...] metFORMIN (Glucophage) 500 MG tablet 023 Active clopidogrel (Plavix) 75 MG tablet Take 1 tablet by mouth Once per day. 024 Active atorvastatin (Lipitor) 80 MG tabletIndications: Mixed hyperlipidemia Take 1 tablet (80 mg) by mouth Once per day. 30 tablet 11 025 2025 Active FreeStyle lancetsIndications :Type 2 diabetes mellitus with foot ulcer, with long-term current use of insulin (HCC) 1 each by Other route 3 times daily. USE TO TEST BLOOD SUGAR THREE TIMES A DAY BEFORE MEALS 100 each 1 025 Active ferrous sulfate 325 (65 Fe) MG tabletIndications: Iron deficiency anemia, unspecified iron deficiency anemia type Take 1 tablet (325 mg) by mouth 2 times daily. 60 tablet 11 025 2025 Active dapagliflozin (Farxiga) 10 MG Take 10 mg by mouth Once per day. Active clotrimazole-betam ethasone (Lotrisone) creamIndications:T ype 2 diabetes mellitus with both eyes affected by mild nonproliferative retinopathy without macular edema, with long-term current use of insulin ([facility]) Apply topically 2 times daily. 45 g 2 Active Mounjaro 2.5 MG/0.5ML solution auto-injector Inject 2.5 mg under the skin 1 (one) time per week. 025 2025 Active BD Pen Needle Sandra U/F 32G X 4 MM miscIndications:Ty pe 2 diabetes mellitus with foot ulcer, with long-term current use of insulin ([facility]) USE WITH INSULIN FOUR TIMES DAILY 100 each 11 025 2025 Active estradiol (Estrace) 0.1 MG/GM vaginal cream See Instructions, APPLY 1 GRAM VAGINALLY ONCE DAILY AT BEDTIME FOR 2 WEEKS THEN USE TWICE WEEKLY FOR MAINTENANCE DOSE, # 42.5 Gm, 1 Refills, Maintenance, 08/14/24 2:16:00 PM EST, [facility], 163, cm, 07/30/24 11:18:00 EST, Height, 64.7, kg, 07/16/24 18:50:00 EST, Dry Weight 023 Active loratadine (Claritin) 10 MG tabletIndications: Allergic rhinitis, unspecified seasonality, unspecified trigger TAKE 1 TABLET BY MOUTH EVERY DAY 30 tablet 5 025 Active amitriptyline (Elavil) 25 MG tabletIndications: Neuropathy TAKE 1 TABLET BY MOUTH AT BEDTIME 30 tablet 5 025 Active aspirin 81 MG EC tablet TAKE 1 TABLET BY MOUTH EVERY MORNING 30 tablet 11 025 Active Multiple Vitamin (Multi-Vitamin) tabletIndications: Type 2 diabetes mellitus with foot ulcer, with long-term current use of insulin ([facility]) TAKE 1 TABLET BY MOUTH EVERY DAY 30 tablet 11 Active gabapentin (Neurontin) 300 MG capsuleIndications :Neuropathy TAKE (2) CAPSULES BY MOUTH TWICE DAILY. 112 capsule Active acetaminophen (Tylenol Extra Strength) 500 MG tabletIndications: Left leg pain Take 1 tablet (500 mg) by mouth every 8 (eight) hours if needed for mild pain for up to 10 days. 30 tablet 025 2024 Active lidocaine (Lidoderm) 5 % patchIndications:L eft leg pain Apply 1 patch topically Once per day. Remove & discard patch within 12 hours or as directed by MD. 30 patch Active gabapentin (Neurontin) 300 MG capsuleIndications :Neuropathy TAKE (2) CAPSULES BY MOUTH TWICE DAILY. 112 capsule 025 2024 Discontinued(R eorder (will not trigger notification to Pharmacy)) Active Problems Problem Noted Date Diagnosed Date Dental plaque 04/30/2025 Cataract 04/08/2025 Diabetic neuropathy 04/08/2025 Symptomatic anemia 04/08/2025 T2DM (type 2 diabetes mellitus) 04/08/2025 Tinea cruris 01/14/2025 Assessment & Plan (01/14/2025 2:27 PM EDT): Plan: Lotrisone BID S/P drug eluting coronary stent placement 2024 [...] Iron deficiency anemia 09/03/2024 Assessment & Plan (02/09/2025 11:28 AM EDT): Pt here for a short term follow up with severe anemia, admitted to [facility] [place] 1 unit of PRBC . She is on Iron supplementation Repeat CBC and Iron studies confirmed pt has Iron deficiency Patient has been referred to GI. Pt will need EGD/Colonoscopy , Patient has been scheduled for EGD/Colonoscopy 05/10/2025 Hematology stated no need to see unless GI work up unrevealing Repeat CBC showed: Lab Results Component Value Date WBC 5.3 01/14/2025 HGB 11.2 (L) 01/14/2025 HCT 34.1 (L) 01/14/2025 MCV 84.6 01/14/2025 PLT 278 01/14/2025 Improved from previous Assessment & Plan (01/14/2025 1:56 PM EDT): Pt with severe anemia, recently admitted to [facility] received 1 unit of PRBC . She is on Iron supplementation Repeat CBC and Iron studies confirmed pt has Iron deficiency Patient has been referred to GI. Pt will need EGD/Colonoscopy , Patient was scheduled for December Hematology stated no need to see unless GI work up unrevealing Repeat CBC Assessment & Plan (10/15/2024 12:41 PM EDT): [...] initial work up will decide further evaluation HFrEF (heart failure with reduced ejection fract ion) 08/13/2024 Hospital discharge follow-up 07/28/2024 Assessment & Plan (07/28/2024 4:06 PM EST): Pt is here after she was recently admitted to [facility] was admitted on 07/16 with a late [...] Pt here for a HDF admitted to [facility] from 07/16-07/19/2024 She initially presented with sudden [...] Pt here for a HDF admitted to [facility] [place] 07/16-07/19/2024 She initially presented with sudden [...] edentulism 10/14/2023 Alveolitis of jaw, right 09/06/2023 Incipient enamel caries 09/02/2023 Acute pain of left shoulder 08/22/2023 [...] Pt under the care of Urogynecology at [facility]. Has a pesary Chronic venous insufficiency 10/16/2022 Assessment & Plan (04/02/2023 10:00 AM EDT): Under the care of [facility] vascular Surgeons Last seen 11/2022 Assessment & Plan (10/16/2022 2:39 PM EDT): Under the care of [facility] vascular Surgeons Calcific tendinitis of left [...] Preventative health care 07/12/2022 Assessment & Plan (01/14/2025 2:10 PM EDT): Mammogram: 12/03/2024 Pap Smear: Pap 10/2022 Colonoscopy: 09/24/2014 Dr Arvizu hemorrhoid's, 10 YR F/U Assessment & Plan (03/26/2024 10:01 AM EDT): Mammogram: 11/27/2023 Pap Smear: Pap 10/2022 Colonoscopy: 09/24/2014 Dr Arvizu hemorrhoid's, 10 YR F/U Assessment & Plan (04/02/2023 10:07 AM EDT): Mammogram: 11/21/2022 Pap Smear: Pap 10/2022 Colonoscopy: 09/24/2014 Dr Arvizu hemorrhoid's, 10 YR F/U Assessment & Plan (01/10/2023 3:56 PM EDT): Mammogram: 11/20/2021 Pap Smear: Pap 10/2022 Colonoscopy: 09/24/2014 Dr Arvizu hemorrhjohnny's, 10 YR F/U Assessment & Plan (07/12/2022 9:10 AM EST): Mammogram: 11/20/2021 Pap Smear: Pap 10/30/2017 nl Colonoscopy: 09/24/2014 Dr Glen's hemorrhoid's, 10 YR F/U Hand pain, right [...] recent lipid profile from: 11/28/2022 done at [facility] shows Component Ref Range & Units (11/28/22) [...] ago (07/13/20) Triglycerides <150 mg/dL 141 117 160 High 68 Comment: Desirable Triglyceride: less than 150 mg/dLBorderline High Triglyceride 150-199 mg/dLHigh Triglyceride: 200-499 mg/dLVery High Triglyceride: greater than or equal to 5OO mg/dL Cholesterol <200 mg/dL 151 Comment: Desirable Cholesterol: less than 200 mg/dLBorderline High Cholesterol: 200-239 mg/dLHigh Cholesterol: greater than 239 mg/dL LDL Cholesterol Calculated <100 mg/dL 71 Comment: Desirable LDL: less than 100 mg/dLNear Optimal/Above Optimal LDL: 110-129 mg/dLBorderline High LDL: 130-159 mg/dLHigh LDL: 160-189 [...] of coronary artery 10/12/2013 Assessment & Plan (01/14/2025 1:52 PM EDT): Pt here for a follow up Hx of STEMI,07/19/2024 S/p cardiac cath on 07/17 that showed [...] and follow up with Cardiology 6-8 weeks Last seen 12/21/2024 at [facility] Cardiology Assessment & Plan (09/03/2024 11:12 AM EST): Pt used to follow at [facility], Last seen 12/21/2013 . Previously pt wanted to be referred to [facility] [place]. Pt was admitted on 07/16 to [facility] with a late presenting anterior STEMI, now [...] PM EST): Pt used to follow at [facility], Last seen 12/21/2013 . Previously pt wanted to be referred to [facility] Card[facility]. Pt was admitted on 07/16 to [facility] with a late presenting anterior STEMI, now [...] any chest pain, On Aspirin. Seen at [facility], Last seen 12/21/2013 1 year f/u recommended. Would like to be referred to [facility] Assessment & Plan (07/12/2022 9:07 AM EST): Pt denies any chest pain, On Aspirin. Seen at [facility], Last seen 12/21/2013 1 year f/u recommended. [...] weight loss. The 10-year ASCVD risk score (Jign GAN, et al., 2019) is: 14.6% Values [...] about medication compliance, counseled about weight loss. Idiopathic peripheral neuropathy 02/15/2012 Assessment & Plan (07/12/2022 9:08 AM EST): On gabapentin 600mg bid, does not tolerate a higher dose. Decreased sensation to mid-soto b/l. Nonproliferative diabetic retinopathy 12/18/2011 Assessment & Plan (08/22/2023 9:36 AM EST): Followed at [facility]. Last seen 04/2023, has a follow up 09/2023 Assessment & Plan (01/10/2023 4:02 PM EDT): Followed at [facility]. Has a follow up in March per her report Assessment & Plan (07/12/2022 9:09 AM EST): Followed at [facility]. Type 2 diabetes mellitus with retinopathy 2011 Assessment & Plan (02/09/2025 11:30 AM EDT): Pt is here for a f/u Under the care of [facility] Endocrinology , last note on record 12/29/2024. Pt has a follow up She is on a regimen of: Metformin ER 500 mg 2 tabs po BID, Mounjaro down to 2.5 mg weekly on and she is no longer injecting Lantus due to low readings and Humalog sliding scale. She is also on Farxiga prescribed by Cardiology Hgb A1c 02/09/2025 : 6.4 Eye exam done on: 02/28/2024 at [facility] Also follows with retinal specialist, [...] on a daily basis Assessment & Plan (01/14/2025 2:25 PM EDT): Pt is here for a f/u Under the care of [facility] , last note on record 12/29/2024. Pt has a follow up She is on a regimen of: Metformin ER 500 mg 2 tabs po BID, Mounjaro 5 mg weekly on and Lantus down to 10 units sc q pm and Humalog sliding scale. She is also on Farxiga prescribed by Cardiology Hgb A1c 01/14/2025 : 6.2 from 9.7 Eye exam done on: 02/28/2024 at [facility] Also follows with retinal specialist, she [...] on a daily basis Assessment & Plan (10/15/2024 12:43 PM EDT): Pt is here for a f/u Under the care of [facility] , last note on record [...] 8.4 Eye exam done on: 02/28/2024 at [facility] Also follows with retinal specialist, she [...] for a f/u Under the care of [facility] , last seen 07/30/2024. Pt tells me she has a follow up She is on a regimen of: Metformin ER 500 mg 2 tabs po BID, Trulicity 4.5 mg sc weekly on and Lantus was increased to 28 units sc q pm and Humalog sliding scale. Hgb A1c 07/28/2024 : 9.7 from 8.4 Eye exam done on: 02/28/2024 at [facility] Also follows with retinal specialist, she [...] for a f/u Under the care of [facility] , last seen 11/29/2023. Pt tells me she has a follow up 07/30/2024 She is on a regimen of: Metformin ER 500 mg 2 tabs po BID, Trulicity 4.5 mg sc weekly on and Lantus 22 units sc q pm and Humalog sliding scale. Hgb A1c 07/28/2024 : 9.7 from 8.4 Eye exam done on: 02/28/2024 at [facility] Also follows with retinal specialist, she [...] for a f/u Under the care of [facility] , last seen 11/29/2023 She is on a regimen of: Jardiance 25 mg po daily, Metformin ER 500 mg 2 tabs po BID, Trulicity 3 mg sc weekly on and Lantus 22 units sc q pm and Humalog sliding scale. Hgb A1c 12/24/2023: 8.4 BG today 180 Eye exam done on: 02/28/2024 at [facility] Also follows with retinal specialist, [...] for a f/u Under the care of [facility] , last seen 11/29/2023 She is on a regimen of: Jardiance 25 mg po daily, Metformin ER 500 mg 2 tabs po BID, Trulicity 3 mg sc weekly on and Lantus 22 units sc q pm and Humalog sliding scale. Hgb A1c 12/24/2023: 8.4 BG today 119 Eye exam done on: 11/2022 at [facility] Also follows with retinal specialist, [...] for a f/u Under the care of [facility] She is on a regimen of: Jardiance 25 mg po daily, Metformin ER 500 mg 2 tabs po BID, Trulicity 3 mg sc weekly on and Lantus 20 units sc q pm and Humalog sliding scale. Hgb A1c 08/22/2023: 7.5 BG today 119 Eye exam done on: 11/2022 at [facility] Also follows with retinal specialist, [...] for a f/u Under the care of [facility] She is on a regimen of: Jardiance 25 mg po daily, Metformin ER 500 mg 2 tabs po BID, Trulicity 3 mg sc weekly on and Lantus 20 units sc q pm and Humalog sliding scale. Hgb A1c 08/22/2023: 7.5 BG average 139 Eye exam done on: 11/2022 at [facility] Also follows with retinal specialist, she [...] for a f/u Under the care of [facility] She is on a regimen of: Jardiance Increased to 25 mg po daily, Metformin ER 500 mg 2 tabs po BID, and Trulicity 3 mg sc weekly on and Lantus 20 units sc q pm and Humalog sliding scale. Hgb A1c 01/10/2023: 7.8 BG average 125 Eye exam done on: 11/05/2017 at [facility] Also follows with retinal specialist, she [...] for a f/u Under the care of [facility] She is on a regimen of: Jardiance 10 mg po daily, Metformin ER 500 mg 2 tabs po BID, and Trulicity 3 mg sc weekly on and Lantus 20 units sc q pm and Humalog sliding scale. Hgb A1c 01/10/2023: 7.5 BG average 128 Eye exam done on: 11/05/2017 at [facility] Also follows with retinal specialist, she [...] for a f/u Under the care of [facility] She is on a regimen of: Jardiance 10 mg po daily, Metformin ER 500 mg 2 tabs po BID, and Trulicity 3 mg sc weekly on and Lantus 20 units sc q pm and Humalog sliding scale. Hgb A1c 10/16/2022: 7.9 BG average 136 Eye exam done on: 11/05/2017 at [facility] Also follows with retinal specialist, [...] for a f/u Under the care of [facility] She is on a regimen of: Jardiance 10 mg po daily, Metformin ER 500 mg 2 tabs po BID, and Trulicity 3 mg sc weekly on and Lantus 18 units sc q pm and Humalog sliding scale. Hgb A1c 07/12/2022 was 7.7 BG average 121 Eye exam done on: 11/05/2017 at [facility] Also follows with retinal specialist, [...] check your feet on a daily basis Resolved Problems Problem Noted Date Diagnosed Date Resolved Date Diabetic foot ulcer 03/12/2012 02/10/20 25 Assessment & Plan (07/12/2022 9:08 AM EST): Followed at [facility]. s/p left first metatarsal dorsiflexion osteotomy, left medical sesamoidectomy and ulcer debridement . Last visit was 07/20/2014 and had a f/u 08/02/2014 Encounters Date Type Department Care Team Description 07/09/2025 10:15 AM EST Office Visit [facility] [address] [place] [address] Jessie Bradley MD Left leg pain (Primary Dx) 07/09/2025 Travel 07/08/2025 Telephone [facility] [address] [place] [address] Amilcar Louis MD Nurse Triage 07/02/2025 Refill [facility] [address] [place] [address] Amilcar Louis MD Neuropathy 06/24/2025 Telephone [facility] [address] [place] [address] Amilcar Louis MD Chart Prep 06/16/2025 Telephone [facility] [address] [place] [address] Amilcar Louis MD 05/28/2025 Refill [facility] [address] [place] [address] Amilcar Louis MD Neuropathy 05/24/2025 Refill [facility] [address] [place] [address] Amilcar Louis MD Type 2 diabetes mellitus with foot ulcer, with long-term current use of insulin (HCC) 05/04/2025 3:00 PM EDT Office Visit [facility] [address] [place] [address] Abiodun Bean DDS Partial edentulism, unspecified edentulism class (Primary Dx) 04/30/2025 9:00 AM EDT Office Visit [facility] [address] [place] [address] Abiodun Bean DDS Partial edentulism, unspecified edentulism class (Primary Dx); Incipient enamel caries; Dental plaque 04/26/2025 Refill [facility] [address] [place] [address] Amilcar Louis MD Allergic rhinitis, unspecified seasonality, unspecified trigger; Neuropathy from Last 3 Months Immunizations Immunization [...] 07/25/2022 Pfizer Covid-19 Vaccine 12+ 08/22/2023 Pneumococcal Conjugate PCV 20 02/09/2025 Pneumococcal Polysaccharide PPSV23 04/28/1997 TD (adult), 2 Lf tetanus tox oid, preservative free, adsorbed 11/24/2021,07/06/1996 Tdap 08/08/2023,12/10/2011 Zoster, Recombinant 02/13/2022,10/27/2021 Family History Medical History [...] Mass Index 19.29 07/09/2025 10:31 AM EST Plan of Treatment Upcoming Encounters Date Type Department Care Team (Late st Contact Info) Description 07/28/2025 10:15 AM EST Office Visit [facility] [address] [place] [address] Echo, Bev [address] [place] [address] Health Maintenance Due Date Last Done Comments CT Colonography 1958 FIT DNA/Cologuard 1958 FIT 1958 FOBT 1958 Sigmoidoscopy 1958 Diabetes: Foot Exam 1968 Eye Exam 1968 RSV Patients and Patients Aged 60 years or older (1 - Risk 50-74 years 1-dose series) 2008 Dental X-Ray: Full Mouth 03/14/2024 03/13/2021, 02/19 Dental Prophylaxis 03/26/2024 09/23/2023, 0 03/27/2022, 03/13/2021, Additional history exists COVID-19 Vaccine ( season) 2025 06/12/2024, 08/22/2023, 07/25/2022, Additional history exists Influenza Vaccine (#1) 2025 , 04/02/2023, 05/11/2022, Additional history exists Alcohol/Substance Use Screening 07/28/2025 07/28/2024 Diabetes: Hemoglobin A1C 08/12/2025 025, 07/28/2024, 12/24/2023, Additional history exists Lipid Panel 08/24/2025 08/24/2024, 04/23, 07/25/2022, Additional history exists Depression Screening 10/15/2025 10/15/2024, 10/16/19 25 SDOH Screening 10/15/2025 10/15/2024 Dental Oral Exam 10/30/2025 04/30/2025, 10/2023, 03/27/2022, Additional history exists Mammogram 12/03/2025 12/03/2024, 02/2024, 11/21/2022, Additional history exists Diabetes: Urine Protein Screening 02/15/2026 02/15/2025, 08/28/2023, 10/27/2021, Additional history exists Dental X-Ray: Bitewings 05/01/2026 04/30/20 25, 09/23/2023, 03/27/2022, Additional history exists Tobacco Screening 07/09/2026 07/09/2025 Colonoscopy 10/04/2028 10/02/2018 Colorectal Cancer Screening 10/04/2028 DTaP/Tdap/Td Vaccines (4 - Td or Tdap) 08/08/2033 08/08/2023, 11/24/2021, 12/10/2011, Additional history exists Zoster Vaccines Completed 02/13/2022, 10/27/2021 Cervical Cancer Screening Discontinued HPV/Cotest Discontinued 11/14/2022, 10/30/2017 Pap Smear Discontinued 11/14/2022 Hepatitis C Screening Completed 05/20/2023 Pneumococcal Vaccine: 50+ Years Completed 02/09/2025, 04/28/1997 HIB Vaccines Aged Out No longer eligi [...] on patient's age to complete this topic Goals Goal Patient Goal Type Associated Problems Recent Progress Patient-Stated? Author Help patients manage their type 2 diabetes Care Plan Help patients manage their type 2 diabetes No Rosario Sawyer, MANAGER CARDIAC CATH Patient has diabetic eye disease Care Plan Patient has diabetic eye disease No Rosario Sawyer, MANAGER CARDIAC CATH Help patients manage their type 2 diabetes Care Plan Help patients manage their type 2 diabetes No Rosario Sawyer, MANAGER CARDIAC CATH Patient has chronic kidney disease Care Plan Patient has chronic kidney disease No Rosario Sawyer, MANAGER CARDIAC CATH Help patients manage their type 2 diabetes Care Plan Help patients manage their type 2 diabetes No Rosario Sawyer, MANAGER CARDIAC CATH Patient has diabetic neuropathy Care Plan Patient has diabetic neuropathy No Brayden Sawyerga, MANAGER CARDIAC CATH Patient has diabetic eye disease Care Plan Patient has diabetic eye disease No Rosraio Sawyer, MANAGER CARDIAC CATH Patient has diabetic eye disease Care Plan Patient has diabetic eye disease No Rosario Sawyer, MANAGER CARDIAC CATH Patient has chronic kidney disease Care Plan Patient has chronic kidney disease No Brayden Sawyerga, MANAGER CARDIAC CATH Patient has chronic kidney disease Care Plan Patient has chronic kidney disease No Rosario Sawyer, MANAGER CARDIAC CATH Patient has diabetic neuropathy Care Plan Patient has diabetic neuropathy No Rosario Sawyer, MANAGER CARDIAC CATH Patient has diabetic neuropathy Care Plan Patient has diabetic neuropathy No Rosario Sawyer LPN Patient has diabetic eye disease Care Plan Patient has diabetic eye disease No Sandie, [place], [place] Patient has diabetic eye disease Care Plan Patient has diabetic eye disease No [place] Patient has diabetic eye disease Care Plan Patient has diabetic eye disease No [place] Patient has chronic kidney disease Care Plan Patient has chronic kidney disease No [place] Patient has chronic kidney disease Care Plan Patient has chronic kidney disease No [place] Patient has chronic kidney disease Care Plan Patient has chronic kidney disease No [place] Patient has diabetic neuropathy Care Plan Patient has diabetic neuropathy No [place] Patient has diabetic neuropathy Care Plan Patient has diabetic neuropathy No [place], [place] Patient has diabetic neuropathy Care Plan Patient has diabetic neuropathy No [place] Patient has diabetic eye disease Care [...] Patient has chronic kidney disease No Colon Eddi Lina Patient has chronic kidney disease Care Plan Patient has chronic kidney disease No Colon Eddi Lina Patient has diabetic neuropathy Care Plan Patient has diabetic neuropathy No Colon Lina [place] Patient has diabetic neuropathy Care Plan Patient has diabetic neuropathy No Colon Lina [place] Patient has diabetic neuropathy Care Plan Patient has diabetic neuropathy No Colon Eddi Lina Patient has diabetic eye disease Care [...] Care Plan Patient has diabetic neuropathy No Henry Ken Patient has diabetic neuropathy Care Plan Patient has diabetic neuropathy No Henry Ken Patient has diabetic neuropathy Care Plan Patient has diabetic neuropathy No [place] Patient has diabetic eye disease Care Plan [...] Care Plan Patient has diabetic neuropathy No Erikc Bell MA Procedures Procedure Name Priority Date/Time Associated Diagnosis Comments XR FEMUR 2+ VIEWS LEFT Routine 07/09/2025 11:56 AM EST Left leg pain XR HIP 2 OR 3 VIEWS LEFT Routine 07/09/2025 11:40 AM EST Left leg pain CASE PRESENTATION, DETAILED AND EXTENSIVE TREATMENT PLANNING Routine 05/04/2025 3:00 PM EDT 27 ADD CLASP TO EXISTING PARTIAL DENTURE - PER TOOTH Routine 05/04/2025 3:00 PM EDT 29 ADD TOOTH TO EXISTING PARTIAL DENTURE Routine 05/04/2025 3:00 PM EDT DENTURE IMPRESSION Routine 04/30/2025 9: 00 AM EDT INTRAORAL - PERIAPICAL EACH ADDITIONAL RADIOGRAPHIC IMAGE Routine 04/30/2025 9:00 AM EDT INTRAORAL - PERIAPICAL FIRST RADIOGRAPHIC IMAGE Routine 04/30/2025 9:00 AM EDT BITEWINGS - 4 RADIOGRAPHIC IMAGES Routine 04/30/2025 9:00 AM EDT PERIODIC ORAL EVALUATION - ESTABLISHED PATIENT Routine 04/30/2025 9:00 AM EDT ALBUMIN, RANDOM URINE W/CREATININE Routine 02/15/2025 10:20 AM EDT 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 edema, with long-term current use of insulin (CMS/HCC) POCT GLYCATED HEMOGLOBIN, TOTAL Routine 02/09/2025 11:26 AM EDT 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 edema, with long-term current use of insulin (CMS/HCC) BI MAMMOGRAM SCREENING TOMOSYNTHESIS BILATERAL Routine 12/03/2024 10:30 AM EDT LIPID PANEL, STANDARD Routine 08/24/2024 9:37 AM EST Mixed hyperlipidemia PROPHYLAXIS - ADULT Routine 09/23/2023 1 0:00 AM EST Dental calculus HEPATITIS C AB W/REFL TO HCV RNA, QN, PCR Routine 05/20/2023 9:14 AM EDT Preventative health care IMAGE-GUIDED PAP W/AGE BASED SCR PROTOCOLS Routine 11/14/2022 11:22 AM EDT Cervical cancer screening INTRAORAL - COMPLETE SERIES OF RADIOGRAPHIC IMAGES Routine 03/13/2021 12:00 AM EDT HM COLONOSCOPY Routine 10/02/2018 from Last 3 Months or Most Recently Relevant to Health Maintenance Results * XR Femur 2+ Views Left (07/09/2025 11:56 AM EST) Anatomical Region Laterality Modality Lower Extremities, Femur Left Radiogr aphic Imaging 07/09/2025 11:5 6 AM EST Narrative 07/09/2025 11:58 AM EST [address] [address] XRay Report Signed Patient: Trent Singh MR# : [id number] : 1960 Acct:[id number] Age/Sex: 64 / F ADM Date: 07/09/25 Loc: HO.HHCX Attending Dr: Jessie Zapien MD Ordering Physician: Jessie Bradley MD Date of Service: 07/09/25 Procedure(s): XR femur LT 2V Accession Number(s): [id number] cc: Amilcar Bauer MD; Jessie Bradley MD [...] Altaf Curry MD 07/09/2025 11:55 AM EST Dictated By: Altaf Curry MD Signed By: <Electronically signed by Altaf Curry MD in OV> 07/09/25 1155 DD/ 1156 TD/TT: 07/09/25 1147 Physiologist: Procedure Note Donotuseinterpreter, Image - 07/09/[address] [address] XRay Report Signed Patient: Trent SinghMR# : [id number] : 9Acct:[id number] Age/Sex: 64 / FADM Date: 07/09/25 Loc: HO.HHCX Attending Dr: Jessie Zapien MD Ordering Physician: Jessie Bradley MD Date of Service: 07/09/25 Procedure(s): XR femur LT 2V Accession Number(s): [id number] cc: Amilcar Bauer MD; Jessie Bradley MD [...] 07/09/25 1155 DD/ 1156 TD/TT: 07/09/25 1147 Physiologist: us Jessie Maki MD IMG XR PROCEDURES Final Result * XR Hip 2 or 3 Views Left (07/09/2025 11:40 AM EST) Anatomical Region Laterality Modality Lower Extremities, Hip Left Radiograp hic Imaging 07/09/2025 11:4 0 AM EST Narrative 07/09/2025 11:56 [place] [address] XRay Report Signed Patient: Trent Singh MR# : [id number] : 1960 Acct:[id number] Age/Sex: 64 / F ADM Date: 07/09/25 Loc: .HHCX Attending Dr: Jessie Zapien MD Ordering Physician: Jessie Bradley MD Date of Service: 07/09/25 Procedure(s): XR hip LT min 2V Accession Number(s): [id number] cc: Amilcar Bauer MD; Jessie Bradley MD [...] Altaf Curry MD 07/09/2025 11:53 AM EST RP Dictated By: Altaf Curry MD Signed By: <Electronically signed by Altaf Curry MD in OV> 07/09/25 1153 DD/ 1140 TD/TT: 07/09/25 1147 Physiologist: Procedure Note Donotuseinterpreter, Image - 07/09/[address] [address] XRay Report Signed Patient: Trent SinghMR# : [id number] : 1960cct:[id number] Age/Sex: 64 / FADM Date: 07/09/25 Loc: HO.HHCX Attending Dr: Jessie Zapien MD Ordering Physician: Jessie Bradley MD Date of Service: 07/09/25 Procedure(s): XR hip LT min 2V Accession Number(s): [id number] cc: Amilcar Bauer MD; Jessie Bradley MD [...] Altaf Curry MD 07/09/2025 11:53 AM EST RP Dictated By: Altaf Curry MD Signed By: <Electronically signed by Altaf Curry MD in OV> 07/09/25 1153 DD/ 1140 TD/TT: 07/09/25 1147 Physiologist: us Jessie Maki MD IMG XR PROCEDURES Final Result * Albumin, Random Urine W/Creatinine (02/15/2025 10:20 AM EDT) Creatinine, Urine 35.71 mg/dL [facility] Microalbumin Urine 8.0 mg/L [facility] Microalbum Creatinine Ratio Ur 22.4 <30 ug/mg cr [facility] Comment:Albumin/Creatinine R atio Reference Ranges: Normal: < 30 ug/mg creatinine Microalbuminuria: 30 - 300 ug/mg creatinineClinical Albuminuria: > 300 ug/mg creatinine Urine (Urine, Random) 02/15/2025 10:20 AM EDT 02/15/2025 11:18 AM EDT Amilcar Vicente MD LAB URINE ORDERABLES Final Result Performing Organization Address City/State/[facility] Co de Phone Number [facility] [address] [place] [address] [place] [address] [phone] * (ABNORMAL) POCT HGB A1C (02/09/2025 11:26 AM EDT) Hemoglobin A1C 6.4(A) 4.0 - 5.7 % QC Media Lot # [id number] Lot# Expiration Date Blood 02/09/2025 11:2 6 AM EDT Amilcar Vicente MD POINT OF CARE TEST EN TER/EDIT ORDERABLES Final Result * BI Mammogram Screening Tomosynthesis Bilateral (12/03/2024 10:30 AM EDT) Anatomical Region Laterality Modality Breast Bilateral Mammography 12/03/2024 10:3 0 AM EDT Narrative 12/11/2024 5:50 PM EDT [facility] [address] [place] [address] Mammography Report Signed Patient: Debbie Singhparamjitclif MR# : [id number] : 1960 Acct:[id number] Age/Sex: 64 / F ADM Date: 12/03/24 Loc: HO.MAMMO Attending Dr: Amilcar Bauer MD Ordering Physician: Amilcar Bauer MD Resu lts: 1Negative Date of Service: 12/03/24 Follow Up: 1 Year From Orig inal Mammogram Procedure(s): MM tomosynthesis screening BI Accession Number(s): [id number] cc: Amilcar Bauer MD EXAMINATION: MM SCREENING DIGITAL BREAST TOMOSYNTHESIS, BILATERAL CLINICAL INFORMATION: Screening. Asymptomatic. COMPARISON: Mammography: Comparison is made with available priors TECHNIQUE: Digital breast mammography with tomosynthesis is performed in both the craniocaudal and mediolateral oblique views along with computer-aided detection (CAD). FINDINGS: The breasts are heterogeneously dense, which [...] target due date for their next mammogram. Electronically signed by: Marlene Martinez DO 12/11/2024 05:47 PM EDT Dictated By: Marlene Martinez DO Signed By: <Electronically signed by Marlene Martinez DO in OV> 12/11/24 1747 DD/ 1030 TD/TT: 12/03/24 1058 Physiologist: Procedure Note Donotuseinterpreter, Image - 12/11/2024 [facility] [address] [place] [address] [place] [address] Mammography Report Signed Patient: Trent SinghMR# : [id number] : 1960cct:[id number] Age/Sex: 64 / FADM Date: 12/03/24 Loc: HO.MAMMO Attending Dr: Amilcar Bauer MD Ordering Physician: Amilcar Bauer MDResu lts: 1Negative Date of Service: 12/03/24Follow Up: 1 Year From [facility] Mammogram Procedure(s): MM tomosynthesis screening BI Accession Number(s): [id number] cc: Amilcar Bauer MD EXAMINATION: MM SCREENING DIGITAL BREAST TOMOSYNTHESIS, BILATERAL CLINICAL INFORMATION: Screening. Asymptomatic. COMPARISON: Mammography: Comparison is made with available priors TECHNIQUE: Digital breast mammography with tomosynthesis is performed in both the craniocaudal and mediolateral oblique views along with computer-aided detection (CAD). FINDINGS: The breasts are heterogeneously dense, which [...] target due date for their next mammogram. Electronically signed by: Marlene Martinez DO 12/11/2024 05:47 PM EDT Dictated By: Marlene Martinez DO Signed By: <Electronically signed by Marlene Martinez DO in OV> 12/11/24 1747 DD/ 1030 TD/TT: 12/03/24 1058 Physiologist: us Amilcar Vicente MD IM BI PROCEDURES Fin al Result * Lipid Panel, Standard (08/24/2024 9:37 AM EST) Triglycerides 52 <150 mg/dL [facility] Comment:Desirable Triglyceri de: less than 150 mg/dLBorderline High Triglyceride 150-199 mg/dLHigh Triglyceride: 200-499 mg/dLVery High Triglyceride: greater than or equal to 5OO mg/dL Cholesterol 84 <200 mg/dL [facility] Comment:Desirable Cholestero l: less than 200 mg/dLBorderline High Cholesterol: 200-239 mg/dLHigh Cholesterol: greater than 239 mg/dL LDL Cholesterol Calculated 29 <100 mg/dL [facility] Comment:Desirable LDL: less than 100 mg/dLNear Optimal/Above Optimal LDL: 110- 129 mg/dLBorderline High LDL: 130-159 mg/dLHigh LDL: 160-189 mg/dLVery High LDL: greater than or equal to 190 mg/dL HDL Cholesterol 45 >40 mg/dL [facility] Comment:Desirable HDL: great er than 40 mg/dL Note: This HDL assay may give artificially low results in patients with liver disease. Blood Venous blood specimen / Unknown 08/24/2024 9:37 AM EST 08/24/2024 11:30 AM EST Amilcar Vicente MD LAB BLOOD ORDERABLES Final Result Performing Organization Address City/[facility] Co de Phone Number [facility] [address] [place] [phone] * Hepatitis C Antibody with Reflex to HCV, RNA, Quantitative, Real-Time PCR (05/20/2023 9:14 AM EDT) Hepatitis C Antibody Nonreactive Nonreactive [facility] Comment:Antibodies to HCV no t detected; does not exclude early acuteHCV infection. Blood Venous blood specimen / Unknown 05/20/2023 9:14 AM EDT 05/20/2023 11:50 AM EDT Amilcar Vicente MD LAB BLOOD ORDERABLES Final Result Performing Organization Address City/[facility] Co de Phone Number [facility] [address] [place] [phone] * Image-Guided Pap with Age-Based Screening Protocols (11/14/2022 11:22 AM EDT) Comment [facility] Comment: This order for age-based cervical cancer and STI screening follows ACOG guidelines(PB 168, 140, PLI374). See individual assays for performing site location. Clinical Information: None given [facility] LMP: NONE GIVEN [facility] [place] Prev. PAP: NONE GIVEN [facility] [place] [facility] Prev. BX: NONE GIVEN [facility] [place] [facility] SOURCE: None given [facility] [place] [facility] Statement Of Adequacy: [employer] [facility] [place] Comment: SATISFACTORY FOR EVALUATION Partially obscuring inflammation Partially obscuring blood Interpretation/Res ult: [facility] [place] [facility] Comment: Negative for intraepithelial lesion or malignancy. Atrophic pattern; predominantly parabasal cells Comment: This Pap test has been evaluated with computer assisted technology. [facility] [place] [facility] Store Team Leader: Jaylene [facility] [place] [facility] Comment: KN, CT(ASCP) CT screening location: [place] [address] ([facility]ly [facility] Message) [facility] [employer] Comment: EXPLANATORY NOTE: The Pap is a [...] HPV nRNA E6/E7 Not Detected Not Detected [facility] Comment: Methodology: Line Clearance Foreman-Mediated Amplification This assay detects E6/E7 viral messenger RNA (mRNA) from 14 high-risk HPV types (16,18,31,33,35,39,45,51,52,56,58,59,66,68). Cervical sources are required for HPV testing. If a vaginal source from a patient who has had a total hysterectomy with removal of cervix was submitted, please contact the testing laboratory for alternative testing options. For additional information, please refer to http://education.[employer]/faq/CSD011g3 (This link if provided for information/ educational purposes only.) Pap Vial 11/14/2022 11:2 2 AM EDT 11/15/2022 3:06 AM EDT Katerine Veras CNM LAB BLOOD ORDERABLES Rosie almeida Result [facility] [address] [facility], [facility], [place] [address] [facility] [place] [facility] [address] [place] [address] * Hm Colonoscopy (10/02/2018) Colonoscopy Normal Normal 10/02/2018 Narrative Tosin Viramontes - 10/02/2018 11:37 AM EDT Recommended 10 year follow up ( see scanned report) Historical Provider MD HEALTH MAINTENANCE Edited Result - Final from Last 3 Months or Most Recently Relevant to Health Maintenance Additional Health Concerns Active Problems Noted Date [...] neuropathy 07/09/2025 Patient has diabetic neuropathy 07/09/2025 Insurance [facility] FDC OPTIONS (O D-SNP) [place] [id number] [facility] Care Teams Meat Counter Worker Relationship Specialty Start Date End Date Amilcar Louis MD [address] [place] [phone] PCP - General Internal Medicine 04/08/14 Yessenia Olmos Pan CleanerUpholsterer Apprentice 09/20/23
--- OUTSIDE RECORDS SUMMARY | 2025-07-09 13:01 | XMS_ITS | Encounter Summary ---
Author Organization [employer] Address [address] [facility] [address] 7t [place] [address] Care Team Providers Care Mine Car Repairer Name Role Phone Amilcar Louis MD Primary Care Provide r Reason for Visit * Reason Comments Med Refill Encounter Details Date Type Department Care Team ([facility] st Contact Info) Description 09/14/2024 Refill [facility] [address] [place], [place] [phone] Joana Crump DO [address] [place], [place] [phone] Neuropathy Social History Tobacco Use Types Packs/Day [...] Description 07/28/2025 10:15 AM EST Office Visit [facility] ADULT DENTAL [address] [place] [address] Echo, Bev [address] [place] [address] documented as of this encounter Visit Diagnoses Diagnosis Neuropathy Mononeuritis of unspecified site documented in this encounter Additional Health Concerns Assessment Noted Time PHQ-9 Depression Total Score: 0 10/15/19 24 10:59 AM EDT documented as of this encounter Care Teams Mine Car Repairer Relationship Specialty Start Date End Date Amilcar Louis MD [address] [place] [address] PCP - General Internal Medicine 04/08/14 Yessenia Olmos Ob/Gyn NurseClay Processing Labourer 09/20/23 documented as of this encounter
--- OUTSIDE RECORDS SUMMARY | 2025-07-09 13:01 | XMS_ITS | Encounter Summary ---
Author Organization [email or web address] Address [address] [facility] [address] [place] [address] Care Team Providers Care Coal Cager Name Role Phone Amilcar Louis MD Primary Care Provide r Reason for Visit * Reason Comments Med Refill Encounter Details Date Type Department Care Team ([facility] st Contact Info) Description 10/05/2024 Telephone [facility] MED[facility]INE [address] [place], [place] [phone] Joana Crump DO [address] [place], [place] [phone] Med Refill Social History Tobacco Use Types [...] the need to bring her mother to [facility] for evaluation and a blood transfusion [...] Visit [facility] ADULT DENTAL [address] [place] [address] Bev Dodge [address] [place] [address] documented as of this encounter Visit Diagnoses Diagnosis Neuropathy Mononeuritis of unspecified site documented in this encounter Additional Health Concerns Assessment Noted Time PHQ-9 Depression Total Score: 0 10/15/19 10:59 AM EDT documented as of this encounter Care Teams Coal Cager Relationship Specialty Start Date End Date Amilcar Louis MD [address] [place] [address] PCP - General Internal Medicine 04/08/14 Yessenia Olmos Resort HousekeeperQuality Control Technician 09/20/23 documented as of this encounter
--- OUTSIDE RECORDS SUMMARY | 2025-07-09 13:01 | XMS_ITS | Encounter Summary ---
Author Organization [employer] Address [address] [facility] 7t [place] [address] Care Team Providers Care Aerial Gunner Superintendent Name Role Phone Amilcar Louis MD Primary Care Provide r Encounter Details Date Type Department Care Team (Late Contact Info) Description 11/21/2022 Abstract [facility] MEDICINE [address] [place], [place] [phone] Amilcar Louis MD [address] [place], [place] [phone] Social History Tobacco Use Types Packs/Day Years [...] Description 07/28/2025 10:15 AM EST Office Visit [facility] ADULT DENTAL [address] [place], [place] [phone] Bev Dodge [address] [place] [address] documented as of this encounter Procedures Procedure Name Priority Date/Time Associated Diagnosis Comments COLONOSCOPY Routine 10/02/2018 documented in this encounter Results * Colonoscopy (10/02/2018) Colonoscopy Normal Normal 10/02/2018 Tosin Gaona - 10/02/2018 11:37 AM EDT Recommended 10 year follow up ( see scanned report) us Historical Provider [facility] Edited Result - Final documented in this encounter Visit Diagnoses Not on filedocumented in this encounter Care Teams Aerial Gunner Superintendent Relationship Specialty Start Date End Date Amilcar Louis MD [address] [place] [phone] PCP - General Internal Medicine 04/08/14 Yessenia Olmos MonotyperSafety Companion 09/20/23 documented as of this encounter
--- OUTSIDE RECORDS SUMMARY | 2025-07-09 13:01 | XMS_ITS | Encounter Summary ---
Author Organization [employer] Address [address] [facility] 7t [place] [address] Care Team Providers Care Peat Shredder Tender Name Role Phone Amilcar Louis MD Primary Care Provide r Reason for Visit * Reason Onset Date Comments Nurse Triage 07/08/2025 Encounter Details Date Type Department Care Team ([facility] st Contact Info) Description 07/08/2025 Telephone [facility] MEDICINE [address] [place], [place] [phone] Amilcar Louis MD [address] [place], [place] [phone] Nurse Triage Social History Tobacco Use Types Packs/Day [...] encounter Miscellaneous Notes * Telephone Encounter - Adrianna Hudson RN - 07/08/2025 4:33 PM EST called pt to triage, spoke to pt. through [employer] Formation Testing Operator. pt states lifted a small table today and felt pain and a pop left hip and flank. pt states feels pain with ROM or walking and requesting appt. pt denies actual fall, severe pain, fever, inability to stand or walk, or other associated symptoms. given appt tomorrow with green team provider at 10:15 for exam. advised home care: rest, ice, heat, OTC as needed and call back if worsening or new concerns. pt understands and agrees with plan. Protocol Used: Hip Pain (Adult) Protocol-Based Disposition: See in Office or Video Visit Today or Tomorrow Video visit offer not recorded Positive Triage Question: * Patient wants to be seen * All higher-acuity triage questions were negative. Care Advice Discussed: * Reassurance and Education - Hip Pain * Pain Medicines * Pain Medicines - Extra Notes and Warnings * Rest Your Hip for the Next Couple Days * Reassurance and Education - Overuse * Use a Cold Pack for Pain * Use Heat After 48 Hours for Pain * Local Heat (Bathtub Option) * Rest * Reasons To Call Back - You become worse * Telephone Encounter - Ken Figueroa - 07/08/2025 2:23 PM EST TC from pt reports slipped after getting out of a car. Pt reports pain on her left side . documented in this encounter Plan of Treatment Upcoming Encounters Date Type Department Care Team (Late st Contact Info) Description 07/28/2025 10:15 AM EST Office Visit [facility] ADULT DENTAL [address] [place], [place] [phone] Echo, Bev [address] [place], [place] [phone] documented as of this encounter Goals Goal Patient Goal Type Associated Problems Recent Progress Patient-Stated? Author Help patients manage their type 2 diabetes Care Plan Help patients manage their type 2 diabetes No Brayden Sawyerga, PIT SLAGMAN Patient has diabetic eye disease Care Plan Patient has diabetic eye disease No Sawyer Rosario, PIT SLAGMAN Help patients manage their type 2 diabetes Care Plan Help patients manage their type 2 diabetes No SawyerBraydenga, PIT SLAGMAN Patient has chronic kidney disease Care Plan Patient has chronic kidney disease No Sawyer Rosario, PIT SLAGMAN Help patients manage their type 2 diabetes Care Plan Help patients manage their type 2 diabetes No SawyerBraydenga, PIT SLAGMAN Patient has diabetic neuropathy Care Plan Patient has diabetic neuropathy No Sawyer Rosario, PIT SLAGMAN Patient has diabetic eye disease Care Plan Patient has diabetic eye disease No Sawyer Rosario, PIT SLAGMAN Patient has diabetic eye disease Care Plan Patient has diabetic eye disease No Sawyer Rosario, PIT SLAGMAN Patient has chronic kidney disease Care Plan Patient has chronic kidney disease No Sawyer, Rosario, PIT SLAGMAN Patient has chronic kidney disease Care Plan Patient has chronic kidney disease No Sawyer Rosario, PIT SLAGMAN Patient has diabetic neuropathy Care Plan Patient has diabetic neuropathy No Sawyer, Rosario, PIT SLAGMAN Patient has diabetic neuropathy Care Plan Patient has diabetic neuropathy No Sawyer, Rosario, PIT SLAGMAN Patient has diabetic eye disease Care Plan Patient has diabetic eye disease No Edel Hooper [place] Patient has diabetic eye disease Care Plan Patient has diabetic eye disease No Edel Hooper [place] Patient has diabetic eye disease Care Plan Patient has diabetic eye disease No PasadenaEdel esteban [place] Patient has chronic kidney disease Care Plan Patient has chronic kidney disease No SandieEdel esteban [place] Patient has chronic kidney disease Care Plan Patient has chronic kidney disease No Edel Hooper [place] Patient has chronic kidney disease Care Plan Patient has chronic kidney disease No Edel Hooper [place] Patient has diabetic neuropathy Care Plan Patient has diabetic neuropathy No Edel Hooper [place] Patient has diabetic neuropathy Care Plan Patient has diabetic neuropathy No Edel Hooper [place] Patient has diabetic neuropathy Care Plan Patient has diabetic neuropathy No Edel Hooper [place] Patient has diabetic eye disease Care Plan [...] Plan Patient has diabetic neuropathy No Colon Jose Montaguela Patient has diabetic neuropathy Care Plan Patient [...] Care Plan Patient has diabetic neuropathy No Figueroa, Ken documented as of this encounter Visit Diagnoses [...] neuropathy 07/08/2025 Patient has diabetic neuropathy 07/08/2025 Assessment Noted Time PHQ-9 Depression Total Score: 4 10/16/19 25 11:13 AM EDT documented as of this encounter Care Teams Peat Shredder Tender Relationship Specialty Start Date End Date Amilcar Louis MD [address] [place] [address] PCP - General Internal Medicine 04/08/14 Yessenia Olmos Rerolling Machine OperatorWorkforce Analyst 09/20/23 documented as of this encounter
--- OUTSIDE RECORDS SUMMARY | 2025-07-09 13:01 | XMS_ITS | Encounter Summary ---
Author Organization [employer] Address [address] [facility] 7t [place] [address] Care Team Providers Care Director Of Field Sales Name Role Phone Amilcar Louis MD Primary Care Provide r Reason for Visit * Reason Onset Date Comments Med Refill 06/02/2024 Encounter Details Date Type Department Care Team ([facility] st Contact Info) Description 06/02/2024 Telephone [facility] MED[facility]INE [address] [place], [place] [phone] Amilcar Louis MD [address] [place] [address] Med Refill Social History Tobacco Use Types [...] Description 07/28/2025 10:15 AM EST Office Visit [facility] ADULT DENTAL [address] [place] [address] Echo, Bev [address] [place] [address] documented as of this encounter Visit Diagnoses Not on filedocumented in this encounter Additional Health Concerns Assessment Noted Time PHQ-9 Depression Total Score: 0 10/15/19 10:59 AM EDT documented as of this encounter Care Teams Director Of Field Sales Relationship Specialty Start Date End Date Amilcar Louis MD [address] [place] [address] PCP - General Internal Medicine 04/08/14 Yessenia Olmos Cost Accounting AnalystBroadcast Journalist 09/20/23 documented as of this encounter
--- OUTSIDE RECORDS SUMMARY | 2025-07-09 13:01 | XMS_ITS | Encounter Summary ---
Author Organization [employer] Address [address] [facility] 7t [place] [address] Care Team Providers Care Tableman Name Role Phone Amilcar Louis MD Primary Care Provide r Encounter Details Date Type Department Care Team (Late st Contact Info) Description 08/31/2022 Refill [facility] MEDICINE [address] [place] [address] Amilcra Louis MD [address] [place] [address] Type 2 diabetes mellitus with foot ulcer, with long-term current use of insulin ([facility]) Social History Tobacco Use Types [...] Description 07/28/2025 10:15 AM EST Office Visit [facility] ADULT DENTAL [address] [place] [address] Bev Dodge [address] [place] [address] documented as of this encounter Visit Diagnoses Diagnosis Type 2 diabetes mellitus with foot ulcer, with long-term current use of insulin ([facility]) documented in this encounter Care Teams Tableman Relationship Specialty Start Date End Date Amilcar Louis MD [address] [place] [address] PCP - General Internal Medicine 04/08/14 Yessenia Olmos Qa EngineerEmergency Planner 09/20/23 documented as of this encounter
--- OUTSIDE RECORDS SUMMARY | 2025-07-09 13:02 | XMS_ITS | Encounter Summary ---
Author Organization [employer] Address [address] [facility] 7t [place] [address] Care Team Providers Care Clinical Biochemical Geneticist Name Role Phone Amilcar Louis MD Primary Care Provide r Reason for Visit * Reason Onset Date Comments Med Refill 12/23/2023 Encounter Details Date Type Department Care Team ([facility] st Contact Info) Description 12/23/[address] [facility] MED[facility] [address] [place], [place] [phone] Amilcar Louis MD [address] [place] [address] Allergic rhinitis, unspecified seasonality, unspecified trigger Social [...] tablet To be sent to: [facility] [address] [place] [address] documented in this encounter Plan of Treatment Upcoming Encounters Date Type Department Care Team (Late st Contact Info) Description 07/28/2025 10:15 AM EST Office Visit [facility] ADULT DENTAL [address] [place] [address] Echo, Bev [address] [place] [address] documented as of this encounter Visit Diagnoses Diagnosis Allergic rhinitis, unspecified seasonality, unspecified trigger documented in this encounter Additional Health Concerns Assessment Noted Time PHQ-9 Depression Total Score: 0 10/15/19 24 10:59 AM EDT documented as of this encounter Care Teams Clinical Biochemical Geneticist Relationship Specialty Start Date End Date Amilcar Louis MD [address] [place] [address] PCP - General Internal Medicine 04/08/14 Yessenia Olmos Clinical TherapistPlant Technician/Control Room Operator 09/20/23 documented as of this encounter
--- OUTSIDE RECORDS SUMMARY | 2025-07-09 13:02 | XMS_ITS | Encounter Summary ---
Author Organization [employer] Address [address] [facility] [address] 7[address] [place] [address] Care Team Providers Care Storage Receipt Poster Name Role Phone Amilcar Louis MD Primary Care Provide r Encounter Details Date Type Department Care Team ([facility] st Contact Info) Description 07/16/2024 Telephone [facility] MED[facility]INE [address] [place], [place] [phone] Amilcar Louis MD [address] [place], [place] [phone] Social History Tobacco Use Types Packs/Day Years [...] Description 07/28/2025 10:15 AM EST Office Visit [facility] ADULT DENTAL [address] [place] [address] Echo, Bev [address] [place] [address] documented as of this encounter Visit Diagnoses Not on filedocumented in this encounter Additional Health Concerns Assessment Noted Time PHQ-9 Depression Total Score: 0 10/15/19 10:59 AM EDT documented as of this encounter Care Teams Storage Receipt Poster Relationship Specialty Start Date End Date Amilcar Louis MD [address] [place] [address] PCP - General Internal Medicine 04/08/14 Yessenia Olmos Doctor Of PodiatrySenior Environmental Technician 09/20/23 documented as of this encounter
--- OUTSIDE RECORDS SUMMARY | 2025-07-09 13:02 | XMS_ITS | Clinical Summary ---
Author Organization [facility] [employer] Address [address] [facility] [place] [address] Phone Care Team Providers Care Security Coordinator Name Role Phone Amilcar Bauer MD Primary [...] the skin every 7 (seven) days. Active clopidogreL (PLAVIX) 75 mg tabletIndication s:Coronary artery disease involving osage heart, unspecified vessel or lesion type, unspecified whether angina present TAKE 1 TABLET BY MOUTH ONCE DAILY 30 tablet 11 5 Active dapagliflozin propanediol (Farxiga) 10 mg tablet Take 1 tablet (10 mg total) by mouth 1 (one) time each day. 90 tablet 3 5 Active metoprolol succinate (TOPROL-XL) 25 mg 24 hr tablet Take 1 tablet (25 mg total) by mouth 1 (one) time each day. Do not crush or chew. 90 tablet 1 5 Active metoprolol succinate (TOPROL-XL) 25 mg 24 hr tablet Take 1 tablet (25 mg total) by mouth 1 (one) time each day. Do not crush or chew. 30 each 11 5 06/25/20 25 Discontinu ed(Reorder ) Active Problems Problem Noted Date Diagnosed Date [...] time each day. HFrEF (heart failure with reduced ejection fract ion) 08/13/2024 Assessment & Plan (12/21/2024 3:56 PM [...] to titrate GDMT further. STEMI (ST elevation myocardial infarction) 08/11 HLD (hyperlipidemia) 08/11/2024 Assessment & Plan (12/21/2024 [...] Encounters Date Type Department Care Team Description 05/07/2025 Telephone [facility] [address] [facility] [address] [place] [address] Mary Ann Allen NP from Last 3 Months Surgical History Surgery Date Site/Laterality Comments CARDIAC CATHETERIZATION DONE ON 07/17/2024 AT [facility] INDICATIONS:NSTEMI CARDIAC CATHETERIZATION DONE ON 09/01/2024 AT [facility] INDICATIONS:CAD Medical History Medical History Date Comments T2DM (type 2 diabetes mellitus) ([facility] V24, CM S/HCC V28) Iron deficiency anemia [...] on file Sexual Orientation Not on file Last Filed Vital Signs Vital Sign Reading [...] Care Team (Late st Contact Info) Description 07/19/2025 8:40 AM EST Office Visit [facility] - [facility] [address] [place] [phone] Mary Ann Allen NP [address] [place] [address] [address] [place] [phone] Health Maintenance Due Date Last Done Comments Breast Cancer Screening 1958 Colorectal Cancer Screening: Colonoscopy 1958 Diabetes: Annual Foot Exam 1968 Diabetes: Annual Retina Eye Exam 1968 Pneumococcal Vaccine: 50+ Years (2 of 2 - PCV) 2008 04/28/1997 RSV Immunization Adult Patients (1 - Risk 50-74 years 1-dose series) 2008 Falls Risk Assessment 07/20/2024 Medicare Annual Wellness Visit 07/20/2024 Osteoporosis Screening (Bone Density Screening) 07/20/2024 Social Influencers of Health Screening 07/20/2024 Depression Screening 07/22/2024 Diabetes: Annual Urine Albumin-Creatinine Ratio (uACR) 08/14/2024 Diabetes: Blood Sugar Control Test (HGBA1C) 01/25/2025 07/28/2024 COVID-19 Vaccine ( season) 2025 06/12/2024, 08/22/2023, [...] AM EST Performed at: 01 - [facility] [address] [id number] Construction Quality Control Manager: Ginette Carver MD, Phone: [phone] us Marco A Williamson MD LAB BLOOD ORDERABLES Final Res ult [facility] 1 from Last 3 Months or Most Recently Relevant to Health Maintenance Insurance [facility] MEDIC[facility] Member Subscriber Plan / Payer (Ef fective 2023-Present) Name:FERNIE GARY Relation to Subscriber:Self Name:Fernie Almodovar Payer ID:[id number] Group ID:[id number] Type:Not on file Address: [place] [address] [place] [phone] Care Teams Security Coordinator Relationship Specialty Start Date End Date Amilcar Bauer MD [address] [place] [address] PCP - General Internal Medicine 07/20/24
--- OUTSIDE RECORDS SUMMARY | 2025-07-09 13:02 | XMS_ITS | Encounter Summary ---
Author Organization [employer] Address [address] [facility] 7t [place] [address] Care Team Providers Care Hemotherapist Name Role Phone Amilcar Louis MD Primary Care Provide r Reason for Visit * Reason Onset Date Comments Referral 01/21/2025 Encounter Details Date Type Department Care Team ([facility] st Contact Info) Description 01/21/2025 Telephone [facility] MEDICINE [address] [place], [place] [phone] Amilcar Louis MD [address] [place], [place] [phone] Referral Social History Tobacco Use Types Packs/Day Years [...] * Telephone Encounter - Feroz Rao - 01/21/2025 1:14 PM EDT Tc from pt requesting call back stating [facility] stating they're requesting further information. If any questions please contact pt at [phone]. (Persian Speaker) documented in this encounter Plan of Treatment Upcoming Encounters Date Type Department Care Team (Late st Contact Info) Description 07/28/2025 10:15 AM EST Office Visit [facility] ADULT DENTAL [address] [place] [address] Echo, Bev [address] [place] [address] documented as of this encounter Visit Diagnoses Not on filedocumented in this encounter Additional Health Concerns Assessment Noted Time PHQ-9 Depression Total Score: 4 10/16/19 25 11:13 AM EDT documented as of this encounter Care Teams Hemotherapist Relationship Specialty Start Date End Date Amilcar Louis MD [address] [place] [address] PCP - General Internal Medicine 04/08/14 Yessenia Olmos Voice And Data TechnicianPlastic Shaper 09/20/23 documented as of this encounter
--- OUTSIDE RECORDS SUMMARY | 2025-07-09 13:02 | XMS_ITS | Encounter Summary ---
Author Organization [employer] Address [address] [facility] [address] [place] [address] Care Team Providers Care Pyrotechnician Name Role Phone Amilcar Louis MD Primary Care Provide r Reason for Visit * Reason Comments Med Refill Encounter Details Date Type Department Care Team ([facility] st Contact Info) Description 05/18/2024 Refill [facility] MEDICINE [address] [place], [place] [phone] Jessie Sanchez MD [address] [place], [place] [phone] Neuropathy Social History Tobacco Use Types Packs/Day [...] Description 07/28/2025 10:15 AM EST Office Visit [facility] ADULT DENTAL [address] [place] [address] EchoDennisBev [address] [place] [address] documented as of this encounter Visit Diagnoses Diagnosis Neuropathy Mononeuritis of unspecified site documented in this encounter Additional Health Concerns Assessment Noted Time PHQ-9 Depression Total Score: 0 10/15/19 10:59 AM EDT documented as of this encounter Care Teams Pyrotechnician Relationship Specialty Start Date End Date Amilcar Louis MD [address] [place] [address] PCP - General Internal Medicine 04/08/14 Yessenia Olmos Prepress TechnicianCrayon Painter 09/20/23 documented as of this encounter
--- OUTSIDE RECORDS SUMMARY | 2025-07-09 13:02 | XMS_ITS | Encounter Summary ---
Author Organization [employer] Address [address] [facility] 7t [place] [address] Care Team Providers Care Rn Medication Name Role Phone Amilcar Louis MD Primary Care Provide r Reason for Visit * Reason Onset Date Comments Medication Question 02/10/2025 Encounter Details Date Type Department Care Team ([facility] Contact Info) Description 02/10/2025 Telephone [facility] MEDICINE [address] [place], [place] [phone] Amilcar Louis MD [address] [place], [place] [phone] Medication Question Social History Tobacco Use Types [...] Telephone Encounter - Joana Worley LPN - 02/10/2025 10:06 AM EDT Pended to PCP. * Telephone Encounter - Bev Jerome - 02/10/2025 10:03 AM EDT Tc from [facility] regarding script for insulin pen needle (BD Pen Needle Sandra U/F) 32G x 4 mm misc. Script must state Dw1 documented in this encounter Plan of Treatment Upcoming Encounters Date Type Department Care Team (Late st Contact Info) Description 07/28/2025 10:15 AM EST Office Visit [facility] ADULT DENTAL [address] [place] [address] Bev Dodge [address] [place] [address] documented as of this encounter Visit Diagnoses Not on filedocumented in this encounter Additional Health Concerns Assessment Noted Time PHQ-9 Depression Total Score: 4 10/16/19 25 11:13 AM EDT documented as of this encounter Care Teams Rn Medication Relationship Specialty Start Date End Date Amilacr Louis MD [address] [place] [address] PCP - General Internal Medicine 04/08/14 Yessenia Olmos Treasury AssociateCarbide Grinder 09/20/23 documented as of this encounter
== END 2025-07-09 11:05 | disposition home or self-care (01) ==
LOC: HO.HHCX 11:04
PROVIDERS: PCP Internal Medicine; Visit Provider Internal Medicine
DX: M79.605 Pain in left leg (principal)
CPT/HCPCS: 73502; 73552

== ENCOUNTER → 2025-07-09 11:32 | Outpatient (BNV) | payer OTHER, SELFPAY | PROVIDERS: PCP Internal Medicine; Visit Provider Radiology Diagnostic Radiology | DX: M16.12 Unilateral primary osteoarthritis, left hip (principal); M79.662 Pain in left lower leg; Z04.3 Encounter for examination and observation following other accident | CPT/HCPCS: 73502; 73552 ==